=== PATIENT | female | born 1960 | race Caucasian/White ===

== ENCOUNTER 2022-04-17 20:50 | Emergency (ER) | payer MEDICARE ==
[2022-04-17 21:35] LABS: HCT 42.8 % (34.0-46.0); HGB 15.2 gm/dL (11.4-16.0); MCH 34.1 pg (25.0-35.0); MCHC 35.5 g/dL (31.0-37.0); MCV 95.9 fL (80.0-100.0); Mean Platelet Volume 7.3; Platelet Count 398 k/uL (150-450); RBC 4.47 m/uL (3.80-5.40); RDW 12.1 % (11.5-15.5); WBC 12.1 k/uL (3.8-10.6)
[2022-04-17 21:45] LABS: Albumin 5.3 g/dL (3.5-5.0); Calcium 10.2 mg/dL (8.4-10.2); Potassium 4.6 mmol/L (3.5-5.1); Total Bilirubin 0.5 mg/dL (0.2-1.3); Total Protein 8.6 g/dL (6.3-8.2)
[2022-04-17 23:18] LABS: Basophils # (M) 0.12 k/uL (0-0.2); Eosinophils # (M) 0.36 k/uL (0-0.7); Lymphocytes # (M) 2.78 k/uL (1.0-4.8); Monocytes # (M) 1.09 k/uL (0-1.0); Neutrophils # (M) 7.74 k/uL (1.3-7.7); Neutrophils % (M) 64 %; Nucleated Red Blood Cells 0 /100 WBC (0-0); Total Cells Counted 100
[2022-04-17] MEDS ORDERED: MORPHINE SULFATE 4 MG/ML SYRINGE IV STA (23:55)
[2022-04-17] MEDS ORDERED: SODIUM CHLORIDE 0.9% 500 ML 500 ML IV STA (23:55)
[2022-04-18] MEDS ORDERED: HYDROmorphone 0.5 MG/0.5 ML SYRINGE IVP STA ×2 (00:11→01:14)
[2022-04-18] MEDS ORDERED: ONDANSETRON 4 MG/2 ML VIAL IVP STA (00:27)
--- NOTE | 2022-04-18 00:27 | CT ---
EXAMINATION TYPE: CT abdomen pelvis wo con DATE OF EXAM: 04/18/2022 COMPARISON: None HISTORY: LLQ pain, h/o diverticulitis, CT DLP: 598.3 mGycm Automated exposure control for dose reduction was used. Images obtained from the diaphragm to the floor the pelvis with no contrast. Lung bases show mild interstitial infiltrate or atelectasis. No pleural effusion. Heart size is jalyn l. No pericardial effusion. Liver spleen and stomach pancreas appear intact. There are clips from cholecystectomy. The bile ducts are nondilated. Stomach has normal size and contour. There is no adrenal mass. Kidneys of normal size and contour. No hydronephrosis. Ureters are not dila lili. Bladder distends smoothly. No inguinal hernia. No free fluid in the pelvis. No pelvic mass. Ther e are numerous sigmoid diverticula. There is some mild fat stranding posterior to the mid sigmoid col on. Appendix not seen. There is no mesenteric lymphadenopathy. No ascites or free air. No sign of a bowel obstruction. The lumbar vertebrae are normal alignment. No compression fracture. Disc spaces are fairly normal. [place] pelvis is intact. The hip joints are intact. There is mild L3-4 lateral recess stenosis due to fac et arthropathy. IMPRESSION: There is moderate sigmoid diverticulosis. There is evidence of mild diverticulitis of the mid posteri or sigmoid colon. No drainable fluid collection.
--- NOTE | 2022-04-18 00:39 | ED ---
Abdominal Pain HPI - General Chief Complaint: Abdominal Pain Stated Complaint: Diverticulosis Time Seen by Provider: 04/17/22 21:04 Source: patient Mode of arrival: ambulatory Limitations: no limitations - History of Present Illness Initial Comments: This patient is a 61-year-old woman who presents with left lower quadrant abdominal pain that is been going on for couple of days. The patient had recently finished course of antibiotics for diverticulitis, which she had similar symptoms 4. Patient has also noticed a little bit of blood with her last bowel movement. She has had nausea but no vomiting. She has not noted fever or chills. MD Complaint: abdominal pain Onset/Timin -: days(s) Location: LLQ Radiation: none Severity: severe Quality: aching Consistency: constant Improves With: nothing Worsens With: nothing Associated Symptoms: nausea, hematochezia - Related Data Previous Rx's Medication Instructions Recorded Ciprofloxacin HCl [Cipro] 500 mg PO Q12HR #14 tablet 04/18/22 Ciprofloxacin HCl [Cipro] 500 mg PO Q8H #21 tablet 04/18/22 metroNIDAZOLE [Flagyl] 500 mg PO TID #21 tab 04/18/22 Allergies Allergy/AdvReac Type Severity Reaction Status Date / Time iodine Allergy Unknown Verified 04/17/22 20:57 Penicillins Allergy Unknown Verified 04/17/22 20:57 Sulfa (Sulfonamide Allergy Unknown Verified 04/17/22 20:57 Antibiotics) Review of Systems ROS Statement: Those systems with pertinent positive or pertinent negative responses have been documented in the HPI. ROS Other: All systems not noted in ROS Statement are negative. Constitutional: Denies: fever, chills, weakness Respiratory: Denies: cough, dyspnea Cardiovascular: Denies: chest pain, palpitations, edema Gastrointestinal: Reports: abdominal pain, nausea, hematochezia. Denies: vomiting, diarrhea, constipation, hematemesis, melena Genitourinary: Denies: dysuria, hematuria Musculoskeletal: Denies: back pain Skin: Denies: rash Neurological: Denies: headache, weakness, numbness Past Medical History Past Medical History: Hypertension Additional Past Medical History / Comment(s): diverticulitis History of Any Multi-Drug Resistant Organisms: None Reported Past Surgical History: Appendectomy, Bladder Surgery, Section, Cholecystectomy, Hysterectomy Past Psychological History: No Psychological Hx Reported Smoking Status: Current every day smoker Past Alcohol Use History: Abuse Past Drug Use History: Marijuana, Methamphetamine General Exam Limitations: no limitations General appearance: alert, in no apparent distress Head exam: Present: atraumatic, normocephalic Eye exam: Present: normal appearance Neck exam: Present: normal inspection Respiratory exam: Present: normal lung sounds bilaterally. Absent: respiratory distress, wheezes, rales, rhonchi, stridor Cardiovascular Exam: Present: regular rate, normal rhythm, normal heart sounds. Absent: systolic murmur, diastolic murmur, rubs, gallop GI/Abdominal exam: Present: soft, tenderness, normal bowel sounds. Absent: distended, guarding, rebound, rigid, mass, pulsatile mass, hernia Extremities exam: Present: normal inspection, normal capillary refill. Absent: pedal edema, calf tenderness Back exam: Present: normal inspection. Absent: CVA tenderness (R), CVA tenderness (L) Neurological exam: Present: alert Skin exam: Present: warm, dry, intact, normal color. Absent: rash Course Vital Signs 04/17/22 20:57 Temperature 98.1 F Pulse Rate 15 L Respiratory 16 Rate Blood Pressure 161/99 O2 Sat by Pulse 97 Oximetry Medical Decision Making - Lab Data Result diagrams: 04/17/22 21:19 04/17/22 21:19 Lab Results 04/17/22 04/17/22 Range/Units 21:19 21:19 WBC 12.1 H (3.8-10.6) k/uL RBC 4.47 (3.80-5.40) m/uL Hgb 15.2 (11.4-16.0) gm/dL Hct 42.8 (34.0-46.0) % MCV 95.9 (80.0-100.0) fL MCH 34.1 (25.0-35.0) pg MCHC 35.5 (31.0-37.0) g/dL RDW 12.1 (11.5-15.5) % Plt Count 398 (150-450) k/uL MPV 7.3 Neutrophils % (Manual) 64 % Lymphocytes % (Manual) 23 % Monocytes % (Manual) 9 % Eosinophils % (Manual) 3 % Basophils % (Manual) 1 % Neutrophils # (Manual) 7.74 H (1.3-7.7) k/uL Lymphocytes # (Manual) 2.78 (1.0-4.8) k/uL Monocytes # (Manual) 1.09 H (0-1.0) k/uL Eosinophils # (Manual) 0.36 (0-0.7) k/uL Basophils # (Manual) 0.12 (0-0.2) k/uL Nucleated RBCs 0 (0-0) /100 WBC Manual Slide Review Performed Sodium 138 (137-145) mmol/L Potassium 4.6 (3.5-5.1) mmol/L Chloride 100 (98-107) mmol/L Carbon Dioxide 28 (22-30) mmol/L Anion Gap 10 mmol/L BUN 27 H (7-17) mg/dL Creatinine 0.96 (0.52-1.04) mg/dL Est GFR (CKD-EPI)AfAm 74 (>60 ml/min/1.73 sqM) Est GFR (CKD-EPI)NonAf 64 (>60 ml/min/1.73 sqM) Glucose 112 H (74-99) mg/dL Calcium 10.2 (8.4-10.2) mg/dL Total Bilirubin 0.5 (0.2-1.3) mg/dL AST 26 (14-36) U/L ALT 25 (4-34) U/L Alkaline Phosphatase 93 (38-126) U/L Total Protein 8.6 H (6.3-8.2) g/dL Albumin 5.3 H (3.5-5.0) g/dL Amylase 86 (30-110) U/L Lipase 95 (23-300) U/L Disposition Clinical Impression: Diverticulitis Disposition: HOME SELF-CARE Condition: Fair Instructions (If sedation given, give patient instructions): Diverticulitis (ED) Prescriptions: Ciprofloxacin HCl [Cipro] 500 mg PO Q12HR #14 tablet Ciprofloxacin HCl [Cipro] 500 mg PO Q8H #21 tablet metroNIDAZOLE [Flagyl] 500 mg PO TID #21 tab Is patient prescribed a controlled substance at d/c from ED?: No Referrals: None,Stated [Primary Care Provider] - 1-2 days
[2022-04-18] MEDS ORDERED: LEVOFLOXACIN 750MG-D5W PMX 750 MG in DEXTROSE/WATER 1 150ML.BAG IVPB STA (01:00)
[2022-04-18] MEDS ORDERED: metroNIDAZOLE-NS PMX 500 MG in SALINE 1 100ML.BAG IVPB STA (01:00)
[2022-04-18] MEDS ORDERED: diphenhydrAMINE 50 MG/ML 1 ML VIAL IVP STA ×2 (02:37→03:02)
[2022-04-18] MEDS ORDERED: FAMOTIDINE 20 MG/2 ML VIAL IV STA (03:02)
[2022-04-18 04:49] VITALS: PULSE 91; RESP 18
[2022-04-18 04:51] VITALS: BP 112/74; TEMP 97.9
== END 2022-04-18 04:50 | disposition home or self-care (01) ==
LOC: EC 20:50
DX: K57.92 Diverticulitis of intestine, part unspecified, without perforation or abscess without bleeding (principal); I10 Essential (primary) hypertension; F17.200 Nicotine dependence, unspecified, uncomplicated; F12.90 Cannabis use, unspecified, uncomplicated; Z88.0 Allergy status to penicillin; Z88.2 Allergy status to sulfonamides; Z91.041 Radiographic dye allergy status; Z79.899 Other long term (current) drug therapy
CPT/HCPCS: 36415; 80053; 82150; 83690; 85025; 74176; 99284; 96365; 96366; 96367; 96375 ×4; 96376; J1200; J2405; J1956; J1170

== ENCOUNTER 2022-04-18 20:11 | Observation (INO) | payer MEDICARE ==
[2022-04-18] MEDS ORDERED: ONDANSETRON 4 MG/2 ML VIAL IVP STA (20:35)
[2022-04-18] MEDS ORDERED: HYDROmorphone 0.5 MG/0.5 ML SYRINGE IVP STA ×2 (20:35→22:40)
[2022-04-18] MEDS ORDERED: SODIUM CHLORIDE 0.9% 1,000 ML IV STA (20:35)
--- NOTE | 2022-04-18 20:39 | ED ---
General Adult HPI - General Chief complaint: Abdominal Pain Stated complaint: Diverticulosis Time Seen by Provider: 04/18/22 20:23 Source: patient, RN notes reviewed Mode of arrival: ambulatory Limitations: no limitations - History of Present Illness Initial comments: 61-year-old female with a past medical history of diverticulitis presents to the emergency Department with complaints of left lower quadrant abdominal pain that radiates to the back. Patient states she was diagnosed with diverticulitis early this morning while present in this emergency Department. States she was given fluids and pain medicine with some improvement. States she was discharged home with a prescription for oral antibiotics, but is feeling worse this evening. States pain is out of control. Complains of vomiting and dry heaving. States she has had several episodes of diarrhea today. Denies fever, chills, headache, dizziness, chest pain, shortness of breath, hematochezia, dysuria, or hematuria. - Related Data Previous Rx's Medication Instructions Recorded Ciprofloxacin HCl [Cipro] 500 mg PO Q12HR #14 tablet 04/18/22 Ciprofloxacin HCl [Cipro] 500 mg PO Q8H #21 tablet 04/18/22 metroNIDAZOLE [Flagyl] 500 mg PO TID #21 tab 04/18/22 Allergies Allergy/AdvReac Type Severity Reaction Status Date / Time iodine Allergy Unknown Verified 04/18/22 20:15 Penicillins Allergy Unknown Verified 04/18/22 20:15 Sulfa (Sulfonamide Allergy Unknown Verified 04/18/22 20:15 Antibiotics) Review of Systems ROS Statement: Those systems with pertinent positive or pertinent negative responses have been documented in the HPI. ROS Other: All systems not noted in ROS Statement are negative. Past Medical History Past Medical History: Hypertension Additional Past Medical History / Comment(s): diverticulitis History of Any Multi-Drug Resistant Organisms: None Reported Past Surgical History: Appendectomy, Bladder Surgery, Section, Cholecystectomy, Hysterectomy Past Psychological History: No Psychological Hx Reported Smoking Status: Current every day smoker Past Alcohol Use History: Abuse Past Drug Use History: Marijuana, Methamphetamine - Past Family History Mother Family Medical History: Hypertension General Exam Limitations: no limitations (Well-developed, well-nourished female in no acute distress.) General appearance: alert, in no apparent distress Eye exam: Present: normal appearance. Absent: scleral icterus, conjunctival i njection ENT exam: Present: mucous membranes moist Respiratory exam: Present: normal lung sounds bilaterally. Absent: respiratory distress, wheezes, rales, rhonchi, stridor Cardiovascular Exam: Present: normal rhythm, tachycardia, normal heart sounds GI/Abdominal exam: Present: soft, tenderness (Left lower quadrant), guarding (Left lower quadrant), normal bowel sounds. Absent: distended, rebound, rigid Back exam: Absent: CVA tenderness (R), CVA tenderness (L) Neurological exam: Present: alert, oriented X3, CN II-XII intact, normal gait Psychiatric exam: Present: normal affect, normal mood Skin exam: Present: warm, dry, intact, normal color. Absent: rash Course Vital Signs 04/18/22 04/18/22 04/18/22 20:13 21:30 23:58 Temperature 97.9 F Pulse Rate 105 H 79 Pulse Rate [ Left] Respiratory 20 Rate Blood Pressure 149/90 157/78 Blood Pressure [Left Arm] O2 Sat by Pulse 99 Oximetry 04/19/22 02:31 Temperature 98.1 F Pulse Rate Pulse Rate [ 82 Left] Respiratory 16 Rate Blood Pressure Blood Pressure 133/80 [Left Arm] O2 Sat by Pulse 97 Oximetry - Reevaluation(s) Reevaluation #1: 04/18/22 20:30 Medical record reviewed at length including CT from earlier today. 04/18/22 22:30 Upon reassessment, patient reports pain is ongoing. Discussed hospital admission for failed outpatient treatment and patient is agreeable with this plan of care. I spoke with Dr. Zayas who agrees to accept this admission. Medical Decision Making - Medical Decision Making 61-year-old female with a past medical history of diverticulitis presents to the emergency Department with complaints of ongoing persistent left lower quadrant abdominal pain despite recent treatment for diverticulitis. She is currently a patient at [facility] and recently relocated here from [place]. Upon exam, patient appears moderately uncomfortable but in no acute distress. Left lower quadrant is tender upon palpation. She is given IV fluids, Dilaudid and Zofran with improvement. Vital signs stable. Laboratory studies were obtained showing mild SHERI. Given that this patient has been treated with oral antibiotic and continues to have pain, she will be admitted to the hospital for failed outpat ient treatment. I spoke with Dr. Zayas who agrees to accept this admission. Attending: Julia. - Lab Data Result diagrams: 04/18/22 21:29 04/18/22 21:29 Lab Results 04/18/22 04/18/22 04/18/22 Range/Units 21:29 21:29 21:29 WBC 8.7 (3.8-10.6) k/uL RBC 4.42 (3.80-5.40) m/uL Hgb 14.6 (11.4-16.0) gm/dL Hct 42.5 (34.0-46.0) % MCV 96.3 (80.0-100.0) fL MCH 33.1 (25.0-35.0) pg MCHC 34.3 (31.0-37.0) g/dL RDW 12.5 (11.5-15.5) % Plt Count 351 (150-450) k/uL MPV 8.2 Neutrophils % (Manual) 58 % Lymphocytes % (Manual) 33 % Monocytes % (Manual) 2 % Eosinophils % (Manual) 7 % Neutrophils # (Manual) 5.05 (1.3-7.7) k/uL Lymphocytes # (Manual) 2.87 (1.0-4.8) k/uL Monocytes # (Manual) 0.17 (0-1.0) k/uL Eosinophils # (Manual) 0.61 (0-0.7) k/uL Nucleated RBCs 0 (0-0) /100 WBC Manual Slide Review Performed PT 9.8 (9.0-12.0) sec INR 0.9 (<1.2) APTT 25.9 (22.0-30.0) sec Sodium 138 (137-145) mmol/L Potassium 5.2 H (3.5-5.1) mmol/L Chloride 102 (98-107) mmol/L Carbon Dioxide 29 (22-30) mmol/L Anion Gap 7 mmol/L BUN 27 H (7-17) mg/dL Creatinine 1.09 H (0.52-1.04) mg/dL Est GFR (CKD-EPI)AfAm 64 (>60 ml/min/1.73 sqM) Est GFR (CKD-EPI)NonAf 55 (>60 ml/min/1.73 sqM) Glucose 109 H (74-99) mg/dL Plasma Lactic Acid Keith (0.7-2.0) mmol/L Calcium 9.9 (8.4-10.2) mg/dL Total Bilirubin 0.8 (0.2-1.3) mg/dL AST 31 (14-36) U/L ALT 22 (4-34) U/L Alkaline Phosphatase 75 (38-126) U/L Total Protein 7.5 (6.3-8.2) g/dL Albumin 4.5 (3.5-5.0) g/dL 04/18/ Range/Units 21:29 WBC (3.8-10.6) k/uL RBC (3.80-5.40) m/uL Hgb (11.4-16.0) gm/dL Hct (34.0-46.0) % MCV (80.0-100.0) fL MCH (25.0-35.0) pg MCHC (31.0-37.0) g/dL RDW (11.5-15.5) % Plt Count (150-450) k/uL MPV Neutrophils % (Manual) % Lymphocytes % (Manual) % Monocytes % (Manual) % Eosinophils % (Manual) % Neutrophils # (Manual) (1.3-7.7) k/uL Lymphocytes # (Manual) (1.0-4.8) k/uL Monocytes # (Manual) (0-1.0) k/uL Eosinophils # (Manual) (0-0.7) k/uL Nucleated RBCs (0-0) /100 WBC Manual Slide Review PT (9.0-12.0) sec INR (<1.2) APTT (22.0-30.0) sec Sodium (137-145) mmol/L Potassium (3.5-5.1) mmol/L Chloride (98-107) mmol/L Carbon Dioxide (22-30) mmol/L Anion Gap mmol/L BUN (7-17) mg/dL Creatinine (0.52-1.04) mg/dL Est GFR (CKD-EPI)AfAm (>60 ml/min/1.73 sqM) Est GFR (CKD-EPI)NonAf (>60 ml/min/1.73 sqM) Glucose (74-99) mg/dL Plasma Lactic Acid Keith 0.9 (0.7-2.0) mmol/L Calcium (8.4-10.2) mg/dL Total Bilirubin (0.2-1.3) mg/dL AST (14-36) U/L ALT (4-34) U/L Alkaline Phosphatase (38-126) U/L Total Protein (6.3-8.2) g/dL Albumin (3.5-5.0) g/dL Disposition Clinical Impression: Diverticulitis, Failure of outpatient treatment, Acute kidney injury [facility] Condition: Serious Decision Date: 04/18/22 Decision Time: 22:56
[2022-04-18 21:52] LABS: Albumin 4.5 g/dL (3.5-5.0); Calcium 9.9 mg/dL (8.4-10.2); Total Bilirubin 0.8 mg/dL (0.2-1.3); Total Protein 7.5 g/dL (6.3-8.2)
[2022-04-18 21:59] LABS: Potassium 5.2 mmol/L (3.5-5.1)
[2022-04-18 22:03] LABS: INR 0.9 (<1.2); Partial Thromboplastin Time 25.9 sec (22.0-30.0); Prothrombin Time 9.8 sec (9.0-12.0)
[2022-04-18 22:04] LABS: HCT 42.5 % (34.0-46.0); HGB 14.6 gm/dL (11.4-16.0); MCH 33.1 pg (25.0-35.0); MCHC 34.3 g/dL (31.0-37.0); MCV 96.3 fL (80.0-100.0); Mean Platelet Volume 8.2; Platelet Count 351 k/uL (150-450); RBC 4.42 m/uL (3.80-5.40); RDW 12.5 % (11.5-15.5); WBC 8.7 k/uL (3.8-10.6)
[2022-04-18 22:33] LABS: Eosinophils # (M) 0.61 k/uL (0-0.7); Lymphocytes # (M) 2.87 k/uL (1.0-4.8); Monocytes # (M) 0.17 k/uL (0-1.0); Neutrophils # (M) 5.05 k/uL (1.3-7.7); Neutrophils % (M) 58 %; Nucleated Red Blood Cells 0 /100 WBC (0-0); Total Cells Counted 100
[2022-04-18 22:53] LABS: Amorphous Sediment,Urine Rare /hpf; Appearance,Urine Clear (Clear); Bacteria,Urine Rare /hpf; Bilirubin,Urine Negative (Negative); Blood,Urine Trace (Negative); Color,Urine Yellow; Glucose,Urine (UA) Negative (Negative); Ketones,Urine Negative (Negative); Leukocyte Esterase,Urine Trace (Negative); Mucus,Urine Rare /hpf; Nitrite,Urine Negative (Negative); PH, Urine 6.5 (5.0-8.0); Protein,Urine Negative (Negative); RBC,Urine 7 /hpf (0-5); Specific Gravity,Urine 1.021 (1.001-1.035); Squamous Epithelial Cell,Urine <1 /hpf (0-4); Urobilinogen,Urine <2.0 mg/dL (<2.0); WBC,Urine 1 /hpf (0-5)
[2022-04-18] MEDS ORDERED: NALOXONE 0.4 MG/ML 1 ML VIAL IV PRN (22:54)
[2022-04-18] MEDS: SODIUM CHLORIDE 0.9% 1,000 ML IV SCH (23:22)
[2022-04-18] MEDS ORDERED: diphenhydrAMINE 50 MG/ML 1 ML VIAL IVP STA (23:46)
--- NOTE | 2022-04-19 00:33 | P.HPIM ---
History of Present Illness H&P Date: 04/18/22 The patient is a 61-year-old female with a PMH of polysubstance abuse and alcohol abuse, currently staying at [facility] who presented to the emergency room with complaints of abdominal pain. The patient reports that she recently moved from [place] earlier this month, and had been admitted to the hospital multiple times in February for episodes of diverticulitis. She states that sh ortly after arrival at [facility] 3-4 days ago, that she developed left lower quadrant abdominal discomfort, 7 out of 10 on maximal intensity, constant, worsened with food, with no alleviating features. The patient was seen in the emergency room on 04/[address] abdomen and pelvis had revealed mild diverticulitis for which the patient was given a prescription of oral antibiotics and was discharged. The patient states however that despite using her antibiotics, though she continues to have left lower quadrant pain. Laboratory evaluation was remarkable for BUN 27 and creatinine 1.09. Of note, the patient states that she has been sober from alcohol and any illicit substances for over 30 days now. Review of systems: Pertinent positives and negatives as discussed in HPI, a complete review of systems was performed and all other systems are negative. Physical examination: General: non toxic, no distress, appears older than stated age, normal weight Derm: no unusual rashes/lesions, warm Head: atraumatic, normocephalic, symmetric Eyes: EOMI, no lid lag, anicteric sclera, pupils equal round reactive to light ENT: Nose and ears atraumatic Neck: No cervical lymphadenopathy, trachea midline, supple Mouth: no lip lesion, mucus membranes moist Cardiovascular: S1S2 reg, no murmur, positive dorsalis pedis pulse bilateral, no edema Lungs: CTA bilateral, no rhonchi, no rales, no accessory muscle use Abdominal: soft, diffuse mild tenderness most renounced of the left lower q uadrant, minimal guarding Ext: muscle strength 5 out of 5 in all 4 extremities grossly, no gross muscle atrophy, no contractures, Neuro: CN II-XI grossly intact, no gross focal neuro deficits Psych: Alert, oriented, appropriate affect Assessment/plan Uncomplicated diverticulitis -IV Levaquin and Flagyl -IV fluids -Clear liquid diet -Pain control -Antiemetics DVT prophylaxis -Heparin subcu The patient is admitted with an anticipated less than 2 midnight stay for evaluation of diverticulitis CODE STATUS: Full Code Discussed with: Patient Anticipated discharge date: in am Anticipated discharge place: Home Past Medical History Past Medical History: Hypertension Additional Past Medical History / Comment(s): diverticulitis History of Any Multi-Drug Resistant Organisms: None Reported Past Surgical History: Appendectomy, Bladder Surgery, Section, Cholecystectomy, Hysterectomy Past Psychological History: No Psychological Hx Reported Smoking Status: Current every day smoker Past Alcohol Use History: Abuse Past Drug Use History: Marijuana, Methamphetamine - Past Family History Mother Family Medical History: Hypertension Medications and Allergies Home Medications Medication Instructions Recorded Confirmed Type Ciprofloxacin HCl [Cipro] 500 mg PO Q12HR #14 tablet 04/18/22 Rx Ciprofloxacin HCl [Cipro] 500 mg PO Q8H #21 tablet 04/18/22 Rx metroNIDAZOLE [Flagyl] 500 mg PO TID #21 tab 04/18/22 Rx Allergies Allergy/AdvReac Type Severity Reaction Status Date / Time iodine Allergy Unknown Verified 04/18/22 20:15 Penicillins Allergy Unknown Verified 04/18/22 20:15 Sulfa (Sulfonamide Allergy Unknown Verified 04/18/22 20:15 Antibiotics) Physical Exam Vitals: Vital Signs Temp Pulse Resp BP Pulse Ox 04/18/22 21:30 157/78 04/18/22 20:13 97.9 F 105 H 20 149/90 99 Intake and Output 04/18/22 04/18/22 04/19/22 14:59 22:59 06:59 Other: Weight 72.575 kg Results CBC & Chem 7: 04/18/22 21:29 04/18/22 21:29 Labs: Abnormal Lab Results - Last 24 Hours (Table) 04/18/22 04/18/22 Range/Units 21:29 22:34 Potassium 5.2 H (3.5-5.1) mmol/L BUN 27 H (7-17) mg/dL Creatinine 1.09 H (0.52-1.04) mg/dL Glucose 109 H (74-99) mg/dL Urine Blood Trace H (Negative) Ur Leukocyte Esterase Trace H (Negative) Urine RBC 7 H (0-5) /hpf Amorphous Sediment Rare H (None) /hpf Urine Bacteria Rare H (None) /hpf Urine Mucus Rare H (None) /hpf
[2022-04-19] MEDS: LEVOFLOXACIN 750MG-D5W PMX 750 MG in DEXTROSE/WATER 1 150ML.BAG IVPB SCH (00:54)
[2022-04-19] MEDS: ONDANSETRON 4 MG/2 ML VIAL IVP PRN ×3 (02:48→20:29)
[2022-04-19] MEDS: HYDROmorphone 0.5 MG/0.5 ML SYRINGE IVP PRN ×3 (02:49→17:30)
[2022-04-19] MEDS ORDERED: diphenhydrAMINE 25 MG CAP PO STA (03:27)
[2022-04-19] MEDS ORDERED: QUEtiapine 100 MG TAB PO ONE (03:45)
[2022-04-19] MEDS: SODIUM CHLORIDE 0.9% 1,000 ML IV SCH ×2 (04:59→17:03)
[2022-04-19] MEDS: metroNIDAZOLE-NS PMX 500 MG in SALINE 1 100ML.BAG IVPB SCH ×3 (05:15→17:36)
[2022-04-19 07:20] LABS: HCT 41.1 % (34.0-46.0); MCHC 34.1 g/dL (31.0-37.0); MCV 96.9 fL (80.0-100.0); Mean Platelet Volume 7.3; Platelet Count 341 k/uL (150-450); RBC 4.24 m/uL (3.80-5.40); RDW 12.1 % (11.5-15.5); WBC 6.5 k/uL (3.8-10.6)
[2022-04-19 08:06] LABS: Albumin 4.3 g/dL (3.5-5.0); Calcium 9.5 mg/dL (8.4-10.2); Potassium 4.4 mmol/L (3.5-5.1)
[2022-04-19] MEDS: PANTOPRAZOLE 40 MG/10 ML VIAL IV SCH (09:02)
[2022-04-19] MEDS: HEPARIN SODIUM,PORCINE/PF 5,000 UNIT/0.5 ML SYRINGE SQ SCH ×2 (09:02→17:36)
[2022-04-19 10:52] LABS: Eosinophils # (M) 0.91 k/uL (0-0.7); Lymphocytes # (M) 2.21 k/uL (1.0-4.8); Monocytes # (M) 0.52 k/uL (0-1.0); Neutrophils # (M) 2.86 k/uL (1.3-7.7); Neutrophils % (M) 44 %; Nucleated Red Blood Cells 0 /100 WBC (0-0); Total Cells Counted 100
[2022-04-19 10:53] LABS: RBC Morphology Normal
--- NOTE | 2022-04-19 12:57 | P.PN ---
Subjective Progress Note Date: 04/19/22 Principal diagnosis: abdominal pain Hospital Course: 61-year-old female with a PMH of polysubstance abuse and alcohol abuse, currently staying at [facility] who presented to the emergency room with complaints of abdominal pain. She has failed outpatient therapy for diverticulitis. Currently complaining of worsening abdominal pain. Patient admitted for acute uncomplicated diverticulitis, started on IV antibiotics. Patient claims that she has been sober from alcohol or any illicit substances for the last [address] done on 04/17 showed mild diverticulitis. Subjective: Patient seen and examined at bedside. No acute events overnight. She denies any chest pain, shortness of breath, nausea, vomiting, diarrhea, constipation. She still has abdominal tenderness mostly in the left lower quadrant. Pertinent positives and negatives as discussed above, a complete review of systems was performed and all other systems are negative. Vitals Signs Reviewed. General: nontoxic, no distress, appears at stated age Derm: warm, dry Head: atraumatic, normocephalic, symmetric Eyes: EOMI, no lid lag, anicteric sclera Mouth: no lip lesion, mucus membranes moist Cardiovascular: S1S2 reg, no murmur Lungs: CTA bilateral, no rhonchi, no rales , no accessory muscle use Abdominal: soft, left lower quadrant abdominal tenderness, no guarding, no kang reciable organomegaly Ext: no gross muscle atrophy, no edema, no contractures Neuro: CN II-XI grossly intact, no focal neuro deficits Psych: Alert, oriented, appropriate affect Assessment and Plan: Uncomplicated diverticulitis - IV fluids and IV antibiotics -Clear liquids, advance as tolerated -Pain control, antiemetics History of polysubstance and alcohol use -Claims to be sober for the last 30 days -Thiamine and multivitamin Psychiatric history -Unsure if patient is taking her medications DVT ppx: Subcu heparin Code status: Full code Anticipated discharge place: [facility] Anticipated discharge time: 1 to 2 days Objective - Vital Signs Vital signs: Vital Signs Temp 98.0 F 04/19/22 07:00 Pulse 87 04/19/22 07:00 Resp 16 04/19/22 07:00 BP 132/81 04/19/22 07:00 Pulse Ox 96 04/19/22 07:00 FiO2 Intake & Output 04/18/22 04/19/22 04/19/22 18:59 06:59 18:59 Weight 72.575 kg Other: # Voids 2 - Labs CBC & Chem 7: 04/19/22 07:02 04/19/22 06:51 Labs: Abnormal Lab Results - Last 24 Hours (Table) 04/18/22 04/18/22 04/19/22 Range/Units 21:29 22:34 06:51 Eosinophils # (Manual) (0-0.7) k/uL Potassium 5.2 H (3.5-5.1) mmol/L BUN 27 H 19 H (7-17) mg/dL Creatinine 1.09 H (0.52-1.04) mg/dL Glucose 109 H 101 H (74-99) mg/dL Urine Blood Trace H (Negative) Ur Leukocyte Esterase Trace H (Negative) Urine RBC 7 H (0-5) /hpf Amorphous Sediment Rare H (None) /hpf Urine Bacteria Rare H (None) /hpf Urine Mucus Rare H (None) /hpf 04/19/22 Range/Units 07:02 Eosinophils # (Manual) 0.91 H (0-0.7) k/uL Potassium (3.5-5.1) mmol/L BUN (7-17) mg/dL Creatinine (0.52-1.04) mg/dL Glucose (74-99) mg/dL Urine Blood (Negative) Ur Leukocyte Esterase (Negative) Urine RBC (0-5) /hpf Amorphous Sediment (None) /hpf Urine Bacteria (None) /hpf Urine Mucus (None) /hpf
[2022-04-19] MEDS ORDERED: METOCLOPRAMIDE 5 MG/ML 2 ML VIAL IVP PRN (17:23)
[2022-04-19] MEDS ORDERED: SIMETHICONE 80 MG CHEWABLE PO PRN (17:23)
[2022-04-19] MEDS: NICOTINE 14MG/24HR PATCH TRANSDERM SCH (17:59)
[2022-04-19] MEDS ORDERED: QUEtiapine 100 MG TAB PO STA (20:01)
[2022-04-19] MEDS ORDERED: traZODone HCL 50 MG TAB PO SCH (21:00)
[2022-04-20] MEDS: LEVOFLOXACIN 750MG-D5W PMX 750 MG in DEXTROSE/WATER 1 150ML.BAG IVPB SCH (00:21)
[2022-04-20] MEDS: HEPARIN SODIUM,PORCINE/PF 5,000 UNIT/0.5 ML SYRINGE SQ SCH ×2 (00:21→09:11)
[2022-04-20] MEDS: SODIUM CHLORIDE 0.9% 1,000 ML IV SCH ×2 (00:21→06:07)
[2022-04-20] MEDS: metroNIDAZOLE-NS PMX 500 MG in SALINE 1 100ML.BAG IVPB SCH ×2 (02:20→09:11)
[2022-04-20] MEDS: HYDROmorphone 0.5 MG/0.5 ML SYRINGE IVP PRN ×2 (02:29→09:22)
[2022-04-20] MEDS: ONDANSETRON 4 MG/2 ML VIAL IVP PRN (04:55)
[2022-04-20 07:35] VITALS: BP 122/76; PULSE 90; RESP 18; TEMP 97.6
[2022-04-20] MEDS ORDERED: QUEtiapine 50 MG TAB PO SCH (09:00)
[2022-04-20] MEDS ORDERED: THIAMINE 100 MG TAB PO SCH (09:00)
[2022-04-20] MEDS ORDERED: MULTIVITAMINS, THERA 1 EACH TAB PO SCH (09:00)
[2022-04-20] MEDS: NICOTINE 14MG/24HR PATCH TRANSDERM SCH (09:11)
[2022-04-20] MEDS: PANTOPRAZOLE 40 MG/10 ML VIAL IV SCH (09:11)
--- NOTE | 2022-04-20 12:06 | P.DS ---
Providers Date of admission: 04/18/22 21:39 Expected date of discharge: 04/20/22 Attending physician: Dorothy Zayas MD Primary care physician: Stated None Hospital Course: Discharge Diagnosis: Uncomplicated diverticulitis, failed outpatient therapy Nausea, vomiting History of polysubstance abuse and alcohol use PTSD and insomnia Hospital Course: 61-year-old female with a PMH of polysubstance abuse and alcohol abuse presented to the emergency room with complaints of abdominal pain. She has failed outpatient therapy for diverticulitis which has been going on for almost 1 month, complaining of worsening abdominal pain. Patient admitted for acute uncomplicated diverticulitis, started on IV antibiotics. Patient claims that she has been sober from alcohol or any illicit substances for the last [address] done on 04/17 showed mild sigmoid diverticulitis. Patient unable to tolerate oral intake at discharge. Claims that her abdominal pain is getting better. Patient to be discharged on oral antibiotics for 10 days. However, she needs a follow-up with surgery for further workup. She claims that she had a colonoscopy 2 years ago, was noted to have some polyps. She may need a repeat colonoscopy to determine the cause of recurrent diverticulitis. Patient seen and examined at bedside. Vital signs reviewed and stable. General: nontoxic, no distress, appears at stated age Derm: warm, dry Head: atraumatic, normocephalic, symmetric Eyes: EOMI, no lid lag, anicteric sclera Mouth: no lip lesion, mucus membranes moist Cardiovascular: S1S2 reg, no murmur Lungs: CTA bilateral, no rhonchi, no rales , no accessory muscle use Abdominal: soft, nontender to palpation, no guarding, no appreciable organomegaly Ext: no gross muscle atrophy, no edema, no contractures Neuro: CN II-XI grossly intact, no focal neuro deficits Psych: Alert, oriented, appropriate affect A total of 38 minutes of time were spent preparing this complex discharge summary. Patient was discharged on 04/20/22 at 10:23. Patient Condition at Discharge: Stable Plan - Discharge Summary New Discharge Prescriptions: New levoFLOXacin 500 mg PO DAILY #10 tab Ondansetron [Zofran] 4 mg PO Q8HR PRN #7 tab PRN Reason: Nausea And Vomiting Continue traZODone HCL 150 mg PO HS Calcium/Magnesium/Zinc/Yoanna D 1 tab PO TID PRN PRN Reason: SUPPLEMENT metroNIDAZOLE [Flagyl] 500 mg PO TID #30 tab Thiamine [Vitamin B-1] 100 mg PO DAILY QUEtiapine [SEROquel] 50 mg PO DAILY Mag Hydrox/Aluminum Hyd/Simeth [Mylanta Maximum Strength Liq] 30 ml PO Q4H PRN PRN Reason: Gi Upset Acetaminophen [Tylenol 8 Hour] 650 mg PO Q4H PRN PRN Reason: Fever And/ Or Pain Multivitamins, Thera [Multivitamin (formulary)] 1 tab PO DAILY busPIRone HCl [Buspar] 10 mg PO TID amLODIPine [Norvasc] 5 mg PO DAILY Discontinued Ciprofloxacin HCl [Cipro] 500 mg PO Q8H #21 tablet Loperamide HCl [Imodium A-D] 4 mg PO QID PRN PRN Reason: Loose Stool Ibuprofen [Motrin Ib] 600 mg PO Q6H PRN PRN Reason: Fever And/ Or Pain guaiFENesin [guaiFENesin Oral Solution] 200 mg PO Q4H PRN PRN Reason: Cough Discharge Medication List Acetaminophen [Tylenol 8 Hour] 650 mg PO Q4H PRN 04/19/22 [History] Calcium/Magnesium/Zinc/Yoanna D 1 tab PO TID PRN 04/19/22 [History] Mag Hydrox/Aluminum Hyd/Simeth [Mylanta Maximum Strength Liq] 30 ml PO Q4H PRN 04/19/22 [History] Multivitamins, Thera [Multivitamin (formulary)] 1 tab PO DAILY 04/19/22 [History] QUEtiapine [SEROquel] 50 mg PO DAILY 04/19/22 [History] Thiamine [Vitamin B-1] 100 mg PO DAILY 04/19/22 [History] amLODIPine [Norvasc] 5 mg PO DAILY 04/19/22 [History] busPIRone HCl [Buspar] 10 mg PO TID 04/19/22 [History] traZODone HCL 150 mg PO HS 04/19/22 [History] Ondansetron [Zofran] 4 mg PO Q8HR PRN #7 tab 04/20/22 [Rx] levoFLOXacin 500 mg PO DAILY #10 tab 04/20/22 [Rx] metroNIDAZOLE [Flagyl] 500 mg PO TID #30 tab 04/20/22 [Rx] Follow up Appointment(s)/Referral(s): Prince Mott MD [Medical Doctor] - 1 Week None,Stated [Primary Care Provider] - 1-2 days Patient Instructions/Handouts: Diverticulitis (DC) Activity/Diet/Wound Care/Special Instructions: Please see a PCP within the next week. See Gen. surgery for further management of diverticulitis. You may need a repeat colonoscopy in the future. Discharge Disposition: HOME SELF-CARE
== END 2022-04-20 12:55 | disposition home or self-care (01) ==
LOC: EC 20:11 → 6NMEDSUR 21:39
PROVIDERS: ADMIT Internal Medicine; ATTEND Internal Medicine
DX: K57.32 Diverticulitis of large intestine without perforation or abscess without bleeding (principal); N17.9 Acute kidney failure, unspecified; F19.10 Other psychoactive substance abuse, uncomplicated; F10.10 Alcohol abuse, uncomplicated; F43.10 Post-traumatic stress disorder, unspecified; G47.00 Insomnia, unspecified; I10 Essential (primary) hypertension; Z90.49 Acquired absence of other specified parts of digestive tract; Z98.891 History of uterine scar from previous surgery; Z98.890 Other specified postprocedural states; Z90.711 Acquired absence of uterus with remaining cervical stump; F17.200 Nicotine dependence, unspecified, uncomplicated; Z82.49 Family history of ischemic heart disease and other diseases of the circulatory system; Z88.0 Allergy status to penicillin; Z88.2 Allergy status to sulfonamides; Z91.048 Other nonmedicinal substance allergy status; Z79.899 Other long term (current) drug therapy
CPT/HCPCS: 96376 ×2; 96361 ×2; 96366 ×3; 96367; 96372 ×2; 96375 ×3; 96365; 99284; 36415; 80053 ×2; 83605; 85025 ×2; 85610; 85730; 81001; G0378 ×3; S4990 ×2; J1200; J2765; J2405 ×3; J1956 ×2; C9113 ×2; J1170 ×3; J1644 ×2

== ENCOUNTER 2022-04-28 19:46 | Emergency (ER) | payer MEDICARE ==
[2022-04-28] MEDS ORDERED: ONDANSETRON 4 MG/2 ML VIAL IVP STA (20:44)
[2022-04-28] MEDS ORDERED: SODIUM CHLORIDE 0.9% 1,000 ML IV STA (20:44)
[2022-04-28] MEDS ORDERED: HYDROmorphone 0.5 MG/0.5 ML SYRINGE IVP STA ×2 (20:44→23:03)
[2022-04-28] MEDS ORDERED: methylPREDNISolone SOD SUCCI 125 MG/2 ML VIAL IV STA (20:49)
[2022-04-28] MEDS ORDERED: diphenhydrAMINE 50 MG/ML 1 ML VIAL IVP STA ×2 (20:49→23:03)
[2022-04-28] MEDS ORDERED: FAMOTIDINE 20 MG/2 ML VIAL IV STA (20:49)
[2022-04-28 21:26] LABS: HCT 39.6 % (34.0-46.0); MCH 34.3 pg (25.0-35.0); MCHC 35.4 g/dL (31.0-37.0); MCV 96.8 fL (80.0-100.0); Mean Platelet Volume 7.6; Platelet Count 351 k/uL (150-450); RBC 4.09 m/uL (3.80-5.40); RDW 12.4 % (11.5-15.5); WBC 10.7 k/uL (3.8-10.6)
[2022-04-28 21:42] LABS: Appearance,Urine Cloudy (Clear); Bacteria,Urine Rare /hpf; Bilirubin,Urine Negative (Negative); Blood,Urine Small (Negative); Color,Urine Yellow; Glucose,Urine (UA) Negative (Negative); Ketones,Urine Negative (Negative); Leukocyte Esterase,Urine Large (Negative); Mucus,Urine Rare /hpf; Nitrite,Urine Negative (Negative); Protein,Urine Negative (Negative); RBC,Urine 15 /hpf (0-5); Specific Gravity,Urine 1.021 (1.001-1.035); Squamous Epithelial Cell,Urine 11 /hpf (0-4); Urobilinogen,Urine <2.0 mg/dL (<2.0); WBC,Urine 37 /hpf (0-5)
[2022-04-28 21:44] LABS: Albumin 4.1 g/dL (3.5-5.0); Calcium 9.7 mg/dL (8.4-10.2); Potassium 3.9 mmol/L (3.5-5.1); Total Bilirubin 0.4 mg/dL (0.2-1.3)
[2022-04-28 21:56] VITALS: TEMP 97.2
[2022-04-28 21:57] LABS: Eosinophils # (M) 0.64 k/uL (0-0.7); Lymphocytes # (M) 2.89 k/uL (1.0-4.8); Monocytes # (M) 0.43 k/uL (0-1.0); Neutrophils # (M) 6.74 k/uL (1.3-7.7); Neutrophils % (M) 63 %; Nucleated Red Blood Cells 0 /100 WBC (0-0); Total Cells Counted 100
--- NOTE | 2022-04-28 22:48 | CT ---
EXAMINATION TYPE: CT abdomen pelvis w con DATE OF EXAM: 04/28/2022 COMPARISON: 04/17/2022 HISTORY: LLQ abodminal pain. CT DLP: 956.1 mGycm Automated exposure control for dose reduction was used. CONTRAST: Performed with IV Contrast, patient injected with 100ml mL of Isovue 370. The lung bases are clear consolidation. No pleural effusion. Heart size is normal. No pericardial eff usion. Liver spleen and stomach pancreas appear intact. There are clips from cholecystectomy. The ligia e ducts are not dilated. There is no adrenal mass. Kidneys show satisfactory contrast opacification. No hydronephrosis. Delaye d images show normal renal excretion. There is no retroperitoneal adenopathy. The ureters are not dil ated. The bladder distends smoothly. No inguinal hernia. There is fat stranding and fluid involving the mid sigmoid colon. There are multiple sigmoid divertic jeannine. There is small amount of fluid in the left paracolic gutter in the pelvis. No ascites or free air. No sign of a bowel obstruction. The lumbar spine is intact. No compression fr acture. Bony pelvis is intact. IMPRESSION: There is sigmoid diverticulitis with fluid and fat stranding which overall appears not significantly different than last exam. No bowel obstruction. No drainable fluid collection.
[2022-04-28] MEDS ORDERED: LEVOFLOXACIN 750 MG TAB PO STA (22:54)
--- NOTE | 2022-04-28 23:04 | ED ---
Abdominal Pain HPI - General Chief Complaint: Abdominal Pain Stated Complaint: diverticulitis Time Seen by Provider: 04/28/22 20:36 Source: patient Mode of arrival: ambulatory Limitations: no limitations - History of Present Illness Initial Comments: Patient is 61-year-old female who presents to the emergency department with a chief complaint of abdominal pain. Patient feels that she is having a diverticulitis flareup. Patient was hospitalized on 04/20 for diverticulitis. Patient states since discharge she has not had resolution of her symptoms. She reports worsening of left lower abdominal pain over the past week. Reports nausea, vomiting, and diarrhea. Denies blood in stool. Denies fever and chills. Patient states she has surgery for partial colon removal on 05/10/[address] oMtt. Patient currently on Levaquin and Flagyl daily which she states she has been taking for several months. - Related Data Home Medications Medication Instructions Recorded Confirmed Acetaminophen [Tylenol 8 Hour] 650 mg PO Q4H PRN 04/19/22 04/19/22 Calcium/Magnesium/Zinc/Yoanna D 1 tab PO TID PRN 04/19/22 04/19/22 Mag Hydrox/Aluminum Hyd/Simeth 30 ml PO Q4H PRN 04/19/22 04/19/22 [Mylanta Maximum Strength Liq] Multivitamins, Thera [Multivitamin 1 tab PO DAILY 04/19/22 04/19/22 (formulary)] QUEtiapine [SEROquel] 50 mg PO DAILY 04/19/22 04/19/22 Thiamine [Vitamin B-1] 100 mg PO DAILY 04/19/22 04/19/22 amLODIPine [Norvasc] 5 mg PO DAILY 04/19/22 04/19/22 busPIRone HCl [Buspar] 10 mg PO TID 04/19/22 04/19/22 traZODone HCL 150 mg PO HS 04/19/22 04/19/22 Previous Rx's Medication Instructions Recorded Levofloxacin [Levaquin] 750 mg PO DAILY 1 Days #10 tab 04/20/22 Ondansetron [Zofran] 4 mg PO Q8HR PRN #7 tab 04/20/22 metroNIDAZOLE [Flagyl] 500 mg PO TID #30 tab 04/20/22 HYDROcodone/APAP 7.5-325MG [Julian 1 tab PO Q4HR PRN 3 Days #18 tab 04/28/22 7.5-325] Ibuprofen [Motrin] 600 mg PO Q6HR PRN #20 tab 04/28/22 Ondansetron Odt [Zofran Odt] 4 mg PO Q8HR PRN #12 tab 04/28/22 Allergies Allergy/AdvReac Type Severity Reaction Status Date / Time iodine Allergy Unknown Verified 04/28/22 20:26 Penicillins Allergy Unknown Verified 04/28/22 20:26 Sulfa (Sulfonamide Allergy Unknown Verified 04/28/22 20:26 Antibiotics) Review of Systems ROS Statement: Those systems with pertinent positive or pertinent negative responses have been documented in the HPI. ROS Other: All systems not noted in ROS Statement are negative. Past Medical History Past Medical History: Hypertension Additional Past Medical History / Comment(s): diverticulitis History of Any Multi-Drug Resistant Organisms: None Reported Past Surgical History: Appendectomy, Bladder Surgery, Section, Cholecystectomy, Hysterectomy Past Anesthesia/Blood Transfusion Reactions: No Reported Reaction Past Psychological History: No Psychological Hx Reported Smoking Status: Current every day smoker Past Alcohol Use History: Abuse Past Drug Use History: Marijuana, Methamphetamine - Past Family History Mother Family Medical History: Hypertension General Exam Limitations: no limitations General appearance: alert, in no apparent distress Head exam: Present: atraumatic, normocephalic, normal inspection Eye exam: Present: normal appearance, PERRL, EOMI. Absent: scleral icterus, conjunctival injection, periorbital swelling Respiratory exam: Present: normal lung sounds bilaterally. Absent: respiratory distress, wheezes, rales, rhonchi, stridor Cardiovascular Exam: Present: regular rate, normal rhythm, normal heart sounds. Absent: systolic murmur, diastolic murmur, rubs, gallop, clicks GI/Abdominal exam: Present: soft, tenderness (LLQ), normal bowel sounds. Absent: distended, guarding, rebound, rigid Neurological exam: Present: alert, oriented X3, CN II-XII intact Psychiatric exam: Present: normal affect, normal mood Skin exam: Present: warm, dry, intact, normal color. Absent: rash Course Vital Signs 04/28/22 04/28/22 04/28/22 20:24 21:55 23:14 Temperature 98.6 F 97.2 F L Pulse Rate 79 76 70 Respiratory 18 16 15 Rate Blood Pressure 152/91 156/97 148/72 O2 Sat by Pulse 98 97 98 Oximetry Medical Decision Making - Medical Decision Making This is a 61-year-old female presenting for evaluation of diverticulitis flareup. Patient well-appearing and in no apparent distress. Afebrile. Laboratory studies obtained. There is very minimal leukocytosis at 10.7. Other laboratory studies were relatively unremarkable. CT of the abdomen and pelvis with contrast was obtained and interpreted by me and shows sigmoid diverticulitis with fluid and fat stranding which overall appears not significantly different than last exam. There is no bowel shots and or drainable fluid collection. Pain and nausea control. Results discussed with patient. I did offer patient admission for pain control however she recommended symptoms at home. This is reasonable as patient looks well, no fever, no leukocytosis, no abscess. She will follow-up with Dr. Mott as planned and continue her home antibiotics. Dr. Navarrete is my attending. - Lab Data Result diagrams: 04/28/22 21:15 04/28/22 21:15 Lab Results 04/28/22 04/28/22 04/28/22 Range/Units 21:15 21:15 21:15 WBC 10.7 H (3.8-10.6) k/uL RBC 4.09 (3.80-5.40) m/uL Hgb 14.0 (11.4-16.0) gm/dL Hct 39.6 (34.0-46.0) % MCV 96.8 (80.0-100.0) fL MCH 34.3 (25.0-35.0) pg MCHC 35.4 (31.0-37.0) g/dL RDW 12.4 (11.5-15.5) % Plt Count 351 (150-450) k/uL MPV 7.6 Neutrophils % (Manual) 63 % Lymphocytes % (Manual) 27 % Monocytes % (Manual) 4 % Eosinophils % (Manual) 6 % Neutrophils # (Manual) 6.74 (1.3-7.7) k/uL Lymphocytes # (Manual) 2.89 (1.0-4.8) k/uL Monocytes # (Manual) 0.43 (0-1.0) k/uL Eosinophils # (Manual) 0.64 (0-0.7) k/uL Nucleated RBCs 0 (0-0) /100 WBC Manual Slide Review Performed Sodium 141 (137-145) mmol/L Potassium 3.9 (3.5-5.1) mmol/L Chloride 107 (98-107) mmol/L Carbon Dioxide 26 (22-30) mmol/L Anion Gap 8 mmol/L BUN 19 H (7-17) mg/dL Creatinine 0.99 (0.52-1.04) mg/dL Est GFR (CKD-EPI)AfAm 71 (>60 ml/min/1.73 sqM) Est GFR (CKD-EPI)NonAf 62 (>60 ml/min/1.73 sqM) Glucose 106 H (74-99) mg/dL Plasma Lactic Acid Keith (0.7-2.0) mmol/L Calcium 9.7 (8.4-10.2) mg/dL Total Bilirubin 0.4 (0.2-1.3) mg/dL AST 25 (14-36) U/L ALT 20 (4-34) U/L Alkaline Phosphatase 70 (38-126) U/L Total Protein 7.0 (6.3-8.2) g/dL Albumin 4.1 (3.5-5.0) g/dL Lipase 279 (23-300) U/L Urine Color Yellow Urine Appearance Cloudy H (Clear) Urine pH 6.0 (5.0-8.0) Ur Specific [place] 1.021 (1.001-1.035) Urine Protein Negative (Negative) Urine Glucose (UA) Negative (Negative) Urine Ketones Negative (Negative) Urine Blood Small H (Negative) Urine Nitrite Negative (Negative) Urine Bilirubin Negative (Negative) Urine Urobilinogen <2.0 (<2.0) mg/dL Ur Leukocyte Esterase Large H (Negative) Urine RBC 15 H (0-5) /hpf Urine WBC 37 H (0-5) /hpf Ur Squamous Epith Cells 11 H (0-4) /hpf Urine Bacteria Rare H (None) /hpf Urine Mucus Rare H (None) /hpf 04/28/22 Range/Units 21:15 WBC (3.8-10.6) k/uL RBC (3.80-5.40) m/uL Hgb (11.4-16.0) gm/dL Hct (34.0-46.0) % MCV (80.0-100.0) fL MCH (25.0-35.0) pg MCHC (31.0-37.0) g/dL RDW (11.5-15.5) % Plt Count (150-450) k/uL MPV Neutrophils % (Manual) % Lymphocytes % (Manual) % Monocytes % (Manual) % Eosinophils % (Manual) % Neutrophils # (Manual) (1.3-7.7) k/uL Lymphocytes # (Manual) (1.0-4.8) k/uL Monocytes # (Manual) (0-1.0) k/uL Eosinophils # (Manual) (0-0.7) k/uL Nucleated RBCs (0-0) /100 WBC Manual Slide Review Sodium (137-145) mmol/L Potassium (3.5-5.1) mmol/L Chloride (98-107) mmol/L Carbon Dioxide (22-30) mmol/L Anion Gap mmol/L BUN (7-17) mg/dL Creatinine (0.52-1.04) mg/dL Est GFR (CKD-EPI)AfAm (>60 ml/min/1.73 sqM) Est GFR (CKD-EPI)NonAf (>60 ml/min/1.73 sqM) Glucose (74-99) mg/dL Plasma Lactic Acid Keith 0.9 (0.7-2.0) mmol/L Calcium (8.4-10.2) mg/dL Total Bilirubin (0.2-1.3) mg/dL AST (14-36) U/L ALT (4-34) U/L Alkaline Phosphatase (38-126) U/L Total Protein (6.3-8.2) g/dL Albumin (3.5-5.0) g/dL Lipase (23-300) U/L Urine Color Urine Appearance (Clear) Urine pH (5.0-8.0) Ur Specific [place] (1.001-1.035) Urine Protein (Negative) Urine Glucose (UA) (Negative) Urine Ketones (Negative) Urine Blood (Negative) Urine Nitrite (Negative) Urine Bilirubin (Negative) Urine Urobilinogen (<2.0) mg/dL Ur Leukocyte Esterase (Negative) Urine RBC (0-5) /hpf Urine WBC (0-5) /hpf Ur Squamous Epith Cells (0-4) /hpf Urine Bacteria (None) /hpf Urine Mucus (None) /hpf Disposition Clinical Impression: Abdominal pain, Nausea and vomiting, Diverticulitis Disposition: HOME SELF-CARE Condition: Good Instructions (If sedation given, give patient instructions): Diverticulitis (DC) Additional Instructions: Continue home prescription of Levaquin and Flagyl. Take medication as directed. Do not take Tylenol while taking Julian. Follow-up with Dr. Arguelles on the for surgery as planned. Return to the emergency department experience new, concerning, or worsening symptoms. Prescriptions: Ibuprofen [Motrin] 600 mg PO Q6HR PRN #20 tab PRN Reason: Pain HYDROcodone/APAP 7.5-325MG [Julian 7.5-325] 1 tab PO Q4HR PRN 3 Days #18 tab PRN Reason: Pain Ondansetron Odt [Zofran Odt] 4 mg PO Q8HR PRN #12 tab PRN Reason: Nausea Is patient prescribed a controlled substance at d/c from ED?: No Referrals: Elina Garcia MD [Primary Care Provider] - 1-2 days Time of Disposition: 23:04
[2022-04-28 23:15] VITALS: BP 148/72; PULSE 70; RESP 15
== END 2022-04-28 23:37 | disposition home or self-care (01) ==
LOC: EC 19:46
DX: K57.32 Diverticulitis of large intestine without perforation or abscess without bleeding (principal); I10 Essential (primary) hypertension; F17.200 Nicotine dependence, unspecified, uncomplicated; F12.90 Cannabis use, unspecified, uncomplicated; F15.10 Other stimulant abuse, uncomplicated; Z79.899 Other long term (current) drug therapy; Z88.0 Allergy status to penicillin; Z88.2 Allergy status to sulfonamides; Z91.041 Radiographic dye allergy status
CPT/HCPCS: 99284; 96374; 96375 ×4; 96376 ×2; 96361 ×2; 36415; 80053; 83605; 83690; 85025; 81001; 87086; 74177; J1200; J2930; J2405; J1170; Q9967

== ENCOUNTER → 2022-04-30 | Outpatient (CLI) | payer MEDICARE ==
[2022-04-30 23:32] LABS: Anion Gap 11.9 mmol/L (10.00-18.00); Carbon Dioxide 26.6 mmol/L (20.0-27.5); Potassium 3.9 mmol/L (3.5-5.5)
== END | disposition home or self-care (01) ==
LOC: LABPAT 13:57
PROVIDERS: ATTEND Surgery
DX: Z01.812 Encounter for preprocedural laboratory examination (principal); K57.32 Diverticulitis of large intestine without perforation or abscess without bleeding
CPT/HCPCS: 80051; 93005

== ENCOUNTER 2022-05-03 11:26 | Inpatient (IN) | payer MEDICARE ==
[~2022-05-03 11:26] MED LIST: ACETAMINOPHEN TAB 500 MG TAB PO PRN; HEPARIN SODIUM,PORCINE/PF 5,000 UNIT/0.5 ML SYRINGE SQ PRN; metroNIDAZOLE-NS PMX 500 MG in SALINE 1 100ML.BAG IVPB PRN
[2022-05-03] MEDS ORDERED: LACTATED RINGERS 1,000 ML IV ONE ×4 (12:47→17:33)
[2022-05-03] MEDS ORDERED: ALVIMOPAN 12 MG CAPSULE PO ONE (13:11)
[2022-05-03] MEDS ORDERED: DEXAMETHASONE SOD PHOSPHATE 4 MG/ML 1 ML VIAL IVP ONE (13:18)
[2022-05-03] MEDS ORDERED: ONDANSETRON 4 MG/2 ML VIAL IVP ONE (13:18)
[2022-05-03 13:26] LABS: INR 0.9 (<1.2); Prothrombin Time 9.8 sec (9.0-12.0)
[2022-05-03] MEDS ORDERED: MIDAZOLAM 2 MG/2 ML VIAL IVP ONE (13:28)
--- NOTE | 2022-05-03 14:23 | P.ANPRN ---
Procedure Note - Anesthesia - Nerve Block Performed Bilateral Erector Spinae Single Time Out Performed: Yes (1316) Date of Procedure: 05/03/22 Procedure Start Time: : Procedure Stop Time: Location of Patient: PreOp Indication: Acute Post-Operative Pain, Requested by Surgeon Specifically requested for management of pain by : Camille Villanueva Sedation Type: Sedate with meaningful contact maintained Preparation: Sterile Prep Position: Prone Catheter: None Needle Types: Pajunk Needle Gauge: 21 Ultrasound used to visualize needle placement: Yes Ultrasound used to observe medication spread: Yes Injectate: 0.5% Ropivacaine (see comment for volume) (15cc + 10cc nacl pf each side) Blood Aspirated: No Pain Paresthesia on Injection Noted: No Resistance on Injection: Normal Image Stored and Saved: Yes Events: Uneventful and Well Tolerated
--- NOTE | 2022-05-03 14:28 | P.ANPRN ---
Procedure Note - Anesthesia - Epidural/Spinal Epidural Continuous Time Out Performed: Yes Date of Procedure: 05/03/22 Procedure Start Time: 13:27 Procedure Stop Time: 13:40 Location of Patient: PreOp Indication: Acute Post-Operative Pain, Requested by Surgeon (torey) Sedation Type: Sedate with meaningful contact maintained Preparation: Sterile Dressing Position: Sitting Catheter Depth at Skin (cm): 12 Catheter: Indwelling Needle Guage: 18 Injectate: test dose negative Narrative: placed in one attempt T10-11. Neg aspiration. Catheter insertion uneventful. dressed in sterile fashion. Blood Aspirated: No Pain Paresthesia on Injection Noted: No Events: Uneventful and Well Tolerated
[2022-05-03] MEDS ORDERED: NALOXONE 0.4 MG/ML 1 ML VIAL IV PRN (14:49)
[2022-05-03] MEDS ORDERED: ONDANSETRON 4 MG/2 ML VIAL IVP PRN (14:49)
--- NOTE | 2022-05-03 14:53 | P.PN ---
Progress Note - Text Progress Note Date: 05/03/22 Anesthesia Patient states hydromorphone allergy is not true allergy, the med causes pruritis. Patient was okay with it being prescribed.
[2022-05-03] MEDS ORDERED: MIDAZOLAM 2 MG/2 ML VIAL ONE (14:57)
[2022-05-03] MEDS ORDERED: ROCURONIUM 10 MG/ML (5 ML VIAL) IV ONE (14:57)
[2022-05-03] MEDS ORDERED: fentaNYL (PF) 50 MCG/ML 2 ML AMP ONE (14:57)
[2022-05-03] MEDS ORDERED: GLUCAGON 1 MG/ML VIAL ONE (14:57)
[2022-05-03] MEDS ORDERED: NEOSTIGMINE 1 MG/ML 10 ML VIAL ONE (14:57)
[2022-05-03] MEDS ORDERED: PROPOFOL 10 MG/ML 20 ML VIAL IV ONE (14:57)
[2022-05-03] MEDS ORDERED: SUCCINYLCHOLINE CHLORIDE 200 MG/10 ML VIAL IV ONE (14:57)
[2022-05-03] MEDS ORDERED: GLYCOPYRROLATE 0.2 MG/ML 2 ML VIAL ONE (14:57)
[2022-05-03] MEDS ORDERED: LIDOCAINE 1% (10MG/ML) FOR IV START ONE (14:57)
--- NOTE | 2022-05-03 17:53 | P.OP ---
Date of Procedure: 05/03/22 Procedure(s) Performed: PREOPERATIVE DIAGNOSIS: Diverticulitis POSTOPERATIVE DIAGNOSIS: Diverticulitis with pericolonic abscess, abdominal adhesions PROCEDURE: Sigmoid colectomy, lysis of adhesions, mobilization splenic flexure SURGEON: Tiera EBL: 50 mL ANESTHESIA: General COMPLICATIONS: None OPERATIVE PROCEDURE: Patient place in the operative table in the supine position. The patient was placed under general anesthesia. The patient was then placed in lithotomy. The abdomen was prepped and draped in usual sterile fashion. A vertical incision was made extending from the infraumbilical location to the suprapubic location. The fascia was divided as well. The Bookwalter retractor was utilized. The incision was then later lengthened superiorly. The sigmoid colon was inflamed with an adjacent pericolonic abscess present. The sigmoid colon was fully mobilized by incising the white line of Toldt. The area of inflammatory change was present in the proximal sigmoid colon near the junction with the descending colon. Because of that mobilization was required of the splenic flexure. The left upper quadrant had significant adhesions between the omentum and the abdominal wall and between the omentum and the small bowel and colon that area. The etiology for this was unclear. With careful dissection we're able to finally mobilize the splenic flexure. No bleeding was seen. We had nice length of colon at that point. The patient's rectum extended fairly proximal to the peritoneal reflection. There was no diverticulosis visualized in the distal sigmoid or rectum. A longitudinal colotomy was made and the sizers were utilized. The 25 EEA stapler was chosen. The 25 EEA was chosen given the relative narrowing of the entire length of the descending colon. The anvil was placed distally. The bowel was then divided using a linear 75 stapler. The anvil was then brought out adjacent to the staple line and sutured in place using a 30 pursestring suture. We then chose a section of the descending colon that would reach that area nicely. Again a longitudinal colotomy was made in the 25 stapler was passed into the colotomy proximally until it was angled to the antimesenteric border. The obturator was brought out at that section. The 2 portions of the stapler were connected to one another and subsequently tightened and fired. The bowel was then divided again using a linear 75 stapler just distal to the anastomotic site. We had created a end to side colocolostomy with the end being distal. No bleeding was seen. The mesentery was divided using LigaSure device. No bleeding again was seen. The bowel was clamped proximal to the anastomosis. The rigid sigmoidoscope was utilized to fill the anastomotic site nicely with air. There was saline in the pelvis at this time. No evidence of leak was seen. The abdomen was irrigated with saline. The liver, stomach, visualized colon, and small bowel appeared normal. The midline fascia was then reapproximated using 2 separate double-stranded #1 PDS sutures. The subcutaneous tissues were closed using 3-0 Vicryl sutures. The skin was then closed using basim. Sterile dressings were then applied. DISPOSITION: Stable to recovery room
[2022-05-03] MEDS: ROPIVACAINE 250 MG, fentaNYL (PF) 1,250 MCG in SODIUM CHLORIDE 0.9% 175 ML EPIDURAL PRN (17:55)
[2022-05-03] MEDS: ONDANSETRON 4 MG/2 ML VIAL IVP PRN (18:30)
[2022-05-03] MEDS: D5-0.45% NACL WITH KCL 20MEQ/L 1,000 ML IV SCH (18:58)
[2022-05-03] MEDS: METOCLOPRAMIDE 5 MG/ML 2 ML VIAL IVP PRN (20:32)
[2022-05-03] MEDS: HYDROmorphone 0.5 MG/0.5 ML SYRINGE IVP PRN (21:45)
[2022-05-03] MEDS: FAMOTIDINE 20 MG/2 ML VIAL IV SCH (22:28)
[2022-05-04] MEDS: diphenhydrAMINE 50 MG/ML 1 ML VIAL IVP PRN ×4 (00:10→20:40)
[2022-05-04] MEDS: HEPARIN SODIUM,PORCINE/PF 5,000 UNIT/0.5 ML SYRINGE SQ SCH ×3 (00:14→15:05)
[2022-05-04] MEDS: ONDANSETRON 4 MG/2 ML VIAL IVP PRN ×3 (02:32→17:15)
[2022-05-04] MEDS: HYDROmorphone 0.5 MG/0.5 ML SYRINGE IVP PRN (02:32)
[2022-05-04] MEDS: D5-0.45% NACL WITH KCL 20MEQ/L 1,000 ML IV SCH ×3 (02:53→17:15)
[2022-05-04] MEDS: NALBUPHINE 10 MG/ML (1 ML AMP) IV PRN ×2 (04:48→10:48)
[2022-05-04] MEDS: FAMOTIDINE 20 MG/2 ML VIAL IV SCH ×2 (08:49→18:44)
[2022-05-04] MEDS: ALVIMOPAN 12 MG CAPSULE PO SCH ×2 (08:49→20:40)
[2022-05-04 10:44] LABS: Basophils # (A) 0.06 X 10*3/uL (0.00-0.10); Basophils % (A) 0.3 %; Eosinophils # (A) 0.02 X 10*3/uL (0.04-0.35); Eosinophils % (A) 0.1 %; HCT 36.6 % (37.2-46.3); HGB 11.9 g/dL (12.0-15.0); Immature Grans, Automated 0.3 %; Lymphocytes # (A) 2.49 X 10*3/uL (0.90-5.00); Lymphocytes % (A) 14.3 %; MCH 31.8 pg (27.0-32.0); MCHC 32.5 g/dL (32.0-37.0); MCV 97.9 fL (80.0-97.0); Mean Platelet Volume 9.9 fL (9.5-12.2); Monocytes # (A) 1.02 X 10*3/uL (0.20-1.00); Monocytes % (A) 5.8 %; NRBC Per 100 WBC 0 /100 WBCS (0.0-0.0); Neutrophils # (A) 13.81 X 10*3/uL (1.80-7.70); Neutrophils % (A) 79.2 %; Platelet Count 337 X 10*3/uL (140-440); RBC 3.74 X 10*6/uL (4.10-5.20); RDW 12.1 % (11.5-14.5); WBC 17.45 X 10*3/uL (4.50-10.00)
[2022-05-04 10:49] LABS: Anion Gap 9.4 mmol/L (10.00-18.00); BUN/Creat Ratio 11.22 Ratio (12.00-20.00); Blood Urea Nitrogen 10.1 mg/dL (9.0-27.0); Carbon Dioxide 23.6 mmol/L (20.0-27.5); Potassium 4.7 mmol/L (3.5-5.5)
--- NOTE | 2022-05-04 12:16 | P.PN ---
Progress Note - Text Progress Note Date: 05/04/22 Patient was seen and evaluated at bedside. Postop day # 1 status post Sigmoid colectomy, lysis of adhesions, mobilization splenic flexure. Patient is comfortably lying on the bed. Rated pain levels are 3-4 out of 10 in severity. Moving extremities well without any difficulty. He denied any red flag symptoms, pain over the catheter site. Physical exam: Vital signs: stable, afebrile Catheter site: Clean, and intact Dressing. no tenderness over the catheter area. Moving lower extremities without difficulty. Platelet count 337 on 05/04/2022 She is on heparin 5000 units subcutaneous for DVT prophylaxis every 8 hours. Assessment: Acute postoperative pain secondary to Sigmoid colectomy, lysis of adhesions, mobilization splenic flexure Plan: Continue epidural infusion solution at the rate of 9 mL per hour. We will continue epidural catheter 2 more day unless primary team planned to send the patient home then we will discontinue. Call anesthesia as needed
[2022-05-04] MEDS: METOCLOPRAMIDE 5 MG/ML 2 ML VIAL IVP PRN ×2 (13:51→20:41)
--- NOTE | 2022-05-04 15:59 | P.PN ---
Subjective Progress Note Date: 05/04/22 CHIEF COMPLAINT: Diverticulitis HISTORY OF PRESENT ILLNESS: Patient is postop day #1 status post Sigmoid colectomy, lysis of adhesions, mobilization splenic flexure. Patient does report abdominal pain. She has an epidural in place. She is complaining of itching from the epidural. Medication is being given. She admits to having nausea. Afebrile. WBC17 Hgb 11.9 platelets 337 na 138 k 4.7 cr 0.9 Patient seen and examined with Dr. jasmine PHYSICAL EXAM: VITAL SIGNS: Reviewed. GENERAL: Well-developed in no acute distress. HEENT: No sclera icterus. Extraocular movements grossly intact. Moist buccal mucosa. Head is atraumatic, normocephalic. ABDOMEN: Soft. Nondistended. incisional dressing with a few small areas of blood. Patient has tenderness with palpation at the incision site. NEUROLOGIC: Alert and oriented. Cranial nerves II through XII grossly intact. ASSESSMENT: 1. Diverticulitis with pericolonic abscess, abdominal adhesions status post Sigmoid colectomy, lysis of adhesions, mobilization splenic flexure 2. Leukocytosis PLAN: -continue epidural for pain control -Advance diet to sips of clears -Encouraged patient ambulate -incentive spirometer ordered -Repeat labs in a.m. -GI prophylaxis Pepcid and DVT prophylaxis subcu heparin Physician Transmission Mechanic note has been reviewed by physician. Signing provider agrees with the documented findings, assessment, and plan of care. Objective - Vital Signs Vital signs: Vital Signs Temp 98.8 F 05/04/22 08:00 Pulse 71 05/04/22 08:00 Resp 17 05/04/22 08:00 BP 129/77 05/04/22 08:00 Pulse Ox 93 L 05/04/22 08:00 FiO2 Intake & Output 05/03/22 05/04/22 05/04/22 18:59 06:59 18:59 Intake Total 2150 Output Total 450 1050 2000 Balance 1700 -1050 -2000 Weight 73.2 kg 73.2 kg Intake: IV 2150 Output: Urine 400 1050 2000 Estimated Blood Loss 50 Other: Voiding Method Indwelling Catheter Indwelling Catheter - Labs CBC & Chem 7: 05/04/22 06:34 05/04/22 06:34 Labs: Abnormal Lab Results - Last 24 Hours (Table) 05/04/22 05/04/22 Range/Units 06:34 06:34 WBC 17.45 H (4.50-10.00) X 10*3/uL RBC 3.74 L (4.10-5.20) X 10*6/uL Hgb 11.9 L (12.0-15.0) g/dL Hct 36.6 L (37.2-46.3) % MCV 97.9 H (80.0-97.0) fL Immature Gran # 0.05 H (0.00-0.04) X 10*3/uL Neutrophils # 13.81 H (1.80-7.70) X 10*3/uL Monocytes # 1.02 H (0.20-1.00) X 10*3/uL Eosinophils # 0.02 L (0.04-0.35) X 10*3/uL Anion Gap 9.40 L (10.00-18.00) mmol/L BUN/Creatinine Ratio 11.22 L (12.00-20.00) Ratio
[2022-05-04] MEDS: ROPIVACAINE 250 MG, fentaNYL (PF) 1,250 MCG in SODIUM CHLORIDE 0.9% 175 ML EPIDURAL PRN (16:52)
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
[2022-05-04] MEDS: QUEtiapine 100 MG TAB PO SCH (22:32)
[2022-05-05] MEDS: HEPARIN SODIUM,PORCINE/PF 5,000 UNIT/0.5 ML SYRINGE SQ SCH ×4 (00:30→23:58)
[2022-05-05] MEDS: ONDANSETRON 4 MG/2 ML VIAL IVP PRN ×3 (05:21→15:54)
[2022-05-05] MEDS: D5-0.45% NACL WITH KCL 20MEQ/L 1,000 ML IV SCH ×3 (05:25→15:39)
[2022-05-05] MEDS: METOCLOPRAMIDE 5 MG/ML 2 ML VIAL IVP PRN ×3 (06:17→17:42)
[2022-05-05] MEDS: diphenhydrAMINE 50 MG/ML 1 ML VIAL IVP PRN ×2 (08:31→17:42)
[2022-05-05] MEDS: METOPROLOL SUCCINATE (ER) 100 MG TAB.ER.24H PO SCH (08:32)
[2022-05-05] MEDS: amLODIPine 5 MG TAB PO SCH (08:32)
[2022-05-05] MEDS: ALVIMOPAN 12 MG CAPSULE PO SCH ×2 (08:32→20:24)
[2022-05-05] MEDS: FAMOTIDINE 20 MG/2 ML VIAL IV SCH ×2 (08:33→20:24)
--- NOTE | 2022-05-05 11:04 | P.PN ---
Progress Note - Text Progress Note Date: 05/05/22 Patient points of nausea and vomiting. She states her incisional pain is okay. On exam vital signs are stable. Abdomen soft. Incisions clean dry tach. Postoperative ileus. Patient will become nothing by mouth today. We will resume diet once her bowel function returns.
[2022-05-05 11:39] LABS: Basophils # (A) 0.02 X 10*3/uL (0.00-0.10); Basophils % (A) 0.1 %; Eosinophils # (A) 0.46 X 10*3/uL (0.04-0.35); Eosinophils % (A) 3.1 %; HCT 38.5 % (37.2-46.3); HGB 12.8 g/dL (12.0-15.0); Immature Grans, Automated 0.4 %; Lymphocytes % (A) 8.7 %; MCH 32.7 pg (27.0-32.0); MCHC 33.2 g/dL (32.0-37.0); MCV 98.5 fL (80.0-97.0); Mean Platelet Volume 9.5 fL (9.5-12.2); Monocytes # (A) 0.99 X 10*3/uL (0.20-1.00); Monocytes % (A) 6.6 %; NRBC Per 100 WBC 0 /100 WBCS (0.0-0.0); Neutrophils # (A) 12.19 X 10*3/uL (1.80-7.70); Neutrophils % (A) 81.1 %; Platelet Count 364 X 10*3/uL (140-440); RBC 3.91 X 10*6/uL (4.10-5.20); RDW 12.3 % (11.5-14.5); WBC 15.02 X 10*3/uL (4.50-10.00)
--- NOTE | 2022-05-05 12:07 | P.PN ---
Progress Note - Text 05/05/22 1158am 61-year-old female status post sigmoid colectomy. Patient has an epidural catheter for postop pain control with the solution running at 8 mL an hour with a VAS of 3. No motor or sensory deficit noted. Plan to continue epidural infusion
[2022-05-05 12:29] LABS: Anion Gap 11.9 mmol/L (10.00-18.00); BUN/Creat Ratio 9.44 Ratio (12.00-20.00); Blood Urea Nitrogen 8.5 mg/dL (9.0-27.0); Calcium 9.2 mg/dL (8.7-10.3); Carbon Dioxide 25.1 mmol/L (20.0-27.5); Potassium 4.3 mmol/L (3.5-5.5)
[2022-05-05] MEDS: PANTOPRAZOLE 40 MG/10 ML VIAL IVP SCH (15:50)
--- NOTE | 2022-05-05 18:28 | P.PN ---
Subjective Progress Note Date: 05/05/22 61-year-old female patient who was recently admitted, pulse 06/15/2021 with left lower quadrant pain and diagnosed with acute diverticulitis; CAT scan of the abdomen revealed mid sigmoid colon inflammatory changes; patient was treated with IV Levaquin and Flagyl and was discharged with outpatient follow-up with surgery; patient was reevaluated by surgery as outpatient and was admitted for sigmoid colectomy, lysis of adhesions Patient is POD #1 Objective - Vital Signs Vital signs: Vital Signs Temp 98.5 F 05/05/22 08:20 Pulse 100 05/05/22 08:20 Resp 18 05/05/22 08:20 BP 136/81 05/05/22 08:20 Pulse Ox 90 L 05/05/22 08:35 FiO2 Intake & Output 05/04/22 05/05/22 05/05/22 18:59 06:59 18:59 Intake Total 178.05 Output Total 2000 900 Balance -2000 -900 178.05 Intake: Intake, IV Titration 178.05 Amount Ropivacaine 250 mg 178.05 fentaNYL (PF) 1,250 mcg In Sodium Chloride 0.9% 175 ml @ Per Protocol EPIDURAL .Q0M PRN Rx#: [id number] Output: Urine 1999 900 Other: Voiding Method Indwelling Catheter Indwelling Catheter Indwelling Catheter - Exam General appearance: Present: average body habitus, cooperative, no acute distress EENT: anicteric sclerae, EOMI, PERRLA, normal appearance Neck: Present: normal ROM. Absent: lymphadenopathy, rigidity, thyromegaly Carotids: negative: bruit present Thyroid: bilateral: normal size, negative: enlarged, nodule Respiratory: bilateral: CTA, negative: rales, rhonchi, wheezing Cardiovascular: regular: S1, S2 Abnormal Heart Sounds: Absent: systolic murmur, diastolic murmur Gastrointestinal: normal bowel sounds, soft. Absent: distended, organomegaly, tenderness Integumentary: Present: normal turgor. Absent: jaundiced, rash, ulcer Neurologic: Present: CNII-XII intact. Absent: focal deficits Musculoskeletal: Present: gait normal, strength equal bilaterally - Labs CBC & Chem 7: 05/05/22 06:46 05/05/22 06:46 Labs: Abnormal Lab Results - Last 24 Hours (Table) 05/05/22 05/05/22 Range/Units 06:46 06:46 WBC 15.02 H (4.50-10.00) X 10*3/uL RBC 3.91 L (4.10-5.20) X 10*6/uL MCV 98.5 H (80.0-97.0) fL MCH 32.7 H (27.0-32.0) pg Immature Gran # 0.06 H (0.00-0.04) X 10*3/uL Neutrophils # 12.19 H (1.80-7.70) X 10*3/uL Eosinophils # 0.46 H (0.04-0.35) X 10*3/uL BUN 8.5 L (9.0-27.0) mg/dL BUN/Creatinine Ratio 9.44 L (12.00-20.00) Ratio Glucose 148 H (70-110) mg/dL Assessment and Plan Assessment: 1. Diverticulitis with pericolonic abscess - Patient is status post sigmoid colectomy with lysis of adhesions and mobilization of splenic flexure - Your management 2. Hypertension; we will continue with oral hypertensive therapy with Norvasc and Toprol-XL 3. Osteoarthritis; patient takes Motrin at home which was placed on hold 4. History of GI bleed; PPI DVT prophylaxis; SCDs
[2022-05-05] MEDS: ROPIVACAINE 250 MG, fentaNYL (PF) 1,250 MCG in SODIUM CHLORIDE 0.9% 175 ML EPIDURAL PRN (19:47)
[2022-05-05] MEDS: QUEtiapine 100 MG TAB PO SCH (20:54)
--- NOTE | 2022-05-05 20:59 | XR ---
EXAMINATION TYPE: XR chest 1V portable DATE OF EXAM: 05/05/2022 8:54 PM COMPARISON: None TECHNIQUE: XR chest 1V portable . CLINICAL INDICATION:Female, 61 years old with history of NG placement; FINDINGS: Lungs/Pleura: There is no evidence of pleural effusion, focal consolidation, or pneumothorax. Pulmonary vascularity: Unremarkable. Heart/mediastinum: Cardiomediastinal silhouette is unremarkable. Musculoskeletal: No acute osseous pathology. Other findings: Nasogastric tube is subdiaphragmatic with side-port projecting over the stomach. Visu alized portions of the abdomen demonstrate diffuse gaseous distention of upper abdominal bowel loops. Surgical basim project along the midline abdomen with surgical clips in the right upper quadrant. IMPRESSION: Nasogastric tube with distal tip and side-port projecting over the stomach.
[2022-05-06] MEDS: D5-0.45% NACL WITH KCL 20MEQ/L 1,000 ML IV SCH ×3 (02:30→17:22)
[2022-05-06] MEDS: ONDANSETRON 4 MG/2 ML VIAL IVP PRN ×2 (02:30→12:41)
[2022-05-06] MEDS: HEPARIN SODIUM,PORCINE/PF 5,000 UNIT/0.5 ML SYRINGE SQ SCH ×3 (07:58→23:48)
[2022-05-06] MEDS: ALVIMOPAN 12 MG CAPSULE PO SCH ×2 (07:58→20:13)
[2022-05-06] MEDS: FAMOTIDINE 20 MG/2 ML VIAL IV SCH ×2 (07:58→20:13)
[2022-05-06] MEDS: amLODIPine 5 MG TAB PO SCH (07:58)
[2022-05-06] MEDS: diphenhydrAMINE 50 MG/ML 1 ML VIAL IVP PRN ×3 (07:59→20:14)
[2022-05-06] MEDS: PANTOPRAZOLE 40 MG/10 ML VIAL IVP SCH ×2 (07:59→20:13)
[2022-05-06] MEDS: HYDROmorphone 0.5 MG/0.5 ML SYRINGE IVP PRN ×3 (07:59→20:13)
[2022-05-06] MEDS: METOPROLOL SUCCINATE (ER) 100 MG TAB.ER.24H PO SCH (08:02)
--- NOTE | 2022-05-06 10:56 | P.PN ---
Progress Note - Text Progress Note Date: 05/06/22 The patient had complaints of nausea yesterday. She had an emesis. A nasogastric tube was placed. She has drained 700 mL of bilious fluid overnight. Patient states her nausea has resolved. On exam vital signs are stable. Abdomen soft. Incisions clean dry intact. Status post low anterior resection for diverticulitis. Patient is developed postoperative nausea. We will keep the NG tube in place today. We discussed starting clear liquids tomorrow.
[2022-05-06] MEDS: NALBUPHINE 10 MG/ML (1 ML AMP) IV PRN (11:26)
[2022-05-06 12:22] LABS: Glucose,Whole Blood 105 mg/dL (70-110)
[2022-05-06] MEDS: HYDROmorphone 1 MG/ML 1 ML SYRINGE IVP PRN ×2 (12:38→14:41)
[2022-05-06] MEDS: METOCLOPRAMIDE 5 MG/ML 2 ML VIAL IVP PRN ×2 (14:44→23:47)
--- NOTE | 2022-05-06 15:30 | P.PN ---
Progress Note - Text 05/06/22 1512 61-year-old female status post sigmoid colectomy. Patient has an epidural catheter for postop pain control, I received a phone call. In the day and the nurse wanted to know if he could DC the epidural. I had him do a lot infusion while in to see the patient she was having excruciating pain and wanted the epidural restarted. I certainly at 9 mL an hour and we will DC the epidural in a.m.
[2022-05-06 17:30] LABS: African American GFR (CKD) >90 (>60 ml/min/1.73 sqM); Anion Gap 6 mmol/L; Blood Urea Nitrogen 9 mg/dL (7-17); Calcium 8.5 mg/dL (8.4-10.2); Carbon Dioxide 27 mmol/L (22-30); Chloride 103 mmol/L (98-107); Glucose 110 mg/dL (74-99); Non-African American GFR(CKD) >90 (>60 ml/min/1.73 sqM); Potassium 4.1 mmol/L (3.5-5.1); Sodium 136 mmol/L (137-145)
[2022-05-06 18:39] LABS: Basophils % (A) 0 %; Eosinophils # (A) 0.7 k/uL (0-0.7); Eosinophils % (A) 6 %; HCT 33.5 % (34.0-46.0); HGB 11.6 gm/dL (11.4-16.0); Lymphocytes # (A) 1.7 k/uL (1.0-4.8); Lymphocytes % (A) 15 %; MCH 33.4 pg (25.0-35.0); MCHC 34.6 g/dL (31.0-37.0); MCV 96.6 fL (80.0-100.0); Mean Platelet Volume 8.1; Monocytes # (A) 0.7 k/uL (0-1.0); Monocytes % (A) 6 %; Neutrophils % (A) 69 %; Platelet Count 309 k/uL (150-450); RBC 3.46 m/uL (3.80-5.40); RDW 11.8 % (11.5-15.5); WBC 11.6 k/uL (3.8-10.6)
--- NOTE | 2022-05-06 19:11 | P.PN ---
Subjective Progress Note Date: 05/06/22 Principal diagnosis: Diverticulitis with pericolonic abscess 61-year-old female patient who was recently admitted, pulse 06/15/2021 with left lower quadrant pain and diagnosed with acute diverticulitis; CAT scan of the abdomen revealed mid sigmoid colon inflammatory changes; patient was treated with IV Levaquin and Flagyl and was discharged with outpatient follow-up with surgery; patient was reevaluated by surgery as outpatient and was admitted for s igmoid colectomy, lysis of adhesions Patient is POD #1 05/06/2022 Patient is seen and evaluated in room at bedside; patient has epidural catheter. Postop pain control; patient is status post anterior resection for diverticulitis with postoperative ileus Patient has an NG tube to suction; surgery on board and planning to possibly clamp the tube in next 24 hours and start patient on clear liquid diet if remains stable Objective - Vital Signs Vital signs: Vital Signs Temp 97.5 F L 05/06/22 14:00 Pulse 69 05/06/22 14:00 Resp 17 05/06/22 14:00 BP 160/88 05/06/22 14:00 Pulse Ox 98 05/06/22 14:00 FiO2 Intake & Output 05/05/22 05/06/22 05/06/22 18:59 06:59 18:59 Intake Total 178.05 49.933 137.433 Output Total 550 1250 Balance -371.95 -1200.067 137.433 Intake: Intake, IV Titration 178.05 49.933 137.433 Amount Ropivacaine 250 mg 178.05 49.933 137.433 fentaNYL (PF) 1,250 mcg In Sodium Chloride 0.9% 175 ml @ Per Protocol EPIDURAL .Q0M PRN Rx#: [id number] Output: Gastric Drainage 700 Urine 450 550 Emesis 100 Other: Voiding Method Indwelling Catheter Indwelling Catheter - Exam General appearance: Present: average body habitus, cooperative, no acute distress EENT: anicteric sclerae, EOMI, PERRLA, normal appearance Neck: Present: normal ROM. Absent: lymphadenopathy, rigidity, thyromegaly Carotids: negative: bruit present Thyroid: bilateral: normal size, negative: enlarged, nodule Respiratory: bilateral: CTA, negative: rales, rhonchi, wheezing Cardiovascular: regular: S1, S2 Abnormal Heart Sounds: Absent: systolic murmur, diastolic murmur Gastrointestinal: normal bowel sounds, soft. Absent: distended, organomegaly, tenderness Integumentary: Present: normal turgor. Absent: jaundiced, rash, ulcer Neurologic: Present: CNII-XII intact. Absent: focal deficits Musculoskeletal: Present: gait normal, strength equal bilaterally - Labs CBC & Chem 7: 05/06/22 16:43 05/06/22 16:43 Assessment and Plan Assessment: 1. Diverticulitis with pericolonic abscess - Patient is status post sigmoid colectomy with lysis of adhesions and mobilization of splenic flexure - Your management 2. Hypertension; we will continue with oral hypertensive therapy with Norvasc and Toprol-XL 3. Osteoarthritis; patient takes Motrin at home which was placed on hold 4. History of GI bleed; PPI DVT prophylaxis; SCDs
[2022-05-06] MEDS: QUEtiapine 100 MG TAB PO SCH (20:13)
[2022-05-07] MEDS: HYDROmorphone 0.5 MG/0.5 ML SYRINGE IVP PRN (02:47)
[2022-05-07] MEDS: D5-0.45% NACL WITH KCL 20MEQ/L 1,000 ML IV SCH ×2 (02:49→12:02)
[2022-05-07] MEDS: ROPIVACAINE 250 MG, fentaNYL (PF) 1,250 MCG in SODIUM CHLORIDE 0.9% 175 ML EPIDURAL PRN (05:43)
[2022-05-07] MEDS: NALBUPHINE 10 MG/ML (1 ML AMP) IV PRN (06:20)
[2022-05-07] MEDS: HEPARIN SODIUM,PORCINE/PF 5,000 UNIT/0.5 ML SYRINGE SQ SCH ×2 (08:27→19:26)
[2022-05-07] MEDS: FAMOTIDINE 20 MG/2 ML VIAL IV SCH ×2 (08:33→21:58)
[2022-05-07] MEDS: PANTOPRAZOLE 40 MG/10 ML VIAL IVP SCH ×2 (08:33→21:59)
[2022-05-07] MEDS: HYDROmorphone 1 MG/ML 1 ML SYRINGE IVP PRN ×5 (08:33→21:59)
[2022-05-07] MEDS: amLODIPine 5 MG TAB PO SCH (08:34)
[2022-05-07] MEDS: METOPROLOL SUCCINATE (ER) 100 MG TAB.ER.24H PO SCH (08:34)
[2022-05-07] MEDS: ALVIMOPAN 12 MG CAPSULE PO SCH ×2 (08:40→21:58)
[2022-05-07] MEDS: ONDANSETRON 4 MG/2 ML VIAL IVP PRN ×2 (08:40→15:27)
[2022-05-07 08:59] LABS: African American GFR (CKD) 92.2 (60.0-200.0); Anion Gap 9.6 mmol/L (10.00-18.00); BUN/Creat Ratio 7.13 Ratio (12.00-20.00); Blood Urea Nitrogen 5.7 mg/dL (9.0-27.0); Calcium 8.7 mg/dL (8.7-10.3); Carbon Dioxide 24.4 mmol/L (20.0-27.5); Non-African American GFR(CKD) 79.6 (60.0-200.0); Potassium 4.4 mmol/L (3.5-5.5)
[2022-05-07 09:18] LABS: Basophils # (A) 0.03 X 10*3/uL (0.00-0.10); Basophils % (A) 0.2 %; Eosinophils # (A) 0.72 X 10*3/uL (0.04-0.35); Eosinophils % (A) 5.9 %; HCT 31.7 % (37.2-46.3); HGB 10.4 g/dL (12.0-15.0); Immature Grans, Automated 0.4 %; Lymphocytes # (A) 1.91 X 10*3/uL (0.90-5.00); Lymphocytes % (A) 15.6 %; MCH 32.7 pg (27.0-32.0); MCHC 32.8 g/dL (32.0-37.0); MCV 99.7 fL (80.0-97.0); Monocytes # (A) 0.85 X 10*3/uL (0.20-1.00); NRBC Per 100 WBC 0 /100 WBCS (0.0-0.0); Neutrophils # (A) 8.65 X 10*3/uL (1.80-7.70); Neutrophils % (A) 70.9 %; Platelet Count 338 X 10*3/uL (140-440); RBC 3.18 X 10*6/uL (4.10-5.20); WBC 12.21 X 10*3/uL (4.50-10.00)
[2022-05-07] MEDS: diphenhydrAMINE 50 MG/ML 1 ML VIAL IVP PRN (11:03)
[2022-05-07] MEDS: KETOROLAC 15 MG/ML 1 ML VIAL IVP SCH ×2 (11:03→18:02)
[2022-05-07] MEDS: METOCLOPRAMIDE 5 MG/ML 2 ML VIAL IVP PRN (11:18)
--- NOTE | 2022-05-07 11:18 | P.PN ---
Progress Note - Text 05/07/22 644am 61-year-old female status post sigmoid colectomy by Dr. Mott. Patient has an epidural catheter for postop pain control with the solution running at 9 mL an hour with a VAS of 6 and receiving breakthrough pain medication. Epidural to be DC'd nurse informed
--- NOTE | 2022-05-07 12:35 | P.PN ---
Subjective Progress Note Date: 05/07/22 CHIEF COMPLAINT: Diverticulitis HISTORY OF PRESENT ILLNESS: Patient is postop day #4 status post Sigmoid colectomy, lysis of adhesions, mobilization splenic flexure. Patient does report abdominal pain but pain is improving each day. She is scheduled for the epidural and Wetzel catheter to be discontinued today. She did have postop nausea and vomiting on Saturday and required NG tube to be placed. NG tube had 700 bilious output yesterday and 200 output this morning. She denies any flatus or BM. Low-grade temp 99.8 WBC is 12.21 Hgb 10.4 platelets 338 sodium is 137 potassium 4.4 creatinine 0.8 PHYSICAL EXAM: VITAL SIGNS: Reviewed. GENERAL: Well-developed in no acute distress. HEENT: No sclera icterus. Extraocular movements grossly intact. Moist buccal mucosa. Head is atraumatic, normocephalic. ABDOMEN: Soft. Nondistended. incisional dressing with a few small areas of blood. Patient has tenderness with palpation at the incision site. NEUROLOGIC: Alert and oriented. Cranial nerves II through XII grossly intact. ASSESSMENT: 1. Diverticulitis with pericolonic abscess, abdominal adhesions status post Sigmoid colectomy, lysis of adhesions, mobilization splenic flexure 2. Leukocytosis 3. Postop nausea and vomiting PLAN: -Epidural and Wetzel catheter discontinued today -IV Dilaudid, oral Elizabeth and IV Toradol started for pain control -Continue NG tube for decompression -Patient nothing by mouth -Encouraged patient to use incentive spirometer -Encouraged patient ambulate -Repeat labs in a.m. -GI prophylaxis Pepcid and DVT prophylaxis subcu heparin Physician [employer] Tender note has been reviewed by physician. Signing provider agrees with the documented findings, assessment, and plan of care. I have personally seen and examined the patient, reviewed the BAKER PASTRY /PAs history, exam and MDM and agree with the assessment and plan as written. Based on total visit time, I have performed more than 50% of the visit. As above: Patient seems to be getting gradually better. Pain is improved. No bowel function. Nasogastric tube still had high output. Keep nasogastric tube in place for now. Increase activity after epidural and Wetzel catheter removed. Objective - Vital Signs Vital signs: Vital Signs Temp 99.8 F H 05/07/22 07:23 Pulse 87 05/07/22 07:23 Resp 17 05/07/22 07:23 BP 116/71 05/07/22 07:23 Pulse Ox 95 05/07/22 07:23 FiO2 Intake & Output 05/06/22 05/07/22 05/07/22 18:59 06:59 18:59 Intake Total 137.433 112.567 55.95 Output Total 1400 800 Balance -1262.567 -687.433 55.95 Intake: Intake, IV Titration 137.433 112.567 55.95 Amount Ropivacaine 250 mg 137.433 112.567 55.95 fentaNYL (PF) 1,250 mcg In Sodium Chloride 0.9% 175 ml @ Per Protocol EPIDURAL .Q0M PRN Rx#: [id number] Output: Urine 1400 800 Other: Voiding Method Indwelling Catheter Indwelling Catheter - Labs CBC & Chem 7: 05/07/22 04:49 05/07/22 04:49 Labs: Abnormal Lab Results - Last 24 Hours (Table) 05/06/22 05/06/22 05/07/22 Range/Units 16:43 16:43 04:49 WBC 11.6 H 12.21 H (3.8-10.6) k/uL RBC 3.46 L 3.18 L (3.80-5.40) m/uL Hgb 10.4 L (12.0-15.0) g/dL Hct 33.5 L 31.7 L (34.0-46.0) % MCV 99.7 H (80.0-97.0) fL MCH 32.7 H (27.0-32.0) pg Immature Gran # 0.05 H (0.00-0.04) X 10*3/uL Neutrophils # 8.0 H 8.65 H (1.3-7.7) k/uL Eosinophils # 0.72 H (0.04-0.35) X 10*3/uL Sodium 136 L (137-145) mmol/L Anion Gap (10.00-18.00) mmol/L BUN (9.0-27.0) mg/dL BUN/Creatinine Ratio (12.00-20.00) Ratio Glucose 110 H (74-99) mg/dL 05/07/22 Range/Units 04:49 WBC (3.8-10.6) k/uL RBC (3.80-5.40) m/uL Hgb (12.0-15.0) g/dL Hct (34.0-46.0) % MCV (80.0-97.0) fL MCH (27.0-32.0) pg Immature Gran # (0.00-0.04) X 10*3/uL Neutrophils # (1.3-7.7) k/uL Eosinophils # (0.04-0.35) X 10*3/uL Sodium (137-145) mmol/L Anion Gap 9.60 L (10.00-18.00) mmol/L BUN 5.7 L (9.0-27.0) mg/dL BUN/Creatinine Ratio 7.13 L (12.00-20.00) Ratio Glucose (74-99) mg/dL
[2022-05-07 14:53] VITALS: BMI 29.5
--- NOTE | 2022-05-07 14:53 | P.PN ---
Subjective Progress Note Date: 05/07/22 Diverticulitis with pericolonic abscess 61-year-old female patient who was recently admitted, pulse 06/15/2021 with left lower quadrant pain and diagnosed with acute diverticulitis; CAT scan of the abdomen revealed mid sigmoid colon inflammatory changes; patient was treated wit h IV Levaquin and Flagyl and was discharged with outpatient follow-up with surgery; patient was reevaluated by surgery as outpatient and was admitted for sigmoid colectomy, lysis of adhesions Patient is POD #1 05/06/2022 Patient is seen and evaluated in room at bedside; patient has epidural catheter. Postop pain control; patient is status post anterior resection for dive rticulitis with postoperative ileus Patient has an NG tube to suction; surgery on board and planning to possibly clamp the tube in next 24 hours and start patient on clear liquid diet if remains stable 05/07/2022 Patient is seen and evaluated in follow-up this morning currently sitting up in the chair asking to be put back in the bed although per nursing staff was just placed in the chair 15 minutes prior to this. Patient is having difficulty with ambulation getting up and needs encouragement with increasing activity as tolerated. Patient continues with NG tube and surgery discussing possibly advancing to clear liquids. Patient with abdominal distention and denies passing gas or having bowel movements as of yet. Recommend PT/OT therapy evaluation. A shunt continues with indwelling Wetzel catheter along with epidural pain pump is being discontinued today. WBC is elevated at 12.21 and patient with low-grade temps. Review of systems: Constitutional: No reports of fatigue, fever, or chills Cardiovascular: No reports of chest pain or palpitations Respiratory: No reports of shortness of breath or cough GI: No reports of nausea, vomiting, or diarrhea : No reports of dysuria or retention Neurovascular: No reports of weakness or numbness All medications have been reviewed Physical exam: General appearance: Present: average body habitus, cooperative, no acute distress EENT: anicteric sclerae, EOMI, PERRLA, normal appearance, NG tube noted Neck: Present: normal ROM. Absent: lymphadenopathy, rigidity, thyromegaly Carotids: negative: bruit present Thyroid: bilateral: normal size, negative: enlarged, nodule Respiratory: bilateral: CTA, negative: rales, rhonchi, wheezing Cardiovascular: regular: S1, S2 Abnormal Heart Sounds: Absent: systolic murmur, diastolic murmur Gastrointestinal: normal bowel sounds, soft. Absent: distended, organomegaly, tenderness Integumentary: Present: normal turgor. Absent: jaundiced, rash, ulcer Neurologic: Present: CNII-XII intact. Absent: focal deficits Musculoskeletal: Present: gait normal, strength equal bilaterally Assessment: -Diverticulitis with pericolonic abscess status post sigmoid colectomy with lysis of adhesions and mobilization of splenic flexure -Hypertension; we will continue with oral hypertensive therapy with Norvasc and Toprol-XL -Osteoarthritis; patient takes Motrin at home which was placed on hold -History of GI bleed; PPI -DVT prophylaxis; SCDs -Full code Plan: Patient is status post sigmoid colectomy with lysis of adhesions and mobilization of splenic flexure with general surgery. Patient continues with NG tube although surgery discussing possibly clear liquids although patient continues with abdominal distention and denies passing gas or having any bowel movements as of yet Home medications have been reviewed and resumed Encouraged increase activity as tolerated Encouraged incentive spirometer use at least 10 times every hour while awake Recommend to continue holding NSAIDs Recommend repeat labs in the a.m. We will continue to follow with general surgery during this hospitalization. Thank you kindly for this consultation. Due to multiple complex medical issues, prognosis is guarded The impression and plan of care has been dictated by Yolanda Smart, Nurse Practitioner as directed. Dr. Мария MD I have performed a history and examination and MDM of this patient, discussed the same with the dictator, and agree with the dictator's assessment and plan as written ,documented as a scribe. Based on total visit time, I have performed more than 50% of the visit. Objective - Vital Signs Vital signs: Vital Signs Temp 99.8 F H 05/07/22 07:23 Pulse 87 05/07/22 07:23 Resp 17 05/07/22 07:23 BP 116/71 05/07/22 07:23 Pulse Ox 95 05/07/22 07:23 FiO2 Intake & Output 05/06/22 05/07/22 05/07/22 18:59 06:59 18:59 Intake Total 137.433 112.567 Output Total 1400 800 Balance -1262.567 -687.433 Intake: Intake, IV Titration 137.433 112.567 Amount Ropivacaine 250 mg 137.433 112.567 fentaNYL (PF) 1,250 mcg In Sodium Chloride 0.9% 175 ml @ Per Protocol EPIDURAL .Q0M PRN Rx#: [id number] Output: Urine 1400 800 Other: Voiding Method Indwelling Catheter - Labs CBC & Chem 7: 05/07/22 04:49 05/07/22 04:49 Labs: Abnormal Lab Results - Last 24 Hours (Table) 05/06/22 05/06/22 05/07/22 Range/Units 16:43 16:43 04:49 WBC 11.6 H 12.21 H (3.8-10.6) k/uL RBC 3.46 L 3.18 L (3.80-5.40) m/uL Hgb 10.4 L (12.0-15.0) g/dL Hct 33.5 L 31.7 L (34.0-46.0) % MCV 99.7 H (80.0-97.0) fL MCH 32.7 H (27.0-32.0) pg Immature Gran # 0.05 H (0.00-0.04) X 10*3/uL Neutrophils # 8.0 H 8.65 H (1.3-7.7) k/uL Eosinophils # 0.72 H (0.04-0.35) X 10*3/uL Sodium 136 L (137-145) mmol/L Anion Gap (10.00-18.00) mmol/L BUN (9.0-27.0) mg/dL BUN/Creatinine Ratio (12.00-20.00) Ratio Glucose 110 H (74-99) mg/dL 05/07/22 Range/Units 04:49 WBC (3.8-10.6) k/uL RBC (3.80-5.40) m/uL Hgb (12.0-15.0) g/dL Hct (34.0-46.0) % MCV (80.0-97.0) fL MCH (27.0-32.0) pg Immature Gran # (0.00-0.04) X 10*3/uL Neutrophils # (1.3-7.7) k/uL Eosinophils # (0.04-0.35) X 10*3/uL Sodium (137-145) mmol/L Anion Gap 9.60 L (10.00-18.00) mmol/L BUN 5.7 L (9.0-27.0) mg/dL BUN/Creatinine Ratio 7.13 L (12.00-20.00) Ratio Glucose (74-99) mg/dL
[2022-05-07] MEDS: HYDROcodone/APAP 7.5-325MG 1 EACH TAB PO PRN (16:49)
[2022-05-07] MEDS ORDERED: LORazepam 2 MG/ML INJ IV ONE (18:31)
[2022-05-07] MEDS: QUEtiapine 100 MG TAB PO SCH (21:58)
[2022-05-08] MEDS: HEPARIN SODIUM,PORCINE/PF 5,000 UNIT/0.5 ML SYRINGE SQ SCH ×3 (00:15→16:02)
[2022-05-08] MEDS: ONDANSETRON 4 MG/2 ML VIAL IVP PRN ×3 (01:36→18:14)
[2022-05-08] MEDS: HYDROmorphone 0.5 MG/0.5 ML SYRINGE IVP PRN ×5 (01:37→20:56)
[2022-05-08] MEDS: KETOROLAC 15 MG/ML 1 ML VIAL IVP SCH ×4 (04:58→16:02)
[2022-05-08] MEDS: D5-0.45% NACL WITH KCL 20MEQ/L 1,000 ML IV SCH ×2 (05:04→10:06)
[2022-05-08] MEDS: amLODIPine 5 MG TAB PO SCH (08:18)
[2022-05-08] MEDS: ALVIMOPAN 12 MG CAPSULE PO SCH ×2 (08:18→20:56)
[2022-05-08] MEDS: PANTOPRAZOLE 40 MG/10 ML VIAL IVP SCH ×2 (08:18→20:56)
[2022-05-08] MEDS: FAMOTIDINE 20 MG/2 ML VIAL IV SCH ×2 (08:18→20:56)
[2022-05-08] MEDS: METOPROLOL SUCCINATE (ER) 100 MG TAB.ER.24H PO SCH (08:18)
[2022-05-08 09:00] LABS: Basophils # (A) 0.02 X 10*3/uL (0.00-0.10); Basophils % (A) 0.3 %; Eosinophils # (A) 0.54 X 10*3/uL (0.04-0.35); HCT 28.9 % (37.2-46.3); HGB 9.5 g/dL (12.0-15.0); Immature Grans, Automated 0.3 %; Lymphocytes # (A) 1.17 X 10*3/uL (0.90-5.00); Lymphocytes % (A) 15.1 %; MCH 31.8 pg (27.0-32.0); MCHC 32.9 g/dL (32.0-37.0); MCV 96.7 fL (80.0-97.0); Mean Platelet Volume 9.8 fL (9.5-12.2); Monocytes # (A) 0.56 X 10*3/uL (0.20-1.00); Monocytes % (A) 7.2 %; NRBC Per 100 WBC 0 /100 WBCS (0.0-0.0); Neutrophils # (A) 5.42 X 10*3/uL (1.80-7.70); Neutrophils % (A) 70.1 %; Platelet Count 304 X 10*3/uL (140-440); RBC 2.99 X 10*6/uL (4.10-5.20); WBC 7.73 X 10*3/uL (4.50-10.00)
[2022-05-08] MEDS: HYDROcodone/APAP 7.5-325MG 1 EACH TAB PO PRN ×2 (10:06→15:33)
[2022-05-08] MEDS: METOCLOPRAMIDE 5 MG/ML 2 ML VIAL IVP PRN (11:51)
--- NOTE | 2022-05-08 13:05 | P.PN ---
Subjective Progress Note Date: 05/08/22 CHIEF COMPLAINT: Diverticulitis HISTORY OF PRESENT ILLNESS: Patient is postop day #5 status post Sigmoid colectomy, lysis of adhesions, mobilization splenic flexure. Patient does report abdominal pain but pain is improving each day. NG tube was pulled out last night. Patient is now having flatus. She denies any nausea or vomiting. Denies any bowel movement. Epidural and Wetzel catheter discontinued yesterday. Afebrile. WBC has normalized from 12-7.73 hemoglobin 9.5 platelets 304 PHYSICAL EXAM: VITAL SIGNS: Reviewed. GENERAL: Well-developed in no acute distress. HEENT: No sclera icterus. Extraocular movements grossly intact. Moist buccal mucosa. Head is atraumatic, normocephalic. ABDOMEN: Soft. Mildly distended. incisional dressing with a few small areas of blood. Patient has tenderness with palpation at the incision site. NEUROLOGIC: Alert and oriented. Cranial nerves II through XII grossly intact. ASSESSMENT: 1. Diverticulitis with pericolonic abscess, abdominal adhesions status post Sigmoid colectomy, lysis of adhesions, mobilization splenic flexure 2. Leukocytosis likely reactive. Improved 3. Postop nausea and vomiting PLAN: -Advance diet to clear liquids -Continue pain management -Encouraged patient to use incentive spirometer -Encouraged patient ambulate -GI prophylaxis Pepcid and DVT prophylaxis subcu heparin Physician Tube Closing Machine Operator note has been reviewed by physician. Signing provider agrees with the documented findings, assessment, and plan of care. I have personally seen and examined the patient, reviewed the BACK GRAY CLOTH WASHER /PAs history, exam and MDM and agree with the assessment and plan as written. Based on total visit time, I have performed more than 50% of the visit. As above: Patient doing better. Labs improved. She is having flatus. He says her pain is better controlled. Gradually advance diet as tolerated. Anticipate probable transfer on . Objective - Vital Signs Vital signs: Vital Signs Temp 98.2 F 05/08/22 02:00 Pulse 84 05/08/22 02:00 Resp 17 05/08/22 02:00 BP 115/64 05/08/22 02:00 Pulse Ox 94 L 05/08/22 02:00 FiO2 Intake & Output 05/07/22 05/08/22 05/08/22 18:59 06:59 18:59 Intake Total 55.95 Output Total 575 Balance 55.95 -575 Weight 73.2 kg Intake: Intake, IV Titration 55.95 Amount Ropivacaine 250 mg 55.95 fentaNYL (PF) 1,250 mcg In Sodium Chloride 0.9% 175 ml @ Per Protocol EPIDURAL .Q0M PRN Rx#: [id number] Output: Gastric Drainage 575 Other: Voiding Method Indwelling Catheter Toilet Toilet Bedside Commode Bedside Commode Bedpan Bedpan # Voids 1 5 - Labs CBC & Chem 7: 05/08/22 06:03 05/07/22 04:49 Labs: Abnormal Lab Results - Last 24 Hours (Table) 05/08/22 Range/Units 06:03 RBC 2.99 L (4.10-5.20) X 10*6/uL Hgb 9.5 L (12.0-15.0) g/dL Hct 28.9 L (37.2-46.3) % Eosinophils # 0.54 H (0.04-0.35) X 10*3/uL
--- NOTE | 2022-05-08 16:19 | P.PN ---
Subjective Progress Note Date: 05/08/22 Diverticulitis with pericolonic abscess 61-year-old female patient who was recently admitted, pulse 06/15/2021 with left lower quadrant pain and diagnosed with acute diverticulitis; CAT scan of the abdomen revealed mid sigmoid colon inflammatory changes; patient was treated wit h IV Levaquin and Flagyl and was discharged with outpatient follow-up with surgery; patient was reevaluated by surgery as outpatient and was admitted for sigmoid colectomy, lysis of adhesions Patient is POD #1 05/06/2022 Patient is seen and evaluated in room at bedside; patient has epidural catheter. Postop pain control; patient is status post anterior resection for dive rticulitis with postoperative ileus Patient has an NG tube to suction; surgery on board and planning to possibly clamp the tube in next 24 hours and start patient on clear liquid diet if remains stable 05/07/2022 Patient is seen and evaluated in follow-up this morning currently sitting up in the chair asking to be put back in the bed although per nursing staff was just placed in the chair 15 minutes prior to this. Patient is having difficulty with ambulation getting up and needs encouragement with increasing activity as tolerated. Patient continues with NG tube and surgery discussing possibly advancing to clear liquids. Patient with abdominal distention and denies passing gas or having bowel movements as of yet. Recommend PT/OT therapy evaluation. A shunt continues with indwelling Wetzel catheter along with epidural pain pump is being discontinued today. WBC is elevated at 12.21 and patient with low-grade temps. 05/08/2022 Patient is seen and evaluated in follow-up and is post sigmoid colectomy with lysis of adhesions and being monitored closely with general surgery is indic ated. Patient continues to have some abdominal discomfort although feels improved an NG tube has been removed patient started on clear liquids. Patient reports passing gas with no bowel movements as of yet. Patient is voiding and had epidural pain pump along with Wetzel catheter discontinued yesterday. Encouraged incentive spirometer and patient has at the bedside to continue using at least 10 times every hour while awake. Recommend PT/OT evaluation and encouraged increase activity as tolerated. Social work is following and working on ECF at possible [facility] for continued PT/OT therapy. Patient has been afebrile now and denies any chest pain or shortness of breath. Follow-up labs this morning display a normalized WBC of 7.73 and hemoglobin is stable at 9.5. Encourage small frequent meals with clears and anti-emetics as needed. Review of systems: Constitutional: No reports of fatigue, fever, or chills Cardiovascular: No reports of chest pain or palpitations Respiratory: No reports of shortness of breath or cough GI: No reports of nausea, vomiting, or diarrhea, reports passing gas with no bowel movement as of yet : No reports of dysuria or retention, voiding post Wetzel catheter discontinued Neurovascular: reports of generalized weakness All medications have been reviewed Physical exam: General appearance: Present: average body habitus, cooperative, no acute distr ess EENT: anicteric sclerae, EOMI, PERRLA, normal appearance, NG tube noted Neck: Present: normal ROM. Absent: lymphadenopathy, rigidity, thyromegaly Carotids: negative: bruit present Thyroid: bilateral: normal size, negative: enlarged, nodule Respiratory: bilateral: CTA, negative: rales, rhonchi, wheezing Cardiovascular: regular: S1, S2 Abnormal Heart Sounds: Absent: systolic murmur, diastolic murmur Gastrointestinal: normal bowel sounds, soft. Mildly tender on palpation , non- distended Integumentary: Present: normal turgor. Absent: jaundiced, rash, ulcer Neurologic: Present: CNII-XII intact. Absent: focal deficits Musculoskeletal: Present: gait normal, strength equal bilaterally Assessment: -Diverticulitis with pericolonic abscess status post sigmoid colectomy with lysis of adhesions and mobilization of splenic flexure -Hypertension; we will continue with oral hypertensive therapy with Norvasc and Toprol-XL -Osteoarthritis; patient takes Motrin at home which was placed on hold -History of GI bleed; PPI -DVT prophylaxis; SCDs -Full code Plan: Patient is status post sigmoid colectomy with lysis of adhesions and mobilization of splenic flexure with general surgery. Patient had NG tube removed and tolerating clear liquids and patient reports to passing gas with no bowel movement as of yet Home medications have been reviewed and resumed Encouraged increase activity as tolerated, and patient continues with weakness. PT/OT to evaluate and social work is following and patient agreeable to rehab Encouraged incentive spirometer use at least 10 times every hour while awake Recommend to continue holding NSAIDs Recommend repeat labs in the a.m. We will continue to follow with general surgery during this hospitalization. Thank you kindly for this consultation. Due to multiple complex medical issues, prognosis is guarded The impression and plan of care has been dictated by Yolanda Smart, Nurse Practitioner as directed. Dr. Мария MD I have performed a history and examination and MDM of this patient, discussed the same with the dictator, and agree with the dictator's assessment and plan as written ,documented as a scribe. Based on total visit time, I have performed more than 50% of the visit. Objective - Vital Signs Vital signs: Vital Signs Temp 98.6 F 05/08/22 08:00 Pulse 77 05/08/22 08:00 Resp 16 05/08/22 08:00 BP 127/71 05/08/22 08:00 Pulse Ox 96 05/08/22 08:00 FiO2 Intake & Output 05/07/22 05/08/22 05/08/22 18:59 06:59 18:59 Intake Total 55.95 Output Total 575 Balance 55.95 -575 Weight 73.2 kg 73.2 kg Intake: Intake, IV Titration 55.95 Amount Ropivacaine 250 mg 55.95 fentaNYL (PF) 1,250 mcg In Sodium Chloride 0.9% 175 ml @ Per Protocol EPIDURAL .Q0M PRN Rx#: [id number] Output: Gastric Drainage 575 Other: Voiding Method Indwelling Catheter Toilet Toilet Bedside Commode Bedside Commode Bedpan Bedpan # Voids 1 5 - Labs CBC & Chem 7: 05/08/22 06:03 05/07/22 04:49 Labs: Abnormal Lab Results - Last 24 Hours (Table) 05/08/22 Range/Units 06:03 RBC 2.99 L (4.10-5.20) X 10*6/uL Hgb 9.5 L (12.0-15.0) g/dL Hct 28.9 L (37.2-46.3) % Eosinophils # 0.54 H (0.04-0.35) X 10*3/uL
[2022-05-08] MEDS: QUEtiapine 100 MG TAB PO SCH (20:56)
[2022-05-09] MEDS: KETOROLAC 15 MG/ML 1 ML VIAL IVP SCH ×5 (00:07→22:33)
[2022-05-09] MEDS: D5-0.45% NACL WITH KCL 20MEQ/L 1,000 ML IV SCH ×2 (00:09→16:40)
[2022-05-09] MEDS: HEPARIN SODIUM,PORCINE/PF 5,000 UNIT/0.5 ML SYRINGE SQ SCH ×3 (00:09→15:33)
[2022-05-09] MEDS: HYDROmorphone 0.5 MG/0.5 ML SYRINGE IVP PRN ×3 (02:02→17:24)
[2022-05-09] MEDS: ALVIMOPAN 12 MG CAPSULE PO SCH (08:13)
[2022-05-09] MEDS: FAMOTIDINE 20 MG/2 ML VIAL IV SCH ×2 (08:13→21:41)
[2022-05-09] MEDS: amLODIPine 5 MG TAB PO SCH (08:13)
[2022-05-09] MEDS: PANTOPRAZOLE 40 MG/10 ML VIAL IVP SCH ×2 (08:14→21:41)
[2022-05-09] MEDS: METOPROLOL SUCCINATE (ER) 100 MG TAB.ER.24H PO SCH (08:14)
[2022-05-09] MEDS: HYDROcodone/APAP 7.5-325MG 1 EACH TAB PO PRN ×3 (10:11→20:01)
--- NOTE | 2022-05-09 15:15 | P.PN ---
Subjective Progress Note Date: 05/09/22 CHIEF COMPLAINT: Diverticulitis HISTORY OF PRESENT ILLNESS: Patient is postop day #6 status post Sigmoid colectomy, lysis of adhesions, mobilization splenic flexure. Patient is having flatus and bowel movements. Denies any nausea or vomiting. Reports her pain is controlled. Afebrile. WBC 7.73 PHYSICAL EXAM: VITAL SIGNS: Reviewed. GENERAL: Well-developed in no acute distress. HEENT: No sclera icterus. Extraocular movements grossly intact. Moist buccal mucosa. Head is atraumatic, normocephalic. ABDOMEN: Soft. Mildly distended. incisional dressing with a few small areas of blood. Patient has tenderness with palpation at the incision site. NEUROLOGIC: Alert and oriented. Cranial nerves II through XII grossly intact. ASSESSMENT: 1. Diverticulitis with pericolonic abscess, abdominal adhesions status post Sigmoid colectomy, lysis of adhesions, mobilization splenic flexure 2. Leukocytosis likely reactive. Improved 3. Postop nausea and vomiting PLAN: -Advance diet to full liquids -Continue pain management -Encouraged patient to use incentive spirometer -Encouraged patient ambulate -Plan for discharge to [facility] tomorrow -GI prophylaxis Pepcid and DVT prophylaxis subcu heparin Physician Front Clerk note has been reviewed by physician. Signing provider agrees with the documented findings, assessment, and plan of care. Patient doing well today. Tolerating her diet. Having loose stools. Pain is improved. She would [facility] be [facility] to [facility]. Possible transfer today. Objective - Vital Signs Vital signs: Vital Signs Temp 98.4 F 05/09/22 14:10 Pulse 70 05/09/22 14:10 Resp 17 05/09/22 14:10 BP 124/72 05/09/22 14:10 Pulse Ox 97 05/09/22 14:10 FiO2 Intake & Output 05/08/22 05/09/22 05/09/22 18:59 06:59 18:59 Intake Total 500 Output Total 6 Balance 494 Weight 73.2 kg 73.2 kg Intake: Oral 500 Output: Urine 6 Other: Voiding Method Toilet Toilet Toilet Bedside Commode Bedpan # Bowel Movements 1 6 - Labs CBC & Chem 7: 05/08/22 06:03 05/07/22 04:49
[2022-05-09] MEDS ORDERED: LOPERAMIDE 2 MG CAP PO PRN (19:51)
[2022-05-09] MEDS: METOCLOPRAMIDE 5 MG/ML 2 ML VIAL IVP PRN (20:01)
[2022-05-09] MEDS ORDERED: BACLOFEN 10 MG TAB PO ONE (21:30)
[2022-05-09] MEDS: QUEtiapine 100 MG TAB PO SCH (21:41)
--- NOTE | 2022-05-10 00:30 | P.PN ---
Subjective Progress Note Date: 05/10/22 Diverticulitis with pericolonic abscess 61-year-old female patient who was recently admitted, pulse 06/15/2021 with left lower quadrant pain and diagnosed with acute diverticulitis; CAT scan of the abdomen revealed mid sigmoid colon inflammatory changes; patient was treated wit h IV Levaquin and Flagyl and was discharged with outpatient follow-up with surgery; patient was reevaluated by surgery as outpatient and was admitted for sigmoid colectomy, lysis of adhesions Patient is POD #1 05/06/2022 Patient is seen and evaluated in room at bedside; patient has epidural catheter. Postop pain control; patient is status post anterior resection for dive rticulitis with postoperative ileus Patient has an NG tube to suction; surgery on board and planning to possibly clamp the tube in next 24 hours and start patient on clear liquid diet if remains stable 05/07/2022 Patient is seen and evaluated in follow-up this morning currently sitting up in the chair asking to be put back in the bed although per nursing staff was just placed in the chair 15 minutes prior to this. Patient is having difficulty with ambulation getting up and needs encouragement with increasing activity as tolerated. Patient continues with NG tube and surgery discussing possibly advancing to clear liquids. Patient with abdominal distention and denies passing gas or having bowel movements as of yet. Recommend PT/OT therapy evaluation. A shunt continues with indwelling Wetzel catheter along with epidural pain pump is being discontinued today. WBC is elevated at 12.21 and patient with low-grade temps. 05/08/2022 Patient is seen and evaluated in follow-up and is post sigmoid colectomy with lysis of adhesions and being monitored closely with general surgery is indic ated. Patient continues to have some abdominal discomfort although feels improved an NG tube has been removed patient started on clear liquids. Patient reports passing gas with no bowel movements as of yet. Patient is voiding and had epidural pain pump along with Wetzel catheter discontinued yesterday. Encouraged incentive spirometer and patient has at the bedside to continue using at least 10 times every hour while awake. Recommend PT/OT evaluation and encouraged increase activity as tolerated. Social work is following and working on ECF at possible [facility] for continued PT/OT therapy. Patient has been afebrile now and denies any chest pain or shortness of breath. Follow-up labs this morning display a normalized WBC of 7.73 and hemoglobin is stable at 9.5. Encourage small frequent meals with clears and anti-emetics as needed. 05/09/2022 Patient is seen in follow-up currently working with physical therapy and walking with continued weakness. Patient is post sigmoid colectomy with general surgery following. Patient is tolerating diet and passing gas along with having bowel movements. Diet is being advanced per surgery. Plan is for possible [facility] in the next 24-48 hours. Encouraged increased activity as tolerated and continued incentive spirometer use at least 10 times every hour while awake. She is afebrile denies chest pain or shortness of breath. Recommend limiting IV narcotic use and continue with oral pain medications. Review of systems: Constitutional: No reports of fatigue, fever, or chills Cardiovascular: No reports of chest pain or palpitations Respiratory: No reports of shortness of breath or cough GI: No reports of nausea, vomiting, or diarrhea, reports passing gas with bowel movements : No reports of dysuria or retention, voiding post Wetzel catheter discontinued Neurovascular: reports of generalized weakness All medications have been reviewed Physical exam: Gen: This is a 61-year-old female awake, alert and oriented 3, well-developed, well-nourished HEENT: Head is atraumatic, normocephalic. Pupils equal, round. Sclerae is anicteric. NECK: Supple. No JVD. No lymphadenopathy. No thyromegaly. LUNGS: Clear to auscultation. No wheezes or rhonchi. No intercostal retractions. HEART: Regular rate and rhythm. No murmur. ABDOMEN: Soft. Mildly tender on palpation. Bowel sounds are present. No masses. EXTREMITIES: No pedal edema. No calf tenderness. NEUROLOGICAL: Patient is awake, alert and oriented x3. Cranial nerves 2 through 12 are grossly intact. Diffusely weak Assessment: -Diverticulitis with pericolonic abscess status post sigmoid colectomy with lysis of adhesions and mobilization of splenic flexure -Hypertension history -Osteoarthritis -History of GI bleed -DVT prophylaxis; SCDs -Full code Plan: Patient is status post sigmoid colectomy with lysis of adhesions and mo bilization of splenic flexure with general surgery. Patient is maintained on liquid diet being advanced as patient is tolerating and now having bowel movements. Patient continues to report some abdominal tenderness and per nursing staff requesting IV pain medications. Recommend limiting and continue with oral medications for pain control. Home medications have been reviewed and resumed Encouraged increase activity as tolerated, and patient continues with weakness. PT/OT following recommending rehab and patient agreeable with plans for possible [facility] in 24 hours Encouraged incentive spirometer use at least 10 times every hour while awake Recommend to continue holding NSAIDs We will continue to follow with general surgery during this hospitalization. Thank you kindly for this consultation. Due to multiple complex medical issues, prognosis is guarded Possible discharge in 24 hours per surgery is admitting services. Patient is medically stable for discharge to [facility]. The impression and plan of care has been dictated by Yolanda Smart, Nurse Practitioner as directed. Dr. Мария MD I have performed a history and examination and MDM of this patient, discussed the same with the dictator, and agree with the dictator's assessment and plan as written ,documented as a scribe. Based on total visit time, I have performed more than 50% of the visit. Objective - Vital Signs Vital signs: Vital Signs Temp 98.4 F 05/09/22 19:31 Pulse 68 05/09/22 19:31 Resp 16 05/09/22 19:31 BP 130/76 05/09/22 19:31 Pulse Ox 96 05/09/22 19:31 FiO2 Intake & Output 05/09/22 05/09/22 05/10/22 06:59 18:59 06:59 Intake Total 500 Output Total 6 Balance 494 Weight 73.2 kg Intake: Oral 500 Output: Urine 6 Other: Voiding Method Toilet Toilet Toilet # Voids 3 # Bowel Movements 6 - Labs CBC & Chem 7: 05/08/22 06:03 05/07/22 04:49
[2022-05-10] MEDS: HEPARIN SODIUM,PORCINE/PF 5,000 UNIT/0.5 ML SYRINGE SQ SCH ×2 (03:08→08:00)
[2022-05-10] MEDS: HYDROcodone/APAP 7.5-325MG 1 EACH TAB PO PRN (03:21)
[2022-05-10] MEDS: METOCLOPRAMIDE 5 MG/ML 2 ML VIAL IVP PRN (03:32)
[2022-05-10] MEDS: D5-0.45% NACL WITH KCL 20MEQ/L 1,000 ML IV SCH ×2 (05:12→07:57)
[2022-05-10] MEDS: KETOROLAC 15 MG/ML 1 ML VIAL IVP SCH (05:58)
[2022-05-10] MEDS: PANTOPRAZOLE 40 MG/10 ML VIAL IVP SCH (08:00)
[2022-05-10] MEDS: FAMOTIDINE 20 MG/2 ML VIAL IV SCH (08:00)
[2022-05-10] MEDS: METOPROLOL SUCCINATE (ER) 100 MG TAB.ER.24H PO SCH (08:01)
[2022-05-10] MEDS: amLODIPine 5 MG TAB PO SCH (08:01)
[2022-05-10 08:04] VITALS: BP 112/65; PULSE 69; RESP 17; TEMP 98.3
[2022-05-10] MEDS: HYDROmorphone 1 MG/ML 1 ML SYRINGE IVP PRN (08:04)
--- NOTE | 2022-05-10 13:09 | P.DS ---
Providers Date of admission: 05/03/22 11:26 Expected date of discharge: 05/10/22 Attending physician: Prince Mott Consults: 05/03/22 17:48 Consult Physician Routine Consulting Provider: Nagi Fierro Consult Reason/Comments: Medical management Do you want consulting provider notified?: Yes [facility] Course: Discharge diagnosis 1. Diverticulitis with pericolonic abscess, abdominal adhesions status post sigmoid colectomy, lysis of adhesions and mobilization of splenic flexure Hospital course This is a 61-year-old female with diverticulitis with paracolonic abscess and abdominal adhesions. She is status post sigmoid colectomy, lysis of adhesions and mobilization of splenic flexure. Patient reports her pain is controlled. She is tolerating diet. She is having bowel movements and flatus. She denies any difficulty urinating. She is afebrile. Her incision sites clean dry and intact. She has been up and ambulating. She is stable for discharge. Please refer to chart for any further details. Physician Video Coordinator note has been reviewed by physician. Signing provider agrees with the documented findings, assessment, and plan of care. Patient Condition at Discharge: Stable Plan - Discharge Summary Discharge Rx Participant: Yes New Discharge Prescriptions: New HYDROcodone/APAP 7.5-325MG [[place] 7.5-325] 1 tab PO Q6HR PRN 2 Days #8 tab PRN Reason: Pain Continue traZODone HCL 150 mg PO HS QUEtiapine FUMARATE [SEROquel] 300 mg PO HS Ondansetron [Zofran] 4 mg PO Q8H PRN PRN Reason: Nausea And Vomiting Multivitamins, Thera [Multivitamin (formulary)] 1 tab PO DAILY amLODIPine [Norvasc] 5 mg PO DAILY Ibuprofen [Motrin] 600 mg PO Q6HR PRN #20 tab PRN Reason: Pain HYDROcodone/APAP 7.5-325MG [[place] 7.5-325] 1 tab PO Q4HR PRN 3 Days #18 tab PRN Reason: Pain Metoprolol Succinate [Toprol XL] 100 mg PO DAILY Discharge Medication List Multivitamins, Thera [Multivitamin (formulary)] 1 tab PO DAILY 04/19/22 [History] amLODIPine [Norvasc] 5 mg PO DAILY 04/19/22 [History] traZODone HCL 150 mg PO HS 11/24/22 [History] HYDROcodone/APAP 7.5-325MG [[place] 7.5-325] 1 tab PO Q4HR PRN 3 Days #18 tab 04/28/22 [Rx] Ibuprofen [Motrin] 600 mg PO Q6HR PRN #20 tab 04/28/22 [Rx] Metoprolol Succinate [Toprol XL] 100 mg PO DAILY 05/02/22 [History] Ondansetron [Zofran] 4 mg PO Q8H PRN 05/02/22 [History] QUEtiapine FUMARATE [SEROquel] 300 mg PO HS 05/02/22 [History] HYDROcodone/APAP 7.5-325MG [[place] 7.5-325] 1 tab PO Q6HR PRN 2 Days #8 tab 05/10/22 [Rx] Follow up Appointment(s)/Referral(s): Prince Mott MD [Medical Doctor] - 05/23/22 1:00 pm Patient Instructions/Handouts: Colectomy (DC) Activity/Diet/Wound Care/Special Instructions: No driving while taking [place] No lifting over 10 pounds You may shower. No soaking or tub baths for 2 weeks Very light activity until you are reevaluated at your follow up appointment with your surgeon Discharge Disposition: HOME SELF-CARE
--- NOTE | 2022-05-10 15:03 | P.PN ---
Subjective Progress Note Date: 05/10/22 Diverticulitis with pericolonic abscess 61-year-old female patient who was recently admitted, pulse 06/15/2021 with left lower quadrant pain and diagnosed with acute diverticulitis; CAT scan of the abdomen revealed mid sigmoid colon inflammatory changes; patient was treated wit h IV Levaquin and Flagyl and was discharged with outpatient follow-up with surgery; patient was reevaluated by surgery as outpatient and was admitted for sigmoid colectomy, lysis of adhesions Patient is POD #1 05/06/2022 Patient is seen and evaluated in room at bedside; patient has epidural catheter. Postop pain control; patient is status post anterior resection for dive rticulitis with postoperative ileus Patient has an NG tube to suction; surgery on board and planning to possibly clamp the tube in next 24 hours and start patient on clear liquid diet if remains stable 05/07/2022 Patient is seen and evaluated in follow-up this morning currently sitting up in the chair asking to be put back in the bed although per nursing staff was just placed in the chair 15 minutes prior to this. Patient is having difficulty with ambulation getting up and needs encouragement with increasing activity as tolerated. Patient continues with NG tube and surgery discussing possibly advancing to clear liquids. Patient with abdominal distention and denies passing gas or having bowel movements as of yet. Recommend PT/OT therapy evaluation. A shunt continues with indwelling Wetzel catheter along with epidural pain pump is being discontinued today. WBC is elevated at 12.21 and patient with low-grade temps. 05/08/2022 Patient is seen and evaluated in follow-up and is post sigmoid colectomy with lysis of adhesions and being monitored closely with general surgery is indic ated. Patient continues to have some abdominal discomfort although feels improved an NG tube has been removed patient started on clear liquids. Patient reports passing gas with no bowel movements as of yet. Patient is voiding and had epidural pain pump along with Wetzel catheter discontinued yesterday. Encouraged incentive spirometer and patient has at the bedside to continue using at least 10 times every hour while awake. Recommend PT/OT evaluation and encouraged increase activity as tolerated. Social work is following and working on ECF at possible [facility] for continued PT/OT therapy. Patient has been afebrile now and denies any chest pain or shortness of breath. Follow-up labs this morning display a normalized WBC of 7.73 and hemoglobin is stable at 9.5. Encourage small frequent meals with clears and anti-emetics as needed. 05/09/2022 Patient is seen in follow-up currently working with physical therapy and walking with continued weakness. Patient is post sigmoid colectomy with general surgery following. Patient is tolerating diet and passing gas along with having bowel movements. Diet is being advanced per surgery. Plan is for possible [place] in the next 24-48 hours. Encouraged increased activity as tolerated and continued incentive spirometer use at least 10 times every hour while awake. She is afebrile denies chest pain or shortness of breath. Recommend limiting IV narcotic use and continue with oral pain medications. 05/10/2022 Patient seen and evaluated in follow-up currently walking the halls and per nursing staff and case management will not qualify for rehab. General surgery made aware as they are attending physicians. Patient also would like to go home today with daughter and requesting an early discharge as patient's daughter has to get to work by 1 PM. Patient is currently afebrile denying chest pain or shortness of breath. Patient reports the passing gas and having bowel movements and urinating with no difficulties. Encourage the patient to continue using incentive spirometer and bring it home and continue these at least 10 times per hour while awake. Encourage the patient to follow-up with primary care provider as well. Review of systems: Constitutional: No reports of fatigue, fever, or chills Cardiovascular: No reports of chest pain or palpitations Respiratory: No reports of shortness of breath or cough GI: No reports of nausea, vomiting, or diarrhea, reports passing gas with bowel movements : No reports of dysuria or retention, voiding with no difficulty Neurovascular: reports of generalized weakness All medications have been reviewed Physical exam: Gen: This is a 61-year-old female awake, alert and oriented 3, well-developed, well-nourished HEENT: Head is atraumatic, normocephalic. Pupils equal, round. Sclerae is anicteric. NECK: Supple. No JVD. No lymphadenopathy. No thyromegaly. LUNGS: Clear to auscultation. No wheezes or rhonchi. No intercostal retract ions. HEART: Regular rate and rhythm. No murmur. ABDOMEN: Soft. Mildly tender on palpation. Bowel sounds are present. No masses. EXTREMITIES: No pedal edema. No calf tenderness. NEUROLOGICAL: Patient is awake, alert and oriented x3. Cranial nerves 2 through 12 are grossly intact. Diffusely weak Assessment: -Diverticulitis with pericolonic abscess status post sigmoid colectomy with lysis of adhesions and mobilization of splenic flexure -Hypertension history -Osteoarthritis -History of GI bleed -DVT prophylaxis; SCDs -Full code Plan: Patient is status post sigmoid colectomy with lysis of adhesions and mobilization of splenic flexure with general surgery. Patient is maintained on regular diet and is tolerating and now having bowel movements. Patient continues to report some abdominal tenderness although reports improvement from yesterday. Recommend limiting and continue with oral medications for pain control. Home medications have been reviewed and resumed Encouraged increase activity as tolerated, and patient continues with weakness. PT/OT following and patient is doing well and will not qualify for rehab and patient would like to go home. Homecare being arranged by case management Encouraged incentive spirometer use at least 10 times every hour while awake Recommend to continue holding NSAIDs We will continue to follow with general surgery during this hospitalization. Thank you kindly for this consultation. Due to multiple complex medical issues, prognosis is guarded Patient is being discharged today. The impression and plan of care has been dictated by Yolanda Smart, Nurse Practitioner as directed. Dr. Мария MD I have performed a history and examination and MDM of this patient, discussed the same with the dictator, and agree with the dictator's assessment and plan as written ,documented as a scribe. Based on total visit time, I have performed more than 50% of the visit. Objective - Vital Signs Vital signs: Vital Signs Temp 98.3 F 05/10/22 08:00 Pulse 69 05/10/22 08:00 Resp 17 05/10/22 08:00 BP 112/65 05/10/22 08:00 Pulse Ox 96 05/10/22 09:21 FiO2 Intake & Output 05/09/22 05/10/22 05/10/22 18:59 06:59 18:59 Weight 73.2 kg Other: Voiding Method Toilet Toilet # Voids 3 5 - Labs CBC & Chem 7: 05/08/22 06:03 05/07/22 04:49
== END 2022-05-10 11:45 | disposition home or self-care (01) | DRG 329 ==
LOC: 2ORMAIN 11:26 → 4SSUR 17:59
PROVIDERS: ADMIT Surgery; ATTEND Surgery
PROC: 0D9670Z Drainage of Stomach with Drainage Device, Via Natural or Artificial Opening (ICD-10-PCS; 2022-05-03)
PROC: 0DTN0ZZ Resection of Sigmoid Colon, Open Approach (ICD-10-PCS; principal; 2022-05-03 14:00)
DX: K57.20 Diverticulitis of large intestine with perforation and abscess without bleeding (principal); K65.1 Peritoneal abscess; K65.8 Other peritonitis; K56.7 Ileus, unspecified; F10.11 Alcohol abuse, in remission; F12.11 Cannabis abuse, in remission; I10 Essential (primary) hypertension; F17.210 Nicotine dependence, cigarettes, uncomplicated; Z79.899 Other long term (current) drug therapy; M19.90 Unspecified osteoarthritis, unspecified site; K66.0 Peritoneal adhesions (postprocedural) (postinfection); Z88.5 Allergy status to narcotic agent; Z91.041 Radiographic dye allergy status; Z88.0 Allergy status to penicillin; Z88.2 Allergy status to sulfonamides; Z87.19 Personal history of other diseases of the digestive system; Z28.310 Unvaccinated for COVID-19
CPT/HCPCS: 71045; 80048; 80051; 85025; 85610; 86850; 86900; 86901; 88307; 93005; 94760

== ENCOUNTER 2022-05-16 18:58 | Emergency (ER) | payer MEDICARE ==
[2022-05-16] MEDS ORDERED: SODIUM CHLORIDE 0.9% 1,000 ML IV STA (21:06)
[2022-05-16] MEDS ORDERED: ONDANSETRON 4 MG/2 ML VIAL IVP STA (21:06)
[2022-05-16] MEDS ORDERED: diphenhydrAMINE 50 MG/ML 1 ML VIAL IVP STA (21:06)
[2022-05-16] MEDS ORDERED: HYDROmorphone 0.5 MG/0.5 ML SYRINGE IVP STA (21:06)
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
[2022-05-16 22:36] LABS: Basophils # (A) 0.1 k/uL (0-0.2); Basophils % (A) 1 %; Eosinophils # (A) 0.7 k/uL (0-0.7); Eosinophils % (A) 5 %; HCT 36.1 % (34.0-46.0); HGB 12.2 gm/dL (11.4-16.0); Lymphocytes # (A) 2.7 k/uL (1.0-4.8); Lymphocytes % (A) 22 %; MCH 32.2 pg (25.0-35.0); MCHC 33.7 g/dL (31.0-37.0); MCV 95.5 fL (80.0-100.0); Mean Platelet Volume 7.6; Monocytes # (A) 0.5 k/uL (0-1.0); Monocytes % (A) 4 %; Neutrophils # (A) 8.1 k/uL (1.3-7.7); Neutrophils % (A) 65 %; RBC 3.78 m/uL (3.80-5.40); RDW 12.1 % (11.5-15.5); WBC 12.5 k/uL (3.8-10.6)
[2022-05-16 22:50] LABS: Albumin 4.3 g/dL (3.5-5.0); Potassium 4.3 mmol/L (3.5-5.1); Total Bilirubin 0.3 mg/dL (0.2-1.3); Total Protein 7.5 g/dL (6.3-8.2)
[2022-05-16 22:52] LABS: Platelet Count 659 k/uL (150-450)
[2022-05-16 23:21] VITALS: TEMP 98.6
[2022-05-17] MEDS ORDERED: methylPREDNISolone SOD SUCCI 125 MG/2 ML VIAL IV STA (00:37)
[2022-05-17] MEDS ORDERED: FAMOTIDINE 20 MG/2 ML VIAL IV STA (00:37)
[2022-05-17] MEDS ORDERED: HYDROmorphone 0.5 MG/0.5 ML SYRINGE IVP STA (00:37)
--- NOTE | 2022-05-17 01:39 | CT ---
EXAMINATION TYPE: CT abdomen pelvis w con CT DLP: 964.2 mGycm, Automated exposure control for dose reduction was used. DATE OF EXAM: 05/17/2022 1:09 AM COMPARISON: CT abdomen pelvis most recent from 04/28/2022 CLINICAL INDICATION:Female, 61 years old with history of post-op incision redness and abdominal pain; Post-op incision redness and abdominal pain TECHNIQUE: Axial CT of the abdomen and pelvis. Sagittal and coronal reformats were created on a [employer] workstation. Contrast used:100ml mL of Isovue 300 with IV Contrast, Oral contrast used: without Oral Contrast FINDINGS: LOWER CHEST: The heart is mildly enlarged for size. Atherosclerosis of the coronary arteries. ABDOMEN LIVER: Unremarkable GALLBLADDER AND BILE DUCTS: The gallbladder surgically absent. PANCREAS: Unremarkable. SPLEEN: Unremarkable. ADRENAL GLANDS: Unremarkable. KIDNEYS AND URETERS: No evidence of hydronephrosis or renal calculus. Left renal cyst. PELVIS BLADDER: Unremarkable REPRODUCTIVE: Unremarkable. ABDOMEN & PELVIS STOMACH AND BOWEL: No evidence of bowel obstruction. Postsurgical changes to the sigmoid colon in the area of prior colonic diverticulitis. Mild inflammation likely representing postsurgical inflammatio n in the abdomen mesentery. No organizing fluid collections. PERITONEUM: No evidence of pneumoperitoneum or free fluid. VASCULATURE: No evidence of aortic aneurysm. MUSCULOSKELETAL: No acute osseous abnormalities LYMPH NODES: No gross evidence for lymphadenopathy. SOFT TISSUE/ABDOMINAL WALL: Anterior abdominal wall suture without evidence of subcutaneous organizin g fluid collection. IMPRESSION: 1. Postsurgical changes to the colon with suspected postop inflammation in the surgical bed. No intr a-abdominal organizing fluid collection. 2. Anterior abdominal wall post surgical changes without evidence of subcutaneous organizing fluid c ollection. Inflammation changes could represent postop healing versus cellulitis, correlate clinicall y.
[2022-05-17] MEDS ORDERED: CLINDAMYCIN 150 MG CAP PO STA (02:20)
[2022-05-17] MEDS ORDERED: ACET/COD 300 MG/30 MG STARTER PACK 6 TAB BTL PO STA (02:21)
[2022-05-17 02:27] VITALS: BP 156/99; PULSE 108; RESP 18
== END 2022-05-17 02:32 | disposition home or self-care (01) ==
LOC: EC 18:58
DX: L03.311 Cellulitis of abdominal wall (principal); I10 Essential (primary) hypertension; M19.90 Unspecified osteoarthritis, unspecified site; F41.9 Anxiety disorder, unspecified; F17.200 Nicotine dependence, unspecified, uncomplicated; Z88.0 Allergy status to penicillin; Z88.2 Allergy status to sulfonamides; Z91.041 Radiographic dye allergy status; Z88.6 Allergy status to analgesic agent
CPT/HCPCS: 36415; 80053; 83605; 85025; 87040; 74177; 99284; 96374; 96375 ×4; 96361 ×2; 96376; J1200; J2930; J2405; J1170 ×2; Q9967

== ENCOUNTER 2022-05-21 11:33 | Emergency (ER) | payer MEDICARE ==
[2022-05-21 12:34] VITALS: RESP 18; TEMP 97.5
--- NOTE | 2022-05-21 14:28 | ED ---
General Adult HPI - General Chief complaint: Recheck/Abnormal Lab/Rx Stated complaint: Post op problem Time Seen by Provider: 05/21/22 14:19 Source: patient, RN notes reviewed Mode of arrival: ambulatory Limitations: no limitations - History of Present Illness Initial comments: 61 year old female with medical history significant for diverticulitis and s igmoid colon and exploratory laparotomy resents to the emergency department complaining of a postop problem. She believes her basim have popped open, and are significantly painful. She denies heavy lifting or movements. She has not tried anything for the pain. She denies fever, chills, chest pain, palpitations, shortness of breath, chest pain. While obtaining the history, patient repeatedly asking for Dilaudid. Procedure was performed by Dr. Arguelles. - Related Data Home Medications Medication Instructions Recorded Confirmed amLODIPine [Norvasc] 5 mg PO DAILY 04/19/22 05/21/22 Metoprolol Succinate [Toprol XL] 100 mg PO DAILY 05/02/22 05/21/22 QUEtiapine FUMARATE [SEROquel] 300 mg PO HS 05/02/22 05/21/22 Previous Rx's Medication Instructions Recorded Clindamycin [Cleocin] 450 mg PO TID 5 Days #45 capsule 05/17/22 Allergies Allergy/AdvReac Type Severity Reaction Status Date / Time hydromorphone [From Dilaudid] Allergy Itching Verified 05/21/22 15:40 iodine Allergy RAPID Verified 05/21/22 15:40 HEART BEAT morphine Allergy Vomiting Verified 05/21/22 15:40 Penicillins Allergy SWELLING Verified 05/21/22 15:40 OF LEGS Sulfa (Sulfonamide Allergy Rash/Hives Verified 05/21/22 15:40 Antibiotics) Review of Systems ROS Statement: Those systems with pertinent positive or pertinent negative responses have been documented in the HPI. ROS Other: All systems not noted in ROS Statement are negative. Past Medical History Past Medical History: GI Bleed, Hypertension, Osteoarthritis (OA) Additional Past Medical History / Comment(s): diverticulitis, PSUEDO SIEZURES - LAST AUGUST 2021, RECENT TREATMENT FOR ALCOHOL AND MARIJUANA ABUSE AT [facility]. History of Any Multi-Drug Resistant Organisms: None Reported Past Surgical History: Appendectomy, Bladder Surgery, Section, Cholecystectomy, Hysterectomy Additional Past Surgical History / Comment(s): BILATERAL CATARACT SURGERY WITH IMPLANTS , open sigmoid colectomy . Past Anesthesia/Blood Transfusion Reactions: No Reported Reaction, Motion Sic kness Past Psychological History: Anxiety, PTSD Smoking Status: Current every day smoker Past Alcohol Use History: None Reported Past Drug Use History: Marijuana - Past Family History Mother Family Medical History: Hypertension General Exam Limitations: no limitations General appearance: alert, in no apparent distress Head exam: Present: atraumatic, normocephalic, normal inspection Eye exam: Present: normal appearance, PERRL, EOMI. Absent: scleral icterus, conjunctival injection, periorbital swelling ENT exam: Present: normal exam, mucous membranes moist Neck exam: Present: normal inspection. Absent: tenderness, meningismus, lymphadenopathy Respiratory exam: Present: normal lung sounds bilaterally. Absent: respiratory distress, wheezes, rales, rhonchi, stridor Cardiovascular Exam: Present: regular rate, normal rhythm, normal heart sounds. Absent: systolic murmur, diastolic murmur, rubs, gallop, clicks GI/Abdominal exam: Present: soft, tenderness (Abdomen with 30 basim, that appear well healed no active bleeding or drainage.), normal bowel sounds. Absent: distended, guarding, rebound, rigid Extremities exam: Present: normal inspection, full ROM, normal capillary refill. Absent: tenderness, pedal edema, joint swelling, calf tenderness Back exam: Present: normal inspection Neurological exam: Present: alert, oriented X3, CN II-XII intact Psychiatric exam: Present: normal affect, normal mood Skin exam: Present: warm, dry, intact, normal color. Absent: rash Course Vital Signs 05/21/22 05/21/22 12:31 13:34 Temperature 97.5 F L Pulse Rate 102 H 97 Respiratory 18 18 Rate Blood Pressure 156/100 154/98 O2 Sat by Pulse 99 98 Oximetry - Reevaluation(s) Reevaluation #1: 16:30. Pt re-evaluated Pt requesting something for pain. 05/21/22 Medical Decision Making - Medical Decision Making This is 61 year old female presenting to the emergency department for post-operative pain. Patient was seen and evaluated physical exam reveals a well healed exploratory lapartomy scare. Lab Work and imaging ordered and performed during the course in the ED. Lab work essentially unremarkable, WBC 10.1. I discussed the results in detail with the patient and return precautions were discussed. Pt was given Toradol with mild symptomatic relief. Patient verbalized understanding and is agreeable with plan for discharge with follow up with primary care physician in 1-2 days. I discussed the case with Dr. Sony REEDER who agrees with plan for discharge. - Lab Data Result diagrams: 05/21/22 16:00 05/21/22 16:00 Lab Results 05/21/22 05/21/22 Range/Units 16:00 16:00 WBC 10.1 (3.8-10.6) k/uL RBC 3.78 L (3.80-5.40) m/uL Hgb 12.3 (11.4-16.0) gm/dL Hct 35.2 (34.0-46.0) % MCV 93.2 (80.0-100.0) fL MCH 32.7 (25.0-35.0) pg MCHC 35.0 (31.0-37.0) g/dL RDW 12.2 (11.5-15.5) % Plt Count 564 H (150-450) k/uL MPV 7.2 Neutrophils % 57 % Lymphocytes % 29 % Monocytes % 4 % Eosinophils % 6 % Basophils % 1 % Neutrophils # 5.8 (1.3-7.7) k/uL Lymphocytes # 2.9 (1.0-4.8) k/uL Monocytes # 0.4 (0-1.0) k/uL Eosinophils # 0.6 (0-0.7) k/uL Basophils # 0.1 (0-0.2) k/uL Sodium 139 (137-145) mmol/L Potassium 4.1 (3.5-5.1) mmol/L Chloride 107 (98-107) mmol/L Carbon Dioxide 25 (22-30) mmol/L Anion Gap 7 mmol/L BUN 15 (7-17) mg/dL Creatinine 0.68 (0.52-1.04) mg/dL Est GFR (CKD-EPI)AfAm >90 (>60 ml/min/1.73 sqM) Est GFR (CKD-EPI)NonAf >90 (>60 ml/min/1.73 sqM) Glucose 92 (74-99) mg/dL Calcium 9.8 (8.4-10.2) mg/dL Total Bilirubin 0.7 (0.2-1.3) mg/dL AST 22 (14-36) U/L ALT 18 (4-34) U/L Alkaline Phosphatase 84 (38-126) U/L Total Protein 7.2 (6.3-8.2) g/dL Albumin 4.1 (3.5-5.0) g/dL Disposition Clinical Impression: Encounter for wound re-check Disposition: HOME SELF-CARE Condition: Stable Instructions (If sedation given, give patient instructions): Surgical Site Infections (ED) Additional Instructions: Please return to the emergency department if symptoms worsen or persist. Is patient prescribed a controlled substance at d/c from ED?: No Referrals: Elina Garcia MD [Primary Care Provider] - 1-2 days Time of Disposition: 17:26
[2022-05-21] MEDS ORDERED: SODIUM CHLORIDE 0.9% 500 ML 500 ML IV ONE (14:32)
[2022-05-21 16:28] LABS: ALT 18 U/L (4-34); AST 22 U/L (14-36); African American GFR (CKD) >90 (>60 ml/min/1.73 sqM); Albumin 4.1 g/dL (3.5-5.0); Alkaline Phosphatase 84 U/L (38-126); Anion Gap 7 mmol/L; Blood Urea Nitrogen 15 mg/dL (7-17); Calcium 9.8 mg/dL (8.4-10.2); Carbon Dioxide 25 mmol/L (22-30); Chloride 107 mmol/L (98-107); Glucose 92 mg/dL (74-99); Non-African American GFR(CKD) >90 (>60 ml/min/1.73 sqM); Potassium 4.1 mmol/L (3.5-5.1); Sodium 139 mmol/L (137-145); Total Bilirubin 0.7 mg/dL (0.2-1.3); Total Protein 7.2 g/dL (6.3-8.2)
[2022-05-21 16:34] LABS: Basophils # (A) 0.1 k/uL (0-0.2); Basophils % (A) 1 %; Eosinophils # (A) 0.6 k/uL (0-0.7); Eosinophils % (A) 6 %; HCT 35.2 % (34.0-46.0); HGB 12.3 gm/dL (11.4-16.0); Lymphocytes # (A) 2.9 k/uL (1.0-4.8); Lymphocytes % (A) 29 %; MCH 32.7 pg (25.0-35.0); MCV 93.2 fL (80.0-100.0); Mean Platelet Volume 7.2; Monocytes # (A) 0.4 k/uL (0-1.0); Monocytes % (A) 4 %; Neutrophils # (A) 5.8 k/uL (1.3-7.7); Neutrophils % (A) 57 %; Platelet Count 564 k/uL (150-450); RBC 3.78 m/uL (3.80-5.40); RDW 12.2 % (11.5-15.5); WBC 10.1 k/uL (3.8-10.6)
[2022-05-21] MEDS ORDERED: KETOROLAC 15 MG/ML 1 ML VIAL IM STA (16:56)
[2022-05-21] MEDS ORDERED: ACET/COD 300 MG/30 MG STARTER PACK 6 TAB BTL PO STA (17:23)
[2022-05-21 17:46] VITALS: BP 154/98; PULSE 97
== END 2022-05-21 17:48 | disposition home or self-care (01) ==
LOC: EC 11:33
DX: Z48.01 Encounter for change or removal of surgical wound dressing (principal); I10 Essential (primary) hypertension; M19.90 Unspecified osteoarthritis, unspecified site; F41.9 Anxiety disorder, unspecified; F17.200 Nicotine dependence, unspecified, uncomplicated; F12.90 Cannabis use, unspecified, uncomplicated; Z88.5 Allergy status to narcotic agent; Z91.041 Radiographic dye allergy status; Z88.0 Allergy status to penicillin; Z88.2 Allergy status to sulfonamides; Z88.6 Allergy status to analgesic agent
CPT/HCPCS: 36415; 80053; 85025; 99283; 96372; J1885

== ENCOUNTER 2022-06-24 02:28 | Observation (INO) | payer MEDICARE, OTHER ==
--- NOTE | 2022-06-24 02:34 | ED ---
Abdominal Pain HPI - General Stated Complaint: Abd Pain Time Seen by Provider: 06/24/22 02:29 Source: RN notes reviewed, old records reviewed Limitations: no limitations - History of Present Illness Initial Comments: This is a 61-year-old female to the emergency department for evaluation patient resents for abdominal pain prior diagnosis of pancreatitis. Patient be admitted for nothing by mouth status pain control as accepted as a transfer from outside facility MD Complaint: abdominal pain -: days(s) Location: diffuse, periumbilical, epigastric Radiation: epigastric Migration to: epigastric Severity: moderate Severity scale (1-10): 4 Consistency: constant Improves With: nothing Worsens With: nothing Associated Symptoms: nausea Treatments Prior to Arrival: other (0) - Related Data Home Medications Medication Instructions Recorded Confirmed amLODIPine [Norvasc] 5 mg PO DAILY 04/19/22 05/21/22 Metoprolol Succinate [Toprol XL] 100 mg PO DAILY 05/02/22 05/21/22 QUEtiapine FUMARATE [SEROquel] 300 mg PO HS 05/02/22 05/21/22 Previous Rx's Medication Instructions Recorded Clindamycin [Cleocin] 450 mg PO TID 5 Days #45 capsule 05/17/22 Allergies Allergy/AdvReac Type Severity Reaction Status Date / Time hydromorphone [From Dilaudid] Allergy Itching Verified 05/21/22 15:40 iodine Allergy RAPID Verified 05/21/22 15:40 HEART BEAT morphine Allergy Vomiting Verified 05/21/22 15:40 Penicillins Allergy SWELLING Verified 05/21/22 15:40 OF LEGS Sulfa (Sulfonamide Allergy Rash/Hives Verified 05/21/22 15:40 Antibiotics) Review of Systems ROS Statement: Those systems with pertinent positive or pertinent negative responses have been documented in the HPI. ROS Other: All systems not noted in ROS Statement are negative. Past Medical History Past Medical History: GI Bleed, Hypertension, Osteoarthritis (OA) Additional Past Medical History / Comment(s): diverticulitis, PSUEDO SIEZURES - LAST AUGUST 2021, RECENT TREATMENT FOR ALCOHOL AND MARIJUANA ABUSE AT [facility]. History of Any Multi-Drug Resistant Organisms: None Reported Past Surgical History: Appendectomy, Bladder Surgery, Section, Cholecystectomy, Hysterectomy Additional Past Surgical History / Comment(s): BILATERAL CATARACT SURGERY WITH IMPLANTS , open sigmoid colectomy . Past Anesthesia/Blood Transfusion Reactions: No Reported Reaction, Motion Sickness Past Psychological History: Anxiety, PTSD Smoking Status: Current every day smoker Past Alcohol Use History: None Reported Past Drug Use History: Marijuana - Past Family History Mother Family Medical History: Hypertension General Exam General appearance: alert, in no apparent distress Head exam: Present: atraumatic, normocephalic, normal inspection Eye exam: Present: normal appearance, PERRL, EOMI. Absent: scleral icterus, co njunctival injection, periorbital swelling ENT exam: Present: normal exam, mucous membranes moist Neck exam: Present: normal inspection. Absent: tenderness, meningismus, lymphadenopathy Respiratory exam: Present: normal lung sounds bilaterally. Absent: respiratory distress, wheezes, rales, rhonchi, stridor Cardiovascular Exam: Present: regular rate, normal rhythm, normal heart sounds. Absent: systolic murmur, diastolic murmur, rubs, gallop, clicks GI/Abdominal exam: Present: soft, tenderness, normal bowel sounds. Absent: distended, guarding, rebound, rigid Extremities exam: Present: normal inspection, full ROM, normal capillary refill. Absent: tenderness, pedal edema, joint swelling, calf tenderness Back exam: Present: normal inspection Neurological exam: Present: alert, oriented X3, CN II-XII intact Psychiatric exam: Present: normal affect, normal mood Skin exam: Present: warm, dry, intact, normal color. Absent: rash Course Vital Signs 06/24/22 06/24/22 03:07 05:32 Temperature 97.5 F L Pulse Rate 68 79 Respiratory 18 18 Rate Blood Pressure 126/84 120/79 O2 Sat by Pulse 94 L 95 Oximetry - Reevaluation(s) Reevaluation #1: 06/24/22 07:52 Medical records Transfer paperwork is reviewed Reevaluation #2: 06/24/22 07:52 Patient's pain is well-controlled Reevaluation #3: 06/24/22 07:52 Patient informed results and questions are answered Reevaluation #4: 06/24/22 07:52 Was pt. sent in by a medical professional or institution? @ -no Did you speak to anyone other than the patient for history? @ -no Did you review nursing and triage notes? @ -agree Were old charts reviewed? @ -no prior Differential Diagnosis? @ -no prior EKG interpreted by me (3pts min.)? @ -[none] X-rays interpreted by me (1pt min.)? @ -[none] CT interpreted by me (1pt min.)? @ -[none] U/S interpreted by me (1pt. min.)? @ -[none] What testing was considered but not performed? (CT, X-rays, U/S, labs)? Why? @ no What meds were considered but not given? Why? @ -[none] Did you discuss the management of the patient with other professionals? @ -no Did you reconcile home meds? @ -[none] Was smoking cessation discussed for >3mins.? @ -[none] Was critical care preformed (if so, how long)? @ -[none] Were there social determinants of health that impacted care today? How? (Homelessness, low income, unemployed, alcoholism, drug addiction, transport ation, low edu. Level, literacy, decrease access to med. care, snf, rehab)? @ -no Was there de-escalation of care discussed even if they declined? (Discuss DNR or withdrawal of care, Hospice)? @ -no What co-morbidities impacted this encounter? (DM, HTN, Smoking, COPD, CAD, Cancer, CVA, Hep., AIDS, mental health diagnosis, sleep apnea, morbid obesity)? @ -no Was patient admitted / discharged? @ -dc ] Undiagnosed new problem with uncertain prognosis? @ -[none] Drug Therapy requiring intensive monitoring for toxicity (Heparin, Nitro, Insulin, Cardizem)? @ -[none] Were any procedures done? @ -[none] Diagnosis/symptom? @ -[default] Acute, or Chronic, or Acute on Chronic? @ -[default] Uncomplicated (without systemic symptoms) or Complicated (systemic symptoms)? @ -[default] Side effects of treatment? @ -[none] Exacerbation, Progression, or Severe Exacerbation] @ -[no] Poses a threat to life or bodily function? @ -[no] - Consultations Consultation #1: (Vitamin physicians regarding findings, they are agreeable for admission Medical Decision Making - Medical Decision Making 61 female accepted in transfer for pancreatitis, will be admitted for pain control and by mouth - Lab Data Result diagrams: 06/24/22 02:41 06/24/22 02:41 Lab Results 06/24/22 06/24/22 06/24/22 Range/Units 02:41 02:41 03:14 WBC 10.1 (3.8-10.6) k/uL RBC 4.05 (3.80-5.40) m/uL Hgb 12.7 (11.4-16.0) gm/dL Hct 37.5 (34.0-46.0) % MCV 92.6 (80.0-100.0) fL MCH 31.4 (25.0-35.0) pg MCHC 33.9 (31.0-37.0) g/dL RDW 12.2 (11.5-15.5) % Plt Count 354 (150-450) k/uL MPV 6.9 Neutrophils % 47 % Lymphocytes % 39 % Monocytes % 5 % Eosinophils % 4 % Basophils % 1 % Neutrophils # 4.7 (1.3-7.7) k/uL Lymphocytes # 4.0 (1.0-4.8) k/uL Monocytes # 0.5 (0-1.0) k/uL Eosinophils # 0.4 (0-0.7) k/uL Basophils # 0.1 (0-0.2) k/uL Sodium 138 (137-145) mmol/L Potassium 4.4 (3.5-5.1) mmol/L Chloride 110 H (98-107) mmol/L Carbon Dioxide 24 (22-30) mmol/L Anion Gap 4 mmol/L BUN 21 H (7-17) mg/dL Creatinine 0.89 (0.52-1.04) mg/dL Est GFR (CKD-EPI)AfAm 81 (>60 ml/min/1.73 sqM) Est GFR (CKD-EPI)NonAf 70 (>60 ml/min/1.73 sqM) Glucose 94 (74-99) mg/dL Calcium 8.7 (8.4-10.2) mg/dL Total Bilirubin 0.7 (0.2-1.3) mg/dL AST 19 (14-36) U/L ALT 19 (4-34) U/L Alkaline Phosphatase 62 (38-126) U/L Total Protein 6.2 L (6.3-8.2) g/dL Albumin 3.6 (3.5-5.0) g/dL Amylase 73 (30-110) U/L Lipase 130 (23-300) U/L Urine Color Light Yellow Urine Appearance Clear (Clear) Urine pH 5.0 (5.0-8.0) Ur Specific [place] >1.050 H (1.001-1.035) Urine Protein Negative (Negative) Urine Glucose (UA) Negative (Negative) Urine Ketones Negative (Negative) Urine Blood Negative (Negative) Urine Nitrite Negative (Negative) Urine Bilirubin Negative (Negative) Urine Urobilinogen <2.0 (<2.0) mg/dL Ur Leukocyte Esterase Negative (Negative) Disposition Clinical Impression: Abdominal pain, Pancreatitis Disposition: ADMITTED IP TO THIS HOSP Condition: Fair Is patient prescribed a controlled substance at d/c from ED?: No Time of Disposition: 05:30
[2022-06-24 02:48] LABS: Basophils # (A) 0.1 k/uL (0-0.2); Basophils % (A) 1 %; Eosinophils # (A) 0.4 k/uL (0-0.7); Eosinophils % (A) 4 %; HCT 37.5 % (34.0-46.0); HGB 12.7 gm/dL (11.4-16.0); Lymphocytes % (A) 39 %; MCH 31.4 pg (25.0-35.0); MCHC 33.9 g/dL (31.0-37.0); MCV 92.6 fL (80.0-100.0); Mean Platelet Volume 6.9; Monocytes # (A) 0.5 k/uL (0-1.0); Monocytes % (A) 5 %; Neutrophils # (A) 4.7 k/uL (1.3-7.7); Neutrophils % (A) 47 %; Platelet Count 354 k/uL (150-450); RBC 4.05 m/uL (3.80-5.40); RDW 12.2 % (11.5-15.5); WBC 10.1 k/uL (3.8-10.6)
[2022-06-24 02:59] LABS: Albumin 3.6 g/dL (3.5-5.0); Calcium 8.7 mg/dL (8.4-10.2); Potassium 4.4 mmol/L (3.5-5.1); Total Bilirubin 0.7 mg/dL (0.2-1.3); Total Protein 6.2 g/dL (6.3-8.2)
[2022-06-24 03:44] LABS: Appearance,Urine Clear (Clear); Bilirubin,Urine Negative (Negative); Blood,Urine Negative (Negative); Color,Urine Light Yellow; Glucose,Urine (UA) Negative (Negative); Ketones,Urine Negative (Negative); Leukocyte Esterase,Urine Negative (Negative); Nitrite,Urine Negative (Negative); Protein,Urine Negative (Negative); Urobilinogen,Urine <2.0 mg/dL (<2.0)
[2022-06-24 03:59] LABS: Specific Gravity,Urine >1.050 (1.001-1.035)
[2022-06-24] MEDS ORDERED: NALOXONE 0.4 MG/ML 1 ML VIAL IV PRN (05:25)
[2022-06-24] MEDS ORDERED: ONDANSETRON 4 MG/2 ML VIAL IVP PRN (05:25)
[2022-06-24] MEDS ORDERED: HYDROmorphone 1 MG/ML 1 ML SYRINGE IVP STA (05:26)
[2022-06-24] MEDS: HYDROmorphone 1 MG/ML 1 ML SYRINGE IVP PRN ×2 (05:33→09:06)
[2022-06-24] MEDS: SODIUM CHLORIDE 0.9% 1,000 ML IV SCH ×2 (08:51→14:04)
--- NOTE | 2022-06-24 11:56 | P.GSCN ---
History of Present Illness Consult date: 06/24/22 Reason for Consult: Abdominal pain History of present illness: Patient was apparently taken to the hospital at an outside institution for abdom inal pain. The patient says it was in the middle of her abdomen. Was going on for a few days. She was seen in the ER and a CAT scan was performed. CAT scan shows some haziness of the mesentery. Lipase slightly elevated at 422. Patient with history of pancreatitis apparently in the past from alcohol use. She is alcohol free for the last 3 months. Underwent sigmoid colectomy for diverticulitis last month. Feeling better today. She was taking a shower when I was taking my history from her. Review of Systems The patient denies any acute changes in vision or hearing, no dysphagia or odynophagia, no chest pain or shortness of breath, no dysuria or hematuria, no headache, no runny nose, no rectal bleeding or melena, no unexplained weight loss Past Medical History Past Medical History: GI Bleed, Hypertension, Osteoarthritis (OA) Additional Past Medical History / Comment(s): diverticulitis, PSUEDO SIEZURES - LAST AUGUST 2021, RECENT TREATMENT FOR ALCOHOL AND MARIJUANA ABUSE AT [facility]. History of Any Multi-Drug Resistant Organisms: None Reported Past Surgical History: Appendectomy, Bladder Surgery, Section, Cholecys tectomy, Hysterectomy Additional Past Surgical History / Comment(s): BILATERAL CATARACT SURGERY WITH IMPLANTS , open sigmoid colectomy . Past Anesthesia/Blood Transfusion Reactions: No Reported Reaction, Motion Sickness Past Psychological History: Anxiety, PTSD Smoking Status: Current every day smoker Past Alcohol Use History: None Reported Past Drug Use History: Marijuana - Past Family History Mother Family Medical History: Hypertension Medications and Allergies Home Medications Medication Instructions Recorded Confirmed Type amLODIPine [Norvasc] 5 mg PO DAILY 04/19/22 06/24/22 History Metoprolol Succinate [Toprol XL] 100 mg PO DAILY 05/02/22 06/24/22 History QUEtiapine FUMARATE [SEROquel] 300 mg PO HS 05/02/22 06/24/22 History Clindamycin [Cleocin] 450 mg PO TID 5 Days #45 capsule 05/17/22 06/24/22 Rx Allergies Allergy/AdvReac Type Severity Reaction Status Date / Time hydromorphone [From Dilaudid] Allergy Itching Verified 06/24/22 10:32 iodine Allergy RAPID Verified 06/24/22 10:32 HEART BEAT morphine Allergy Vomiting Verified 06/24/22 10:32 Penicillins Allergy SWELLING Verified 06/24/22 10:32 OF LEGS Sulfa (Sulfonamide Allergy Rash/Hives Verified 06/24/22 10:32 Antibiotics) Surgical - Exam Vital Signs Temp Pulse Resp BP Pulse Ox 97.5 F L 68 18 126/84 94 L 06/24/22 03:07 06/24/22 03:07 06/24/22 03:07 06/24/22 03:07 06/24/22 03:07 Physical exam: Deferred Results - Labs 06/24/22 02:41 06/24/22 02:41 Abnormal Lab Results - Last 24 Hours (Table) 06/24/22 06/24/22 Range/Units 02:41 03:14 Chloride 110 H (98-107) mmol/L BUN 21 H (7-17) mg/dL Total Protein 6.2 L (6.3-8.2) g/dL Ur Specific [place] >1.050 H (1.001-1.035) Diabetes panel 06/24/22 Range/Units 02:41 Sodium 138 (137-145) mmol/L Potassium 4.4 (3.5-5.1) mmol/L Chloride 110 H (98-107) mmol/L Carbon Dioxide 24 (22-30) mmol/L BUN 21 H (7-17) mg/dL Creatinine 0.89 (0.52-1.04) mg/dL Glucose 94 (74-99) mg/dL Calcium 8.7 (8.4-10.2) mg/dL AST 19 (14-36) U/L ALT 19 (4-34) U/L Alkaline Phosphatase 62 (38-126) U/L Total Protein 6.2 L (6.3-8.2) g/dL Albumin 3.6 (3.5-5.0) g/dL Calcium panel 06/24/22 Range/Units 02:41 Calcium 8.7 (8.4-10.2) mg/dL Albumin 3.6 (3.5-5.0) g/dL Pituitary panel 06/24/22 Range/Units 02:41 Sodium 138 (137-145) mmol/L Potassium 4.4 (3.5-5.1) mmol/L Chloride 110 H (98-107) mmol/L Carbon Dioxide 24 (22-30) mmol/L BUN 21 H (7-17) mg/dL Creatinine 0.89 (0.52-1.04) mg/dL Glucose 94 (74-99) mg/dL Calcium 8.7 (8.4-10.2) mg/dL Adrenal panel 06/24/22 Range/Units 02:41 Sodium 138 (137-145) mmol/L Potassium 4.4 (3.5-5.1) mmol/L Chloride 110 H (98-107) mmol/L Carbon Dioxide 24 (22-30) mmol/L BUN 21 H (7-17) mg/dL Creatinine 0.89 (0.52-1.04) mg/dL Glucose 94 (74-99) mg/dL Calcium 8.7 (8.4-10.2) mg/dL Total Bilirubin 0.7 (0.2-1.3) mg/dL AST 19 (14-36) U/L ALT 19 (4-34) U/L Alkaline Phosphatase 62 (38-126) U/L Total Protein 6.2 L (6.3-8.2) g/dL Albumin 3.6 (3.5-5.0) g/dL Assessment and Plan (1) Abdominal pain Narrative/Plan: 61-year-old female with history of alcohol use in the past. Mild elevation of lipase and CAT scan showing haziness of the mesentery. Certainly pancreatitis is a reasonable explanation for her symptoms currently. Since her pain is improved may gradually advance diet. Repeat labs tomorrow. We'll try to have the CAT scan films from the outside hospital loaded onto our system for our review. Current Visit: Yes Status: Acute Code(s): R10.9 - UNSPECIFIED ABDOMINAL PAIN SNOMED Code(s): 84809178
[2022-06-24] MEDS: HYDROmorphone 0.5 MG/0.5 ML SYRINGE IVP PRN ×3 (12:28→18:23)
[2022-06-24] MEDS: amLODIPine 5 MG TAB PO SCH (12:29)
[2022-06-24] MEDS: ONDANSETRON 4 MG/2 ML VIAL IVP PRN ×2 (12:40→18:22)
[2022-06-24] MEDS ORDERED: diphenhydrAMINE 25 MG CAP PO PRN (12:41)
[2022-06-24] MEDS ORDERED: LORazepam 1 MG TAB PO PRN (12:43)
[2022-06-24] MEDS ORDERED: diphenhydrAMINE 50 MG CAP PO PRN (12:59)
[2022-06-24] MEDS: METOPROLOL SUCCINATE (ER) 100 MG TAB.ER.24H PO SCH (14:02)
[2022-06-24] MEDS: PANTOPRAZOLE 40 MG/10 ML VIAL IVP SCH (20:29)
[2022-06-24] MEDS: HEPARIN SODIUM,PORCINE/PF 5,000 UNIT/0.5 ML SYRINGE SQ SCH (20:29)
[2022-06-24] MEDS: diphenhydrAMINE 50 MG/ML 1 ML VIAL IVP PRN (20:29)
[2022-06-24] MEDS ORDERED: QUEtiapine 100 MG TAB PO SCH (21:00)
--- NOTE | 2022-06-24 23:09 | HP ---
HISTORY AND PHYSICAL CHIEF COMPLAINT: Abdominal pain. HISTORY OF PRESENT ILLNESS: This 61-year-old woman with a past medical history of multiple medical issues including acute pancreatitis admitted with abdominal pain which was felt in the anterior part of the abdomen. The patient is unable to keep anything down. There is no history of any fever, rigors, chills. Amylase and lipase within normal limits. Surgical evaluation in progress. The patient is currently n.p.o. PAST MEDICAL HISTORY: Reviewed, include GI bleed, hypertension. The rest of the history and rest of the chart is also reviewed. HOME MEDICATIONS: Reviewed include Norvasc. Doses and rest of medication noted. ALLERGIES: Reviewed include iodine. Rest of the allergies noted. FAMILY HISTORY: Hypertension. SOCIAL HISTORY: History of smoking. No history of alcohol intake. REVIEW OF SYSTEMS: A 14-point review of systems is negative as mentioned earlier. PHYSICAL EXAMINATION: VITAL SIGNS: Pulse is 67, blood pressure 119/70, respirations 16. HEENT: Conjunctivae normal. Oral mucosa moist. CARDIOVASCULAR: S1, S2. RESPIRATIONS: Breath sounds diminished at the bases. ABDOMEN: Soft. Mild diffuse tenderness in the upper abdomen. No guarding. No rigidity. LEGS: No edema. NERVOUS SYSTEM: No focal deficits. SKIN: No ulcers or rashes. JOINT: No active deforming arthropathy. LABORATORY DATA: Reviewed. ASSESSMENT AND PLAN: 1. Abdominal pain, possible acute pancreatitis. 2. History of previous pancreatitis. 3. History of gastrointestinal bleed. 4. Hypertension. 5. History of degenerative joint disease. 6. History of pseudoseizures. 7. Multiple medical issues. RECOMMENDATIONS: The patient is a 61-year-old woman who presented with multiple complex medical issues, we will monitor the patient closely. Continue the current medications and symptomatic treatment. Otherwise at this time, I would recommend resume the home medications and repeat labs. Guarded prognosis because of multiple complex medical issues. Further recommendations to follow. MMODL / IJN: [id number] /
[2022-06-25 02:39] VITALS: PULSE 62
[2022-06-25] MEDS: ONDANSETRON 4 MG/2 ML VIAL IVP PRN ×2 (03:32→08:58)
[2022-06-25] MEDS: HYDROmorphone 0.5 MG/0.5 ML SYRINGE IVP PRN ×3 (03:32→12:57)
[2022-06-25] MEDS: SODIUM CHLORIDE 0.9% 1,000 ML IV SCH (06:24)
[2022-06-25] MEDS: METOPROLOL SUCCINATE (ER) 100 MG TAB.ER.24H PO SCH (08:30)
[2022-06-25] MEDS: amLODIPine 5 MG TAB PO SCH (08:30)
[2022-06-25] MEDS: PANTOPRAZOLE 40 MG/10 ML VIAL IVP SCH (08:30)
[2022-06-25] MEDS: HEPARIN SODIUM,PORCINE/PF 5,000 UNIT/0.5 ML SYRINGE SQ SCH (08:31)
[2022-06-25 08:43] VITALS: BP 147/86; RESP 19; TEMP 97.8
[2022-06-25] MEDS ORDERED: ACETAMINOPHEN TAB 325 MG TAB PO PRN (08:45)
[2022-06-25] MEDS: diphenhydrAMINE 50 MG/ML 1 ML VIAL IVP PRN (10:29)
[2022-06-25 10:34] LABS: Basophils # (A) 0.04 X 10*3/uL (0.00-0.10); Basophils % (A) 0.6 %; Eosinophils # (A) 0.28 X 10*3/uL (0.04-0.35); Eosinophils % (A) 4.4 %; HGB 11.8 g/dL (12.0-15.0); Immature Grans, Automated 0.2 %; Lymphocytes % (A) 41.1 %; MCH 31.4 pg (27.0-32.0); MCHC 32.8 g/dL (32.0-37.0); MCV 95.7 fL (80.0-97.0); Mean Platelet Volume 9.3 fL (9.5-12.2); Monocytes # (A) 0.33 X 10*3/uL (0.20-1.00); Monocytes % (A) 5.2 %; NRBC Per 100 WBC 0 /100 WBCS (0.0-0.0); Neutrophils # (A) 3.06 X 10*3/uL (1.80-7.70); Neutrophils % (A) 48.5 %; Platelet Count 332 X 10*3/uL (140-440); RBC 3.76 X 10*6/uL (4.10-5.20); RDW 12.1 % (11.5-14.5); WBC 6.32 X 10*3/uL (4.50-10.00)
--- NOTE | 2022-06-25 11:04 | P.PN ---
Subjective Progress Note Date: 06/25/22 CHIEF COMPLAINT: Abdominal pain HISTORY OF PRESENT ILLNESS: Patient reports that her pain has improved. She is asking for increase in diet. She's asking about discharge home. She denies any nausea or vomiting she does have a history of a cholecystectomy. Lipase on admission was 130. Does have a past history of alcohol use and alcohol induced pancreatitis. Afebrile. WBC 6.3 hgb 11.8 platelets 332 lipase pending PHYSICAL EXAM: VITAL SIGNS: Reviewed. GENERAL: Well-developed in no acute distress. HEENT: No sclera icterus. Extraocular movements grossly intact. Moist buccal mucosa. Head is atraumatic, normocephalic. ABDOMEN: Soft. Nondistended. Nontender. NEUROLOGIC: Alert and oriented. Cranial nerves II through XII grossly intact. ASSESSMENT: 1. 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 Signing provider agrees with the documented findings, assessment, and plan of care. Objective - Vital Signs Vital signs: Vital Signs Temp 97.8 F 06/25/22 08:00 Pulse 62 06/25/22 08:00 Resp 19 06/25/22 08:00 BP 147/86 06/25/22 08:00 Pulse Ox 97 06/25/22 08:00 FiO2 Intake & Output 06/24/22 06/25/22 06/25/22 18:59 06:59 18:59 Intake Total 700 Balance 700 Weight 68.946 kg Intake: IV 700 Sodium Chloride 0.9% 1, 700 000 ml @ 70 mls/hr IV . [id number] [facility] Rx#:[id number] Other: Voiding Method Toilet # Voids 6 1 - Labs CBC & Chem 7: 06/25/22 06:18 06/24/22 02:41 Labs: Abnormal Lab Results - Last 24 Hours (Table) 06/25/22 Range/Units 06:18 RBC 3.76 L (4.10-5.20) X 10*6/uL Hgb 11.8 L (12.0-15.0) g/dL Hct 36.0 L (37.2-46.3) % MPV 9.3 L (9.5-12.2) fL
[2022-06-25 11:09] LABS: ALT 14 U/L (8-44); AST 14 U/L (13-35); African American GFR (CKD) 70.4 (60.0-200.0); Albumin 3.9 g/dL (3.8-4.9); Albumin/Globulin Ratio 1.95 (1.60-3.17); Alkaline Phosphatase 67 U/L (41-126); Amylase 51 U/L (23-121); Blood Urea Nitrogen 14.2 mg/dL (9.0-27.0); Calcium 9.2 mg/dL (8.7-10.3); Carbon Dioxide 24.2 mmol/L (20.0-27.5); Chloride 109 mmol/L (96-109); Chol/HDL Ratio 5.32 Ratio; Glucose 92 mg/dL (70-110); LDL Cholesterol,Calculated 104.8 mg/dL (0.0-131.0); Lipase 34 U/L (14-63); Non-African American GFR(CKD) 60.8 (60.0-200.0); Potassium 4.3 mmol/L (3.5-5.5); Sodium 141 mmol/L (135-145); Total Protein 5.9 g/dL (6.2-8.2)
[2022-06-25 13:38] VITALS: BMI 27.8
[2022-06-25] MEDS ORDERED: PANTOPRAZOLE 40 MG TABLET PO SCH (21:00)
--- NOTE | 2022-06-28 06:44 | P.DS ---
Providers Date of admission: 06/24/22 05:27 Expected date of discharge: 06/25/22 Attending physician: Nagi Fierro Primary care physician: Elina Garcia Hospital Course: Final diagnosis Abdominal pain, possible acute pancreatitis History of previous pancreatitis History of gastrointestinal bleed Hypertension History of degenerative joint disease History of pseudoseizures History of chronic alcohol abuse History of THC use History of diverticulitis status post colectomy Discharge disposition Patient is being discharged in a stable condition with guarded prognosis to home. Patient will follow-up with Dr. Garcia in the outpatient setting upon discharge. Total time taken is greater than 35 minutes. Hospital course This is a 61-year-old female who was recently admitted with abdominal pain and unable to tolerate diet and admitted for acute pancreatitis. Patient was seen and evaluated by general surgery with no plans for surgical intervention. Patient was continued on clear liquid and IV hydration and symptoms improved patient requesting increase in diet and tolerating will be discharged. Patient anxious about going home and requesting to be discharged. Currently no reports of chest pain, shortness of breath, or palpitations. Patient is afebrile. No reports of nausea or vomiting and patient is tolerating diet. Patient will be discharged home today. Guarded prognosis Physical exam: Gen: This is a 61-year-old female who is awake, alert and oriented 3, well- developed, well-nourished HEENT: Head is atraumatic, normocephalic. Pupils equal, round. Sclerae is anicteric. NECK: Supple. No JVD. No lymphadenopathy. No thyromegaly. LUNGS: Clear to auscultation. No wheezes or rhonchi. No intercostal retractions. HEART: Regular rate and rhythm. No murmur. ABDOMEN: Soft. Bowel sounds are present. No masses. No tenderness. EXTREMITIES: No pedal edema. No calf tenderness. NEUROLOGICAL: Patient is awake, alert and oriented x3. Cranial nerves 2 through 12 are grossly intact. Please refer to medication reconciliation sheet for a list of medications. The impression and plan of care has been dictated by Yolanda Smart, Nurse Practitioner as directed. Dr. Мария MD I have performed a history and examination and MDM of this patient, discussed the same with the dictator, and agree with the dictator's assessment and plan as written ,documented as a scribe. Based on total visit time, I have performed more than 50% of the visit. Patient Condition at Discharge: Fair Plan - Discharge Summary Discharge Rx Participant: Yes New Discharge Prescriptions: New Acetaminophen Tab [Tylenol] 325 mg PO Q6HR PRN tab PRN Reason: Fever and/ or Mild Pain Ondansetron Odt [Zofran Odt] 4 mg PO Q8HR PRN #20 tab PRN Reason: Nausea HYDROcodone/APAP 5-325MG [[place] 5-325] 1 tab PO Q6HR PRN 3 Days #12 tab PRN Reason: Pain Omeprazole 20 mg PO BID 30 Days #60 tab Continue QUEtiapine FUMARATE [SEROquel] 300 mg PO HS amLODIPine [Norvasc] 5 mg PO DAILY Metoprolol Succinate [Toprol XL] 100 mg PO DAILY Clindamycin [Cleocin] 450 mg PO TID 5 Days #45 capsule Discharge Medication List amLODIPine [Norvasc] 5 mg PO DAILY 04/19/22 [History] Metoprolol Succinate [Toprol XL] 100 mg PO DAILY 05/02/22 [History] QUEtiapine FUMARATE [SEROquel] 300 mg PO HS 05/02/22 [History] Clindamycin [Cleocin] 450 mg PO TID 5 Days #45 capsule 05/17/22 [Rx] Acetaminophen Tab [Tylenol] 325 mg PO Q6HR PRN tab 06/25/22 [Rx] HYDROcodone/APAP 5-325MG [[place] 5-325] 1 tab PO Q6HR PRN 3 Days #12 tab 06/25/22 [Rx] Omeprazole 20 mg PO BID 30 Days #60 tab 06/25/22 [Rx] Ondansetron Odt [Zofran Odt] 4 mg PO Q8HR PRN #20 tab 06/25/22 [Rx] Follow up Appointment(s)/Referral(s): Elina Garcia MD [Primary Care Provider] - 07/05/22 11:00 am Activity/Diet/Wound Care/Special Instructions: Activity Limited until follow-up Follow-up with primary care provider on discharge Continue current diet and slowly advance as tolerated Discharge Disposition: HOME SELF-CARE
== END 2022-06-25 14:25 | disposition home or self-care (01) ==
LOC: EC 02:28 → 4SSUR 05:27
PROVIDERS: ADMIT Hospitalist; ATTEND Hospitalist
DX: R10.9 Unspecified abdominal pain (principal); Z87.19 Personal history of other diseases of the digestive system; I10 Essential (primary) hypertension; M19.90 Unspecified osteoarthritis, unspecified site; F10.10 Alcohol abuse, uncomplicated; Z90.49 Acquired absence of other specified parts of digestive tract; Z79.899 Other long term (current) drug therapy; Z82.49 Family history of ischemic heart disease and other diseases of the circulatory system; Z87.728 Personal history of other specified (corrected) congenital malformations of nervous system and sense organs; Z90.710 Acquired absence of both cervix and uterus; Z98.891 History of uterine scar from previous surgery; Z98.42 Cataract extraction status, left eye; Z98.41 Cataract extraction status, right eye; Z96.1 Presence of intraocular lens; F41.9 Anxiety disorder, unspecified; F43.10 Post-traumatic stress disorder, unspecified; F17.200 Nicotine dependence, unspecified, uncomplicated; Z88.5 Allergy status to narcotic agent; Z88.0 Allergy status to penicillin; Z88.2 Allergy status to sulfonamides; Z91.048 Other nonmedicinal substance allergy status
CPT/HCPCS: 96376 ×2; 96361; 96372 ×2; 96375; 96374; 99284; 36415; 80061; 80053 ×2; 82150 ×2; 83690 ×2; 85025 ×2; 81003; G0378 ×2; J1200 ×2; J2405 ×2; J1170 ×3; C9113 ×2; J1644 ×2

== ENCOUNTER 2022-09-05 13:15 | Emergency (ER) | payer MEDICARE, OTHER ==
--- NOTE | 2022-09-05 14:18 | ED ---
Abdominal Pain HPI - General Source: patient, RN notes reviewed Mode of arrival: ambulatory Limitations: no limitations <Tasha Irizarry - Last Filed: 09/05/22 14:16> - History of Present Illness MD Complaint: abdominal pain -: hour(s) Location: diffuse, periumbilical Radiation: none Migration to: no migration Quality: cramping, aching Consistency: intermittent Worsens With: nothing Associated Symptoms: denies other symptoms Treatments Prior to Arrival: other (0) <Celestine Dumont - Last Filed: 09/05/22 17:48> - General Chief Complaint: Abdominal Pain Stated Complaint: abd pain Time Seen by Provider: 09/05/22 14:16 - History of Present Illness Initial Comments: Patient is 62-year-old female who presents to the emergency department for abdominal pain. It started 2 days ago in the upper middle abdomen. Patient has history of pancreatitis and states this feels similar. She also has vomiting and diarrhea. She denies fever, chills, bloody stool, burning with urination, blood in the urine. Denies chest pain and shortness breath. Denies alcohol use. (Tasha Irizarry) - Related Data Home Medications Medication Instructions Recorded Confirmed amLODIPine [Norvasc] 5 mg PO DAILY 04/19/22 09/05/22 Metoprolol Succinate [Toprol XL] 100 mg PO DAILY 05/02/22 09/05/22 QUEtiapine FUMARATE [SEROquel] 300 mg PO HS 05/02/22 09/05/22 Previous Rx's Medication Instructions Recorded Omeprazole 20 mg PO BID 30 Days #60 tab 06/25/22 Allergies Allergy/AdvReac Type Severity Reaction Status Date / Time iodine Allergy RAPID Verified 09/05/22 16:05 HEART BEAT morphine Allergy Vomiting Verified 09/05/22 16:05 Penicillins Allergy SWELLING Verified 09/05/22 16:05 OF LEGS Sulfa (Sulfonamide Allergy Rash/Hives Verified 09/05/22 16:05 Antibiotics) Review of Systems ROS Other: All systems not noted in ROS Statement are negative. <Tasha Irizarry - Last Filed: 09/05/22 14:16> ROS Other: All systems not noted in ROS Statement are negative. <Celestine Dumont - Last Filed: 09/05/22 17:48> ROS Statement: Those systems with pertinent positive or pertinent negative responses have been documented in the HPI. Past Medical History Past Medical History: GI Bleed, Hypertension, Osteoarthritis (OA) Additional Past Medical History / Comment(s): diverticulitis, PSUEDO SIEZURES - LAST AUGUST 2021, RECENT TREATMENT FOR ALCOHOL AND MARIJUANA ABUSE AT [facility]. pancreatitis History of Any Multi-Drug Resistant Organisms: None Reported Past Surgical History: Appendectomy, Bladder Surgery, Bowel Resection, Section, Cholecystectomy, Hysterectomy Additional Past Surgical History / Comment(s): BILATERAL CATARACT SURGERY WITH IMPLANTS , open sigmoid colectomy . Past Anesthesia/Blood Transfusion Reactions: No Reported Reaction, Motion Sickness Past Psychological History: Anxiety, PTSD Smoking Status: Current every day smoker Past Alcohol Use History: None Reported Past Drug Use History: Marijuana - Past Family History Mother Family Medical History: Hypertension <Tasha Irizarry - Last Filed: 09/05/22 14:16> General Exam Limitations: no limitations <Tasha Irizarry - Last Filed: 09/05/22 14:16> General appearance: alert, in no apparent distress Head exam: Present: atraumatic, normocephalic, normal inspection Eye exam: Present: normal appearance, PERRL, EOMI. Absent: scleral icterus, conjunctival injection, periorbital swelling ENT exam: Present: normal exam, mucous membranes moist Neck exam: Present: normal inspection. Absent: tenderness, meningismus, lymphadenopathy Respiratory exam: Present: normal lung sounds bilaterally. Absent: respiratory distress, wheezes, rales, rhonchi, stridor Cardiovascular Exam: Present: regular rate, normal rhythm, normal heart sounds. Absent: systolic murmur, diastolic murmur, rubs, gallop, clicks GI/Abdominal exam: Present: soft, normal bowel sounds. Absent: distended, tenderness, guarding, rebound, rigid Extremities exam: Present: normal inspection, full ROM, normal capillary refill. Absent: tenderness, pedal edema, joint swelling, calf tenderness Back exam: Present: normal inspection Neurological exam: Present: alert, oriented X3, CN II-XII intact Psychiatric exam: Present: normal affect, normal mood Skin exam: Present: warm, dry, intact, normal color. Absent: rash <Celestine Dumont - Last Filed: 09/05/22 17:48> - General Exam Comments Initial Comments: Visual Physical Exam Vital signs reviewed General: Well-appearing, nontoxic, no acute distress. Head: Normocephalic, atraumatic Eyes: PERRLA, EOMI ENT: Airway patent Chest: Nonlabored breathing Skin: No visual rash, normal skin tone Neuro: Alert and oriented 3 Musculoskeletal: No gross abnormalities (Tasha Irizarry) Course <Celestine Dumont - Last Filed: 09/05/22 17:48> Vital Signs 09/05/22 14:01 Temperature 98.4 F Pulse Rate 106 H Respiratory 20 Rate Blood Pressure 155/102 O2 Sat by Pulse 97 Oximetry - Reevaluation(s) Reevaluation #1: 09/05/22 17:45 Medical record is reviewed (Celestine Dumont) Reevaluation #2: 09/05/22 17:45 Patient currently feeling better symptoms are improved (Celestine Dumont) Reevaluation #3: 09/05/22 17:45 Patient informed results and questions answered (Celestine Dumont) Reevaluation #4: 09/05/22 17:45 Was pt. sent in by a medical professional or institution? @ -no Did you speak to anyone other than the patient for history? @ -no Did you review nursing and triage notes? @ -agree Were old charts reviewed? @ -prior sirgical records Differential Diagnosis? @ -abdominal pain women EKG interpreted by me (3pts min.)? @ -no X-rays interpreted by me (1pt min.)? @ -no CT interpreted by me (1pt min.)? @ -no U/S interpreted by me (1pt. min.)? @ -no What testing was considered but not performed? (CT, X-rays, U/S, labs)? Why? @ -no What meds were considered but not given? Why? @ -no Did you discuss the management of the patient with other professionals? @ -no Did you reconcile home meds? @ -no Was smoking cessation discussed for >3mins.? @ -no Was critical care preformed (if so, how long)? @ -no Were there social determinants of health that impacted care today? How? (Homelessness, low income, unemployed, alcoholism, drug addiction, transportation, low edu. Level, literacy, decrease access to med. care, [place] [facility], rehab)? @ -no Was there de-escalation of care discussed even if they declined? (Discuss DNR or withdrawal of care, Hospice)? @ -non What co-morbidities impacted this encounter? (DM, HTN, Smoking, COPD, CAD, Cancer, CVA, Hep., AIDS, mental health diagnosis, sleep apnea, morbid obesity)? @ o] Was patient admitted / discharged? @ -dc Undiagnosed new problem with uncertain prognosis? @ -no Drug Therapy requiring intensive monitoring for toxicity (Heparin, Nitro, Insulin, Cardizem)? @ -no Were any procedures done? @ -no Diagnosis/symptom? @ -abdominal pain Acute, or Chronic, or Acute on Chronic? @ -no Uncomplicated (without systemic symptoms) or Complicated (systemic symptoms)? @ -uncomplicated Side effects of treatment? @ -no Exacerbation, Progression, or Severe Exacerbation] @ -no Poses a threat to life or bodily function? @ -no (Celestine Dumont) Reevaluation #5: 09/05/22 17:45 Differential Abdominal Pain Women: Appendicitis, Cholecystitis, diverticulosis, ischemic bowel, pancreatitis, hepatitis, UTI, gastroenteritis, AAA, incarcerated hernia, bowel obstruction, constipation, inflammatory bowel, hepatitis, peptic ulcer disease, splenic infarction, perforated viscus, vulvitis, ovarian torsion, PID, kidney stone, placenta abruption, this is not meant to be an all-inclusive list (Celestine Turk) Medical Decision Making - Lab Data Result diagrams: 09/05/22 15:10 09/05/22 15:10 - Radiology Data Radiology results: report reviewed (CT of the abdomen and pelvis negative), image reviewed <Celestine Dumont - Last Filed: 09/05/22 17:48> - Medical Decision Making 62 female with abdominal pain and distention likely related to postoperative pain. Patient is no acute cause of pain here in the ER pain here is controlled patient can be discharged home (Celestine Dumont) - Lab Data Lab Results 09/05/22 09/05/22 09/05/22 Range/Units 14:05 15:10 15:10 WBC 10.2 (3.8-10.6) k/uL RBC 4.85 (3.80-5.40) m/uL Hgb 15.2 (11.4-16.0) gm/dL Hct 44.3 (34.0-46.0) % MCV 91.4 (80.0-100.0) fL MCH 31.4 (25.0-35.0) pg MCHC 34.4 (31.0-37.0) g/dL RDW 13.2 (11.5-15.5) % Plt Count 427 (150-450) k/uL MPV 7.1 Neutrophils % 57 % Lymphocytes % 30 % Monocytes % 6 % Eosinophils % 2 % Basophils % 1 % Neutrophils # 5.8 (1.3-7.7) k/uL Lymphocytes # 3.1 (1.0-4.8) k/uL Monocytes # 0.6 (0-1.0) k/uL Eosinophils # 0.2 (0-0.7) k/uL Basophils # 0.1 (0-0.2) k/uL Sodium 139 (137-145) mmol/L Potassium 4.9 (3.5-5.1) mmol/L Chloride 103 (98-107) mmol/L Carbon Dioxide 26 (22-30) mmol/L Anion Gap 10 mmol/L BUN 23 H (7-17) mg/dL Creatinine 0.98 (0.52-1.04) mg/dL Est GFR (CKD-EPI)AfAm 71 (>60 ml/min/1.73 sqM) Est GFR (CKD-EPI)NonAf 62 (>60 ml/min/1.73 sqM) Glucose 98 (74-99) mg/dL Plasma Lactic Acid Keith (0.7-2.0) mmol/L Calcium 10.5 H (8.4-10.2) mg/dL Total Bilirubin 0.5 (0.2-1.3) mg/dL AST 22 (14-36) U/L ALT 22 (4-34) U/L Alkaline Phosphatase 98 (38-126) U/L Total Protein 8.3 H (6.3-8.2) g/dL Albumin 4.9 (3.5-5.0) g/dL Lipase 143 (23-300) U/L Urine Color Yellow Urine Appearance Clear (Clear) Urine pH 5.5 (5.0-8.0) Ur Specific [place] 1.024 (1.001-1.035) Urine Protein Negative (Negative) Urine Glucose (UA) Negative (Negative) Urine Ketones Negative (Negative) Urine Blood Negative (Negative) Urine Nitrite Negative (Negative) Urine Bilirubin Negative (Negative) Urine Urobilinogen <2.0 (<2.0) mg/dL Ur Leukocyte Esterase Trace H (Negative) Urine RBC 6 H (0-5) /hpf Urine WBC 2 (0-5) /hpf Ur Squamous Epith Cells 7 H (0-4) /hpf Hyaline Casts 1 (0-2) /lpf Urine Mucus Rare H (None) /hpf 09/05/22 Range/Units 15:10 WBC (3.8-10.6) k/uL RBC (3.80-5.40) m/uL Hgb (11.4-16.0) gm/dL Hct (34.0-46.0) % MCV (80.0-100.0) fL MCH (25.0-35.0) pg MCHC (31.0-37.0) g/dL RDW (11.5-15.5) % Plt Count (150-450) k/uL MPV Neutrophils % % Lymphocytes % % Monocytes % % Eosinophils % % Basophils % % Neutrophils # (1.3-7.7) k/uL Lymphocytes # (1.0-4.8) k/uL Monocytes # (0-1.0) k/uL Eosinophils # (0-0.7) k/uL Basophils # (0-0.2) k/uL Sodium (137-145) mmol/L Potassium (3.5-5.1) mmol/L Chloride (98-107) mmol/L Carbon Dioxide (22-30) mmol/L Anion Gap mmol/L BUN (7-17) mg/dL Creatinine (0.52-1.04) mg/dL Est GFR (CKD-EPI)AfAm (>60 ml/min/1.73 sqM) Est GFR (CKD-EPI)NonAf (>60 ml/min/1.73 sqM) Glucose (74-99) mg/dL Plasma Lactic Acid Keith 0.9 (0.7-2.0) mmol/L Calcium (8.4-10.2) mg/dL Total Bilirubin (0.2-1.3) mg/dL AST (14-36) U/L ALT (4-34) U/L Alkaline Phosphatase (38-126) U/L Total Protein (6.3-8.2) g/dL Albumin (3.5-5.0) g/dL Lipase (23-300) U/L Urine Color Urine Appearance (Clear) Urine pH (5.0-8.0) Ur Specific [place] (1.001-1.035) Urine Protein (Negative) Urine Glucose (UA) (Negative) Urine Ketones (Negative) Urine Blood (Negative) Urine Nitrite (Negative) Urine Bilirubin (Negative) Urine Urobilinogen (<2.0) mg/dL Ur Leukocyte Esterase (Negative) Urine RBC (0-5) /hpf Urine WBC (0-5) /hpf Ur Squamous Epith Cells (0-4) /hpf Hyaline Casts (0-2) /lpf Urine Mucus (None) /hpf Disposition <Tasha Irizarry - Last Filed: 09/05/22 14:16> Is patient prescribed a controlled substance at d/c from ED?: No Time of Disposition: 17:45 <Celestine Dumont - Last Filed: 09/05/22 17:48> Clinical Impression: Abdominal pain, Abdominal colic Disposition: HOME SELF-CARE Instructions (If sedation given, give patient instructions): Abdominal Pain (ED) Referrals: Elina Garcia MD [Primary Care Provider] - 1-2 days
[2022-09-05 15:01] LABS: Appearance,Urine Clear (Clear); Bilirubin,Urine Negative (Negative); Blood,Urine Negative (Negative); Color,Urine Yellow; Glucose,Urine (UA) Negative (Negative); Hyaline Casts,Urine 1 /lpf (0-2); Ketones,Urine Negative (Negative); Leukocyte Esterase,Urine Trace (Negative); Mucus,Urine Rare /hpf; Nitrite,Urine Negative (Negative); PH, Urine 5.5 (5.0-8.0); Protein,Urine Negative (Negative); RBC,Urine 6 /hpf (0-5); Specific Gravity,Urine 1.024 (1.001-1.035); Squamous Epithelial Cell,Urine 7 /hpf (0-4); Urobilinogen,Urine <2.0 mg/dL (<2.0); WBC,Urine 2 /hpf (0-5)
[2022-09-05 15:28] LABS: Basophils # (A) 0.1 k/uL (0-0.2); Basophils % (A) 1 %; Eosinophils # (A) 0.2 k/uL (0-0.7); Eosinophils % (A) 2 %; HCT 44.3 % (34.0-46.0); HGB 15.2 gm/dL (11.4-16.0); Lymphocytes # (A) 3.1 k/uL (1.0-4.8); Lymphocytes % (A) 30 %; MCH 31.4 pg (25.0-35.0); MCHC 34.4 g/dL (31.0-37.0); MCV 91.4 fL (80.0-100.0); Mean Platelet Volume 7.1; Monocytes # (A) 0.6 k/uL (0-1.0); Monocytes % (A) 6 %; Neutrophils # (A) 5.8 k/uL (1.3-7.7); Neutrophils % (A) 57 %; Platelet Count 427 k/uL (150-450); RBC 4.85 m/uL (3.80-5.40); RDW 13.2 % (11.5-15.5); WBC 10.2 k/uL (3.8-10.6)
[2022-09-05 15:40] LABS: Albumin 4.9 g/dL (3.5-5.0); Calcium 10.5 mg/dL (8.4-10.2); Potassium 4.9 mmol/L (3.5-5.1); Total Bilirubin 0.5 mg/dL (0.2-1.3); Total Protein 8.3 g/dL (6.3-8.2)
[2022-09-05] MEDS ORDERED: SODIUM CHLORIDE 0.9% 1,000 ML IV STA (15:57)
[2022-09-05] MEDS ORDERED: ONDANSETRON 4 MG/2 ML VIAL IVP STA (15:57)
[2022-09-05] MEDS ORDERED: PANTOPRAZOLE 40 MG/10 ML VIAL IVP STA (15:57)
[2022-09-05] MEDS ORDERED: HYDROmorphone 1 MG/ML 1 ML SYRINGE IVP STA (15:57)
[2022-09-05] MEDS ORDERED: HYDROcodone/APAP 5-325MG 1 EACH TAB PO STA (16:26)
[2022-09-05] MEDS ORDERED: ONDANSETRON ODT 4 MG TAB PO STA (16:26)
[2022-09-05] MEDS ORDERED: METOCLOPRAMIDE 10 MG TAB PO STA (16:26)
[2022-09-05] MEDS ORDERED: diphenhydrAMINE 50 MG CAP PO STA (16:46)
--- NOTE | 2022-09-05 17:31 | CT ---
EXAMINATION TYPE: CT abdomen pelvis wo con DATE OF EXAM: 09/05/2022 COMPARISON: 05/17/2022 HISTORY: 692.1 CT DLP: ABD. PAIN HX OF COLON SX AND DIVERTICULITIS IN APRIL mGycm Examination of the solid and hollow viscera is limited given the lack of contrast. FINDINGS: LUNG BASES: No evidence for nodule. No evidence for infiltrate. LIVER/GB: Cholecystectomy clips in place. No space-occupying hepatic lesion. PANCREAS: No pancreatic mass identified. No inflammatory process seen. SPLEEN: No evidence for splenomegaly. No intrasplenic lesions seen. ADRENALS: No adrenal nodules identified. No evidence for thickening. KIDNEYS: No evidence for renal mass. No nephrolithiasis. No hydronephrosis. BOWEL: Appendix has a normal appearance. No evidence of bowel obstruction. No inflammatory process. S urgical resection with anastomosis sigmoid colon. No evidence for acute diverticulitis. Lymph nodes: No evidence for adenopathy greater than 1 cm. Abdominal aorta: Atheromatous changes seen. No evidence for aneurysm. Genital organs: No significant abnormality. Other: No significant abnormality. IMPRESSION: NO ACUTE INTRA-ABDOMINAL PROCESS.
[2022-09-05 18:22] VITALS: BP 154/110; PULSE 82; RESP 17; TEMP 98
[2022-09-05] MEDS ORDERED: traMADol 50 MG STARTER PACK 3 TAB BTL PO STA (18:45)
[2022-09-05] MEDS ORDERED: ONDANSETRON 4 MG ODT STARTER PACK 2 TAB BTL PO STA (18:45)
[2022-09-05] MEDS ORDERED: HYDROmorphone 1 MG/ML 1 ML SYRINGE IM STA (18:45)
== END 2022-09-05 18:55 | disposition home or self-care (01) ==
LOC: EC 13:15
DX: R10.84 Generalized abdominal pain (principal); I10 Essential (primary) hypertension; F41.9 Anxiety disorder, unspecified; F17.200 Nicotine dependence, unspecified, uncomplicated; F12.90 Cannabis use, unspecified, uncomplicated; Z79.899 Other long term (current) drug therapy; Z88.0 Allergy status to penicillin; Z88.2 Allergy status to sulfonamides; Z88.5 Allergy status to narcotic agent; Z88.8 Allergy status to other drugs, medicaments and biological substances; Z90.49 Acquired absence of other specified parts of digestive tract
CPT/HCPCS: 36415; 93005; 80053; 83605; 83690; 85025; 81001; 74176; 99285; 96372; J1170; S0119

== ENCOUNTER → 2022-09-21 | Outpatient (CLI) | payer MEDICARE, OTHER ==
--- NOTE | 2022-09-23 11:19 | CTL ---
EXAMINATION TYPE: CT Low Dose Lung DATE OF EXAM ORDERED: 09/21/2022 HISTORY:. Lung cancer screening CT DLP: 100.[address] CTDI: 3.5 mGy Automated exposure control for dose reduction was used. SCREENING VISIT: First COMPARISON: None TECHNIQUE: Low dose computed tomography scan was performed through the chest at 1 mm thick sections a nd reconstructed images in multiple planes at 1 mm and [address] DIAGNOSTIC QUALITY: Satisfactory FINDINGS: LUNG NODULES: None. There are no suspicious lung masses or nodules. There is no airspace consolidation/density or abnormal interstitial density. The great vessels chest are normal. There is no mediastinal, hilar or axillary adenopathy. Limited scanning the upper abdomen reveals no adenopathy. The osseous structures are intact. IMPRESSION: 1. No acute cardiopulmonary disease. 2. Lung RADS category 1 negative. Continue routine screening yearly.
== END | disposition home or self-care (01) ==
LOC: RADCTMAIN 16:32
PROVIDERS: ATTEND Family Medicine
DX: Z12.2 Encounter for screening for malignant neoplasm of respiratory organs (principal); F17.210 Nicotine dependence, cigarettes, uncomplicated
CPT/HCPCS: 71271

== ENCOUNTER → 2022-09-21 | Outpatient (CLI) | payer MEDICARE, OTHER ==
--- NOTE | 2022-09-24 09:24 | MM ---
Reason for Exam: Screening (asymptomatic). Patient History: Menarche at age 14. First Full-Term at age 17. Hysterectomy at age 37. Paternal aunt had breast cancer. Risk Values: Karma 5 year model risk: 1.0%. NCI Lifetime model risk: 4.6%. Tissue Density: There are scattered fibroglandular densities. Findings: Analyzed By CAD. There is no suspicious group of microcalcifications within either breast. Benign-appearing round calcifications within both breasts. No suspicious mass within the left breast. There are 2 adjacent round masses within the upper outer right breast at middle to posterior depth with largest measuring up to 5 mm. Overall Assessment: Incomplete: need additional imaging evaluation, BI-RAD 0 Management: Diagnostic Breast Ultrasound of the right breast. A clinical breast exam by your physician is recommended on an annual basis and results should be correlated with mammographic findings. [facility] will attempt to contact patient to return for supplemental views and ultrasound if indicated. Electronically signed and approved by: Darci White D.O.
== END | disposition home or self-care (01) ==
LOC: RADMAMWWP 16:09
PROVIDERS: ATTEND Family Medicine
DX: Z12.31 Encounter for screening mammogram for malignant neoplasm of breast (principal); Z80.3 Family history of malignant neoplasm of breast
CPT/HCPCS: 77063; 77067

== ENCOUNTER 2022-10-13 17:45 | Observation (INO) | payer MEDICARE, OTHER ==
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
[2022-10-13] MEDS ORDERED: SODIUM CHLORIDE 0.9% 1,000 ML IV STA (18:08)
[2022-10-13] MEDS ORDERED: HYDROmorphone 0.5 MG/0.5 ML SYRINGE IVP STA ×2 (18:09→20:02)
[2022-10-13] MEDS ORDERED: LORazepam 2 MG/ML INJ IV STA ×2 (18:09→18:58)
[2022-10-13 18:42] LABS: ALT 26 U/L (4-34); AST 37 U/L (14-36); African American GFR (CKD) 85 (>60 ml/min/1.73 sqM); Albumin 4.6 g/dL (3.5-5.0); Alcohol <10 mg/dL; Alkaline Phosphatase 69 U/L (38-126); Anion Gap 11 mmol/L; Blood Urea Nitrogen 21 mg/dL (7-17); Calcium 9.9 mg/dL (8.4-10.2); Carbon Dioxide 24 mmol/L (22-30); Chloride 105 mmol/L (98-107); Glucose 96 mg/dL (74-99); Non-African American GFR(CKD) 74 (>60 ml/min/1.73 sqM); Sodium 140 mmol/L (137-145); Total Bilirubin 0.8 mg/dL (0.2-1.3)
[2022-10-13] MEDS ORDERED: ONDANSETRON 4 MG/2 ML VIAL IVP STA (18:45)
[2022-10-13 19:16] LABS: Potassium 4.9 mmol/L (3.5-5.1)
--- NOTE | 2022-10-13 19:19 | CT ---
EXAMINATION TYPE: CT brain cspine wo con CT DLP: 1423 mGycm, Automated exposure control for dose reduction was used. DATE OF EXAM: 10/13/2022 7:04 PM COMPARISON: None.. CLINICAL INDICATION:Female, 62 years old with history of syncope; fall, seizure TECHNIQUE: Brain: Multiple axial CT images of the brain were obtained without IV contrast. Cspine: Axial CT images from the skull base to the inferior aspect of T2 we obtained without intraven ous contrast. Coronal and sagittal reformatted images were also reviewed. FINDINGS: Brain: Extra-axial spaces: No abnormal extra-axial fluid collections. Ventricular system: Within normal limits Cerebral parenchyma: Cerebral atrophy. No acute intraparenchymal hemorrhage or mass effect. The tidwell -white junction is well differentiated. Cerebellum: Unremarkable. Mass effect: No evidence of midline shift. Intracranial vasculature: Atherosclerotic calcifications of the intracranial vessels. Soft tissues: Normal. Calvarium/osseous structures: No depressed skull fracture. Paranasal sinuses and mastoid air cells: Clear.Mastoid air cells are Clear Visualized orbits: The lenses are surgically removed from the globes. Cervical spine: Fracture: None. 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 Osseous structures: Unremarkable Vertebral alignment: Mild straightening noted which is likely positional. Alignment is otherwise norm al in appearance. Spinal canal/Neural Foramina: Disc osteophyte complexes at C4-C5 and C5-C6 with minimal spinal canal stenosis. No evidence for significant neural foraminal stenosis. Neck soft tissues: Prevertebral soft tissues are within normal limits. Other: The airway is patent. No pneumothorax. Cystic lucencies of the lung apices with paraseptal emp hysematous changes. IMPRESSION: 1. No acute intracranial process. 2. No evidence of cervical spine fracture. 3. Mild multilevel degenerative disc disease.
[2022-10-13 19:50] LABS: INR 0.9 (<1.2); Partial Thromboplastin Time 25.9 sec (22.0-30.0); Prothrombin Time 9.6 sec (9.0-12.0)
[2022-10-13 19:52] LABS: Amphetamine Screen,Urine Not Detected (NotDetected); Barbiturate Screen,Urine Not Detected (NotDetected); Benzodiazepines Screen,Urine Not Detected (NotDetected); Cocaine Screen,Urine Not Detected (NotDetected); Methadone Screen, Urine Not Detected (NotDetected); Opiate Screen,Urine Not Detected (NotDetected); Oxycodone Screen, Urine Not Detected (NotDetected); Phencyclidine Screen,Urine Not Detected (NotDetected); Tricyclic Antidepressant,Urine Detected (NotDetected); Urn Cannabinoid Scrn Detected (NotDetected)
[2022-10-13 20:11] LABS: HCT 37.8 % (34.0-46.0); HGB 12.9 gm/dL (11.4-16.0); MCHC 34.2 g/dL (31.0-37.0); MCV 90.6 fL (80.0-100.0); Mean Platelet Volume 8.1; Platelet Count 309 k/uL (150-450); RBC 4.17 m/uL (3.80-5.40); RDW 13.7 % (11.5-15.5); WBC 8.9 k/uL (3.8-10.6)
[2022-10-13] MEDS ORDERED: NALOXONE 0.4 MG/ML 1 ML VIAL IV PRN (20:31)
[2022-10-13 20:39] LABS: Eosinophils # (M) 0.45 k/uL (0-0.7); Lymphocytes # (M) 2.94 k/uL (1.0-4.8); Monocytes # (M) 0.09 k/uL (0-1.0); Neutrophils # (M) 5.43 k/uL (1.3-7.7); Neutrophils % (M) 61 %; Nucleated Red Blood Cells 0 /100 WBC (0-0); Total Cells Counted 100
[2022-10-13 20:40] LABS: Tear Drop Cells Present
--- NOTE | 2022-10-13 20:48 | XR ---
EXAMINATION TYPE: XR chest 1V portable DATE OF EXAM: 10/13/2022 8:32 PM COMPARISON: Chest x-ray 05/05/2022 TECHNIQUE: XR chest 1V portable . CLINICAL INDICATION:Female, 62 years old with history of syncope; FINDINGS: Lungs/Pleura: There is no evidence of pleural effusion, focal consolidation, or pneumothorax. Pulmonary vascularity: Unremarkable. Heart/mediastinum: Cardiomediastinal silhouette is unremarkable. Musculoskeletal: No acute osseous pathology. IMPRESSION: No acute cardiopulmonary disease/process.
--- NOTE | 2022-10-13 21:56 | XR ---
EXAMINATION TYPE: XR shoulder complete LT DATE OF EXAM: 10/13/2022 9:14 PM INDICATION: Patient age:Female; 62 years old; Reason for study: shoulder injury; COMPARISON: Chest x-ray 10/13/2022 TECHNIQUE: The left shoulder was examined in AP, internally rotated and scapular Y projections. . FINDINGS: No evidence of acute osseous pathology, joint dislocation, or soft tissue swelling. The remaining por tions of the visualized chest are unremarkable. IMPRESSION: No acute osseous pathology.
[2022-10-14] MEDS ORDERED: KETOROLAC 15 MG/ML 1 ML VIAL IVP STA (06:18)
[2022-10-14] MEDS: ONDANSETRON 4 MG/2 ML VIAL IVP PRN (06:48)
[2022-10-14 09:53] LABS: Basophils # (A) 0.04 X 10*3/uL (0.00-0.10); Basophils % (A) 0.5 %; Eosinophils % (A) 2.3 %; HCT 37.2 % (37.2-46.3); HGB 12.2 g/dL (12.0-15.0); Immature Grans, Automated 0.2 %; Lymphocytes % (A) 31.5 %; MCH 31.2 pg (27.0-32.0); MCHC 32.8 g/dL (32.0-37.0); MCV 95.1 fL (80.0-97.0); Monocytes # (A) 0.53 X 10*3/uL (0.20-1.00); Monocytes % (A) 6.2 %; NRBC Per 100 WBC 0 /100 WBCS (0.0-0.0); Neutrophils # (A) 5.08 X 10*3/uL (1.80-7.70); Neutrophils % (A) 59.3 %; Platelet Count 313 X 10*3/uL (140-440); RBC 3.91 X 10*6/uL (4.10-5.20); RDW 13.7 % (11.5-14.5); WBC 8.57 X 10*3/uL (4.50-10.00)
[2022-10-14] MEDS: amLODIPine 5 MG TAB PO SCH (10:16)
[2022-10-14] MEDS: ACETAMINOPHEN TAB 325 MG TAB PO PRN (10:16)
[2022-10-14] MEDS: METOPROLOL SUCCINATE (ER) 100 MG TAB.ER.24H PO SCH (10:17)
[2022-10-14 10:39] LABS: African American GFR (CKD) 82.3 (60.0-200.0); Albumin 3.9 g/dL (3.8-4.9); Albumin/Globulin Ratio 1.76 (1.60-3.17); Anion Gap 8.4 mmol/L (10.00-18.00); BUN/Creat Ratio 23.23 Ratio (12.00-20.00); Blood Urea Nitrogen 20.3 mg/dL (9.0-27.0); Calcium 9.3 mg/dL (8.7-10.3); Carbon Dioxide 25.8 mmol/L (20.0-27.5); Globulin 2.2 g/dL (1.6-3.3); Potassium 4.3 mmol/L (3.5-5.5); Total Bilirubin 0.2 mg/dL (0.30-1.20); Total Protein 6.1 g/dL (6.2-8.2)
[2022-10-14] MEDS: HYDROmorphone 0.5 MG/0.5 ML SYRINGE IVP PRN ×3 (11:06→23:12)
--- NOTE | 2022-10-14 15:49 | HP ---
HISTORY AND PHYSICAL CHIEF COMPLAINT: Syncope versus seizure. HISTORY OF PRESENT ILLNESS: This is a 62-year-old woman with a past medical history of multiple medical problems including hypertension, DJD, history of seizure disorder, and pseudoseizures, who was living in [place]. The patient has come to [place] currently. The patient has at least three episodes of syncope, which was thought to be seizures or pseudoseizures. The patient was admitted for further evaluation and treatment. Initial CAT scan has been negative. Neurology consultation is underway. PAST MEDICAL HISTORY: Reviewed and includes hypertension, DJD, and seizure. Rest of the history and rest of the chart are also reviewed. HOME MEDICATIONS: Norvasc. The rest of the medications and chart are also reviewed. ALLERGIES: Reviewed, iodine. FAMILY HISTORY: History of hypertension. SOCIAL HISTORY: Smoking. REVIEW OF SYSTEMS: 14-point review is negative except as mentioned earlier. PHYSICAL EXAMINATION: VITAL SIGNS: Pulse 75, blood pressure 142/81, respirations 16. HEENT: Conjunctivae jalyn. NECK: No jugular venous distention. CARDIOVASCULAR: S1 and S2. RESPIRATIONS: Diminished at the bases. No rhonchi. No crackles. ABDOMEN: Soft, nontender. LEGS: No edema. NERVOUS SYSTEM: No focal deficits. LABORATORY DATA: Reviewed. ASSESSMENT: 1. Syncope versus seizures and pseudoseizures. 2. Hypertension history. 3. Degenerative joint disease. 4. Multiple medical issues. RECOMMENDATIONS AND DISCUSSION: This is a 62-year-old woman, who presented with multiple complex medical issues. At this time, I recommended to continue with current management. Resume the home medications once they are confirmed. Otherwise, I would recommend Neurology consultation and neuro checks. Seizure precautions. Prognosis is guarded. Further recommendations to follow. MMODL / IJN: [id number] /
[2022-10-14] MEDS ORDERED: diphenhydrAMINE 25 MG CAP PO STA (18:32)
[2022-10-14] MEDS: NICOTINE 14MG/24HR PATCH TRANSDERM SCH (18:47)
[2022-10-14] MEDS: QUEtiapine 100 MG TAB PO SCH (22:00)
[2022-10-14] MEDS: traZODone HCL 50 MG TAB PO SCH (22:00)
--- NOTE | 2022-10-15 01:38 | P.CNNES ---
History of Present Illness Consult date: 10/14/22 Requesting physician: Cirilo Pryor Reason for Consult: Possible seizure versus pseudoseizure History of Present Illness: Patient is a 62-year-old right-handed female, who states of history of pseudoseizures since 2005, came to the hospital yesterday at 5:45 PM for possible seizure. Patient used to live in [place], just moved to [place] in February 2022. She has not established with a neurologist. Patient states that she came to the hospital because she woke up on the floor, and suspects she had a seizure. She hit her head from the fall. She was having pounding headaches therefore she came to the hospital. She has history of seizure disorder since 2005. She was told after workup in [place] where she was living that she was having pseudoseizures. Patient states that in 2008 she had PTSD from her passing away in sleep in their bed from [facility]. Patient states that whenever she gets upset, scared or worried, she gets a seizure. Also when she thinks about her PTSD event (about her 's ), can also lead to a seizure. Patient confirms that her seizures/pseudoseizures started before her PTSD incident related to her 's . Patient also mentions that her son lives in [place], and she worries about him a lot. When she worries about him, also can lead to a seizure. Patient could not describe the clinical description of her seizure. Patient states that she becomes foggy, and then she "don't remember nothing after". Patient states that her tells her when she wakes up. Patient states that she does not want even to know about seizures, as "it hurts after seizure, and she can't explain". Patient became emotional therefore I did not further interrogate about seizure. She did inform me that she does lose control of urine with her seizure, but does not bite her tongue. Patient states that she does get seizures, but "not very often". She is getting seizures "a lot lately because she worries about her son". Vital signs on arrival blood pressure 168/105, pulse rate 95, temperature 98.0. Blood test shows normal CBC, PT/PTT, normal CMP with AST borderline 37. Troponin negative. Urine drug screen positive for tricyclic and marijuana. Blood alcohol level < 10. CT head revealed no acute intracranial process. I personally reviewed CT head, agree with the findings. CT of the cervical spine showed no evidence of fracture, mild multilevel degenerative disc disease. Chest x-ray showed no acute cardiopulmonary disease EKG shows sinus rhythm. Shoulder x-ray showed no acute osseous pathology. Patient has history of very light smoking of about 3 cigarettes a week since age 16. She was never a heavy smoker. She was a light drinker, quit on 03/20/2022. She has hypertension but denies diabetes. Patient states that she has to take Seroquel 300 mg at bedtime and trazodone 50 mg at bedtime to prevent nightmares related to her PTSD. Review of Systems All systems: negative Constitutional: Denies chills, Denies fever Eyes: denies blurred vision, denies diplopia, denies pain Ears: deny: ear discharge, earache Ears, nose, mouth and throat: Reports headache, Denies sore throat Cardiovascular: Denies chest pain, Denies shortness of breath Respiratory: Denies cough, Denies excessive sputum Gastrointestinal: Denies abdominal pain, Denies BRBPR, Denies diarrhea, Denies vomiting Integumentary: Denies pruritus, Denies rash Neurological: Denies numbness, Denies weakness Psychiatric: Reports anxiety, Reports depression, Reports insomnia Past Medical History Past Medical History: GI Bleed, Hypertension, Osteoarthritis (OA), Seizure Disorder Additional Past Medical History / Comment(s): diverticulitis, PSUEDO SIEZURES - LAST AUGUST 2021, RECENT TREATMENT FOR ALCOHOL AND MARIJUANA ABUSE AT [facility]. pancreatitis History of Any Multi-Drug Resistant Organisms: None Reported Past Surgical History: Appendectomy, Bladder Surgery, Bowel Resection, Section, Cholecystectomy, Hysterectomy Additional Past Surgical History / Comment(s): BILATERAL CATARACT SURGERY WITH IMPLANTS , open sigmoid colectomy . Past Anesthesia/Blood Transfusion Reactions: No Reported Reaction, Motion Sickness Past Psychological History: Anxiety, PTSD Smoking Status: Current every day smoker Past Alcohol Use History: None Reported Additional Past Alcohol Use History / Comment(s): STARTED SMOKING AT AGE 17 SMOKES 4 CIG A DAY. HISTORY OF ALCOHOL ABUSE WAS RECENTLY TREATED AT [facility]- LAST DRINK MAR 19 2022 Past Drug Use History: Marijuana Additional Drug Use History / Comment(s): LAST USED 03/19/22 - Past Family History Mother Family Medical History: Hypertension Medications and Allergies Home Medications Medication Instructions Recorded Confirmed Type amLODIPine [Norvasc] 5 mg PO DAILY 04/19/22 10/13/22 History Metoprolol Succinate [Toprol XL] 100 mg PO DAILY 05/02/22 10/13/22 History QUEtiapine FUMARATE [SEROquel] 300 mg PO HS 05/02/22 10/13/22 History Allergies Allergy/AdvReac Type Severity Reaction Status Date / Time iodine Allergy RAPID Verified 10/13/22 19:04 HEART BEAT morphine Allergy Vomiting Verified 10/13/22 19:04 Penicillins Allergy SWELLING Verified 10/13/22 19:04 OF LEGS Sulfa (Sulfonamide Allergy Rash/Hives Verified 10/13/22 19:04 Antibiotics) Physical Examination - Vital Signs Vital Signs: Vital Signs Temp Pulse Resp BP Pulse Ox 10/14/22 22:00 78 18 10/14/22 19:19 97.9 F 78 18 118/73 100 10/14/22 15:00 98.1 F 86 16 120/66 93 L 10/14/22 14:00 86 10/14/22 10:18 77 18 10/14/22 08:00 98.7 F 75 16 142/81 95 Intake and Output 10/14/22 10/14/22 10/15/22 14:59 22:59 06:59 Intake Total 236 480 Balance 236 480 Intake: Oral 236 480 Other: Voiding Method Toilet Toilet # Voids 3 1 Patient is a late middle aged female, who appears somewhat anxious, gets emotional at times. Patient is alert awake oriented to time place and person. Patient knows it is September 2022 and that she is in [facility]. Speech is slightly hoarse and language functions are normal. Patient can name and repeat very well. No aphasia or dysarthria. Attention, concentration and fund of knowledge is adequate. On cranial nerve examination, pupils are equal, round and reacting to light, visual cota are full on confrontation, with no neglect on double simultaneous stimulation. Extraocular muscles are intact with no nystagmus. Face is symmetric, tongue protrudes to the midline. Palatal elevation and sensation n ormal, hearing and shoulder shrug normal, facial sensation normal. On muscle strength testing, there is no pronator drift and the strength is normal in arms and legs distally and proximally. Deep tendon reflexes are symmetric to all over and plantars downgoing bilaterally Sensory to touch is equal with no neglect on double simultaneous stimulation. Cerebellar function showed no ataxia for [id number] testing. No dysdiadochokinesia. No ataxia for [id number] testing on either side. Tone and bulk of muscles normal. Gait deferred.. On general examination, there is no carotid bruit or murmur, S1-S2 audible. Chest is clear on consultation. Abdomen is soft nontender. No organomegaly, bowel sounds present. Peripheral pulses are present. No edema. Results - Laboratory Findings CBC and BMP: 10/14/22 06:02 10/14/22 06:02 Abnormal Lab Findings: Abnormal Labs 10/13/22 10/13/22 10/14/22 17:00 18:42 06:02 RBC 3.91 L Anion Gap BUN 21 H BUN/Creatinine Ratio Glucose Total Bilirubin AST 37 H Total Protein U Tricyclic Antidepress Detected H U Marijuana (THC) Screen Detected H 10/14/22 06:02 RBC Anion Gap 8.40 L BUN BUN/Creatinine Ratio 23.23 H Glucose 119 H Total Bilirubin 0.20 L AST Total Protein 6.1 L U Tricyclic Antidepress U Marijuana (THC) Screen Assessment and Plan Assessment: * Breakthrough seizure * Reported history of pseudoseizures/ * Anxiety/depression * PTSD * Light smoker * Hypertension Plan: * Patient has been diagnosed with pseudoseizures. She has multiple triggers for seizures, which are all psychological related, therefore does appear pseudoseizures. Patient claims that she does lose control of urine with a seizure, which is not typical with pseudoseizures. * Check EEG to rule out epileptiform activity. * Consider psychiatry consultation. * Patient request resuming trazodone 150 mg to be taken along with Seroquel 300 mg to prevent nightmares related to her PTSD. Patient states that her primary physician Dr. Antoine at [facility] stopped her trazodone. I will resume trazodone for now. * Patient needs to establish a neurologist locally to manage ?seizure disorder. * Further management based upon EEG results. Dr. Tao Wilson will resume neurology service in the morning. Thank you for the consult. Time with Patient: Greater than 30
[2022-10-15] MEDS: NICOTINE 14MG/24HR PATCH TRANSDERM SCH (07:48)
[2022-10-15] MEDS: amLODIPine 5 MG TAB PO SCH (07:48)
[2022-10-15] MEDS: HYDROmorphone 0.5 MG/0.5 ML SYRINGE IVP PRN ×3 (07:48→18:58)
[2022-10-15] MEDS: METOPROLOL SUCCINATE (ER) 100 MG TAB.ER.24H PO SCH (07:48)
[2022-10-15] MEDS ORDERED: PANTOPRAZOLE 40 MG/10 ML VIAL IVP SCH (10:30)
[2022-10-15] MEDS: diphenhydrAMINE 50 MG/ML 1 ML VIAL IVP PRN ×2 (10:34→18:13)
[2022-10-15] MEDS: ONDANSETRON 4 MG/2 ML VIAL IVP PRN (13:53)
[2022-10-15] MEDS: ACETAMINOPHEN TAB 325 MG TAB PO PRN (15:52)
--- NOTE | 2022-10-15 16:01 | P.CN ---
Psychiatric Consult - . Consult date: 10/15/22 Consult:: IDENTIFYING DATA AND REASON FOR CONSULT: Mrs. Simpson is a 62-year-old [place] female admitted to medicine service for evaluation of a seizure disorder. The neurologist submitted a psychiatry consult for possible pseudoseizures and multiple triggers for seizures. PERTINENT PSYCHIATRIC HISTORY: I reviewed the medical record and interviewed the patient. She was just completing her EEG. She stated that she came to the hospital after suffering a seizure this morning. She is aware that she was diagnosed as a pseudoseizure but does not believe the diagnosis. She alleges that her daughter observed her having tonic-clonic behavior during which she was unresponsive. There allegedly have been seizure episodes where she lost control of her bowel and bladder. As noted that the neurologist she moved to [place] from [place] in February 2022 to be closer to her daughter. She grew up in [place] where she lives with her son. Her primary complaint was that she misses her son. She described loneliness. She lives alone in a studio apartment and only has to support of her daughter and 1 friend. She feels alone most of the time. She described feeling depressed but denied thoughts of or suicide. She boasted that even with her depression she has been able to be sober and abstinent from methamphetamine. She admitted to several of the symptoms of a depressive disorder including fatigue, poor appetite, restless sleep and difficulty concentrating. She denied weight loss or persistent feelings of guilt. There are no psychotic symptoms. She denied a history of elevated mood or sustained irritability suggestive of marlena or hypomania. She denied persistent uncontrolled anxiety, panic attacks, obsessions or compulsions. PAST PSYCHIATRIC AND/OR SUBSTANCE USE HISTORY: She met with a psychiatrist after the of her in 2005. She denied past psychiatric hospitalizations. She has used alcohol and methamphetamine since late adolescence. She was admitted to one substance abuse treatment program in [place] and to [facility] and she moved to [place]. She was vague about her pattern of use of methamphetamine and alcohol although recently abstinent. [facility] and individual therapy. SOCIAL HISTORY: She was born and raised in [place]. As noted above her in 2005. She has 2 children; a daughter who lives in [place] and a son who lives in [place]. 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 She currently receives disability for her seizure disorder. MENTAL STATUS EXAM: She presented as a somewhat disheveled appearing elderly [place] female stated age. She kept her eyes close during interview. She showed no abnormality of psychomotor activity. Her speech was spontaneous with normal rate, and volume but decreased rhythm. Her affect was depressed and not reactive. She denied thoughts of or suicide. She expresses feelings of hopelessness, helplessness, worthlessness. There are no psychotic symptoms. Her thinking was concrete but organized and goal directed. DIAGNOSIS: major depressive disorder moderate to severe, amphetamine use disorder unspecified, alcohol use disorder unspecified, lack of psychosocial supports RECOMMENDATION: Continue with current psychotropic medications-Seroquel 3 mg at bedtime and trazodone 50 mg at bedtime, and follow-up with [facility], psychiatry will follow she is in the hospital, but his consult. 10/15/22 15:45
--- NOTE | 2022-10-15 17:12 | P.PN ---
Subjective Progress Note Date: 10/15/22 Seeing the patient for the first time during this admission. Patient states that the she has history of diagnosis of pseudoseizures that was diagnosed in [place] and she said she had EEGs in but that was in the 2005 no further workup after that. She stated that recently she had a breakthrough seizure and she had urinary incontinence. He denies of any focal weakness, numbness, any visual disturbance. She denies of any further seizure-like activity Please refer to Dr. Schwartz's note for further details. Objective - Vital Signs Vital signs: Vital Signs Temp 98 F 10/15/22 15:00 Pulse 75 10/15/22 15:00 Resp 16 10/15/22 15:00 BP 110/70 10/15/22 15:00 Pulse Ox 94 L 10/15/22 15:00 FiO2 21 10/15/22 08:32 Intake & Output 10/14/22 10/15/22 10/15/22 18:59 06:59 18:59 Intake Total 716 Balance 716 Intake: Oral 716 Other: Voiding Method Toilet Toilet # Voids 2 2 1 - Exam GENERAL: The patient is lying in bed and is not in acute distress. NEUROLOGICAL: Higher mental function: The patient is awake, alert, oriented to self, place and time. Patient is following commands. No aphasia and no neglect. Cranial nerves: The pupils are round, equal and reactive to light and accommodation. Visual cota are full to confrontation throughout. Extraocular movement is intact no nystagmus is noted. Facial sensation is normal to touch throughout. The facial strength is normal throughout. Tongue is midline and moved [id number] without any difficulty. No dysarthria is noted. Shoulder shrug is normal bilaterally. Motor: The strength is 5 over 5 throughout. Normal tone and bulk. Cerebellum: Normal finger to nose bilaterally. Sensation: Sensation is normal to touch throughout. - Labs CBC & Chem 7: 10/14/22 06:02 10/14/22 06:02 Assessment and Plan Assessment: * Breakthrough seizure * Reported history of remote pseudoseizures (in 2005 in [place]) * Anxiety/depression * PTSD * Light smoker * Hypertension Plan: * Patient has been diagnosed with pseudoseizures. She has multiple triggers for seizures, which are all psychological related.. Patient claims that she does lose control of urine with a seizure, which is not typical with pseudoseizures. * Preliminary EEG: Has questionable rare discharges over the right fronto- temporal region which can increase risk of seizure. No seizure noted. Back ground is normal. Therefore, I started the patient on Lamictal 25mg bid and to go up 25mg every one week until 100mg bid. She was notified of risk of rash. * Recommend prolonged EEG or epilepsy monitoring unit as outpatient for further monitoring. * Psychiatry consulted. * On trazodone 150 mg to be taken along with Seroquel 300 mg to prevent nightmares related to her PTSD. Will defer modification of psychiatric medication to psych team. * Patient needs to establish a neurologist locally to manage seizure/pseudoseizure. * Per [place] DMV because of seizure, patient to avoid driving for 6 months until seizure free, avoid heights, swim unassisted or use heavy machinery. The plan is discussed with patient. Time with Patient: Less than 30
[2022-10-15] MEDS ORDERED: NAPROXEN 250 MG TAB PO STA (17:27)
[2022-10-15] MEDS: PANTOPRAZOLE 40 MG TABLET PO SCH (18:08)
[2022-10-15] MEDS: lamoTRIgine 25 MG TAB PO SCH (20:12)
[2022-10-15] MEDS: traZODone HCL 50 MG TAB PO SCH (20:12)
[2022-10-15] MEDS: QUEtiapine 100 MG TAB PO SCH (20:12)
[2022-10-15] MEDS ORDERED: LORazepam 0.5 MG TAB PO PRN (20:54)
--- NOTE | 2022-10-15 22:08 | EEG ---
ELECTROENCEPHALOGRAM REPORT RELEVANT MEDICATIONS: 1. Seroquel. 2. Trazodone. 3. Benadryl. EEG TYPE: A routine 21-channel EEG is performed with video using the 10/20 electrode placement system. DESCRIPTION: Wakefulness is only obtained. During awake state, the background consists of low-to- moderate voltage of 9 hertz activity that is well modulated and well sustained. There is no physiological stage 2 sleep architecture. There is no focal slowing. Interictal and ictal: There are questionable rare sharp and slow waves over the right frontal temporal region with slow waves. There is concerning for epileptiform activity. Otherwise, there is no seizure noted during the study. ACTIVATION PROCEDURE: Photic stimulation did not evoke a photic drive. There is no abnormality during the photic stimulation. Hyperventilation is not performed. CLINICAL INTERPRETATION: This is an abnormal routine EEG. Background is normal. There is questionable rare epileptiform discharges over the right/frontal temporal region, which increases risk for seizure. Otherwise, there is no focal slowing, or seizure noted during the study. Recommend prolonged ambulatory EEG or epilepsy monitoring unit as an outpatient for further monitoring. Clinical correlation is recommended. MMODL / IJN: [id number] / SELVIN
[2022-10-16] MEDS: HYDROmorphone 0.5 MG/0.5 ML SYRINGE IVP PRN ×2 (01:42→08:05)
[2022-10-16] MEDS: diphenhydrAMINE 50 MG/ML 1 ML VIAL IVP PRN ×2 (01:50→09:03)
[2022-10-16] MEDS: ONDANSETRON 4 MG/2 ML VIAL IVP PRN ×2 (01:50→08:04)
--- NOTE | 2022-10-16 03:44 | DS ---
DISCHARGE SUMMARY FINAL DIAGNOSES: 1. Possible seizures versus pseudoseizures. 2. Hypertension history. 3. Degenerative joint disease. 4. Multiple medical issues. DISCHARGE DISPOSITION: The patient will be discharged in stable condition and guarded prognosis after Neurology clearance. HISTORY OF PRESENT ILLNESS: This is a 62-year-old woman with a past medical history of multiple medical problems, admitted with seizure status/pseudoseizures. The patient had EEG and the patient will be discharged home after clearance from Neurology. DISCHARGE ADVICE AND MEDICATIONS: Continue home medications trazodone 150 mg at bedtime and follow up with Neurology was advised and rest of the recommendations per Neurology. MMODL / IJN: [id number] / SELVIN
[2022-10-16] MEDS: PANTOPRAZOLE 40 MG TABLET PO SCH (06:04)
[2022-10-16] MEDS: lamoTRIgine 25 MG TAB PO SCH (08:04)
[2022-10-16] MEDS: NICOTINE 14MG/24HR PATCH TRANSDERM SCH (08:04)
[2022-10-16] MEDS: METOPROLOL SUCCINATE (ER) 100 MG TAB.ER.24H PO SCH (08:04)
[2022-10-16] MEDS: amLODIPine 5 MG TAB PO SCH (08:04)
[2022-10-16 08:34] VITALS: BP 137/79; PULSE 71; RESP 16; TEMP 97.7
[2022-10-16] MEDS ORDERED: methocarbamoL 500 MG TAB PO PRN (10:27)
--- NOTE | 2022-10-16 18:26 | PN ---
PROGRESS NOTE DATE OF SERVICE: 10/15/2022 SUBJECTIVE: This is a 62-year-old woman with a past medical history of pseudoseizures diagnosed in [place], who was admitted with possible seizures. EEG showed suspicious right frontal abnormalities. OBJECTIVE: VITAL SIGNS: Stable. CARDIOVASCULAR: S1 and S2. ABDOMEN: Soft. NERVOUS SYSTEM: Nonfocal. LABORATORY DATA: Reviewed. ASSESSMENT: 1. Possible seizure disorder. 2. History of pseudoseizures diagnosed in [place] in 2005. 3. Hypertension. 4. Degenerative joint disease. 5. Multiple medical issues. RECOMMENDATIONS: Recommend to continue current medications. Continue symptomatic treatment. Neurology has recommended Lamictal. Increase ambulation. Further recommendations to follow. The patient will need full admit to complete the evaluation and treatment of the above- mentioned investigations including EEG and other measures and Neurology consultation and evaluation. The patient will need more than 2 nights stay in the hospital. Please change it to inpatient admission. MMODL / IJN: [id number] /
--- NOTE | 2022-10-16 18:41 | DS ---
DISCHARGE SUMMARY ADDENDUM: FINAL DIAGNOSIS: Possible seizures. Please refer to the previous diagnoses for the rest of the diagnoses. DISCHARGE DISPOSITION: The patient will be discharged in a stable condition with guarded prognosis. Add Lamictal per Neurology. MMODL / IJN: [id number] /
--- NOTE | 2022-10-16 18:50 | P.PN ---
Subjective Progress Note Date: 10/16/22 Vision seen at bedside and she feels about the same. Denies of any further seizure-like episodes. She denies of any further urinary or bowel incontinence. Denies of any new neurological deficits. Objective - Vital Signs Vital signs: Vital Signs Temp 97.7 F 10/16/22 07:15 Pulse 71 10/16/22 07:15 Resp 16 10/16/22 07:15 BP 137/79 10/16/22 07:15 Pulse Ox 98 10/16/22 09:36 FiO2 21 10/16/22 09:36 Intake & Output 10/15/22 10/16/22 10/16/22 18:59 06:59 18:59 Other: Voiding Method Toilet # Voids 1 1 1 - Exam GENERAL: The patient is lying in bed and is not in acute distress. NEUROLOGICAL: Higher mental function: The patient is awake, alert, oriented to self, place and time. Patient is following commands. No aphasia and no neglect. Cranial nerves: The pupils are round, equal and reactive to light and accommodation. Visual cota are full to confrontation throughout. Extraocular movement is intact no nystagmus is noted. Facial sensation is normal to touch throughout. The facial strength is normal throughout. Tongue is midline and moved [id number] without any difficulty. No dysarthria is noted. Shoulder shrug is normal bilaterally. Motor: The strength is 5 over 5 throughout. Normal tone and bulk. Cerebellum: Normal finger to nose bilaterally. Sensation: Sensation is normal to touch throughout. - Labs CBC & Chem 7: 10/14/22 06:02 10/14/22 06:02 Assessment and Plan Assessment: * Breakthrough seizure. There is questionable rare discharges over the right fronto-temporal region on discharges, otherwise no seizure during the routine EEG study. * Reported history of remote pseudoseizures (in 2005 in [place]) * Anxiety/depression * PTSD * Light smoker * Hypertension Plan: * Patient has been diagnosed with pseudoseizures. She has multiple triggers for seizures, which are all psychological related.. Patient claims that she does lose control of urine with a seizure, which is not typical with pse udoseizures. * EEG: Has questionable rare discharges over the right fronto-temporal region which can increase risk of seizure. No seizure noted. Background is normal. Therefore, I started the patient on Lamictal 25mg bid and to go up 25mg every one week until 100mg bid. She was notified of risk of rash. * Recommend prolonged EEG or epilepsy monitoring unit as outpatient for further monitoring. * Psychiatry consulted. * On trazodone 150 mg to be taken along with Seroquel 300 mg to prevent night mcgrath related to her PTSD. Will defer modification of psychiatric medication to psych team. * Patient needs to establish a neurologist locally to manage seizure/pseudoseizure. * Per [place] DMV because of seizure, patient to avoid driving for 6 months until seizure free, avoid heights, swim unassisted or use heavy machinery. The plan is discussed with patient and her nurse. Time with Patient: Less than 30
== END 2022-10-16 14:10 | disposition home or self-care (01) ==
LOC: EC 17:45 → 6NMEDSUR 20:31
PROVIDERS: ADMIT Internal Medicine; ATTEND Internal Medicine
DX: R55 Syncope and collapse (principal); R51.9 Headache, unspecified; M54.2 Cervicalgia; M25.512 Pain in left shoulder; W19.XXXA Unspecified fall, initial encounter; R56.9 Unspecified convulsions; I10 Essential (primary) hypertension; M19.90 Unspecified osteoarthritis, unspecified site; F41.9 Anxiety disorder, unspecified; F17.210 Nicotine dependence, cigarettes, uncomplicated; F43.10 Post-traumatic stress disorder, unspecified; Z87.19 Personal history of other diseases of the digestive system; F10.11 Alcohol abuse, in remission; F12.10 Cannabis abuse, uncomplicated; Z90.49 Acquired absence of other specified parts of digestive tract; Z98.890 Other specified postprocedural states; Z98.891 History of uterine scar from previous surgery; Z90.710 Acquired absence of both cervix and uterus; Z98.42 Cataract extraction status, left eye; Z98.41 Cataract extraction status, right eye; Z96.1 Presence of intraocular lens; Z82.49 Family history of ischemic heart disease and other diseases of the circulatory system; Z79.899 Other long term (current) drug therapy; Z88.5 Allergy status to narcotic agent; Z88.0 Allergy status to penicillin; Z88.2 Allergy status to sulfonamides; Z91.048 Other nonmedicinal substance allergy status
CPT/HCPCS: 96376 ×4; 96375 ×3; 96374; 99285; 36415; 94760 ×2; 95816; 93005; 80053 ×2; 84484; 85025 ×2; 85610; 85730; 80306; 73030; 71045; 72125; 70450; G0378 ×4; G0480; S4990 ×3; J2060; J1200 ×2; J2405 ×4; J1885; C9113; J1170 ×4; 80320

== ENCOUNTER → 2022-10-30 | Outpatient (CLI) | payer MEDICARE, OTHER | LOC: NEUROMAIN 08:52 | PROVIDERS: ATTEND Student in an Organized Health Care Education/Training Program | DX: G40.89 Other seizures (principal); Z91.02 Food additives allergy status; Z88.5 Allergy status to narcotic agent; Z88.0 Allergy status to penicillin; Z88.2 Allergy status to sulfonamides | CPT/HCPCS: 95700; 95713 ==

== ENCOUNTER 2022-11-27 17:02 | Emergency (ER) | payer MEDICARE, OTHER ==
[2022-11-27 17:11] VITALS: TEMP 98.5
[2022-11-27 18:13] LABS: Basophils # (A) 0.1 k/uL (0-0.2); Basophils % (A) 0 %; Eosinophils # (A) 0.2 k/uL (0-0.7); Eosinophils % (A) 2 %; HCT 40.5 % (34.0-46.0); HGB 13.4 gm/dL (11.4-16.0); Lymphocytes # (A) 3.5 k/uL (1.0-4.8); Lymphocytes % (A) 28 %; MCH 31.1 pg (25.0-35.0); MCHC 33.1 g/dL (31.0-37.0); Mean Platelet Volume 7.3; Monocytes # (A) 0.8 k/uL (0-1.0); Monocytes % (A) 6 %; Neutrophils # (A) 7.6 k/uL (1.3-7.7); Neutrophils % (A) 60 %; Platelet Count 401 k/uL (150-450); RBC 4.31 m/uL (3.80-5.40); RDW 13.4 % (11.5-15.5); WBC 12.5 k/uL (3.8-10.6)
[2022-11-27 18:30] LABS: ALT 22 U/L (4-34); African American GFR (CKD) 78 (>60 ml/min/1.73 sqM); Albumin 4.3 g/dL (3.5-5.0); Anion Gap 8 mmol/L; Blood Urea Nitrogen 18 mg/dL (7-17); Calcium 9.5 mg/dL (8.4-10.2); Carbon Dioxide 27 mmol/L (22-30); Chloride 104 mmol/L (98-107); Glucose 86 mg/dL (74-99); Magnesium 2.1 mg/dL (1.6-2.3); Non-African American GFR(CKD) 68 (>60 ml/min/1.73 sqM); Sodium 139 mmol/L (137-145); Total Bilirubin 0.7 mg/dL (0.2-1.3); Total Protein 7.4 g/dL (6.3-8.2)
[2022-11-27 18:37] LABS: AST 33 U/L (14-36); Alkaline Phosphatase 81 U/L (38-126); Potassium 4.6 mmol/L (3.5-5.1)
[2022-11-27] MEDS ORDERED: KETOROLAC 15 MG/ML 1 ML VIAL IVP STA (19:28)
[2022-11-27] MEDS ORDERED: SODIUM CHLORIDE 0.9% 1,000 ML IV ONE (19:28)
[2022-11-27] MEDS ORDERED: ONDANSETRON 4 MG/2 ML VIAL IVP STA (19:28)
[2022-11-27] MEDS ORDERED: diphenhydrAMINE 50 MG/ML 1 ML VIAL IVP STA (19:53)
[2022-11-27 20:03] VITALS: RESP 18
[2022-11-27] MEDS ORDERED: lamoTRIgine 25 MG TAB PO ONE (20:52)
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
[2022-11-27 21:45] VITALS: BP 160/87; PULSE 79
== END 2022-11-27 21:45 | disposition home or self-care (01) ==
LOC: EC 17:02
DX: R56.9 Unspecified convulsions (principal); I10 Essential (primary) hypertension; M19.90 Unspecified osteoarthritis, unspecified site; F41.9 Anxiety disorder, unspecified; F17.200 Nicotine dependence, unspecified, uncomplicated; F12.90 Cannabis use, unspecified, uncomplicated; Z88.2 Allergy status to sulfonamides; Z88.0 Allergy status to penicillin; Z88.1 Allergy status to other antibiotic agents; Z79.899 Other long term (current) drug therapy
CPT/HCPCS: 36415; 80053; 83605; 83735; 85025; 99284; 96374; 96375 ×2; 96361; J1200; J2405; J1885

== ENCOUNTER 2023-01-26 18:25 | Emergency (ER) | payer MEDICARE, OTHER ==
[2023-01-26] MEDS ORDERED: SODIUM CHLORIDE 0.9% 1,000 ML IV ONE (18:30)
[2023-01-26] MEDS ORDERED: PROCHLORPERAZINE INJ 10 MG/2 ML VIAL IVP STA (18:30)
[2023-01-26] MEDS ORDERED: diphenhydrAMINE 50 MG/ML 1 ML VIAL IVP STA (18:30)
[2023-01-26 18:31] VITALS: RESP 18
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
[2023-01-26 19:17] LABS: ALT 21 U/L (4-34); AST 28 U/L (14-36); African American GFR (CKD) 86 (>60 ml/min/1.73 sqM); Albumin 3.8 g/dL (3.5-5.0); Alkaline Phosphatase 89 U/L (38-126); Anion Gap 9 mmol/L; Blood Urea Nitrogen 12 mg/dL (7-17); Calcium 8.7 mg/dL (8.4-10.2); Carbon Dioxide 20 mmol/L (22-30); Chloride 109 mmol/L (98-107); Glucose 104 mg/dL (74-99); Lipase 44 U/L (23-300); Magnesium 1.9 mg/dL (1.6-2.3); Non-African American GFR(CKD) 75 (>60 ml/min/1.73 sqM); Sodium 138 mmol/L (137-145); Total Bilirubin 0.7 mg/dL (0.2-1.3); Total Protein 6.8 g/dL (6.3-8.2)
[2023-01-26 19:22] LABS: INR 0.9 (<1.2); Partial Thromboplastin Time 25.7 sec (22.0-30.0)
[2023-01-26 19:23] LABS: HCT 37.6 % (34.0-46.0); HGB 13.1 gm/dL (11.4-16.0); MCH 31.8 pg (25.0-35.0); MCHC 34.8 g/dL (31.0-37.0); MCV 91.6 fL (80.0-100.0); Mean Platelet Volume 7.7; Platelet Count 349 k/uL (150-450); RDW 12.7 % (11.5-15.5); WBC 12.9 k/uL (3.8-10.6)
[2023-01-26 19:37] LABS: Potassium 3.6 mmol/L (3.5-5.1)
[2023-01-26 20:35] LABS: Band Neutrophils % 1 %; Lymphocytes # (M) 1.42 k/uL (1.0-4.8); Monocytes # (M) 0.39 k/uL (0-1.0); Neutrophils % (M) 85 %; Nucleated Red Blood Cells 0 /100 WBC (0-0); Total Cells Counted 100
[2023-01-26 21:00] VITALS: BP 116/70; PULSE 59; TEMP 98.8
== END 2023-01-26 20:58 | disposition home or self-care (01) ==
LOC: EC 18:25
DX: K52.9 Noninfective gastroenteritis and colitis, unspecified (principal); E86.0 Dehydration; I10 Essential (primary) hypertension; M19.90 Unspecified osteoarthritis, unspecified site; F41.9 Anxiety disorder, unspecified; F17.200 Nicotine dependence, unspecified, uncomplicated; F12.90 Cannabis use, unspecified, uncomplicated; Z88.2 Allergy status to sulfonamides; Z88.0 Allergy status to penicillin; Z88.8 Allergy status to other drugs, medicaments and biological substances; Z90.49 Acquired absence of other specified parts of digestive tract; Z79.899 Other long term (current) drug therapy
CPT/HCPCS: 36415; 93005; 80053; 83605; 83690; 83735; 84484; 85025; 85610; 85730; 99285; 96374; 96375; 96361 ×2; J1200; J0780

== ENCOUNTER 2023-04-08 11:40 | Emergency (ER) | payer MEDICARE, OTHER ==
[2023-04-08] MEDS ORDERED: SODIUM CHLORIDE 0.9% 1,000 ML IV STA (12:23)
[2023-04-08] MEDS ORDERED: HYDROmorphone 1 MG/ML 1 ML SYRINGE IVP STA (12:24)
[2023-04-08] MEDS ORDERED: AZITHROMYCIN 500 MG in SODIUM CHLORIDE 0.9% 250 ML IVPB STA (12:25)
--- NOTE | 2023-04-08 13:01 | XR ---
EXAMINATION TYPE: XR chest 2V DATE OF EXAM: 04/08/2023 COMPARISON: 10/13/2022 TECHNIQUE: PA and lateral views submitted. HISTORY: Cough FINDINGS: Patchy right middle lobe infiltrate suspicious for pneumonia. Hypertrophic and degenerative changes s pine. Underlying emphysema suspected. Heart size normal. Biapical pleural thickening. Arthropathy of the shoulders. IMPRESSION: 1. Correlate for right middle lobe pneumonia.
[2023-04-08] MEDS ORDERED: IPRATROPIUM-ALBUTEROL 3 ML NEB INHALATION STA (13:16)
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
[2023-04-08] MEDS: cefTRIAXone IN SWFI 1,000 MG/10 ML SYRINGE IVP SCH ×2 (13:31→13:41)
[2023-04-08 13:37] LABS: ALT 20 U/L (4-34); AST 22 U/L (14-36); African American GFR (CKD) 69 (>60 ml/min/1.73 sqM); Alkaline Phosphatase 102 U/L (38-126); Anion Gap 14 mmol/L; Blood Urea Nitrogen 15 mg/dL (7-17); Calcium 9.3 mg/dL (8.4-10.2); Carbon Dioxide 19 mmol/L (22-30); Chloride 107 mmol/L (98-107); Glucose 116 mg/dL (74-99); Non-African American GFR(CKD) 60 (>60 ml/min/1.73 sqM); Potassium 4.2 mmol/L (3.5-5.1); Sodium 140 mmol/L (137-145); Total Bilirubin 0.7 mg/dL (0.2-1.3); Total Protein 6.9 g/dL (6.3-8.2)
[2023-04-08 13:38] LABS: HCT 35.9 % (34.0-46.0); HGB 12.5 gm/dL (11.4-16.0); MCHC 34.7 g/dL (31.0-37.0); MCV 92.3 fL (80.0-100.0); Mean Platelet Volume 7.3; Platelet Count 392 k/uL (150-450); RBC 3.89 m/uL (3.80-5.40); RDW 13.1 % (11.5-15.5); WBC 11.8 k/uL (3.8-10.6)
[2023-04-08 14:49] VITALS: BP 98/53; PULSE 92; RESP 20; TEMP 98.7
[2023-04-08 15:09] LABS: Lymphocytes # (M) 1.77 k/uL (1.0-4.8); Monocytes # (M) 0.47 k/uL (0-1.0); Neutrophils # (M) 9.56 k/uL (1.3-7.7); Neutrophils % (M) 81 %; Nucleated Red Blood Cells 0 /100 WBC (0-0); Total Cells Counted 100
[2023-04-08 15:10] LABS: RBC Morphology Normal
== END 2023-04-08 14:45 | disposition home or self-care (01) ==
LOC: EC 11:40
DX: J18.9 Pneumonia, unspecified organism (principal); I10 Essential (primary) hypertension; M19.90 Unspecified osteoarthritis, unspecified site; F41.9 Anxiety disorder, unspecified; F17.200 Nicotine dependence, unspecified, uncomplicated; F12.90 Cannabis use, unspecified, uncomplicated; Z88.0 Allergy status to penicillin; Z88.2 Allergy status to sulfonamides; Z88.5 Allergy status to narcotic agent; Z88.8 Allergy status to other drugs, medicaments and biological substances; Z79.899 Other long term (current) drug therapy
CPT/HCPCS: 36415; 80053; 83605; 85025; 87040; 71046; 99284; 96365; 96375 ×2; J0456; J0696; J1170

== ENCOUNTER 2023-04-10 16:27 | Inpatient (IN) | payer MEDICARE, OTHER ==
[2023-04-10] MEDS ORDERED: methylPREDNISolone SOD SUCCI 125 MG/2 ML VIAL IM ONE (16:55)
[2023-04-10] MEDS ORDERED: HYDROcodone/APAP 7.5-325MG 1 EACH TAB PO ONE (16:55)
[2023-04-10] MEDS ORDERED: IPRATROPIUM-ALBUTEROL 3 ML NEB INHALATION STA (16:55)
--- NOTE | 2023-04-10 17:48 | XR ---
EXAMINATION TYPE: XR chest 2V DATE OF EXAM: 04/10/2023 5:35 PM CLINICAL INDICATION:Female, 62 years old with history of pneumonia; COMPARISON: Chest radiographs from 04/08/2023. TECHNIQUE: XR chest 2V Frontal and lateral views of the chest. FINDINGS: Lungs/Pleura: Increasing density of the right basilar airspace opacities. There is no evidence of ple ural effusion, focal consolidation, or pneumothorax. Pulmonary vascularity: Unremarkable. Heart/mediastinum: Cardiomediastinal silhouette is unremarkable. Musculoskeletal: No acute osseous pathology. IMPRESSION: Basilar airspace opacities correlate for pneumonia. These are worsened from 04/08/2023.
--- NOTE | 2023-04-10 18:04 | ED ---
URI HPI - General Chief Complaint: Upper Respiratory Infection Stated Complaint: chest congestion Time Seen by Provider: 04/10/23 16:39 Source: patient Mode of arrival: ambulatory Limitations: no limitations - History of Present Illness Initial Comments: 62-year-old female who was recently seen in our facility and diagnosed with pneumonia presenting with chief complaint of "I just don't feel any better". Patient was seen in our facility on 04/08, she was given ceftriaxone and azithromycin, she was sent home on doxycycline. Patient has taken 3 doses of her at-home medication. She was also sent home with cough medicine. Patient states that she is having soreness from coughing. She also states that she is having a persistent cough despite using her inhaler. She is a smoker. No lower extremity swelling. No palpitations. No nausea, vomiting, abdominal pain. - Related Data Home Medications Medication Instructions Recorded Confirmed Metoprolol Succinate [Toprol XL] 100 mg PO DAILY 05/02/22 04/10/23 Omeprazole 20 mg PO BID 11/27/22 04/10/23 QUEtiapine [SEROquel] 400 mg PO HS 11/27/22 04/10/23 Acetaminophen-Codeine 300-30mg 1 tab PO TID PRN 04/10/23 04/10/23 [Tylenol w/codeine #3] Albuterol Inhaler [Ventolin Hfa 1 - 2 puff INHALATION RT-Q6H PRN 04/10/23 04/10/23 Inhaler] Atorvastatin [Lipitor] 20 mg PO HS 04/10/23 04/10/23 Codeine Phosphate/Guaifenesin 5 ml PO Q6H PRN 04/10/23 04/10/23 [Codeine Phosphate/Guaifenesin 10-100 mg/5 ml] Cyclobenzaprine [Flexeril] 10 mg PO TID PRN 04/10/23 04/10/23 Losartan [Cozaar] 25 mg PO DAILY 04/10/23 04/10/23 Prazosin HCl 2 mg PO HS 04/10/23 04/10/23 amLODIPine [Norvasc] 10 mg PO DAILY 04/10/23 04/10/23 buPROPion HCL [buPROPion HCL SR] 150 mg PO DAILY 04/10/23 04/10/23 lamoTRIgine [LaMICtal] 100 mg PO BID 04/10/23 04/10/23 traZODone HCL [Desyrel] 50 mg PO HS PRN 04/10/23 04/10/23 Previous Rx's Medication Instructions Recorded Ondansetron Odt [Zofran Odt] 4 mg PO Q8HR PRN #20 tab 01/26/23 Doxycycline Hyclate 100 mg PO BID #14 capsule 04/08/23 Allergies Allergy/AdvReac Type Severity Reaction Status Date / Time Penicillins Allergy SWELLING Verified 04/10/23 21:11 OF LEGS Sulfa (Sulfonamide Allergy Rash/Hives Verified 04/10/23 21:11 Antibiotics) iodine AdvReac RAPID Verified 04/10/23 21:11 HEART BEAT morphine AdvReac Vomiting Verified 04/10/23 21:11 Review of Systems ROS Statement: Those systems with pertinent positive or pertinent negative responses have been documented in the HPI. ROS Other: All systems not noted in ROS Statement are negative. Past Medical History Past Medical History: GI Bleed, Hypertension, Osteoarthritis (OA), Seizure Disorder Additional Past Medical History / Comment(s): diverticulitis, PSUEDO SIEZURES - LAST AUGUST 2021, RECENT TREATMENT FOR ALCOHOL AND MARIJUANA [facility]BUSE [facility]. pancreatitis History of Any Multi-Drug Resistant Organisms: None Reported Past Surgical History: Appendectomy, Bladder Surgery, Bowel Resection, Section, Cholecystectomy, Hysterectomy Additional Past Surgical History / Comment(s): BILATERAL CATARACT SURGERY WITH IMPLANTS , open sigmoid colectomy . Past Anesthesia/Blood Transfusion Reactions: No Reported Reaction, Motion Sickness Past Psychological History: Anxiety, PTSD Smoking Status: Current every day smoker Past Alcohol Use History: None Reported Past Drug Use History: Marijuana - Past Family History Mother Family Medical History: Hypertension General Exam Limitations: no limitations General appearance: alert, in no apparent distress Head exam: Present: atraumatic, normocephalic, normal inspection Eye exam: Present: normal appearance, EOMI Neck exam: Present: normal inspection, full ROM Respiratory exam: Present: wheezes. Absent: respiratory distress, rales, rhonchi, stridor Cardiovascular Exam: Present: regular rate, normal rhythm, normal heart sounds. Absent: systolic murmur, diastolic murmur, rubs, gallop, clicks Neurological exam: Present: alert, oriented X3 Psychiatric exam: Present: normal affect, normal mood Skin exam: Present: warm, dry, intact, normal color. Absent: rash Course Vital Signs 04/10/23 04/10/23 04/10/23 16:28 17:54 18:03 Temperature 98.1 F Pulse Rate 78 77 77 Respiratory 18 16 18 Rate Blood Pressure 164/95 O2 Sat by Pulse 96 Oximetry 04/10/23 21:46 Temperature Pulse Rate 91 Respiratory 18 Rate Blood Pressure 116/65 O2 Sat by Pulse 92 L Oximetry Medical Decision Making - Medical Decision Making Was pt. sent in by a medical professional or institution (, PA, VENEER GLUE SPREADER, urgent care, hospital, or skilled nursing...) When possible be specific @ -No Did you speak to anyone other than the patient for history (EMS, parent, family, police, friend...)? What history was obtained from this source @ -No Did you review nursing and triage notes (agree or disagree)? Why? @ -I reviewed and agree with nursing and triage notes Were old charts reviewed (outside hosp., previous admission, EMS record, old EKG, old radiological studies, urgent care reports/EKG's, skilled nursing records)? Report findings @ -Patient's previous visit and chest x-ray are reviewed Differential Diagnosis (chest pain, altered mental status, abdominal pain women, abdominal pain men, vaginal bleeding, weakness, fever, dyspnea, syncope, headache, dizziness, GI bleed, back pain, seizure, CVA, palpatations, mental health, musculoskeletal)? @ -MDM Differential Dyspnea: Coronary syndrome, arrhythmia, tamponade, asthma, COPD, pulmonary embolism, pneumonia, pneumothorax, pulmonary effusion, anaphylaxis, diabetic ketoacidosis, flailed chest, pulmonary contusion, diaphragmatic rupture, anemia, neuromuscular this is not meant to be an all-inclusive list. EKG interpreted by me (3pts min.). @ -As above X-rays interpreted by me (1pt min.). @ -Basilar airspace opacities correlate for pneumonia. These are worsened from 04/08 CT interpreted by me (1pt min.). @ -None done U/S interpreted by me (1pt. min.). @ -None done What testing was considered but not performed or refused? (CT, X-rays, U/S, labs)? Why? @ -None What meds were considered but not given or refused? Why? @ -None Did you discuss the management of the patient with other professionals (consuelo mcclendon i.e. , PA, VENEER GLUE SPREADER, lab, RT, psych nurse, social media strategist, escrow secretary, teacher, enforcement safety officer, immigration case worker)? Give summary @ -I spoke with Bebo from [facility] group accepted admission Was smoking cessation discussed for >3mins.? @ -No Was critical care preformed (if so, how long)? @ -No Were there social determinants of health that impacted care today? How? (Homelessness, low income, unemployed, alcoholism, drug addiction, transportation, low edu. Level, literacy, decrease access to med. care, custodial, rehab)? @ -No Was there de-escalation of care discussed even if they declined (Discuss DNR or withdrawal of care, Hospice)? DNR status @ -No What co-morbidities impacted this encounter? (DM, HTN, Smoking, COPD, CAD, Cancer, CVA, ARF, Chemo, Hep., AIDS, mental health diagnosis, sleep apnea, morbid obesity)? @ -Smoking Was patient admitted / discharged? Hospital course, mention meds given and route, prescriptions, significant lab abnormalities, going to OR and other pertinent info. @ -62-year-old female presenting with chief complaint of cough and shortness of breath. She was seen here on 04/08 and diagnosed with pneumonia, sent home on doxycycline. Patient states that she doesn't feel any better. History and physical exam were conducted. Patient was given Solu-Medrol and DuoNeb as well as pain medication. No leukocytosis or anemia. Chest x-ray appears worse than image taken on 04/08. Given the patient's symptoms and imaging it appears that she is failing outpatient therapy. She will be admitted for IV antibiotics, steroids, and breathing treatments. She is agreeable with this plan. I discussed this case with my attending Dr. Chavez Undiagnosed new problem with uncertain prognosis? @ -No Drug Therapy requiring intensive monitoring for toxicity (Heparin, Nitro, Insulin, Cardizem)? @ -No Were any procedures done? @ -No Diagnosis/symptom? @ -Pneumonia Acute, or Chronic, or Acute on Chronic? @ -Acute Uncomplicated (without systemic symptoms) or Complicated (systemic symptoms)? @ -Complicated Side effects of treatment? @ -No Exacerbation, Progression, or Severe Exacerbation? @ -No Poses a threat to life or bodily function? How? (Chest pain, [place], [place], pneumonia, PE, COPD, DKA, ARF, appy, cholecystitis, CVA, Diverticulitis, Homicidal, Suicidal, threat to staff... and all critical care pts) @ -Yes - Lab Data Result diagrams: 04/10/23 18:13 04/10/23 18:13 Lab Results 04/10/23 04/10/23 Range/Units 18:13 18:13 WBC 8.7 (3.8-10.6) k/uL RBC 3.66 L (3.80-5.40) m/uL Hgb 11.8 (11.4-16.0) gm/dL Hct 33.7 L (34.0-46.0) % MCV 92.1 (80.0-100.0) fL MCH 32.4 (25.0-35.0) pg MCHC 35.2 (31.0-37.0) g/dL RDW 12.8 (11.5-15.5) % Plt Count 393 (150-450) k/uL MPV 7.3 Neutrophils % 68 % Lymphocytes % 24 % Monocytes % 4 % Eosinophils % 0 % Basophils % 0 % Neutrophils # 5.9 (1.3-7.7) k/uL Lymphocytes # 2.1 (1.0-4.8) k/uL Monocytes # 0.3 (0-1.0) k/uL Eosinophils # 0.0 (0-0.7) k/uL Basophils # 0.0 (0-0.2) k/uL Sodium 142 (137-145) mmol/L Potassium 4.1 (3.5-5.1) mmol/L Chloride 107 (98-107) mmol/L Carbon Dioxide 24 (22-30) mmol/L Anion Gap 11 mmol/L BUN 11 (7-17) mg/dL Creatinine 0.77 (0.52-1.04) mg/dL Est GFR (CKD-EPI)AfAm >90 (>60 ml/min/1.73 sqM) Est GFR (CKD-EPI)NonAf 83 (>60 ml/min/1.73 sqM) Glucose 118 H (74-99) mg/dL Calcium 9.1 (8.4-10.2) mg/dL Total Bilirubin 0.7 (0.2-1.3) mg/dL AST 23 (14-36) U/L ALT 20 (4-34) U/L Alkaline Phosphatase 97 (38-126) U/L Total Protein 6.5 (6.3-8.2) g/dL Albumin 3.8 (3.5-5.0) g/dL Disposition Clinical Impression: Pneumonia Disposition: ADMITTED IP TO THIS HOSP Condition: Fair Time of Disposition: 21:36
[2023-04-10 18:58] LABS: Basophils % (A) 0 %; Eosinophils % (A) 0 %; HCT 33.7 % (34.0-46.0); HGB 11.8 gm/dL (11.4-16.0); Lymphocytes # (A) 2.1 k/uL (1.0-4.8); Lymphocytes % (A) 24 %; MCH 32.4 pg (25.0-35.0); MCHC 35.2 g/dL (31.0-37.0); MCV 92.1 fL (80.0-100.0); Mean Platelet Volume 7.3; Monocytes # (A) 0.3 k/uL (0-1.0); Monocytes % (A) 4 %; Neutrophils # (A) 5.9 k/uL (1.3-7.7); Neutrophils % (A) 68 %; Platelet Count 393 k/uL (150-450); RBC 3.66 m/uL (3.80-5.40); RDW 12.8 % (11.5-15.5); WBC 8.7 k/uL (3.8-10.6)
[2023-04-10 19:07] LABS: ALT 20 U/L (4-34); AST 23 U/L (14-36); African American GFR (CKD) >90 (>60 ml/min/1.73 sqM); Albumin 3.8 g/dL (3.5-5.0); Alkaline Phosphatase 97 U/L (38-126); Anion Gap 11 mmol/L; Blood Urea Nitrogen 11 mg/dL (7-17); Calcium 9.1 mg/dL (8.4-10.2); Carbon Dioxide 24 mmol/L (22-30); Chloride 107 mmol/L (98-107); Glucose 118 mg/dL (74-99); Non-African American GFR(CKD) 83 (>60 ml/min/1.73 sqM); Potassium 4.1 mmol/L (3.5-5.1); Sodium 142 mmol/L (137-145); Total Bilirubin 0.7 mg/dL (0.2-1.3); Total Protein 6.5 g/dL (6.3-8.2)
[2023-04-10] MEDS ORDERED: NALOXONE 0.4 MG/ML 1 ML VIAL IV PRN (19:39)
[2023-04-10] MEDS ORDERED: ACETAMINOPHEN TAB 325 MG TAB PO PRN (19:39)
[2023-04-10] MEDS ORDERED: IPRATROPIUM-ALBUTEROL 3 ML NEB INHALATION PRN (19:56)
[2023-04-10] MEDS ORDERED: diphenhydrAMINE 25 MG CAP PO STA (19:56)
[2023-04-10] MEDS ORDERED: AZITHROMYCIN 500 MG in SODIUM CHLORIDE 0.9% 250 ML IVPB STA (19:56)
[2023-04-10] MEDS: SODIUM CHLORIDE 0.9% 1,000 ML IV SCH (20:22)
[2023-04-10] MEDS: HYDROmorphone 1 MG/ML 1 ML SYRINGE IVP PRN (20:22)
[2023-04-10] MEDS: ONDANSETRON 4 MG/2 ML VIAL IVP PRN (21:17)
[2023-04-10] MEDS ORDERED: traZODone HCL 50 MG TAB PO PRN (22:55)
[2023-04-10] MEDS ORDERED: NON FORMULARY DRUG (Albuterol Inhaler 90 MCG Puff) INHALATION PRN (22:55)
[2023-04-10] MEDS: QUEtiapine 400 MG TAB PO SCH (23:42)
[2023-04-11] MEDS: HYDROmorphone 1 MG/ML 1 ML SYRINGE IVP PRN ×6 (00:57→21:16)
[2023-04-11] MEDS: HYDROcodone/APAP 5-325MG 1 EACH TAB PO PRN (06:30)
[2023-04-11] MEDS: PANTOPRAZOLE 40 MG TABLET PO SCH (06:30)
[2023-04-11] MEDS: IPRATROPIUM-ALBUTEROL 3 ML NEB INHALATION PRN (08:16)
[2023-04-11] MEDS ORDERED: PNEUMONIA PROTOCOL UTILIZED 1 EACH MISC PO PRN (09:13)
--- NOTE | 2023-04-11 10:02 | XR ---
EXAMINATION TYPE: XR chest 2V DATE OF EXAM: 04/11/2023 COMPARISON: 04/10/2023 INDICATION: Pneumonia, short of breath TECHNIQUE: Frontal and lateral views of the chest are obtained. FINDINGS: The heart size is normal. The pulmonary vasculature is normal. Right lower lobe consolidation is present. This is improving.. IMPRESSION: 1. Improving right lower lobe pneumonia. Continued follow-up is recommended.
[2023-04-11] MEDS: lamoTRIgine 100 MG TAB PO SCH ×2 (10:07→20:17)
[2023-04-11] MEDS: METOPROLOL SUCCINATE (ER) 100 MG TAB.ER.24H PO SCH (10:07)
[2023-04-11] MEDS: buPROPion SR 150 MG TABLET.ER PO SCH (10:07)
[2023-04-11] MEDS: methylPREDNISolone SOD SUCCI 125 MG/2 ML VIAL IV SCH (10:08)
[2023-04-11] MEDS: ONDANSETRON 4 MG/2 ML VIAL IVP PRN ×2 (10:19→18:06)
[2023-04-11] MEDS: SODIUM CHLORIDE 0.9% 1,000 ML IV SCH ×2 (10:41→22:30)
[2023-04-11] MEDS: guaiFENesin 600 MG TABLET.ER PO SCH ×2 (10:49→20:17)
[2023-04-11] MEDS: CEFEPIME 2 GM in SODIUM CHLORIDE 0.9% 100 ML IVPB SCH ×2 (10:50→15:45)
[2023-04-11] MEDS: ALBUTEROL NEBULIZED 2.5 MG/3 ML INHALATION PRN ×2 (11:48→17:12)
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
[2023-04-11] MEDS: QUEtiapine 400 MG TAB PO SCH (20:17)
[2023-04-11] MEDS: ATORVASTATIN 20 MG TAB PO SCH (20:17)
[2023-04-12] MEDS: CEFEPIME 2 GM in SODIUM CHLORIDE 0.9% 100 ML IVPB SCH ×3 (00:34→22:14)
[2023-04-12] MEDS: ONDANSETRON 4 MG/2 ML VIAL IVP PRN ×2 (01:30→17:50)
[2023-04-12] MEDS: HYDROmorphone 1 MG/ML 1 ML SYRINGE IVP PRN ×5 (01:37→20:46)
[2023-04-12] MEDS: PANTOPRAZOLE 40 MG TABLET PO SCH (05:08)
--- NOTE | 2023-04-12 07:35 | XR ---
EXAMINATION TYPE: XR chest 1V DATE OF EXAM: 04/12/2023 6:36 AM CLINICAL INDICATION:Female, 62 years old with history of Pneumonia; COMPARISON: Chest radiographs from 04/11/2023. TECHNIQUE: XR chest 1V Frontal view of the chest. FINDINGS: Lungs/Pleura: Increased consolidation changes in the right lung base. There is no evidence of pleural effusion, or pneumothorax. Pulmonary vascularity: Unremarkable. Heart/mediastinum: Cardiomediastinal silhouette is unremarkable. Musculoskeletal: No acute osseous pathology. Other findings: None IMPRESSION: Right lung base airspace opacities which has slightly increased in density.
[2023-04-12] MEDS: methylPREDNISolone SOD SUCCI 125 MG/2 ML VIAL IV SCH (08:25)
[2023-04-12] MEDS: buPROPion SR 150 MG TABLET.ER PO SCH (08:27)
[2023-04-12] MEDS: guaiFENesin 600 MG TABLET.ER PO SCH ×2 (08:27→22:13)
[2023-04-12] MEDS: lamoTRIgine 100 MG TAB PO SCH ×2 (08:27→22:12)
[2023-04-12] MEDS: METOPROLOL SUCCINATE (ER) 100 MG TAB.ER.24H PO SCH (08:27)
[2023-04-12] MEDS: CYCLOBENZAPRINE 5 MG TAB PO PRN ×2 (08:28→20:45)
[2023-04-12] MEDS: IPRATROPIUM-ALBUTEROL 3 ML NEB INHALATION PRN ×3 (09:32→21:09)
[2023-04-12] MEDS: HYDROcodone/APAP 5-325MG 1 EACH TAB PO PRN (10:24)
--- NOTE | 2023-04-12 11:08 | P.PN ---
Subjective Progress Note Date: 04/12/23 * 62-year-old patient with past medical history significant for seizure disorder, history of anxiety, depression, hypertension who was recently hospitalized for community-acquired pneumonia. Patient was discharged with outpatient antibiotic with prescription for doxycycline. Patient presents back to the emergency department with complains of fatigue, malaise persistent cough and sore throat. * Workup initiated in ER included a chest x-ray which showed bilateral airspace opacity * CBC obtained in ER showed WBC 8.7 hemoglobin 11.8 dated count of 393 * Serum sodium 142 potassium 4.1 be on 11 creatinine 0.77 glucose 118 * Patient was given a dose of Rocephin, azithromycin, breathing treatments and IV Solu-Medrol and admitted to medical floor for further management * 04/12/23: Patient seen and evaluated bedside, patient continues to complain of cough, she complains of pleuritic chest pain, tested negative for influenza/RSV/Covid group A strep negative. Appreciate input from pulmonary medicine Objective - Vital Signs Vital signs: Vital Signs Temp 97.8 F 04/12/23 07:17 Pulse 73 04/12/23 10:43 Resp 18 04/12/23 10:43 BP 148/77 04/12/23 07:17 Pulse Ox 94 L 04/12/23 09:32 FiO2 Intake & Output 04/11/23 04/12/23 04/12/23 18:59 06:59 18:59 Other: # Voids 2 0 - Exam PHYSICAL EXAMINATION: GENERAL: The patient is alert and oriented x3, not in any acute distress. Well developed, well nourished. Nasal cannula in place HEENT: Pupils are round and equally reacting to light. EOMI. CARDIOVASCULAR: S1 and S2 present. No murmurs, rubs, or gallops. PULMONARY: Decreased breath sounds bilaterally ABDOMEN: Soft, nontender, nondistended, normoactive bowel sounds. Hernia noted MUSCULOSKELETAL: No joint swelling or deformity. EXTREMITIES: No cyanosis, clubbing, or pedal edema. NEUROLOGICAL: Gross neurological examination did not reveal any focal deficits. SKIN: No rashes. - Labs CBC & Chem 7: 04/10/23 18:13 04/10/23 18:13 Assessment and Plan Assessment: Assessment and plan * Multifocal pneumonia * Acute hypoxic respiratory failure * History of seizure disorder * Hypertension * History of anxiety and depression * In regards to pneumonia, continue cefepime day 2, influenza, RSV, Covid and strep group A PCR negative. Pro-calcitonin minimally elevated. Continue Mucinex, when necessary [place] and I'll ordered for pleuritic chest pain * In regards to acute hypoxic history failure continue breathing treatments IV Solu-Medrol day 2 pulmonary medicine consulted * In regards to history of seizure disorder home medications reviewed and reconciled continue patient on Lamictal maintain seizure precautions * In regards to history of depression continue Wellbutrin * CODE STATUS is full code
[2023-04-12 11:09] LABS: Blood Urea Nitrogen 21.1 mg/dL (9.0-27.0); Calcium 9.8 mg/dL (8.7-10.3); Carbon Dioxide 24.5 mmol/L (21.6-31.8); Chloride 105 mmol/L (96-109); Glucose 100 mg/dL (70-110); Potassium 4.5 mmol/L (3.5-5.5); Sodium 140 mmol/L (135-145)
[2023-04-12 12:10] LABS: HCT 32.8 % (37.2-46.3); MCH 31.3 pg (27.0-32.0); MCHC 33.5 g/dL (32.0-37.0); MCV 93.2 FL (80.0-97.0); Mean Platelet Volume 9.5 FL (9.5-12.2); NRBC Per 100 WBC 0 X 10*3/uL (0.00-0.01); Platelet Count 458 X 10*3/uL (140-440); RBC 3.52 X 10*6/uL (4.10-5.20); RDW 13.2 % (11.5-14.5)
[2023-04-12] MEDS: guaiFENesin-Coden 100-10MG/5ML 10 ML CUP PO PRN ×2 (13:01→20:45)
--- NOTE | 2023-04-12 13:01 | P.PN ---
Subjective Progress Note Date: 04/12/23 60-year-old female patient hospitalized for worsening shortness of breath. The patient came into the hospital because of acute dyspnea cough chest congestion chest tightness and wheezing. She was not emergency department she days back and she was given antibiotics in the emergency department. She was given IV Rocephin and she was discharged on a course of doxycycline. The patient stated that her condition was not improving and the patient was having ongoing symptoms. For that reason, the patient presented herself to the emergency department again and she was has less for COPD exacerbation and right lower lobe pneumonia. I reviewed the chest x-ray and the patient is a right lower lobe pulmonary infiltrate which is slightly improved compared to the chest x-ray that was done on 04/10/2023. The patient had a low-dose CAT scan of the chest that was done on 09/23/2022 and it showed no evidence of a lung mass or mediastinal lymphadenopathy. She is a chronic smoker and she is trying to cut down her smoking. She is currently down to 4 cigarettes a day. Her blood work shows a bili is elevated 0.7, hemoglobin was at 11.8, BUN is 11 with a creatinine of 0.7 and a sodium level is at 142. The viral screen was negative including influenza, RSV and Covid 19. The patient is currently on bronchodilators. The patient is currently on IV Solu-Medrol. The patient is also on IV cefepime 2 g every 12 hours. She is known to have COPD. She is not utilizing any maintenance respiratory medication. She has an albuterol rescue inhaler that she uses on an as-needed basis. She has history of chronic anxiety depression and PTSD and her PTSD is originating from her seeing her of a heart attack while she was sleeping . She used to live in [facility], and currently she is low to [place]. On today's evaluation of 04/12/2023, the patient continues to have cough and congestion and right-sided chest discomfort. The patient remains on IV cefepime as a broad-spectrum antibiotic coverage. Bacterial pneumonia was suspected. Nevertheless, the pro calcitonin level has been quite low. The patient is receiving Dilaudid for pain control. A repeat chest x-ray was done today and it showed right basilar airspace opacity which has actually increased in size. On today's blood work, the patient's WBC is 16.4, hemoglobin 11 and a platelet count is at 498. BUN is at 21 with a creatinine of 1 and sodium levels of 140. Legionella urine antigen is still pending for now. The patient remains on bronchodilators. She is on Ventolin and ipratropium the blood treatments 4 times a day. She is on IV Rocephin. She is also on Solu-Medrol 60 mg 6 hours. The preliminary blood cultures are still negative. Objective - Vital Signs Vital signs: Vital Signs Temp 97.8 F 04/12/23 07:17 Pulse 73 04/12/23 10:43 Resp 18 04/12/23 10:43 BP 148/77 04/12/23 07:17 Pulse Ox 94 L 04/12/23 09:32 FiO2 Intake & Output 04/11/23 04/12/23 04/12/23 18:59 06:59 18:59 Other: # Voids 2 0 - Exam General appearance: alert, in no apparent distress, currently on 2 L of oxygen by nasal cannula Head exam: Present: atraumatic, normocephalic, normal inspection Eye exam: Present: normal appearance, PERRL, EOMI. Absent: scleral icterus, conjunctival injection, periorbital swelling ENT exam: Present: normal exam, mucous membranes moist Neck exam: Present: normal inspection. Absent: tenderness, meningismus, lymphadenopathy Respiratory exam: Scattered Wheezes throughout the lung cota bilaterally. Breath sounds are quite diminished Cardiovascular Exam: Present: regular rate, normal rhythm, normal heart sounds. Absent: systolic murmur, diastolic murmur, rubs, gallop, clicks GI/Abdominal exam: Present: soft, normal bowel sounds. Absent: distended, tenderness, guarding, rebound, rigid Extremities exam: Present: normal inspection, full ROM, normal capillary refill. Absent: tenderness, pedal edema, joint swelling, calf tenderness Back exam: Present: normal inspection Neurological exam: Present: alert, oriented X3, CN II-XII intact Psychiatric exam: Present: normal affect, normal mood Skin exam: Present: warm, dry, intact, normal color. Absent: rash - Labs CBC & Chem 7: 04/12/23 07:18 04/12/23 07:18 Assessment and Plan Plan: Acute right lower lobe pneumonia, symptomatic. The patient was diagnosed on during an emergency department visit and the patient is coming in to the hospital because of failure of outpatient treatment. The patient has a low pro-calcitonin level. The patient is currently on IV cefepime. The patient has dense consolidation of the right lower lobe which is slightly improved compared to yesterday. Acute hypoxic respiratory failure currently on 2 L of O2 nasal cannula Acute COPD exacerbation secondary to above Shortness of breath secondary to above Leukocytosis secondary to above, white blood count remains elevated. History of smoking Hypertension Previous history of alcohol abuse History of diverticulosis/diverticulitis with previous colectomy History of PTSD History of pseudoseizures Degenerative arthritis Previous history of pancreatitis Plan Check pro calcitonin level was low Continue IV cefepime Continue bronchodilators and steroids and the patient is currently on IV Solu- Medrol 60 mg every 6 hours Check Legionella urine antigen Repeat another chest x-ray tomorrow Titrate oxygen flow to maintain a saturation above 90% We'll continue to follow.
[2023-04-12] MEDS: SODIUM CHLORIDE 0.9% 1,000 ML IV SCH (13:02)
[2023-04-12] MEDS: oxyCODONE-APAP 5-325MG 1 EACH TAB PO PRN ×3 (13:51→22:52)
[2023-04-12] MEDS: ALBUTEROL NEBULIZED 2.5 MG/3 ML INHALATION PRN (16:25)
[2023-04-12] MEDS: ATORVASTATIN 20 MG TAB PO SCH (22:12)
[2023-04-12] MEDS: QUEtiapine 400 MG TAB PO SCH (22:13)
[2023-04-13] MEDS: SODIUM CHLORIDE 0.9% 1,000 ML IV SCH ×2 (00:09→18:21)
[2023-04-13] MEDS: HYDROmorphone 1 MG/ML 1 ML SYRINGE IVP PRN ×6 (01:21→21:26)
[2023-04-13] MEDS: methylPREDNISolone SOD SUCCI 125 MG/2 ML VIAL IV SCH (08:30)
[2023-04-13] MEDS: CEFEPIME 2 GM in SODIUM CHLORIDE 0.9% 100 ML IVPB SCH ×2 (08:31→20:10)
[2023-04-13] MEDS: buPROPion SR 150 MG TABLET.ER PO SCH (08:31)
[2023-04-13] MEDS: lamoTRIgine 100 MG TAB PO SCH ×2 (08:31→20:10)
[2023-04-13] MEDS: PANTOPRAZOLE 40 MG TABLET PO SCH (08:31)
[2023-04-13] MEDS: METOPROLOL SUCCINATE (ER) 100 MG TAB.ER.24H PO SCH (08:31)
[2023-04-13] MEDS: guaiFENesin 600 MG TABLET.ER PO SCH ×2 (08:31→20:10)
--- NOTE | 2023-04-13 08:55 | XR ---
EXAMINATION TYPE: XR chest 1V DATE OF EXAM: 04/13/2023 COMPARISON: 04/12/2023 HISTORY: 62 year-old female follow-up pneumonia TECHNIQUE: Single frontal view of the chest is obtained. FINDINGS: Moderate cardiomegaly. Focal right lower lung opacity persists. Hyperinflation. IMPRESSION: Redemonstrate cardiomegaly and COPD with extensive right basilar airspace disease.
[2023-04-13] MEDS: IPRATROPIUM-ALBUTEROL 3 ML NEB INHALATION PRN ×2 (09:10→15:32)
[2023-04-13 09:33] LABS: BUN/Creat Ratio 25.89 Ratio (12.00-20.00); Blood Urea Nitrogen 23.3 mg/dL (9.0-27.0); Glucose 138 mg/dL (70-110)
[2023-04-13 09:34] LABS: Carbon Dioxide 23.4 mmol/L (21.6-31.8); Chloride 105 mmol/L (96-109); Potassium 3.8 mmol/L (3.5-5.5); Sodium 141 mmol/L (135-145)
[2023-04-13 10:10] LABS: HCT 30.8 % (37.2-46.3); HGB 10.3 g/dL (12.0-15.0); MCH 31.6 pg (27.0-32.0); MCHC 33.4 g/dL (32.0-37.0); MCV 94.5 FL (80.0-97.0); Mean Platelet Volume 9.4 FL (9.5-12.2); NRBC Per 100 WBC 0 X 10*3/uL (0.00-0.01); Platelet Count 382 X 10*3/uL (140-440); RBC 3.26 X 10*6/uL (4.10-5.20); RDW 13.3 % (11.5-14.5); WBC 12.59 X 10*3/uL (4.50-10.00)
[2023-04-13] MEDS: oxyCODONE-APAP 5-325MG 1 EACH TAB PO PRN ×3 (10:51→21:14)
--- NOTE | 2023-04-13 13:08 | P.PN ---
Subjective Progress Note Date: 04/13/23 * 62-year-old patient with past medical history significant for seizure disorder, history of anxiety, depression, hypertension who was recently hospitalized for community-acquired pneumonia. Patient was discharged with outpatient antibiotic with prescription for doxycycline. Patient presents back to the emergency department with complains of fatigue, malaise persistent cough and sore throat. * Workup initiated in ER included a chest x-ray which showed bilateral airspace opacity * CBC obtained in ER showed WBC 8.7 hemoglobin 11.8 dated count of 393 * Serum sodium 142 potassium 4.1 be on 11 creatinine 0.77 glucose 118 * Patient was given a dose of Rocephin, azithromycin, breathing treatments and IV Solu-Medrol and admitted to medical floor for further management * 04/12/23: Patient seen and evaluated bedside, patient continues to complain of cough, she complains of pleuritic chest pain, tested negative for influenza/RSV/Covid group A strep negative. Appreciate input from pulmonary medicine * 04/13/23: Patient seen and evaluated bedside, patient alert and oriented 4 patient does complain of cough, shortness of breath with exertion. WBC count trending down. CRP remains stable Objective - Vital Signs Vital signs: Vital Signs Temp 97.9 F 04/13/23 07:55 Pulse 72 04/13/23 09:23 Resp 20 04/13/23 07:55 BP 128/78 04/13/23 07:55 Pulse Ox 97 04/13/23 07:55 FiO2 Intake & Output 04/12/23 04/13/23 04/13/23 18:59 06:59 18:59 Intake Total 200 Balance 200 Intake: Oral 200 Other: Voiding Method Toilet Toilet # Voids 2 2 - Exam PHYSICAL EXAMINATION: GENERAL: The patient is alert and oriented x3, not in any acute distress. Well developed, well nourished. Nasal cannula in place HEENT: Pupils are round and equally reacting to light. EOMI. CARDIOVASCULAR: S1 and S2 present. No murmurs, rubs, or gallops. PULMONARY: Decreased breath sounds bilaterally ABDOMEN: Soft, nontender, nondistended, normoactive bowel sounds. Hernia noted MUSCULOSKELETAL: No joint swelling or deformity. EXTREMITIES: No cyanosis, clubbing, or pedal edema. NEUROLOGICAL: Gross neurological examination did not reveal any focal deficits. SKIN: No rashes. - Labs CBC & Chem 7: 04/13/23 03:40 04/13/23 03:40 Labs: Abnormal Lab Results - Last 24 Hours (Table) 04/13/23 04/13/23 Range/Units 03:40 03:40 WBC 12.59 H (4.50-10.00) X 10*3/uL RBC 3.26 L (4.10-5.20) X 10*6/uL Hgb 10.3 L (12.0-15.0) g/dL Hct 30.8 L (37.2-46.3) % MPV 9.4 L (9.5-12.2) FL Anion Gap 12.60 H (4.00-12.00) mmol/L BUN/Creatinine Ratio 25.89 H (12.00-20.00) Ratio Glucose 138 H (70-110) mg/dL C-Reactive Protein 2.40 H (0.00-0.80) mg/dL Assessment and Plan Assessment: Assessment and plan * Multifocal pneumonia * Acute hypoxic respiratory failure * History of seizure disorder * Hypertension * History of anxiety and depression * In regards to pneumonia, continue cefepime day 3/5 , influenza, RSV, Covid and strep group A PCR negative. Pro-calcitonin minimally elevated. Continue Mucinex, when necessary [place] for pleuritic chest pain * In regards to acute hypoxic history failure continue breathing treatments IV Solu-Medrol day 3 pulmonary medicine consulted * In regards to history of seizure disorder home medications reviewed and reconciled continue patient on Lamictal maintain seizure precautions * In regards to history of depression continue Wellbutrin * CODE STATUS is full code
--- NOTE | 2023-04-13 13:56 | P.PN ---
Subjective Progress Note Date: 04/13/23 60-year-old female patient hospitalized for worsening shortness of breath. The patient came into the hospital because of acute dyspnea cough chest congestion chest tightness and wheezing. She was not emergency department she days back and she was given antibiotics in the emergency department. She was given IV Rocephin and she was discharged on a course of doxycycline. The patient stated that her condition was not improving and the patient was having ongoing symptoms. For that reason, the patient presented herself to the emergency department again and she was has less for COPD exacerbation and right lower lobe pneumonia. I reviewed the chest x-ray and the patient is a right lower lobe pulmonary infiltrate which is slightly improved compared to the chest x-ray that was done on 04/10/2023. The patient had a low-dose CAT scan of the chest that was done on 09/23/2022 and it showed no evidence of a lung mass or mediastinal lymphadenopathy. She is a chronic smoker and she is trying to cut down her smoking. She is currently down to 4 cigarettes a day. Her blood work shows a bili is elevated 0.7, hemoglobin was at 11.8, BUN is 11 with a creatinine of 0.7 and a sodium level is at 142. The viral screen was negative including influenza, RSV and Covid 19. The patient is currently on bronchodilators. The patient is currently on IV Solu-Medrol. The patient is also on IV cefepime 2 g every 12 hours. She is known to have COPD. She is not utilizing any maintenance respiratory medication. She has an albuterol rescue inhaler that she uses on an as-needed basis. She has history of chronic anxiety depression and PTSD and her PTSD is originating from her seeing her of a heart attack while she was sleeping . She used to live in [facility], and currently she is low to [place]. On today's evaluation of 04/12/2023, the patient continues to have cough and congestion and right-sided chest discomfort. The patient remains on IV cefepime as a broad-spectrum antibiotic coverage. Bacterial pneumonia was suspected. Nevertheless, the pro calcitonin level has been quite low. The patient is receiving Dilaudid for pain control. A repeat chest x-ray was done today and it showed right basilar airspace opacity which has actually increased in size. On today's blood work, the patient's WBC is 16.4, hemoglobin 11 and a platelet count is at 498. BUN is at 21 with a creatinine of 1 and sodium levels of 140. Legionella urine antigen is still pending for now. The patient remains on bronchodilators. She is on Ventolin and ipratropium the blood treatments 4 times a day. She is on IV Rocephin. She is also on Solu-Medrol 60 mg 6 hours. The preliminary blood cultures are still negative. On today's evaluation of 04/13/2023, patient is being seen for a follow-up. Patient continues to have some pain across the right lateral chest area related to her recent pneumonia. A repeat chest x-ray was done and the patient continues to have a dense consolidation of the right lung. The patient remains on IV cefepime. Pro-calcitonin level has been low. The patient remains on IV cefepime. The patient continues to have issues with COPD exacerbation. The patient is on accommodation IV Solu-Medrol and DuoNeb updrafts. There is at 12.5 with a hemoglobin of 10.3. Electrolytes are normal. No function is normal. She is currently on 3 L of oxygen by nasal cannula. The echoes at 12.5 with a hemoglobin of 10.3. BUN is at 23 with a creatinine of 0.9. Chest x-ray from today was noted and the repeat chest x-ray was done tomorrow. She is still requiring Percocet for pain control. Objective - Vital Signs Vital signs: Vital Signs Temp 97.9 F 04/13/23 07:55 Pulse 72 04/13/23 09:23 Resp 20 04/13/23 07:55 BP 128/78 04/13/23 07:55 Pulse Ox 97 04/13/23 07:55 FiO2 Intake & Output 04/12/23 04/13/23 04/13/23 18:59 06:59 18:59 Intake Total 200 Balance 200 Intake: Oral 200 Other: Voiding Method Toilet Toilet # Voids 2 2 - Exam General appearance: alert, in no apparent distress, currently on 2 L of oxygen by nasal cannula Head exam: Present: atraumatic, normocephalic, normal inspection Eye exam: Present: normal appearance, PERRL, EOMI. Absent: scleral icterus, conjunctival injection, periorbital swelling ENT exam: Present: normal exam, mucous membranes moist Neck exam: Present: normal inspection. Absent: tenderness, meningismus, lymphadenopathy Respiratory exam: Scattered Wheezes throughout the lung cota bilaterally. Breath sounds are quite diminished Cardiovascular Exam: Present: regular rate, normal rhythm, normal heart sounds. Absent: systolic murmur, diastolic murmur, rubs, gallop, clicks GI/Abdominal exam: Present: soft, normal bowel sounds. Absent: distended, tenderness, guarding, rebound, rigid Extremities exam: Present: normal inspection, full ROM, normal capillary refill. Absent: tenderness, pedal edema, joint swelling, calf tenderness Back exam: Present: normal inspection Neurological exam: Present: alert, oriented X3, CN II-XII intact Psychiatric exam: Present: normal affect, normal mood Skin exam: Present: warm, dry, intact, normal color. Absent: rash - Labs CBC & Chem 7: 04/13/23 03:40 04/13/23 03:40 Labs: Abnormal Lab Results - Last 24 Hours (Table) 04/12/23 04/12/23 04/13/23 Range/Units 07:18 07:18 03:40 WBC 15.40 H 12.59 H (4.50-10.00) X 10*3/uL RBC 3.52 L 3.26 L (4.10-5.20) X 10*6/uL Hgb 11.0 L 10.3 L (12.0-15.0) g/dL Hct 32.8 L 30.8 L (37.2-46.3) % Plt Count 458 H (140-440) X 10*3/uL MPV 9.4 L (9.5-12.2) FL Anion Gap (4.00-12.00) mmol/L BUN/Creatinine Ratio 21.10 H (12.00-20.00) Ratio Glucose (70-110) mg/dL C-Reactive Protein 2.30 H (0.00-0.80) mg/dL 04/13/23 Range/Units 03:40 WBC (4.50-10.00) X 10*3/uL RBC (4.10-5.20) X 10*6/uL Hgb (12.0-15.0) g/dL Hct (37.2-46.3) % Plt Count (140-440) X 10*3/uL MPV (9.5-12.2) FL Anion Gap 12.60 H (4.00-12.00) mmol/L BUN/Creatinine Ratio 25.89 H (12.00-20.00) Ratio Glucose 138 H (70-110) mg/dL C-Reactive Protein 2.40 H (0.00-0.80) mg/dL Assessment and Plan Plan: Acute right lower lobe pneumonia, symptomatic. The patient was diagnosed on 04/08/2023 during an emergency department visit and the patient is coming in to the hospital because of failure of outpatient treatment. The patient has a low pro-calcitonin level. The patient is currently on IV cefepime. The patient has dense consolidation of the right lower lobe and is being monitored. Acute hypoxic respiratory failure currently on 2 L of O2 nasal cannula Acute COPD exacerbation secondary to above Shortness of breath secondary to above Leukocytosis secondary to above, white blood count remains elevated. History of smoking Hypertension Previous history of alcohol abuse History of diverticulosis/diverticulitis with previous colectomy History of PTSD History of pseudoseizures Degenerative arthritis Previous history of pancreatitis Plan Still having pain across the right lateral chest area and the patient continues to have issues related to COPD exacerbation. We'll continue bronchodilators and steroids for now Check pro calcitonin level was low Continue IV cefepime Continue bronchodilators and steroids and the patient is currently on IV Solu- Medrol 60 mg every 6 hours Check Legionella urine antigen will be reordered and the results are still pending. Stable right lower lobe consolidation and will repeat chest x-ray in the morning Titrate oxygen flow to maintain a saturation above 90% We'll continue to follow. Incentive spirometer Pain control with Percocet We'll follow, will need a CAT scan of the chest if no improvement in the right lower lobe consolidation.
[2023-04-13] MEDS: CYCLOBENZAPRINE 5 MG TAB PO PRN (19:28)
[2023-04-13] MEDS: ATORVASTATIN 20 MG TAB PO SCH (20:10)
[2023-04-13] MEDS: QUEtiapine 400 MG TAB PO SCH (21:15)
[2023-04-14] MEDS: HYDROmorphone 1 MG/ML 1 ML SYRINGE IVP PRN ×6 (01:09→19:24)
[2023-04-14] MEDS: SODIUM CHLORIDE 0.9% 1,000 ML IV SCH ×2 (03:44→17:00)
[2023-04-14] MEDS: oxyCODONE-APAP 5-325MG 1 EACH TAB PO PRN ×4 (06:10→20:20)
[2023-04-14] MEDS: CYCLOBENZAPRINE 5 MG TAB PO PRN (06:10)
--- NOTE | 2023-04-14 08:00 | XR ---
EXAMINATION TYPE: XR chest 1V DATE OF EXAM: 04/14/2023 6:17 AM CLINICAL INDICATION:Female, 62 years old with history of pneunmonia FU; [facility] COMPARISON: Chest radiograph 04/13/2023. TECHNIQUE: XR chest 1V Frontal view of the chest. FINDINGS: There is redemonstration of mild cardiomegaly with right-sided multifocal lung opacities, most pronou nced in the right lung base. No evidence of pneumothorax. The osseous structures are intact. IMPRESSION: Stable exam demonstrating right basilar airspace disease and cardiomegaly.
[2023-04-14] MEDS: CEFEPIME 2 GM in SODIUM CHLORIDE 0.9% 100 ML IVPB SCH ×2 (08:14→20:20)
[2023-04-14] MEDS: methylPREDNISolone SOD SUCCI 125 MG/2 ML VIAL IV SCH (08:15)
[2023-04-14] MEDS: METOPROLOL SUCCINATE (ER) 100 MG TAB.ER.24H PO SCH (08:16)
[2023-04-14] MEDS: PANTOPRAZOLE 40 MG TABLET PO SCH (08:16)
[2023-04-14] MEDS: guaiFENesin 600 MG TABLET.ER PO SCH ×2 (08:16→20:20)
[2023-04-14] MEDS: buPROPion SR 150 MG TABLET.ER PO SCH (08:16)
[2023-04-14] MEDS: lamoTRIgine 100 MG TAB PO SCH ×2 (08:16→20:20)
[2023-04-14 08:50] LABS: BUN/Creat Ratio 30.25 Ratio (12.00-20.00); Blood Urea Nitrogen 24.2 mg/dL (9.0-27.0); Calcium 9.2 mg/dL (8.7-10.3); Carbon Dioxide 26.1 mmol/L (21.6-31.8); Chloride 106 mmol/L (96-109); Glucose 91 mg/dL (70-110); Potassium 4.5 mmol/L (3.5-5.5); Sodium 140 mmol/L (135-145)
[2023-04-14] MEDS: IPRATROPIUM-ALBUTEROL 3 ML NEB INHALATION PRN ×4 (09:13→21:28)
[2023-04-14 09:20] LABS: HCT 31.7 % (37.2-46.3); HGB 10.7 g/dL (12.0-15.0); MCH 31.5 pg (27.0-32.0); MCHC 33.8 g/dL (32.0-37.0); MCV 93.2 FL (80.0-97.0); Mean Platelet Volume 9.5 FL (9.5-12.2); NRBC Per 100 WBC 0.02 X 10*3/uL (0.00-0.01); Platelet Count 375 X 10*3/uL (140-440); RDW 13.2 % (11.5-14.5); WBC 12.29 X 10*3/uL (4.50-10.00)
--- NOTE | 2023-04-14 12:29 | P.PN ---
Subjective Progress Note Date: 04/14/23 * 62-year-old patient with past medical history significant for seizure disorder, history of anxiety, depression, hypertension who was recently hospitalized for community-acquired pneumonia. Patient was discharged with outpatient antibiotic with prescription for doxycycline. Patient presents back to the emergency department with complains of fatigue, malaise persistent cough and sore throat. * Workup initiated in ER included a chest x-ray which showed bilateral airspace opacity * CBC obtained in ER showed WBC 8.7 hemoglobin 11.8 dated count of 393 * Serum sodium 142 potassium 4.1 be on 11 creatinine 0.77 glucose 118 * Patient was given a dose of Rocephin, azithromycin, breathing treatments and IV Solu-Medrol and admitted to medical floor for further management * 04/12/23: Patient seen and evaluated bedside, patient continues to complain of cough, she complains of pleuritic chest pain, tested negative for influenza/RSV/Covid group A strep negative. Appreciate input from pulmonary medicine * 04/13/23: Patient seen and evaluated bedside, patient alert and oriented 4 patient does complain of cough, shortness of breath with exertion. WBC count trending down. CRP remains stable * 04/14: Patient seen and evaluated bedside, patient's her breathing has improved, 3 L of oxygen/continue patient on IV cefepime day 3, continue breathing treatments and steroids Objective - Vital Signs Vital signs: Vital Signs Temp 98.1 F 04/14/23 07:48 Pulse 70 04/14/23 12:25 Resp 19 04/14/23 07:48 BP 149/78 04/14/23 07:48 Pulse Ox 94 L 04/14/23 07:48 FiO2 Intake & Output 04/13/23 04/14/23 04/14/23 18:59 06:59 18:59 Other: Voiding Method Toilet Toilet Toilet # Voids 2 2 - Exam PHYSICAL EXAMINATION: GENERAL: The patient is alert and oriented x3, not in any acute distress. Well developed, well nourished. Nasal cannula in place HEENT: Pupils are round and equally reacting to light. EOMI. CARDIOVASCULAR: S1 and S2 present. No murmurs, rubs, or gallops. PULMONARY: Decreased breath sounds bilaterally ABDOMEN: Soft, nontender, nondistended, normoactive bowel sounds. Hernia noted MUSCULOSKELETAL: No joint swelling or deformity. EXTREMITIES: No cyanosis, clubbing, or pedal edema. NEUROLOGICAL: Gross neurological examination did not reveal any focal deficits. SKIN: No rashes. - Labs CBC & Chem 7: 04/14/23 04:53 04/14/23 04:53 Labs: Abnormal Lab Results - Last 24 Hours (Table) 04/14/23 04/14/23 Range/Units 04:53 04:53 WBC 12.29 H (4.50-10.00) X 10*3/uL RBC 3.40 L (4.10-5.20) X 10*6/uL Hgb 10.7 L (12.0-15.0) g/dL Hct 31.7 L (37.2-46.3) % NRBC/100 WBC Diff 0.02 H (0.00-0.01) X 10*3/uL BUN/Creatinine Ratio 30.25 H (12.00-20.00) Ratio Assessment and Plan Assessment: Assessment and plan * Multifocal pneumonia * Acute hypoxic respiratory failure * History of seizure disorder * Hypertension * History of anxiety and depression * In regards to pneumonia, continue cefepime day 4/5 , influenza, RSV, Covid and strep group A PCR negative. Pro-calcitonin minimally elevated. Continue Mucinex, when necessary [place] for pleuritic chest pain * In regards to acute hypoxic history failure continue breathing treatments IV Solu-Medrol day 4 pulmonary medicine consulted * In regards to history of seizure disorder home medications reviewed and reconciled continue patient on Lamictal maintain seizure precautions * In regards to history of depression continue Wellbutrin * CODE STATUS is full code Time with Patient: Greater than 30
--- NOTE | 2023-04-14 13:25 | P.PN ---
Subjective Progress Note Date: 04/14/23 60-year-old female patient hospitalized for worsening shortness of breath. The patient came into the hospital because of acute dyspnea cough chest congestion chest tightness and wheezing. She was not emergency department she days back and she was given antibiotics in the emergency department. She was given IV Rocephin and she was discharged on a course of doxycycline. The patient stated that her condition was not improving and the patient was having ongoing symptoms. For that reason, the patient presented herself to the emergency department again and she was has less for COPD exacerbation and right lower lobe pneumonia. I reviewed the chest x-ray and the patient is a right lower lobe pulmonary infiltrate which is slightly improved compared to the chest x-ray that was done on 04/10/2023. The patient had a low-dose CAT scan of the chest that was done on 09/23/2022 and it showed no evidence of a lung mass or mediastinal lymphadenopathy. She is a chronic smoker and she is trying to cut down her smoking. She is currently down to 4 cigarettes a day. Her blood work shows a bili is elevated 0.7, hemoglobin was at 11.8, BUN is 11 with a creatinine of 0.7 and a sodium level is at 142. The viral screen was negative including influenza, RSV and Covid 19. The patient is currently on bronchodilators. The patient is currently on IV Solu-Medrol. The patient is also on IV cefepime 2 g every 12 hours. She is known to have COPD. She is not utilizing any maintenance respiratory medication. She has an albuterol rescue inhaler that she uses on an as-needed basis. She has history of chronic anxiety depression and PTSD and her PTSD is originating from her seeing her of a heart attack while she was sleeping . She used to live in [facility], and currently she is low to [place]. On today's evaluation of 04/12/2023, the patient continues to have cough and congestion and right-sided chest discomfort. The patient remains on IV cefepime as a broad-spectrum antibiotic coverage. Bacterial pneumonia was suspected. Nevertheless, the pro calcitonin level has been quite low. The patient is receiving Dilaudid for pain control. A repeat chest x-ray was done today and it showed right basilar airspace opacity which has actually increased in size. On today's blood work, the patient's WBC is 16.4, hemoglobin 11 and a platelet count is at 498. BUN is at 21 with a creatinine of 1 and sodium levels of 140. Legionella urine antigen is still pending for now. The patient remains on bronchodilators. She is on Ventolin and ipratropium the blood treatments 4 times a day. She is on IV Rocephin. She is also on Solu-Medrol 60 mg 6 hours. The preliminary blood cultures are still negative. On today's evaluation of 04/13/2023, patient is being seen for a follow-up. Patient continues to have some pain across the right lateral chest area related to her recent pneumonia. A repeat chest x-ray was done and the patient continues to have a dense consolidation of the right lung. The patient remains on IV cefepime. Pro-calcitonin level has been low. The patient remains on IV cefepime. The patient continues to have issues with COPD exacerbation. The patient is on accommodation IV Solu-Medrol and DuoNeb updrafts. There is at 12.5 with a hemoglobin of 10.3. Electrolytes are normal. No function is normal. She is currently on 3 L of oxygen by nasal cannula. The echoes at 12.5 with a hemoglobin of 10.3. BUN is at 23 with a creatinine of 0.9. Chest x-ray from today was noted and the repeat chest x-ray was done tomorrow. She is still requiring Percocet for pain control. On 04/14/2022, seeing the patient for a follow-up. Slightly improved compared to yesterday. Pain is also subsided. Chest x-ray still showing persistent infiltration/consolidation of the right lung base. Less spastic and wheezing compared to yesterday. She is on Percocet for pain control. She remains on bronchodilators. She remains on IV Solu-Medrol and she is also on IV cefepime. The Legionella urine antigen was negative. The lowest thousand 12.2 with a hemoglobin of 10.7 and a platelet count of 375. Sodium levels of 140, potassium levels at 4.5, BUN is at 24 with a creatinine of 0.8. Objective - Vital Signs Vital signs: Vital Signs Temp 98.1 F 04/14/23 07:48 Pulse 70 04/14/23 09:32 Resp 19 04/14/23 07:48 BP 149/78 04/14/23 07:48 Pulse Ox 94 L 04/14/23 07:48 FiO2 Intake & Output 04/13/23 04/14/23 04/14/23 18:59 06:59 18:59 Other: Voiding Method Toilet Toilet Toilet # Voids 2 2 - Exam General appearance: alert, in no apparent distress, currently on 2 L of oxygen by nasal cannula Head exam: Present: atraumatic, normocephalic, normal inspection Eye exam: Present: normal appearance, PERRL, EOMI. Absent: scleral icterus, conjunctival injection, periorbital swelling ENT exam: Present: normal exam, mucous membranes moist Neck exam: Present: normal inspection. Absent: tenderness, meningismus, lymphadenopathy Respiratory exam: Scattered Wheezes throughout the lung cota bilaterally. Breath sounds are quite diminished Cardiovascular Exam: Present: regular rate, normal rhythm, normal heart sounds. Absent: systolic murmur, diastolic murmur, rubs, gallop, clicks GI/Abdominal exam: Present: soft, normal bowel sounds. Absent: distended, tenderness, guarding, rebound, rigid Extremities exam: Present: normal inspection, full ROM, normal capillary refill. Absent: tenderness, pedal edema, joint swelling, calf tenderness Back exam: Present: normal inspection Neurological exam: Present: alert, oriented X3, CN II-XII intact Psychiatric exam: Present: normal affect, normal mood Skin exam: Present: warm, dry, intact, normal color. Absent: rash - Labs CBC & Chem 7: 04/14/23 04:53 04/14/23 04:53 Labs: Abnormal Lab Results - Last 24 Hours (Table) 04/14/23 04/14/23 Range/Units 04:53 04:53 WBC 12.29 H (4.50-10.00) X 10*3/uL RBC 3.40 L (4.10-5.20) X 10*6/uL Hgb 10.7 L (12.0-15.0) g/dL Hct 31.7 L (37.2-46.3) % NRBC/100 WBC Diff 0.02 H (0.00-0.01) X 10*3/uL BUN/Creatinine Ratio 30.25 H (12.00-20.00) Ratio Assessment and Plan Plan: Acute right lower lobe pneumonia, symptomatic. The patient was diagnosed on 04/08/2023 during an emergency department visit and the patient is coming in to the hospital because of failure of outpatient treatment. The patient has a low pro-calcitonin level. The patient is currently on IV cefepime. The patient has dense consolidation of the right lower lobe and is being monitored. Acute hypoxic respiratory failure currently on 2 L of O2 nasal cannula Acute COPD exacerbation secondary to above Shortness of breath secondary to above Leukocytosis secondary to above, white blood count remains elevated. History of smoking Hypertension Previous history of alcohol abuse History of diverticulosis/diverticulitis with previous colectomy History of PTSD History of pseudoseizures Degenerative arthritis Previous history of pancreatitis Plan I reviewed the chest x-ray and there is some improvement in the right lower lobe consolidation Continue same treatment for now Repeat chest x-ray in the morning Check pro calcitonin level was low Continue IV cefepime Continue bronchodilators and steroids and the patient is currently on IV Solu- Medrol 60 mg every 6 hours Check Legionella urine antigen was negative Stable right lower lobe consolidation and will repeat chest x-ray in the morning Titrate oxygen flow to maintain a saturation above 90%, currently on 2 L We'll continue to follow. Incentive spirometer Pain control with Percocet We'll follow, will need a CAT scan of the chest if no improvement in the right lower lobe consolidation.
[2023-04-14] MEDS: ATORVASTATIN 20 MG TAB PO SCH (20:20)
[2023-04-14] MEDS: QUEtiapine 400 MG TAB PO SCH (21:28)
[2023-04-15] MEDS: HYDROmorphone 1 MG/ML 1 ML SYRINGE IVP PRN ×3 (01:29→08:58)
[2023-04-15] MEDS: SODIUM CHLORIDE 0.9% 1,000 ML IV SCH (06:11)
[2023-04-15] MEDS: oxyCODONE-APAP 5-325MG 1 EACH TAB PO PRN ×2 (06:19→11:16)
[2023-04-15 07:53] VITALS: BP 156/78; PULSE 75; RESP 17; TEMP 98.2
[2023-04-15 07:57] LABS: Anisocytosis Slight; HCT 34.5 % (34.0-46.0); HGB 12.2 gm/dL (11.4-16.0); MCH 33.1 pg (25.0-35.0); MCHC 35.4 g/dL (31.0-37.0); MCV 93.5 fL (80.0-100.0); Mean Platelet Volume 8.5; Platelet Count 365 k/uL (150-450); RBC 3.69 m/uL (3.80-5.40); RDW 16.1 % (11.5-15.5); WBC 9.4 k/uL (3.8-10.6)
[2023-04-15] MEDS: CEFEPIME 2 GM in SODIUM CHLORIDE 0.9% 100 ML IVPB SCH (08:01)
[2023-04-15] MEDS: buPROPion SR 150 MG TABLET.ER PO SCH (08:01)
[2023-04-15] MEDS: METOPROLOL SUCCINATE (ER) 100 MG TAB.ER.24H PO SCH (08:01)
[2023-04-15] MEDS: PANTOPRAZOLE 40 MG TABLET PO SCH (08:02)
[2023-04-15] MEDS: guaiFENesin 600 MG TABLET.ER PO SCH (08:02)
[2023-04-15] MEDS: lamoTRIgine 100 MG TAB PO SCH (08:02)
[2023-04-15 09:00] LABS: African American GFR (CKD) 84 (>60 ml/min/1.73 sqM); Anion Gap 12 mmol/L; Blood Urea Nitrogen 30 mg/dL (7-17); C Reactive Protein 3.6 mg/dL (<1.0); Calcium 9.1 mg/dL (8.4-10.2); Carbon Dioxide 21 mmol/L (22-30); Chloride 106 mmol/L (98-107); Glucose 113 mg/dL (74-99); Non-African American GFR(CKD) 73 (>60 ml/min/1.73 sqM); Sodium 139 mmol/L (137-145)
[2023-04-15] MEDS: methylPREDNISolone SOD SUCCI 125 MG/2 ML VIAL IV SCH (09:02)
[2023-04-15 09:21] LABS: Potassium 3.9 mmol/L (3.5-5.1)
--- NOTE | 2023-04-15 12:33 | P.DS ---
Providers Date of admission: 04/10/23 21:03 Expected date of discharge: 04/15/23 Attending physician: Nagi Fierro Consults: 04/11/23 09:15 Consult Physician Routine Consulting Provider: Elham Martin Consult Reason/Comments: Respiratory failure post pneumonia Do you want consulting provider notified?: Yes Primary care physician: Beto Pastrana MD Hospital Course: * 62-year-old patient with past medical history significant for seizure disorder, history of anxiety, depression, hypertension who was recently hospitalized for community-acquired pneumonia. Patient was discharged with outpatient antibiotic with prescription for doxycycline. Patient presents back to the emergency department with complains of fatigue, malaise persistent cough and sore throat. * Workup initiated in ER included a chest x-ray which showed bilateral airspace opacity * CBC obtained in ER showed WBC 8.7 hemoglobin 11.8 dated count of 393 * Serum sodium 142 potassium 4.1 be on 11 creatinine 0.77 glucose 118 * Patient was given a dose of Rocephin, azithromycin, breathing treatments and IV Solu-Medrol and admitted to medical floor for further management * 04/12/23: Patient seen and evaluated bedside, patient continues to complain of cough, she complains of pleuritic chest pain, tested negative for influenza/RSV/Covid group A strep negative. Appreciate input from pulmonary medicine * 04/13/23: Patient seen and evaluated bedside, patient alert and oriented 4 patient does complain of cough, shortness of breath with exertion. WBC count trending down. CRP remains stable * 04/14: Patient seen and evaluated bedside, patient's her breathing has improved, 3 L of oxygen/continue patient on IV cefepime day 3, continue breathing treatments and steroids * 04/15: Patient seen and evaluated bedside, significant improvement in breathing noted, she'll receive IV cefepime while inpatient and transition to oral Levaquin upon discharge to complete total 7 day course of antibiotic has 3 days of Levaquin given WBC within normal limits. Resting walking pulse ox meter to be completed patient on room air at this time. Seen by pulmonary medicine and cleared for discharge patient to be given prescription for prednisone as well PHYSICAL EXAMINATION: GENERAL: The patient is alert and oriented x3, not in any acute distress. Well developed, well nourished. HEENT: Pupils are round and equally reacting to light. EOMI. CARDIOVASCULAR: S1 and S2 present. No murmurs, rubs, or gallops. PULMONARY: Improved air entry bilaterally ABDOMEN: Soft, nontender, nondistended, normoactive bowel sounds. Hernia noted MUSCULOSKELETAL: No joint swelling or deformity. EXTREMITIES: No cyanosis, clubbing, or pedal edema. NEUROLOGICAL: Gross neurological examination did not reveal any focal deficits. SKIN: No rashes. Assessment: Assessment and plan * Multifocal pneumonia * Acute hypoxic respiratory failure * History of seizure disorder * Hypertension * History of anxiety and depression * In regards to pneumonia, received cefepime inpatient, transition to oral Levaquin to complete 3 more days , influenza, RSV, Covid and strep group A PCR negative. Pro-calcitonin minimally elevated. Continue Mucinex, when necessary Presto for pleuritic chest pain * In regards to acute hypoxic history failure continue breathing treatments IV Solu-Medrol day5, transition to oral prednisone prescription provided pulmonary medicine consulted, nebulizer and DuoNeb provided * In regards to history of seizure disorder home medications reviewed and reconciled continue patient on Lamictal maintain seizure precautions * In regards to history of depression continue Wellbutrin * History walking pulse ox meter completed prior to discharge Patient Condition at Discharge: Fair Plan - Discharge Summary Discharge Rx Participant: Yes New Discharge Prescriptions: New Ipratropium-Albuterol Nebulize [Duoneb 0.5 mg-3 mg/3 ml Soln] 3 ml INHALATION RT-QID PRN 30 Days #120 each PRN Reason: Shortness Of Breath Or Wheezing Levofloxacin [Levaquin] 750 mg PO DAILY 3 Days #3 tab oxyCODONE-APAP 5-325MG [Percocet 5-325 mg] 1 each PO Q6HR PRN 2 Days #8 tab PRN Reason: Pain Continue Omeprazole 20 mg PO BID Ondansetron Odt [Zofran ODT] 4 mg PO Q8HR PRN #20 tab PRN Reason: Nausea Atorvastatin [Lipitor] 20 mg PO HS Acetaminophen-Codeine 300-30mg [Tylenol w/codeine #3] 1 tab PO TID PRN PRN Reason: Pain lamoTRIgine [LaMICtal] 100 mg PO BID Prazosin HCl 2 mg PO HS amLODIPine [Norvasc] 10 mg PO DAILY Metoprolol Succinate [Toprol XL] 100 mg PO DAILY QUEtiapine [SEROquel] 400 mg PO HS Losartan [Cozaar] 25 mg PO DAILY Cyclobenzaprine [Flexeril] 10 mg PO TID PRN PRN Reason: Muscle Spasm traZODone HCL [Desyrel] 50 mg PO HS PRN PRN Reason: Insomnia buPROPion HCL [buPROPion HCL SR] 150 mg PO DAILY Albuterol Inhaler [Ventolin Hfa Inhaler] 1 - 2 puff INHALATION RT-Q6H PRN PRN Reason: Shortness Of Breath Codeine Phosphate/Guaifenesin [Codeine Phosphate/Guaifenesin 10-100 mg/5 ml] 5 ml PO Q6H PRN PRN Reason: Cough Discontinued Doxycycline Hyclate 100 mg PO BID #14 capsule Discharge Medication List Metoprolol Succinate [Toprol XL] 100 mg PO DAILY 05/02/22 [History] Omeprazole 20 mg PO BID 11/27/22 [History] QUEtiapine [SEROquel] 400 mg PO HS 11/27/22 [History] Ondansetron Odt [Zofran ODT] 4 mg PO Q8HR PRN #20 tab 01/26/23 [Rx] Acetaminophen-Codeine 300-30mg [Tylenol w/codeine #3] 1 tab PO TID PRN 04/10/23 [History] Albuterol Inhaler [Ventolin Hfa Inhaler] 1 - 2 puff INHALATION RT-Q6H PRN 04/10/23 [History] Atorvastatin [Lipitor] 20 mg PO HS 04/10/23 [History] Codeine Phosphate/Guaifenesin [Codeine Phosphate/Guaifenesin 10-100 mg/5 ml] 5 ml PO Q6H PRN 04/10/23 [History] Cyclobenzaprine [Flexeril] 10 mg PO TID PRN 04/10/23 [History] Losartan [Cozaar] 25 mg PO DAILY 04/10/23 [History] Prazosin HCl 2 mg PO HS 04/10/23 [History] amLODIPine [Norvasc] 10 mg PO DAILY 04/10/23 [History] buPROPion HCL [buPROPion HCL SR] 150 mg PO DAILY 04/10/23 [History] lamoTRIgine [LaMICtal] 100 mg PO BID 04/10/23 [History] traZODone HCL [Desyrel] 50 mg PO HS PRN 04/10/23 [History] Ipratropium-Albuterol Nebulize [Duoneb 0.5 mg-3 mg/3 ml Soln] 3 ml INHALATION RT-QID PRN 30 Days #120 each 04/15/23 [Rx] Levofloxacin [Levaquin] 750 mg PO DAILY 3 Days #3 tab 04/15/23 [Rx] oxyCODONE-APAP 5-325MG [Percocet 5-325 mg] 1 each PO Q6HR PRN 2 Days #8 tab 04/15/23 [Rx] Follow up Appointment(s)/Referral(s): Beto Pastrana MD [Primary Care Provider] - 1-2 days Calvin Moreira [NON-STAFF] - As Needed (Please call [facility] to arrange delivery of the rollator walker if they have not delivered it to the hospital by the time you discharge. ) Elham Martin MD [STAFF PHYSICIAN] - 1 Week Activity/Diet/Wound Care/Special Instructions: asbestos removal supervisor nebulizer at [facility] in [place] by 3pm today. The address is [address] [place] [id number]. Discharge Disposition: HOME SELF-CARE
--- NOTE | 2023-04-15 14:40 | P.PN ---
Subjective Progress Note Date: 04/15/23 60-year-old female patient hospitalized for worsening shortness of breath. The patient came into the hospital because of acute dyspnea cough chest congestion chest tightness and wheezing. She was not emergency department she days back and she was given antibiotics in the emergency department. She was given IV Rocephin and she was discharged on a course of doxycycline. The patient stated that her condition was not improving and the patient was having ongoing symptoms. For that reason, the patient presented herself to the emergency department again and she was has less for COPD exacerbation and right lower lobe pneumonia. I reviewed the chest x-ray and the patient is a right lower lobe pulmonary infiltrate which is slightly improved compared to the chest x-ray that was done on 04/10/2023. The patient had a low-dose CAT scan of the chest that was done on 09/23/2022 and it showed no evidence of a lung mass or mediastinal lymphadenopathy. She is a chronic smoker and she is trying to cut down her smoking. She is currently down to 4 cigarettes a day. Her blood work shows a bili is elevated 0.7, hemoglobin was at 11.8, BUN is 11 with a creatinine of 0.7 and a sodium level is at 142. The viral screen was negative including influenza, RSV and Covid 19. The patient is currently on bronchodilators. The patient is currently on IV Solu-Medrol. The patient is also on IV cefepime 2 g every 12 hours. She is known to have COPD. She is not utilizing any maintenance respiratory medication. She has an albuterol rescue inhaler that she uses on an as-needed basis. She has history of chronic anxiety depression and PTSD and her PTSD is originating from her seeing her of a heart attack while she was sleeping . She used to live in [facility], and currently she is low to [place]. On today's evaluation of 04/12/2023, the patient continues to have cough and congestion and right-sided chest discomfort. The patient remains on IV cefepime as a broad-spectrum antibiotic coverage. Bacterial pneumonia was suspected. Nevertheless, the pro calcitonin level has been quite low. The patient is receiving Dilaudid for pain control. A repeat chest x-ray was done today and it showed right basilar airspace opacity which has actually increased in size. On today's blood work, the patient's WBC is 16.4, hemoglobin 11 and a platelet count is at 498. BUN is at 21 with a creatinine of 1 and sodium levels of 140. Legionella urine antigen is still pending for now. The patient remains on bronchodilators. She is on Ventolin and ipratropium the blood treatments 4 times a day. She is on IV Rocephin. She is also on Solu-Medrol 60 mg 6 hours. The preliminary blood cultures are still negative. On today's evaluation of 04/13/2023, patient is being seen for a follow-up. Patient continues to have some pain across the right lateral chest area related to her recent pneumonia. A repeat chest x-ray was done and the patient continues to have a dense consolidation of the right lung. The patient remains on IV cefepime. Pro-calcitonin level has been low. The patient remains on IV cefepime. The patient continues to have issues with COPD exacerbation. The patient is on accommodation IV Solu-Medrol and DuoNeb updrafts. There is at 12.5 with a hemoglobin of 10.3. Electrolytes are normal. No function is normal. She is currently on 3 L of oxygen by nasal cannula. The echoes at 12.5 with a hemoglobin of 10.3. BUN is at 23 with a creatinine of 0.9. Chest x-ray from today was noted and the repeat chest x-ray was done tomorrow. She is still requiring Percocet for pain control. On 04/14/2022, seeing the patient for a follow-up. Slightly improved compared to yesterday. Pain is also subsided. Chest x-ray still showing persistent infiltration/consolidation of the right lung base. Less spastic and wheezing compared to yesterday. She is on Percocet for pain control. She remains on bronchodilators. She remains on IV Solu-Medrol and she is also on IV cefepime. The Legionella urine antigen was negative. The lowest thousand 12.2 with a hemoglobin of 10.7 and a platelet count of 375. Sodium levels of 140, potassium levels at 4.5, BUN is at 24 with a creatinine of 0.8. The patient is seen today 04/15/2022 in follow-up on the regular medical floor. She is currently sitting up in a chair at the bedside. Awake and alert in no acute distress. She is feeling back to her baseline. No worsening shortness of breath, cough or congestion. She is maintaining O2 saturations in the 90s on room air. She is continued on cefepime and she remains on bronchodilators, steroids. White count 9.4. Hemoglobin 12.2. Sodium 139. Potassium 3.9. Bicarb 21. BUN 30. Creatinine 0.86. Glucose 113. Objective - Vital Signs Vital signs: Vital Signs Temp 98.2 F 04/15/23 07:15 Pulse 75 04/15/23 07:15 Resp 17 04/15/23 07:15 BP 156/78 04/15/23 07:15 Pulse Ox 94 L 04/15/23 09:05 FiO2 Intake & Output 04/14/23 04/15/23 04/15/23 18:59 06:59 18:59 Other: Voiding Method Toilet Toilet # Voids 3 - Exam GENERAL EXAM: Alert, pleasant 62-year-old female, up in a chair, on room air, comfortable in no apparent distress. HEAD: Normocephalic. EYES: Normal reaction of pupils, equal size. NOSE: Clear with pink turbinates. THROAT: No erythema or exudates. NECK: No masses, no JVD. CHEST: No chest wall deformity. LUNGS: Equal air entry with a few end expiratory wheeze, scattered rhonchi. CVS: S1 and S2 normal with no audible murmur, regular rhythm. ABDOMEN: No hepatosplenomegaly, normal bowel sounds, no guarding or rigidity. SPINE: No scoliosis or deformity SKIN: No rashes CENTRAL NERVOUS SYSTEM: No focal deficits, tone is normal in all 4 extremities. EXTREMITIES: There is no peripheral edema. No clubbing, no cyanosis. Peripheral pulses are intact. - Labs CBC & Chem 7: 04/15/23 06:50 04/15/23 06:50 Labs: Abnormal Lab Results - Last 24 Hours (Table) 04/15/23 04/15/23 Range/Units 06:50 06:50 RBC 3.69 L (3.80-5.40) m/uL RDW 16.1 H (11.5-15.5) % Carbon Dioxide 21 L (22-30) mmol/L BUN 30 H (7-17) mg/dL Glucose 113 H (74-99) mg/dL C-Reactive Protein 3.6 H (<1.0) mg/dL Assessment and Plan Assessment: Acute right lower lobe pneumonia, symptomatic. The patient was diagnosed on 04/08/2023 during an emergency department visit and the patient is coming in to the hospital because of failure of outpatient treatment. The patient has a low pro-calcitonin level. The patient is currently on IV cefepime. The patient has dense consolidation of the right lower lobe and is being monitored. Acute hypoxic respiratory failure secondary to above, recovered and on room air Acute COPD exacerbation secondary to above Shortness of breath secondary to above Leukocytosis secondary to above, white blood count remains elevated. History of smoking Hypertension Previous history of alcohol abuse History of diverticulosis/diverticulitis with previous colectomy History of PTSD History of pseudoseizures Degenerative arthritis Previous history of pancreatitis Plan: The patient was seen and evaluated Labs and medications reviewed Stable and on room air Cleared for discharge from pulmonary standpoint Encouraged regarding the importance of complete smoking cessation Continue bronchodilators, prednisone taper Complete course of antibiotics Follow-up in our office in 1 week I have personally seen and examined the patient, performed the documentation and the assessment and plan as written. Number of minutes spent on the visit: 10.
== END 2023-04-15 13:02 | disposition home or self-care (01) | DRG 193 ==
LOC: EC 16:27 → 4SSUR 21:03
PROVIDERS: ADMIT Hospitalist; ATTEND Hospitalist
DX: J15.9 Unspecified bacterial pneumonia (principal); J96.01 Acute respiratory failure with hypoxia; J44.0 Chronic obstructive pulmonary disease with (acute) lower respiratory infection; J44.1 Chronic obstructive pulmonary disease with (acute) exacerbation; F17.210 Nicotine dependence, cigarettes, uncomplicated; F43.10 Post-traumatic stress disorder, unspecified; G40.909 Epilepsy, unspecified, not intractable, without status epilepticus; I10 Essential (primary) hypertension; K57.30 Diverticulosis of large intestine without perforation or abscess without bleeding; E66.9 Obesity, unspecified; M19.90 Unspecified osteoarthritis, unspecified site; Z63.4 Disappearance and death of family member; Z79.899 Other long term (current) drug therapy; Z82.49 Family history of ischemic heart disease and other diseases of the circulatory system; Z87.01 Personal history of pneumonia (recurrent); Z90.49 Acquired absence of other specified parts of digestive tract; Z11.52 Encounter for screening for COVID-19; F10.11 Alcohol abuse, in remission; Z68.35 Body mass index [BMI] 35.0-35.9, adult; F12.11 Cannabis abuse, in remission; Z88.5 Allergy status to narcotic agent; Z88.0 Allergy status to penicillin; Z88.2 Allergy status to sulfonamides; Z88.8 Allergy status to other drugs, medicaments and biological substances
CPT/HCPCS: 36415; 71045; 71046; 80048; 80053; 84145; 85025; 85027; 86140; 87449; 87636; 87651; 94640; 94760; 96365; 96367; 96372; 96375; 99285

== ENCOUNTER 2023-05-27 12:16 | Emergency (ER) | payer MEDICARE ==
[2023-05-27] MEDS ORDERED: KETOROLAC 15 MG/ML 1 ML VIAL IVP STA (12:32)
[2023-05-27] MEDS ORDERED: SODIUM CHLORIDE 0.9% 1,000 ML IV STA (12:32)
--- NOTE | 2023-05-27 12:38 | ED ---
URI HPI - General Chief Complaint: Upper Respiratory Infection Stated Complaint: pneumonia Time Seen by Provider: 05/27/23 12:17 Source: patient Mode of arrival: ambulatory Limitations: no limitations - History of Present Illness Initial Comments: Patient is 62-year-old female presented ER with chief complaint of possible pneumonia. Patient was recently treated for pneumonia with IV antibiotics. Patient states she's been having shortness of breath and right-sided chest pain for about a week. Patient denies fevers but endorses chills. Patient is an every day smoker she states she smokes about 2 cigarettes daily. Patient reports that her shortness of breath is worse with exertion. Patient reports she has been using an inhaler at home which has helped somewhat. She also is experiencing a cough. Patient denies any headache, double or blurry vision, abdominal pain, or peripheral edema. - Related Data Home Medications Medication Instructions Recorded Confirmed Metoprolol Succinate [Toprol XL] 100 mg PO DAILY 05/02/22 04/10/23 Omeprazole 20 mg PO BID 11/27/22 04/10/23 QUEtiapine [SEROquel] 400 mg PO HS 11/27/22 04/10/23 Acetaminophen-Codeine 300-30mg 1 tab PO TID PRN 04/10/23 04/10/23 [Tylenol w/codeine #3] Albuterol Inhaler [Ventolin Hfa 1 - 2 puff INHALATION RT-Q6H PRN 04/10/23 Inhaler] Atorvastatin [Lipitor] 20 mg PO HS 04/10/23 04/10/23 Losartan [Cozaar] 25 mg PO DAILY 04/10/23 04/10/23 Prazosin HCl 2 mg PO HS 04/10/23 04/10/23 amLODIPine [Norvasc] 10 mg PO DAILY 04/10/23 04/10/23 buPROPion HCL [buPROPion HCL SR] 150 mg PO DAILY 04/10/23 04/10/23 lamoTRIgine [LaMICtal] 100 mg PO BID 04/10/23 04/10/23 Ipratropium [place] [Atrovent Hfa] 1 puff INHALATION RT-QID 05/27/23 05/27/23 traZODone HCL [Desyrel] 100 mg PO HS PRN 05/27/23 05/27/23 Previous Rx's Medication Instructions Recorded Ondansetron Odt [Zofran ODT] 4 mg PO Q8HR PRN #20 tab 01/26/23 Ipratropium-Albuterol Nebulize 3 ml INHALATION RT-QID PRN 30 Days 04/15/23 [Duoneb 0.5 mg-3 mg/3 ml Soln] #120 each Allergies Allergy/AdvReac Type Severity Reaction Status Date / Time Penicillins Allergy SWELLING Verified 05/27/23 14:06 OF LEGS Sulfa (Sulfonamide Allergy Rash/Hives Verified 05/27/23 14:06 Antibiotics) iodine AdvReac RAPID Verified 05/27/23 14:06 HEART BEAT morphine AdvReac Vomiting Verified 05/27/23 14:06 Review of Systems ROS Statement: Those systems with pertinent positive or pertinent negative responses have been documented in the HPI. ROS Other: All systems not noted in ROS Statement are negative. Past Medical History Past Medical History: GI Bleed, Hypertension, Osteoarthritis (OA), Seizure Disorder Additional Past Medical History / Comment(s): diverticulitis, PSUEDO SIEZURES - LAST AUGUST 2021, RECENT TREAT[facility]NA [facility]. pancreatitis History of Any Multi-Drug Resistant Organisms: None Reported Past Surgical History: Appendectomy, Bladder Surgery, Bowel Resection, Section, Cholecystectomy, Hysterectomy Additional Past Surgical History / Comment(s): BILATERAL CATARACT SURGERY WITH IMPLANTS , open sigmoid colectomy . Past Anesthesia/Blood Transfusion Reactions: No Reported Reaction, Motion Sickness Past Psychological History: Anxiety, PTSD Smoking Status: Current every day smoker Past Alcohol Use History: None Reported Past Drug Use History: Marijuana - Past Family History Mother Family Medical History: Hypertension General Exam Limitations: no limitations General appearance: alert, in no apparent distress Head exam: Present: atraumatic, normocephalic, normal inspection Eye exam: Present: normal appearance, PERRL, EOMI. Absent: scleral icterus, conjunctival injection, periorbital swelling Pupils: Present: normal accommodation ENT exam: Present: normal exam, normal oropharynx (dark pigmentation on tongue), mucous membranes moist, TM's normal bilaterally Neck exam: Present: normal inspection. Absent: tenderness, meningismus, lymphadenopathy Respiratory exam: Present: rhonchi (Right lung) Cardiovascular Exam: Present: regular rate, normal rhythm, normal heart sounds. Absent: systolic murmur, diastolic murmur, rubs, gallop, clicks GI/Abdominal exam: Present: soft, normal bowel sounds. Absent: distended, tenderness, guarding, rebound, rigid Extremities exam: Present: normal inspection, full ROM, normal capillary refill. Absent: tenderness, pedal edema, joint swelling, calf tenderness Back exam: Present: normal inspection Neurological exam: Present: alert, oriented X3, CN II-XII intact Psychiatric exam: Present: normal affect, normal mood Skin exam: Present: warm, dry, intact, normal color. Absent: rash Course Vital Signs 05/27/23 05/27/23 12:19 14:10 Temperature 97.8 F 98.7 F Pulse Rate 95 89 Respiratory 18 18 Rate Blood Pressure 125/79 122/76 O2 Sat by Pulse 92 L 98 Oximetry Medical Decision Making - Medical Decision Making Was pt. sent in by a medical professional or institution (, PA, MANAGER STRATEGIC DEVELOPMENT, urgent care, hospital, or [facility]...) When possible be specific @ -No Did you speak to anyone other than the patient for history (EMS, parent, family, police, friend...)? What history was obtained from this source @ -No Did you review nursing and triage notes (agree or disagree)? Why? @ -I reviewed and agree with nursing and triage notes Were old charts reviewed (outside hosp., previous admission, EMS record, old EKG, old radiological studies, urgent care reports/EKG's, [facility] records)? Report findings @ -No old charts were reviewed Differential Diagnosis (chest pain, altered mental status, abdominal pain women, abdominal pain men, vaginal bleeding, weakness, fever, dyspnea, syncope, headache, dizziness, GI bleed, back pain, seizure, CVA, palpatations, mental health, musculoskeletal)? @ -Differential Dyspnea: Coronary syndrome, arrhythmia, tamponade, asthma, COPD, pulmonary embolism, pneumonia, pneumothorax, pulmonary effusion, anaphylaxis, diabetic ketoacidosis, flailed chest, pulmonary contusion, diaphragmatic rupture, anemia, neuromuscular, this is not meant to be an all- inclusive list. EKG interpreted by me (3pts min.). @ -As above X-rays interpreted by me (1pt min.). @ -Chest x-ray shows interval infiltrate left posterior phrenic angle correlate with atelectasis. CT interpreted by me (1pt min.). @ -None done U/S interpreted by me (1pt. min.). @ -None done What testing was considered but not performed or refused? (CT, X-rays, U/S, labs)? Why? @ -None What meds were considered but not given or refused? Why? @ -None Did you discuss the management of the patient with other professionals (prof wallace i.e. , PA, MANAGER STRATEGIC DEVELOPMENT, lab, RT, psych nurse, medical social worker, soloist dancer, teacher, aoc plans intelligence officer chief, field nurse case manager)? Give summary @ -No Was smoking cessation discussed for >3mins.? @ -I discussed smoking cessation for greater than 3 minutes. The risk of smoking were discussed with the patient including but not limited to risks of cancer, stroke, coronary artery disease and COPD. Also discussed with patient were multiple methods of quitting smoking. Lastly we discussed the financial cost of smoking. Was critical care preformed (if so, how long)? @ -No Were there social determinants of health that impacted care today? How? (Homelessness, low income, unemployed, alcoholism, drug addiction, transportation, low edu. Level, literacy, decrease access to med. care, [facility], rehab)? @ -No Was there de-escalation of care discussed even if they declined (Discuss DNR or withdrawal of care, Hospice)? DNR status @ -No What co-morbidities impacted this encounter? (DM, HTN, Smoking, COPD, CAD, Cancer, CVA, ARF, Chemo, Hep., AIDS, mental health diagnosis, sleep apnea, morbid obesity)? @ -COPD Was patient admitted / discharged? Hospital course, mention meds given and route, prescriptions, significant lab abnormalities, going to OR and other pertinent info. @ -Discharged Patient is 62-year-old female presented ER with chief complaint of shortness of breath. Upon examination, patient's vital signs are stable. Physical exam was significant for right side rhonchi on inspiration. Patient was actively coughing during exam. Labs obtained in the ER were unremarkable. Ddimer and troponin were negative. Patient tested positive for RSV. Chest x-ray shows interval infiltrate left posterior phrenic angle correlate with atelectasis. EKG showed junctional rhythm with no acute signs of infarct or ischemia. Patient received 1L IV fluids, IV Toradol, IV Dilaudid, IV Reglan. I discussed lab and imaging findings with patient. I advised her to take [id number] Tylenol and Motrin for pain and fever control. I discussed smoking cessation for greater than 3 minutes. The risk of smoking were discussed with the patient including but not limited to risks of cancer, stroke, coronary artery disease and COPD. Also discussed with patient were multiple methods of quitting smoking. Lastly we discussed the financial cost of smoking. Return parameters were discussed. Patient will be discharged in stable condition with follow-up to PCP. Patient expressed understanding and agreement with care plan. Undiagnosed new problem with uncertain prognosis? @ -No Drug Therapy requiring intensive monitoring for toxicity (Heparin, Nitro, Insulin, Cardizem)? @ -No Were any procedures done? @ -No Diagnosis/symptom? @ -RSV Acute, or Chronic, or Acute on Chronic? @ -Acute Uncomplicated (without systemic symptoms) or Complicated (systemic symptoms)? @ -Uncomplicated Side effects of treatment? @ -No Exacerbation, Progression, or Severe Exacerbation? @ -No Poses a threat to life or bodily function? How? (Chest pain, [place], [place], pneumonia, PE, COPD, DKA, ARF, appy, cholecystitis, CVA, Diverticulitis, Homicidal, Suicidal, threat to staff... and all critical care pts) @ -Unlikely. RSV can cause difficulty breathing which can be life threatening. - Lab Data Result diagrams: 05/27/23 12:43 05/27/23 12:43 Lab Results 05/27/23 05/27/23 05/27/23 Range/Units 12:43 12:43 12:43 WBC 11.9 H (3.8-10.6) k/uL RBC 4.37 (3.80-5.40) m/uL Hgb 14.1 (11.4-16.0) gm/dL Hct 40.6 (34.0-46.0) % MCV 92.7 (80.0-100.0) fL MCH 32.2 (25.0-35.0) pg MCHC 34.8 (31.0-37.0) g/dL RDW 13.1 (11.5-15.5) % Plt Count 397 (150-450) k/uL MPV 7.4 D-Dimer (<0.60) mg/L FEU Sodium 141 (137-145) mmol/L Potassium 4.1 (3.5-5.1) mmol/L Chloride 105 (98-107) mmol/L Carbon Dioxide 23 (22-30) mmol/L Anion Gap 13 mmol/L BUN 12 (7-17) mg/dL Creatinine 0.85 (0.52-1.04) mg/dL Est GFR (CKD-EPI)AfAm 85 (>60 ml/min/1.73 sqM) Est GFR (CKD-EPI)NonAf 74 (>60 ml/min/1.73 sqM) Glucose 115 H (74-99) mg/dL Plasma Lactic Acid Keith 1.2 (0.7-2.0) mmol/L Calcium 9.7 (8.4-10.2) mg/dL Total Bilirubin 0.7 (0.2-1.3) mg/dL AST 24 (14-36) U/L ALT 23 (4-34) U/L Alkaline Phosphatase 102 (38-126) U/L Troponin I (0.000-0.034) ng/mL Total Protein 7.0 (6.3-8.2) g/dL Albumin 4.3 (3.5-5.0) g/dL Influenza Type A (PCR) (Not Detectd) Influenza Type B (PCR) (Not Detectd) RSV (PCR) (Not Detectd) SARS-CoV-2 (PCR) (Not Detectd) 05/27/23 05/27/23 05/27/23 Range/Units 12:43 12:46 13:33 WBC (3.8-10.6) k/uL RBC (3.80-5.40) m/uL Hgb (11.4-16.0) gm/dL Hct (34.0-46.0) % MCV (80.0-100.0) fL MCH (25.0-35.0) pg MCHC (31.0-37.0) g/dL RDW (11.5-15.5) % Plt Count (150-450) k/uL MPV D-Dimer 0.41 (<0.60) mg/L FEU Sodium (137-145) mmol/L Potassium (3.5-5.1) mmol/L Chloride (98-107) mmol/L Carbon Dioxide (22-30) mmol/L Anion Gap mmol/L BUN (7-17) mg/dL Creatinine (0.52-1.04) mg/dL Est GFR (CKD-EPI)AfAm (>60 ml/min/1.73 sqM) Est GFR (CKD-EPI)NonAf (>60 ml/min/1.73 sqM) Glucose (74-99) mg/dL Plasma Lactic Acid Keith (0.7-2.0) mmol/L Calcium (8.4-10.2) mg/dL Total Bilirubin (0.2-1.3) mg/dL AST (14-36) U/L ALT (4-34) U/L Alkaline Phosphatase (38-126) U/L Troponin I <0.012 (0.000-0.034) ng/mL Total Protein (6.3-8.2) g/dL Albumin (3.5-5.0) g/dL Influenza Type A (PCR) Not Detected (Not Detectd) Influenza Type B (PCR) Not Detected (Not Detectd) RSV (PCR) Detected A (Not Detectd) SARS-CoV-2 (PCR) Not Detected (Not Detectd) - EKG Data -: EKG Interpreted by Me EKG Comments: EKG taken at 12:32 shows junctional rhythm with no acute ST segment or T-wave abnormalities. Ventricular rate 85, VA interval 125, QRS duration 85, QT/QTC 368/410. - Radiology Data Radiology results: report reviewed, image reviewed Disposition Clinical Impression: RSV (acute bronchiolitis due to respiratory syncytial virus) Disposition: HOME SELF-CARE Condition: Stable Instructions (If sedation given, give patient instructions): Respiratory Syncytial Virus (ED) Additional Instructions: Please take [id number] Tylenol and Motrin for pain and fever control. Please return to emergency department for any new or worsening symptoms. Is patient prescribed a controlled substance at d/c from ED?: No Referrals: Beto Pastrana MD [Primary Care Provider] - 1-2 days Time of Disposition: 13:59
[2023-05-27 13:00] VITALS: RESP 18
[2023-05-27 13:00] LABS: HCT 40.6 % (34.0-46.0); HGB 14.1 gm/dL (11.4-16.0); MCH 32.2 pg (25.0-35.0); MCHC 34.8 g/dL (31.0-37.0); MCV 92.7 fL (80.0-100.0); Mean Platelet Volume 7.4; Platelet Count 397 k/uL (150-450); RBC 4.37 m/uL (3.80-5.40); RDW 13.1 % (11.5-15.5); WBC 11.9 k/uL (3.8-10.6)
--- NOTE | 2023-05-27 13:10 | XR ---
EXAMINATION TYPE: XR chest 2V DATE OF EXAM: 05/27/2023 COMPARISON: 04/14/2023 INDICATION: Cough short of breath TECHNIQUE: Frontal and lateral views of the chest are obtained. FINDINGS: The heart size is normal. The pulmonary vasculature is normal. Some minimal infiltrate may be at the cardiac apex and left costophrenic angle. Correlate for atelect asis.. IMPRESSION: 1. Interval infiltrate left posterior phrenic angle. Correlate for atelectasis. Follow-up can be perf ormed as clinically indicated
[2023-05-27 13:11] LABS: ALT 23 U/L (4-34); AST 24 U/L (14-36); African American GFR (CKD) 85 (>60 ml/min/1.73 sqM); Albumin 4.3 g/dL (3.5-5.0); Alkaline Phosphatase 102 U/L (38-126); Anion Gap 13 mmol/L; Blood Urea Nitrogen 12 mg/dL (7-17); Calcium 9.7 mg/dL (8.4-10.2); Carbon Dioxide 23 mmol/L (22-30); Chloride 105 mmol/L (98-107); Glucose 115 mg/dL (74-99); Non-African American GFR(CKD) 74 (>60 ml/min/1.73 sqM); Potassium 4.1 mmol/L (3.5-5.1); Sodium 141 mmol/L (137-145); Total Bilirubin 0.7 mg/dL (0.2-1.3)
[2023-05-27] MEDS ORDERED: HYDROmorphone 0.5 MG/0.5 ML SYRINGE IVP STA (13:42)
[2023-05-27] MEDS ORDERED: METOCLOPRAMIDE 5 MG/ML 2 ML VIAL IVP STA (13:42)
[2023-05-27 14:13] VITALS: BP 122/76; PULSE 89; TEMP 98.7
== END 2023-05-27 14:11 | disposition home or self-care (01) ==
LOC: EC 12:16
DX: J21.0 Acute bronchiolitis due to respiratory syncytial virus (principal); I10 Essential (primary) hypertension; F41.9 Anxiety disorder, unspecified; F17.200 Nicotine dependence, unspecified, uncomplicated; F12.90 Cannabis use, unspecified, uncomplicated; Z79.899 Other long term (current) drug therapy; Z20.822 Contact with and (suspected) exposure to COVID-19; Z88.0 Allergy status to penicillin; Z88.2 Allergy status to sulfonamides; Z88.5 Allergy status to narcotic agent; Z91.041 Radiographic dye allergy status
CPT/HCPCS: 36415; 93005; 85379; 80053; 83605; 84484; 85027; 87636; 71046; 99285; 96374; 96375 ×2; 96361; 99406; J2765; J1885; J1170

== ENCOUNTER 2023-07-11 12:27 | Emergency (ER) | payer MEDICARE ==
[2023-07-11] MEDS ORDERED: IOPAMIDOL CONTRAST (ORAL USE) VIAL PO PRN (13:28)
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
[2023-07-11 14:19] LABS: Basophils % (A) 0 %; Eosinophils # (A) 0.2 k/uL (0-0.7); Eosinophils % (A) 1 %; HCT 42.8 % (34.0-46.0); HGB 14.5 gm/dL (11.4-16.0); Lymphocytes # (A) 3.2 k/uL (1.0-4.8); Lymphocytes % (A) 26 %; MCH 31.7 pg (25.0-35.0); MCHC 33.8 g/dL (31.0-37.0); Mean Platelet Volume 7.4; Monocytes # (A) 0.8 k/uL (0-1.0); Monocytes % (A) 7 %; Neutrophils # (A) 7.5 k/uL (1.3-7.7); Neutrophils % (A) 61 %; Platelet Count 446 k/uL (150-450); RBC 4.56 m/uL (3.80-5.40); RDW 13.2 % (11.5-15.5); WBC 12.2 k/uL (3.8-10.6)
[2023-07-11] MEDS: SODIUM CHLORIDE 0.9% 1,000 ML IV STA (14:25)
[2023-07-11] MEDS: ONDANSETRON 4 MG/2 ML VIAL IVP STA ×2 (14:26→17:51)
[2023-07-11] MEDS: diphenhydrAMINE 50 MG/ML 1 ML VIAL IVP STA (14:28)
[2023-07-11] MEDS: HYDROmorphone 1 MG/ML 1 ML SYRINGE IVP STA (14:31)
[2023-07-11 14:33] LABS: ALT 37 U/L (4-34); AST 37 U/L (14-36); African American GFR (CKD) 67 (>60 ml/min/1.73 sqM); Albumin 4.4 g/dL (3.5-5.0); Alkaline Phosphatase 106 U/L (38-126); Anion Gap 9 mmol/L; Blood Urea Nitrogen 18 mg/dL (7-17); Calcium 9.9 mg/dL (8.4-10.2); Carbon Dioxide 23 mmol/L (22-30); Chloride 108 mmol/L (98-107); Glucose 103 mg/dL (74-99); Lipase 67 U/L (23-300); Non-African American GFR(CKD) 58 (>60 ml/min/1.73 sqM); Potassium 4.3 mmol/L (3.5-5.1); Sodium 140 mmol/L (137-145); Total Protein 7.2 g/dL (6.3-8.2)
[2023-07-11 14:41] LABS: Appearance,Urine Cloudy (Clear); Bilirubin,Urine Negative (Negative); Blood,Urine Trace (Negative); Color,Urine Yellow; Glucose,Urine (UA) Negative (Negative); Ketones,Urine Negative (Negative); Leukocyte Esterase,Urine Negative (Negative); Mucus,Urine Many /hpf; Nitrite,Urine Negative (Negative); PH, Urine 5.5 (5.0-8.0); Protein,Urine 1+ (Negative); RBC,Urine 3 /hpf (0-5); Specific Gravity,Urine 1.031 (1.001-1.035); Squamous Epithelial Cell,Urine 19 /hpf (0-4); WBC,Urine 3 /hpf (0-5)
[2023-07-11] MEDS: FAMOTIDINE 20 MG/2 ML VIAL IV STA (14:44)
[2023-07-11] MEDS: methylPREDNISolone SOD SUCCI 125 MG/2 ML VIAL IV STA (14:47)
--- NOTE | 2023-07-11 15:55 | CT ---
EXAMINATION: CT ABDOMEN AND PELVIS WITH IV CONTRAST DATE OF EXAMINATION: 07/11/2023. COMPARISON: None available. INDICATION: Loose stools for 4 days. PROCEDURE: Axial CT of the abdomen and pelvis was performed with contrast and sagittal and coronal reformatted images were performed. CT dose lowering techniques were used, to include: automated expos ure control, adjustment for patient size, and/or use of iterative reconstruction. 80 mL of Isovue-300 was given intravenously. FINDINGS: LOWER CHEST : The visualized lung bases are clear. There are no pleural or pericardial effusions. ABDOMEN: Liver and Biliary system: Normal. Adrenal glands: Normal. Kidneys and ureters: Normal. Spleen: Normal. Pancreas: Normal. Gallbladder: Surgically absent. Lymph nodes, Peritoneum and mesentery: There is no mesenteric or retroperitoneal lymphadenopathy. Gastrointestinal tract: There are no dilated loops of bowel or free intraperitoneal air. There is a surgical anastomosis seen within the sigmoid colonic region. Aorta/IVC: There is mild vascular calcification throughout the abdominal aorta without evidence of aneurysmal dilation or dissection. IVC normal. Abdominal wall: Moderate to large supraumbilical ventral hernia containing fat and transverse colon. PELVIS: Fluid: There is no free fluid in the pelvis. Lymph Nodes: There is no pelvic or inguinal lymphadenopathy.. Urinary bladder: Normal. BONES: There are no osseous destructive lesions.. ADDITIONAL SIGNIFICANT FINDINGS: None. IMPRESSION: 1. No acute process seen within the abdomen or pelvis. 2. Ventral hernia as above. 3. Small amount of pelvic ascites of indeterminate etiology based on this examination.
[2023-07-11] MEDS: HYDROmorphone 0.5 MG/0.5 ML SYRINGE IVP STA (17:49)
[2023-07-11 18:53] VITALS: BP 127/72; PULSE 77; RESP 18; TEMP 97.9
== END 2023-07-11 18:53 | disposition home or self-care (01) ==
LOC: EC 12:27
DX: K43.9 Ventral hernia without obstruction or gangrene (principal); K42.9 Umbilical hernia without obstruction or gangrene; I10 Essential (primary) hypertension; M19.90 Unspecified osteoarthritis, unspecified site; F41.9 Anxiety disorder, unspecified; F17.200 Nicotine dependence, unspecified, uncomplicated; F12.90 Cannabis use, unspecified, uncomplicated; Z79.899 Other long term (current) drug therapy; Z88.0 Allergy status to penicillin; Z88.5 Allergy status to narcotic agent; Z88.2 Allergy status to sulfonamides; Z91.041 Radiographic dye allergy status
CPT/HCPCS: 36415; 80053; 83690; 85025; 81001; 74177; 99285; 96374; 96375 ×4; 96376 ×2; 96361; J1200; J2930; J2405; J3490; J1170 ×2; Q9967

== ENCOUNTER 2023-07-12 23:09 | Emergency (ER) | payer MEDICARE ==
[2023-07-12 23:40] VITALS: RESP 18
[2023-07-13] MEDS: diphenhydrAMINE 50 MG/ML 1 ML VIAL IVP STA (00:32)
[2023-07-13] MEDS: methylPREDNISolone SOD SUCCI 125 MG/2 ML VIAL IV STA (00:32)
[2023-07-13] MEDS: FAMOTIDINE 20 MG/2 ML VIAL IV STA (00:33)
[2023-07-13 01:22] LABS: Basophils # (A) 0.1 k/uL (0-0.2); Basophils % (A) 1 %; Eosinophils % (A) 0 %; HCT 38.6 % (34.0-46.0); HGB 12.8 gm/dL (11.4-16.0); Lymphocytes # (A) 3.6 k/uL (1.0-4.8); Lymphocytes % (A) 30 %; MCH 31.2 pg (25.0-35.0); MCHC 33.3 g/dL (31.0-37.0); MCV 93.8 fL (80.0-100.0); Mean Platelet Volume 8.1; Monocytes # (A) 0.7 k/uL (0-1.0); Monocytes % (A) 5 %; Neutrophils # (A) 7.2 k/uL (1.3-7.7); Neutrophils % (A) 60 %; Platelet Count 363 k/uL (150-450); RBC 4.11 m/uL (3.80-5.40); RDW 13.3 % (11.5-15.5)
[2023-07-13 01:24] LABS: ALT 34 U/L (4-34); AST 38 U/L (14-36); African American GFR (CKD) 71 (>60 ml/min/1.73 sqM); Albumin 4.2 g/dL (3.5-5.0); Alkaline Phosphatase 83 U/L (38-126); Amylase 51 U/L (30-110); Anion Gap 6 mmol/L; Blood Urea Nitrogen 19 mg/dL (7-17); Calcium 9.5 mg/dL (8.4-10.2); Carbon Dioxide 27 mmol/L (22-30); Chloride 106 mmol/L (98-107); Glucose 113 mg/dL (74-99); Lipase 82 U/L (23-300); Non-African American GFR(CKD) 62 (>60 ml/min/1.73 sqM); Potassium 3.4 mmol/L (3.5-5.1); Sodium 139 mmol/L (137-145); Total Bilirubin 0.5 mg/dL (0.2-1.3); Total Protein 6.7 g/dL (6.3-8.2)
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
[2023-07-13] MEDS: MORPHINE SULFATE 4 MG/ML SYRINGE IVP STA (02:35)
[2023-07-13] MEDS: ONDANSETRON 4 MG/2 ML VIAL IVP STA (02:35)
[2023-07-13] MEDS: SODIUM CHLORIDE 0.9% 1,000 ML IV STA (02:36)
--- NOTE | 2023-07-13 03:55 | CT ---
EXAM: CT Abdomen and Pelvis With Intravenous Contrast CLINICAL HISTORY: ITS.REASON CT Reason: hx r hernia r.o strangulation TECHNIQUE: Axial computed tomography images of the abdomen and pelvis with intravenous contrast. CTDI is 28.2 mGy and DLP is 1384.5 mGy-cm. This CT exam was performed using one or more of the following dose reduction techniques: automated exposure control, adjustment of the mA and/or kV according to patient size, and/or use of iterative reconstruction technique. Coronal and sagittal reformatted images were created and reviewed. 469 images COMPARISON: 09/05/22 FINDINGS: Lung bases: Bibasilar atelectasis slightly worse on the left. Heart: Mild cardiomegaly. ABDOMEN: Liver: Unremarkable. No mass. Gallbladder and bile ducts: Cholecystectomy clips. No ductal dilation. Pancreas: Unremarkable. No mass. No ductal dilation. Spleen: Unremarkable. No splenomegaly. Adrenals: Unremarkable. No mass. Kidneys and ureters: Small left renal cysts, measuring about 12 mm in maximal diameter. No hydronephrosis. Stomach and bowel: Mild colonic diverticulosis. Small to moderate abdominal ventral hernias are new containing mesenteric fat, vessels, and short segment of transverse colon. Sigmoid colonic anastomosis. No obstruction. No mucosal thickening. PELVIS: Appendix: No findings to suggest acute appendicitis. Bladder: Unremarkable. No mass. Reproductive: Unremarkable as visualized. ABDOMEN and PELVIS: Intraperitoneal space: Unremarkable. No free air. No significant fluid collection. Bones/joints: Osteopenia is suspected. Moderate degenerative changes. Soft tissues: Midline pelvic scar. Vasculature: Small amount of atherosclerotic calcifications. No abdominal aortic aneurysm. Lymph nodes: Unremarkable. No enlarged lymph nodes. IMPRESSION: Small to moderate abdominal ventral hernias are new containing mesenteric fat, vessels, and short segment of transverse colon. No associated strangulation or bowel dilatation.
[2023-07-13] MEDS: MORPHINE SULFATE 2 MG/ML SYRINGE IVP ONE (05:35)
[2023-07-13 05:53] VITALS: BP 116/68; PULSE 72; TEMP 97.8
== END 2023-07-13 05:46 | disposition home or self-care (01) ==
LOC: EC 23:09
DX: K43.9 Ventral hernia without obstruction or gangrene (principal); I10 Essential (primary) hypertension; F41.9 Anxiety disorder, unspecified; F17.200 Nicotine dependence, unspecified, uncomplicated; F12.90 Cannabis use, unspecified, uncomplicated; Z79.899 Other long term (current) drug therapy; Z88.0 Allergy status to penicillin; Z88.2 Allergy status to sulfonamides; Z88.5 Allergy status to narcotic agent; Z91.041 Radiographic dye allergy status
CPT/HCPCS: 36415; 80053; 82150; 83605; 83690; 85025; 74177; 99285; 96374; 96375 ×4; 96376; 96361; J2270 ×2; J1200; J2930; J2405; J3490; Q9967

== ENCOUNTER 2023-07-30 12:11 | Emergency (ER) | payer MEDICARE ==
[2023-07-30 12:43] VITALS: RESP 18
[2023-07-30] MEDS: ONDANSETRON 4 MG/2 ML VIAL IVP STA (12:46)
[2023-07-30] MEDS: HYDROmorphone 0.5 MG/0.5 ML SYRINGE IVP STA ×2 (12:47→14:06)
[2023-07-30] MEDS: SODIUM CHLORIDE 0.9% 1,000 ML IV STA (12:51)
[2023-07-30 12:53] LABS: Basophils % (A) 0 %; Eosinophils % (A) 0 %; HCT 40.6 % (34.0-46.0); HGB 13.8 gm/dL (11.4-16.0); Lymphocytes # (A) 1.7 k/uL (1.0-4.8); Lymphocytes % (A) 15 %; MCH 31.9 pg (25.0-35.0); MCHC 34.1 g/dL (31.0-37.0); MCV 93.5 fL (80.0-100.0); Mean Platelet Volume 7.5; Monocytes # (A) 0.6 k/uL (0-1.0); Monocytes % (A) 5 %; Neutrophils # (A) 8.6 k/uL (1.3-7.7); Neutrophils % (A) 76 %; Platelet Count 443 k/uL (150-450); RBC 4.34 m/uL (3.80-5.40); WBC 11.3 k/uL (3.8-10.6)
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
[2023-07-30 13:25] LABS: INR 0.9 (<1.2); Partial Thromboplastin Time 26.4 sec (22.0-30.0)
--- NOTE | 2023-07-30 13:26 | CT ---
EXAMINATION: CT ABDOMEN AND PELVIS WITHOUT IV CONTRAST DATE OF EXAMINATION: 07/30/2023. COMPARISON: 07/13/2023.. INDICATION: Incisional hernia. PROCEDURE: Axial CT of the abdomen and pelvis was performed with sagittal and coronal reformatted i mages without contrast enhancement. The exam is limited because some types of pathology may not be ad equately demonstrated due to lack of contrast enhancement. CT dose lowering techniques were used, to include: automated exposure control, adjustment for patient size, and/or use of iterative reconstruct ion. FINDINGS: LOWER CHEST : The visualized lung bases are clear. There are no pleural or pericardial effusions. M ild patchy coronary calcifications are partially included on the airway lesion. ABDOMEN: Liver and Biliary system: Normal. Adrenal glands: Normal. Kidneys and ureters: Unchanged hyperdense lesions within the right kidney.. Spleen: Normal. Pancreas: Normal. Gallbladder: Surgically absent. Lymph nodes, Peritoneum and mesentery: There is no mesenteric or retroperitoneal lymphadenopathy. Gastrointestinal tract: There are no dilated loops of bowel or free intraperitoneal air. . There is a sigmoid colonic anastomosis. Aorta/IVC: There is moderate vascular calcification throughout the abdominal aorta without evidence of aneurysmal dilation. IVC normal. Abdominal wall: Large ventral hernia in the upper abdomen containing fat and transverse colon. This extends to the umbilical region. Additional upper abdominal fat containing ventral hernias are also s een which are [id number] in size. PELVIS: Fluid: There is no free fluid in the pelvis. Lymph Nodes: There is no pelvic or inguinal lymphadenopathy.. Urinary bladder: Normal. BONES: There are no osseous destructive lesions.. ADDITIONAL SIGNIFICANT FINDINGS: None. IMPRESSION: 1. Ventral hernias as described above. These are similar to the previous examination. 2. Indeterminate left renal lesions. 3. No acute findings otherwise seen within the abdomen or pelvis.
[2023-07-30 14:07] LABS: ALT 29 U/L (4-34); AST 25 U/L (14-36); African American GFR (CKD) >90 (>60 ml/min/1.73 sqM); Albumin 4.3 g/dL (3.5-5.0); Alkaline Phosphatase 96 U/L (38-126); Anion Gap 8 mmol/L; Blood Urea Nitrogen 16 mg/dL (7-17); Calcium 9.7 mg/dL (8.4-10.2); Carbon Dioxide 24 mmol/L (22-30); Chloride 107 mmol/L (98-107); Glucose 108 mg/dL (74-99); Lipase 69 U/L (23-300); Non-African American GFR(CKD) >90 (>60 ml/min/1.73 sqM); Potassium 4.4 mmol/L (3.5-5.1); Sodium 139 mmol/L (137-145); Total Bilirubin 0.4 mg/dL (0.2-1.3); Total Protein 6.9 g/dL (6.3-8.2)
[2023-07-30 14:24] LABS: Appearance,Urine Clear (Clear); Bilirubin,Urine Negative (Negative); Blood,Urine Trace (Negative); Color,Urine Light Yellow; Glucose,Urine (UA) Negative (Negative); Ketones,Urine Negative (Negative); Leukocyte Esterase,Urine Negative (Negative); Mucus,Urine Rare /hpf; Nitrite,Urine Negative (Negative); Protein,Urine Negative (Negative); RBC,Urine 2 /hpf (0-5); Specific Gravity,Urine 1.021 (1.001-1.035); Squamous Epithelial Cell,Urine 4 /hpf (0-4); Urobilinogen,Urine <2.0 mg/dL (<2.0); WBC,Urine 1 /hpf (0-5)
[2023-07-30 15:00] VITALS: BP 138/76; PULSE 74; TEMP 98.2
== END 2023-07-30 14:36 | disposition home or self-care (01) ==
LOC: EC 12:11
DX: K43.2 Incisional hernia without obstruction or gangrene (principal); I10 Essential (primary) hypertension; M19.90 Unspecified osteoarthritis, unspecified site; F41.9 Anxiety disorder, unspecified; F17.200 Nicotine dependence, unspecified, uncomplicated; F12.90 Cannabis use, unspecified, uncomplicated; Z79.1 Long term (current) use of non-steroidal anti-inflammatories (NSAID); Z79.899 Other long term (current) drug therapy; Z88.0 Allergy status to penicillin; Z88.2 Allergy status to sulfonamides; Z91.041 Radiographic dye allergy status; Z88.5 Allergy status to narcotic agent
CPT/HCPCS: 36415; 80053; 83605; 83690; 85025; 85610; 85730; 81001; 74176; 99284; 96374; 96375; 96376; 96361 ×2; J2405; J1170

== ENCOUNTER 2023-08-06 15:14 | Emergency (ER) | payer MEDICARE, OTHER ==
[2023-08-06 15:22] VITALS: TEMP 97.4
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
[2023-08-06] MEDS: SODIUM CHLORIDE 0.9% 1,000 ML IV STA (16:39)
[2023-08-06] MEDS: diphenhydrAMINE 50 MG/ML 1 ML VIAL IVP STA (16:40)
[2023-08-06] MEDS: FAMOTIDINE 20 MG/2 ML VIAL IV STA (16:40)
[2023-08-06] MEDS: KETOROLAC 15 MG/ML 1 ML VIAL IVP STA (16:40)
[2023-08-06] MEDS: ONDANSETRON 4 MG/2 ML VIAL IVP STA (16:40)
[2023-08-06] MEDS: methylPREDNISolone SOD SUCCI 125 MG/2 ML VIAL IVP ONE (16:41)
[2023-08-06 16:59] LABS: Basophils # (A) 0.1 k/uL (0-0.2); Basophils % (A) 1 %; Eosinophils # (A) 0.2 k/uL (0-0.7); Eosinophils % (A) 2 %; HCT 39.3 % (34.0-46.0); HGB 13.3 gm/dL (11.4-16.0); Lymphocytes # (A) 3.4 k/uL (1.0-4.8); Lymphocytes % (A) 33 %; MCH 31.8 pg (25.0-35.0); MCHC 33.7 g/dL (31.0-37.0); MCV 94.5 fL (80.0-100.0); Mean Platelet Volume 7.2; Monocytes # (A) 0.8 k/uL (0-1.0); Monocytes % (A) 8 %; Neutrophils # (A) 5.6 k/uL (1.3-7.7); Neutrophils % (A) 53 %; Platelet Count 383 k/uL (150-450); RBC 4.16 m/uL (3.80-5.40); RDW 13.2 % (11.5-15.5); WBC 10.5 k/uL (3.8-10.6)
[2023-08-06 17:01] LABS: Mucus,Urine Rare /hpf; Squamous Epithelial Cell,Urine 7 /hpf (0-4); WBC,Urine 1 /hpf (0-5)
[2023-08-06 17:13] LABS: Appearance,Urine Slightly Cloudy (Clear); Color,Urine Light Yellow; PH, Urine 5.5 (5.0-8.0); Specific Gravity,Urine 1.029 (1.001-1.035)
[2023-08-06 17:14] LABS: Bilirubin,Urine Negative (Negative); Blood,Urine Trace (Negative); Glucose,Urine (UA) Negative (Negative); Ketones,Urine Negative (Negative); Leukocyte Esterase,Urine Negative (Negative); Nitrite,Urine Negative (Negative); Protein,Urine Trace (Negative); Urobilinogen,Urine <2.0 mg/dL (<2.0)
[2023-08-06 17:42] LABS: ALT 31 U/L (4-34); AST 29 U/L (14-36); African American GFR (CKD) 89 (>60 ml/min/1.73 sqM); Albumin 3.7 g/dL (3.5-5.0); Alkaline Phosphatase 102 U/L (38-126); Amylase 63 U/L (30-110); Anion Gap 10 mmol/L; Blood Urea Nitrogen 17 mg/dL (7-17); Carbon Dioxide 19 mmol/L (22-30); Chloride 111 mmol/L (98-107); Glucose 102 mg/dL (74-99); Lipase 68 U/L (23-300); Non-African American GFR(CKD) 77 (>60 ml/min/1.73 sqM); Potassium 3.5 mmol/L (3.5-5.1); Sodium 140 mmol/L (137-145); Total Bilirubin 0.4 mg/dL (0.2-1.3); Total Protein 6.2 g/dL (6.3-8.2)
--- NOTE | 2023-08-06 18:38 | CT ---
EXAMINATION TYPE: CT abdomen pelvis w con DATE OF EXAM: 08/06/2023 COMPARISON: 07/30/2023 HISTORY: 62-year-old female generalized abdominal pain TECHNIQUE: Contiguous axial scanning of the abdomen and pelvis following administration of 100 ml Iso ivone 300 IV contrast. Delayed images through the kidneys and coronal/sagittal reconstructions perform ed. CT DLP: 1352.2 mGycm Automated exposure control for dose reduction was used. FINDINGS: The heart is upper limits of normal in size without pericardial effusion. Prominent patchy dependent atelectasis posterior lung bases. Tiny hiatal hernia. No focal liver lesion or biliary ductal dilatation. Portal venous system is patent. There is a 2.5 cm diverticulum of the second portion of the duodenum projecting into the pancreatic h ead region. Cholecystectomy clips. Adrenal glands, right kidney, spleen, and pancreas within normal limits. A couple benign renal cortical cyst on the left measuring up to 1.3 cm. There is symmetric uptake and excretion of contrast from the kidneys. No dilated small bowel, free fluid, or free air. No mesenteric or retroperitoneal lymphadenopathy. The appendix is visualized. Scattered stool and air within the appendix is slightly patulous. Complex ventral abdominal wall hernias are present. There are multiple supraumbilical hernias measuri ng up to 11.4 cm wide and up to 13.3 cm craniocaudal. A midline supraumbilical hernia contains a shor t segment of nonobstructed transverse colon. There may be some mucosal hyperemia and mild circumferential fold thickening along the proximal third transverse colon, axial image 41. Otherwise, there is moderate stool burden. Staple line at the mid sigmoid from prior resection or anastomosis. Mild sigmoid diverticulosis. No p ericolic inflammatory change. Bladder urine distended. Multiple pelvic phleboliths. Uterus surgically absent. Neither ovary clearly identified. No abnormal fluid collection in the pelvis or pelvic lymphadenopathy. Bones: Degenerative bony ankylosis left SI joint. There is a right L5 hemisacralization noted. Hypert rophic facet arthropathy mid to lower lumbar spine. Dictation the lower thoracic spine. IMPRESSION: 1. COMPLEX SUPRAUMBILICAL VENTRAL ABDOMINAL WALL HERNIAS MOSTLY CONTAINING OMENTAL FAT. THESE MULTIPL E HERNIAS HAVE AN AGGREGATE DIMENSION UP TO 11.4 CM WIDE AND 13.3 CM CRANIOCAUDAL. ONE OF THE HERNIAS CONTINUES TO CONTAIN A NONOBSTRUCTED SEGMENT OF MID TRANSVERSE COLON. 2. THE PROXIMAL THIRD TRANSVERSE COLON MAY HAVE SOME MUCOSAL HYPEREMIA AND CIRCUMFERENTIAL THICKENING . CONSIDER A MILD, NONSPECIFIC INFECTIOUS OR INFLAMMATORY COLITIS. 3. MODERATE STOOL BURDEN. PREVIOUS RESECTION AT THE MID SIGMOID COLON WITH REANASTOMOSIS. MILD DIVERT ICULOSIS WITHOUT ACUTE DIVERTICULITIS.
[2023-08-06] MEDS: HYDROmorphone 0.5 MG/0.5 ML SYRINGE IVP STA (19:28)
[2023-08-06 19:31] VITALS: BP 151/87; PULSE 74; RESP 18
== END 2023-08-06 19:33 | disposition home or self-care (01) ==
LOC: EC 15:14
DX: K52.9 Noninfective gastroenteritis and colitis, unspecified (principal); K43.9 Ventral hernia without obstruction or gangrene; F17.200 Nicotine dependence, unspecified, uncomplicated; Z88.0 Allergy status to penicillin; Z88.2 Allergy status to sulfonamides; Z88.5 Allergy status to narcotic agent
CPT/HCPCS: 99285 ×2; 96374 ×2; 96375 ×7; 96361; 36415; 80053; 82150; 83605; 83690; 85025; 81001; 74177; J1200; J2930; J2405; J3490; J1885; J1170; Q9967

== ENCOUNTER 2023-08-13 17:41 | Inpatient (IN) | payer MEDICARE ==
--- NOTE | 2023-08-13 18:17 | ED ---
Abdominal Pain HPI - General Source: patient, RN notes reviewed Mode of arrival: ambulatory Limitations: no limitations <Vania Albarran - Last Filed: 08/13/23 18:16> - History of Present Illness MD Complaint: abdominal pain -: days(s), month(s) Location: periumbilical, epigastric Radiation: epigastric Severity: severe Severity scale (1-10): 10 Quality: stabbing Consistency: constant Improves With: nothing Worsens With: nothing Associated Symptoms: nausea, vomiting Treatments Prior to Arrival: other (0) <Celestine Dumont - Last Filed: 08/15/23 23:57> - General Chief Complaint: Abdominal Pain Stated Complaint: Abd Hernia Time Seen by Provider: 08/13/23 18:16 - History of Present Illness Initial Comments: Quick note: Patient is a 62-year-old female presented to the ER with chief complaint of abdominal pain. Patient has a history of hernia and states the pain increased yesterday. States she has not had a bowel movement/flatulence in the past 5 days. She also has a history of colitis. Reported nausea denied vomiting. (Vania Albarran) This is a 62-year-old female with known abdominal wall hernia incisional hernia with prior history of bowel resection. Patient had surgery by Dr. Hayes, patient has had prior evaluations of this hernia with no recommended treatment, the pain is out of control she is having persistent nausea with vomiting, very emotional and very tired of having such significant pain (Celestine Dumont) - Related Data Home Medications Medication Instructions Recorded Confirmed Metoprolol Succinate [Toprol XL] 100 mg PO DAILY 05/02/22 08/13/23 Omeprazole 20 mg PO BID 11/27/22 08/13/23 Acetaminophen-Codeine 300-30mg 1 tab PO TID PRN 04/10/23 08/13/23 [Tylenol w/codeine #3] Albuterol Inhaler [Ventolin Hfa 1 - 2 puff INHALATION RT-Q6H PRN 04/10/23 08/13/23 Inhaler] Losartan [Cozaar] 25 mg PO DAILY 04/10/23 08/13/23 Prazosin HCl 2 mg PO HS 04/10/23 08/13/23 lamoTRIgine [LaMICtal] 100 mg PO BID 04/10/23 08/13/23 traZODone HCL [Desyrel] 150 mg PO HS 05/27/23 08/13/23 QUEtiapine FUMARATE [SEROquel] 600 mg PO HS 08/13/23 08/13/23 Previous Rx's Medication Instructions Recorded Ipratropium-Albuterol Nebulize 3 ml INHALATION RT-QID PRN 30 Days 04/15/23 [Duoneb 0.5 mg-3 mg/3 ml Soln] #120 each Ondansetron Odt [Zofran Odt] 4 mg PO Q8HR PRN #16 tab 07/11/23 Ciprofloxacin HCl [Cipro] 500 mg PO BID 7 Days #14 tab 08/06/23 metroNIDAZOLE [Flagyl] 500 mg PO TID 7 Days #21 tab 08/06/23 Allergies Allergy/AdvReac Type Severity Reaction Status Date / Time Penicillins Allergy SWELLING Verified 08/13/23 21:07 OF LEGS Sulfa (Sulfonamide Allergy Rash/Hives Verified 08/13/23 21:07 Antibiotics) iodine AdvReac RAPID Verified 08/13/23 21:07 HEART BEAT morphine AdvReac Vomiting Verified 08/13/23 21:07 Review of Systems ROS Other: All systems not noted in ROS Statement are negative. <Vania Albarran - Last Filed: 08/13/23 18:16> ROS Other: All systems not noted in ROS Statement are negative. <Celestine Dumont - Last Filed: 08/15/23 23:57> ROS Statement: Those systems with pertinent positive or pertinent negative responses have been documented in the HPI. Past Medical History Past Medical History: GI Bleed, Hypertension, Osteoarthritis (OA), Seizure Disor norma Additional Past Medical History / Comment(s): diverticulitis, PSUEDO SIEZURES - LAST AUGUST 2021, RECENT TREATMENT FOR ALCOHOL AND MARIJUANA ABUSE AT [facility]. pancreatitis History of Any Multi-Drug Resistant Organisms: None Reported Past Surgical History: Appendectomy, Bladder Surgery, Bowel Resection, Section, Cholecystectomy, Hysterectomy Additional Past Surgical History / Comment(s): BILATERAL CATARACT SURGERY WITH IMPLANTS , open sigmoid colectomy . Past Anesthesia/Blood Transfusion Reactions: No Reported Reaction, Motion Sickness Past Psychological History: Anxiety, PTSD Smoking Status: Current every day smoker Past Alcohol Use History: None Reported Past Drug Use History: Marijuana - Past Family History Mother Family Medical History: Hypertension <Vania Albarran - Last Filed: 08/13/23 18:16> General Exam Limitations: no limitations <Vania Albarran - Last Filed: 08/13/23 18:16> General appearance: alert, in no apparent distress Head exam: Present: atraumatic, normocephalic, normal inspection Eye exam: Present: normal appearance, PERRL, EOMI. Absent: scleral icterus, conjunctival injection, periorbital swelling ENT exam: Present: normal exam, mucous membranes moist Neck exam: Present: normal inspection. Absent: tenderness, meningismus, lymphadenopathy Respiratory exam: Present: normal lung sounds bilaterally. Absent: respiratory distress, wheezes, rales, rhonchi, stridor Cardiovascular Exam: Present: regular rate, normal rhythm, normal heart sounds. Absent: systolic murmur, diastolic murmur, rubs, gallop, clicks GI/Abdominal exam: Present: soft, normal bowel sounds. Absent: distended, tenderness, guarding, rebound, rigid Extremities exam: Present: normal inspection, full ROM, normal capillary refill. Absent: tenderness, pedal edema, joint swelling, calf tenderness Back exam: Present: normal inspection Neurological exam: Present: alert, oriented X3, CN II-XII intact Psychiatric exam: Present: normal affect, normal mood Skin exam: Present: warm, dry, intact, normal color. Absent: rash <Celestine Dumont - Last Filed: 08/15/23 23:57> - General Exam Comments Initial Comments: Visual Physical Exam Vital signs reviewed General: Well-appearing, nontoxic, no acute distress. Head: Normocephalic, atraumatic Eyes: PERRLA, EOMI ENT: Airway patent Chest: Nonlabored breathing Skin: No visual rash, normal skin tone Neuro: Alert and oriented 3 Musculoskeletal: No gross abnormalities, abdominal hernia present (Vania Albarran) Course <Celestine Dumont - Last Filed: 08/15/23 23:57> Vital Signs 08/13/23 08/13/23 08/13/23 18:01 19:32 22:30 Temperature 97.6 F Pulse Rate 61 68 64 Respiratory 18 18 16 Rate Blood Pressure 134/81 133/104 122/83 O2 Sat by Pulse 97 95 95 Oximetry - Reevaluation(s) Reevaluation #1: 08/13/23 21:38 Medical records reviewed (Celestine Dumont) Reevaluation #2: 08/13/23 21:38 Patient symptoms improved (Celestine Dumont) Reevaluation #3: 08/13/23 21:38 Patient informed of results and questions answered (Celestine Dumont) Reevaluation #4: Was pt. sent in by a medical professional or institution (, [facility], DRY STARCH SUPERVISOR, urgent care, hospital, or residential...) When possible be specific @ -no Did you speak to anyone other than the patient for history (EMS, parent, family, police, friend...)? What history was obtained from this source @ -no Did you review nursing and triage notes (agree or disagree)? Why? @ -agree Are old charts reviewed (outside hosp., previous admission, EMS record, old EKG, old radiological studies, urgent care reports/EKG's, residential records)? Report findings @ -yes Differential Diagnosis (chest pain, altered mental status, abdominal pain women, abdominal pain men, vaginal bleeding, weakness, fever, dyspnea, syncope, headache, dizziness, GI bleed, back pain, seizure, CVA, palpatations, mental health, musculoskeletal)? @ -prior EKG interpreted by me (3pts min.). @ -no X-rays interpreted by me (1pt min.). @ -no CT interpreted by me (1pt min.). @ -Yes positive for significant incisional ventral hernia U/S interpreted by me (1pt. min.). @ -no What testing was considered but not performed or refused? (CT, X-rays, U/S, l abs)? Why? @ -none What meds were considered but not given or refused? Why? @ -none Did you discuss the management of the patient with other professionals (professionals i.e. MARJAN Russell, DRY STARCH SUPERVISOR, lab, RT, psych nurse, sr. social media & mobile manager, fall internship, teacher, resident medical officer, outsole caser)? Give summary @ -no Was smoking cessation discussed for >3mins.? @ -no Was critical care preformed (if so, how long)? @ -no Were there social determinants of health that impacted care today? How? (Homelessness, low income, unemployed, alcoholism, drug addiction, transportation, low edu. Level, literacy, decrease access to med. care, [facility], rehab)? @ -none Was there de-escalation of care discussed even if they declined (Discuss DNR or withdrawal of care, Hospice)? DNR status @ -no What co-morbidities impacted this encounter? (DM, HTN, Smoking, COPD, CAD, Cancer, CVA, ARF, Chemo, Hep., AIDS, mental health diagnosis, sleep apnea, morbid obesity)? @ -none Was patient admitted / discharged? Hospital course, mention meds given and route, prescriptions, significant lab abnormalities, going to OR and other pertinent info. @ - 62 female to the ER for evaluation of significant anterior abdominal pain with known incisional hernia, patient will be admitted for evaluation of hernia with incarceration Admitted Undiagnosed new problem with uncertain prognosis? @ -no Drug Therapy requiring intensive monitoring for toxicity (Heparin, Nitro, Insulin, Cardizem)? @ -no Were any procedures done? @ -no Diagnosis/symptom? @ -Ventral wall hernia with no obstruction, persistent abdominal pain Acute, or Chronic, or Acute on Chronic? @ -Acute Uncomplicated (without systemic symptoms) or Complicated (systemic symptoms)? @ -Complicated Side effects of treatment? @ -no Exacerbation, Progression, or Severe Exacerbation? @ -exacerbation Poses a threat to life or bodily function? How? (Chest pain, [place], [place], pneumonia, PE, COPD, DKA, ARF, appy, cholecystitis, CVA, Diverticulitis, Homicidal, Suicidal, threat to staff... and all critical care pts) @ -yes with significant abdominal hernia (Celestine Dumont) Reevaluation #5: Differential Abdominal Pain Women: Appendicitis, Cholecystitis, diverticulosis, ischemic bowel, pancreatitis, hepatitis, UTI, gastroenteritis, AAA, incarcerated hernia, bowel obstruction, constipation, inflammatory bowel, hepatitis, peptic ulcer disease, splenic infarction, perforated viscus, vulvitis, ovarian torsion, PID, kidney stone, placenta abruption, this is not meant to be an all-inclusive list (Celestine Dumont) - Consultations Consultation #1: Spoke with [facility] who agrees to admit this patient (Celestine Dumont) Medical Decision Making <Vania Albarran - Last Filed: 08/13/23 18:16> - Lab Data Result diagrams: 08/15/23 06:39 08/15/23 06:39 - Radiology Data Radiology results: report reviewed (CT abdomen pelvis is positive for ventral hernia), image reviewed <Celestine Dumont - Last Filed: 08/15/23 23:57> - Medical Decision Making I performed the quick note portion of this chart. Electronically signed by Vania Albarran PA-C (Vania Albarran) 62 female to the ER for evaluation of significant anterior abdominal pain with known incisional hernia, patient will be admitted for evaluation of hernia with incarceration (Celestine Dumont) - Lab Data Lab Results 08/13/23 08/13/23 08/13/23 Range/Units 18:22 18:22 18:22 WBC 9.9 (3.8-10.6) k/uL RBC 4.39 (3.80-5.40) m/uL Hgb 13.5 (11.4-16.0) gm/dL Hct 41.4 (34.0-46.0) % MCV 94.4 (80.0-100.0) fL MCH 30.7 (25.0-35.0) pg MCHC 32.6 (31.0-37.0) g/dL RDW 13.5 (11.5-15.5) % Plt Count 364 (150-450) k/uL MPV 7.3 Neutrophils % 48 % Lymphocytes % 38 % Monocytes % 7 % Eosinophils % 2 % Basophils % 1 % Neutrophils # 4.8 (1.3-7.7) k/uL Lymphocytes # 3.8 (1.0-4.8) k/uL Monocytes # 0.7 (0-1.0) k/uL Eosinophils # 0.2 (0-0.7) k/uL Basophils # 0.1 (0-0.2) k/uL Sodium 143 (137-145) mmol/L Potassium 3.6 (3.5-5.1) mmol/L Chloride 109 H (98-107) mmol/L Carbon Dioxide 24 (22-30) mmol/L Anion Gap 10 mmol/L BUN 11 (7-17) mg/dL Creatinine 0.84 (0.52-1.04) mg/dL Est GFR (CKD-EPI)AfAm 86 (>60 ml/min/1.73 sqM) Est GFR (CKD-EPI)NonAf 75 (>60 ml/min/1.73 sqM) Glucose 137 H (74-99) mg/dL Plasma Lactic Acid Keith 1.5 (0.7-2.0) mmol/L Calcium 9.4 (8.4-10.2) mg/dL Total Bilirubin 0.3 (0.2-1.3) mg/dL AST 46 H (14-36) U/L ALT 57 H (4-34) U/L Alkaline Phosphatase 95 (38-126) U/L Total Protein 6.6 (6.3-8.2) g/dL Albumin 4.0 (3.5-5.0) g/dL Amylase 54 (30-110) U/L Lipase 73 (23-300) U/L Urine Color Urine Appearance (Clear) Urine pH (5.0-8.0) Ur Specific Wilson (1.001-1.035) Urine Protein (Negative) Urine Glucose (UA) (Negative) Urine Ketones (Negative) Urine Blood (Negative) Urine Nitrite (Negative) Urine Bilirubin (Negative) Urine Urobilinogen (<2.0) mg/dL Ur Leukocyte Esterase (Negative) Urine RBC (0-5) /hpf Urine WBC (0-5) /hpf Ur Squamous Epith Cells (0-4) /hpf Urine Mucus (None) /hpf 08/13/23 Range/Units 19:40 WBC (3.8-10.6) k/uL RBC (3.80-5.40) m/uL Hgb (11.4-16.0) gm/dL Hct (34.0-46.0) % MCV (80.0-100.0) fL MCH (25.0-35.0) pg MCHC (31.0-37.0) g/dL RDW (11.5-15.5) % Plt Count (150-450) k/uL MPV Neutrophils % % Lymphocytes % % Monocytes % % Eosinophils % % Basophils % % Neutrophils # (1.3-7.7) k/uL Lymphocytes # (1.0-4.8) k/uL Monocytes # (0-1.0) k/uL Eosinophils # (0-0.7) k/uL Basophils # (0-0.2) k/uL Sodium (137-145) mmol/L Potassium (3.5-5.1) mmol/L Chloride (98-107) mmol/L Carbon Dioxide (22-30) mmol/L Anion Gap mmol/L BUN (7-17) mg/dL Creatinine (0.52-1.04) mg/dL Est GFR (CKD-EPI)AfAm (>60 ml/min/1.73 sqM) Est GFR (CKD-EPI)NonAf (>60 ml/min/1.73 sqM) Glucose (74-99) mg/dL Plasma Lactic Acid Keith (0.7-2.0) mmol/L Calcium (8.4-10.2) mg/dL Total Bilirubin (0.2-1.3) mg/dL AST (14-36) U/L ALT (4-34) U/L Alkaline Phosphatase (38-126) U/L Total Protein (6.3-8.2) g/dL Albumin (3.5-5.0) g/dL Amylase (30-110) U/L Lipase (23-300) U/L Urine Color Yellow Urine Appearance Cloudy H (Clear) Urine pH 6.0 (5.0-8.0) Ur Specific Wilson 1.037 H (1.001-1.035) Urine Protein Trace H (Negative) Urine Glucose (UA) Negative (Negative) Urine Ketones Trace H (Negative) Urine Blood Trace H (Negative) Urine Nitrite Negative (Negative) Urine Bilirubin Negative (Negative) Urine Urobilinogen <2.0 (<2.0) mg/dL Ur Leukocyte Esterase Trace H (Negative) Urine RBC 4 (0-5) /hpf Urine WBC 1 (0-5) /hpf Ur Squamous Epith Cells 6 H (0-4) /hpf Urine Mucus Rare H (None) /hpf Disposition <Vania Albarran - Last Filed: 08/13/23 18:16> Is patient prescribed a controlled substance at d/c from ED?: No Time of Disposition: 21:35 <Celestine Dumont - Last Filed: 08/15/23 23:57> Clinical Impression: Abdominal colic, Abdominal pain, Ventral hernia Disposition: ADMITTED IP TO THIS HOSP Condition: Fair
[2023-08-13 18:37] LABS: Basophils # (A) 0.1 k/uL (0-0.2); Basophils % (A) 1 %; Eosinophils # (A) 0.2 k/uL (0-0.7); Eosinophils % (A) 2 %; HCT 41.4 % (34.0-46.0); HGB 13.5 gm/dL (11.4-16.0); Lymphocytes # (A) 3.8 k/uL (1.0-4.8); Lymphocytes % (A) 38 %; MCH 30.7 pg (25.0-35.0); MCHC 32.6 g/dL (31.0-37.0); MCV 94.4 fL (80.0-100.0); Mean Platelet Volume 7.3; Monocytes # (A) 0.7 k/uL (0-1.0); Monocytes % (A) 7 %; Neutrophils # (A) 4.8 k/uL (1.3-7.7); Neutrophils % (A) 48 %; Platelet Count 364 k/uL (150-450); RBC 4.39 m/uL (3.80-5.40); RDW 13.5 % (11.5-15.5); WBC 9.9 k/uL (3.8-10.6)
[2023-08-13 18:49] LABS: ALT 57 U/L (4-34); AST 46 U/L (14-36); African American GFR (CKD) 86 (>60 ml/min/1.73 sqM); Alkaline Phosphatase 95 U/L (38-126); Amylase 54 U/L (30-110); Anion Gap 10 mmol/L; Blood Urea Nitrogen 11 mg/dL (7-17); Calcium 9.4 mg/dL (8.4-10.2); Carbon Dioxide 24 mmol/L (22-30); Chloride 109 mmol/L (98-107); Glucose 137 mg/dL (74-99); Lipase 73 U/L (23-300); Non-African American GFR(CKD) 75 (>60 ml/min/1.73 sqM); Potassium 3.6 mmol/L (3.5-5.1); Sodium 143 mmol/L (137-145); Total Bilirubin 0.3 mg/dL (0.2-1.3); Total Protein 6.6 g/dL (6.3-8.2)
[2023-08-13] MEDS: ONDANSETRON 4 MG/2 ML VIAL IVP STA (20:04)
[2023-08-13] MEDS: HYDROmorphone 1 MG/ML 1 ML SYRINGE IVP STA ×2 (20:05→22:26)
[2023-08-13 20:08] LABS: Appearance,Urine Cloudy (Clear); Bilirubin,Urine Negative (Negative); Blood,Urine Trace (Negative); Color,Urine Yellow; Glucose,Urine (UA) Negative (Negative); Ketones,Urine Trace (Negative); Leukocyte Esterase,Urine Trace (Negative); Mucus,Urine Rare /hpf; Nitrite,Urine Negative (Negative); Protein,Urine Trace (Negative); RBC,Urine 4 /hpf (0-5); Specific Gravity,Urine 1.037 (1.001-1.035); Squamous Epithelial Cell,Urine 6 /hpf (0-4); Urobilinogen,Urine <2.0 mg/dL (<2.0); WBC,Urine 1 /hpf (0-5)
--- NOTE | 2023-08-13 21:05 | CT ---
EXAMINATION TYPE: CT abdomen pelvis wo con CT DLP: 811.3 mGycm, Automated exposure control for dose reduction was used. DATE OF EXAM: 08/13/2023 7:02 PM COMPARISON: None. CLINICAL INDICATION:Female, 62 years old with history of abd pain hx hernia; abdominal pain from [place] TECHNIQUE: Axial CT of the abdomen and pelvis. Sagittal and coronal reformats were created on a [employer] workstation. Contrast used: mL of , (none if empty) Oral contrast used: without Oral Contrast (none if empty) FINDINGS: Exam is limited without contrast. LOWER CHEST: Heart size upper normal. Prominent pericardial fat. Mild/moderate calcification of the v isualized coronary arteries and aortic valve. Dependent opacities in the lower lobes most suggestive of subsegmental atelectasis. Mildly prominent pleural fat. ABDOMEN LIVER: Unremarkable GALLBLADDER AND BILE DUCTS: The gallbladder is surgically absent. Biliary tree does not appear pathol ogically dilated. PANCREAS: Mildly atrophic without acute finding SPLEEN: Unremarkable. ADRENAL GLANDS: Unremarkable. KIDNEYS AND URETERS: No visualized calculi or hydroureteronephrosis. A handful of small partially exo phytic nodules of the left kidney, of various attenuation, probably combination of simple and protein aceous/hemorrhagic cysts. PELVIS BLADDER: Unremarkable REPRODUCTIVE: The uterus appears absent, correlate for hysterectomy. Ovaries are not seen, and may b e absent. No pelvic mass is suggested. ABDOMEN & PELVIS STOMACH AND BOWEL: Stomach is mildly distended with heterogenous material, likely food stuffs. Duoden um is nondistended. Likely small duodenal diverticulum with heterogeneous contents. Distal small alina l loops show no evidence of obstructive change. Appendix is not identified with certainty, however th ere is no inflammatory process seen in the RLQ. Mild/moderate stool is seen throughout the colon with out focal inflammatory process visualized. Anastomosis noted in the mid sigmoid region. There are a f ew mostly sigmoid diverticula. PERITONEUM/RETROPERITONEUM: No evidence of pneumoperitoneum or free fluid. VASCULATURE: Moderate atherosclerotic calcifications are present throughout the abdominal aorta and i ts branches. No evidence of aortic aneurysm. Numerous pelvic phleboliths. LYMPH NODES: No enlarged lymph nodes by CT criteria. SOFT TISSUE/ABDOMINAL WALL: There is a multilobulated hernia along the ventral abdominal wall close to midline. A more inferior component seen on image 63 has a broad neck about 5.9 cm and protrudes ab out 1.4 cm. Along its anterior aspect there is a thin flat structure which may represent fascia versu s herniorrhaphy mesh. Farther cranially, there is additional multilobulated hernia, containing mostly fat but in its midportion there is a short segment of bowel, apparently transverse colon, which prot rudes into the hernia. The hernia neck is relatively broad, 6.8 cm, and the hernia at this level is a bout 11 x 3.2 cm in size, while the protruding segment of colon is about 5.4 x 3.7 cm in total. There is no evidence of bowel obstruction or significant inflammatory changes within the hernia. MUSCULOSKELETAL: No acute osseous abnormalities. Mild/moderate disc degeneration changes are present throughout the thoracolumbar spine. Small radiodensities along the posterior aspect of the bilateral pubic bones near the symphysis appear to be postoperative. There is postoperative change/scarring along the anterior abdominal wall close to midline overlying t he hernias. No evidence of focal fluid collection. IMPRESSION: 1. Moderately large, lobulated ventral abdominal wall hernia, containing mostly fat but there is als o a protrusion of a short segment of transverse colon. No evidence of obstruction or inflammatory jordan nge. 2. Other chronic and likely incidental findings as above.
[2023-08-13] MEDS ORDERED: ONDANSETRON 4 MG/2 ML VIAL IVP PRN (22:14)
[2023-08-13] MEDS ORDERED: HYDROmorphone 1 MG/ML 1 ML SYRINGE IVP PRN (22:14)
[2023-08-13] MEDS ORDERED: NALOXONE 0.4 MG/ML 1 ML VIAL IV PRN (22:14)
[2023-08-13] MEDS: diphenhydrAMINE 50 MG/ML 1 ML VIAL IVP STA (22:26)
[2023-08-13] MEDS: diphenhydrAMINE 50 MG/ML 1 ML VIAL IVP PRN (22:27)
[2023-08-13] MEDS: SODIUM CHLORIDE 0.9% 1,000 ML IV SCH (23:00)
[2023-08-14] MEDS: HYDROmorphone 1 MG/ML 1 ML SYRINGE IVP PRN (00:54)
[2023-08-14] MEDS: QUEtiapine 200 MG TAB PO SCH (00:54)
[2023-08-14] MEDS: lamoTRIgine 100 MG TAB PO SCH (00:54)
[2023-08-14] MEDS: PRAZOSIN 1 MG CAP PO SCH (00:54)
[2023-08-14] MEDS: traZODone HCL 50 MG TAB PO SCH (00:54)
[2023-08-14 06:16] LABS: Basophils # (A) 0.1 k/uL (0-0.2); Basophils % (A) 1 %; Eosinophils # (A) 0.1 k/uL (0-0.7); Eosinophils % (A) 2 %; HCT 36.4 % (34.0-46.0); HGB 12.1 gm/dL (11.4-16.0); Lymphocytes # (A) 2.7 k/uL (1.0-4.8); Lymphocytes % (A) 28 %; MCH 31.8 pg (25.0-35.0); MCHC 33.2 g/dL (31.0-37.0); MCV 95.7 fL (80.0-100.0); Mean Platelet Volume 7.3; Monocytes # (A) 0.6 k/uL (0-1.0); Monocytes % (A) 7 %; Neutrophils # (A) 5.6 k/uL (1.3-7.7); Neutrophils % (A) 59 %; Platelet Count 307 k/uL (150-450); RBC 3.81 m/uL (3.80-5.40); RDW 13.5 % (11.5-15.5); WBC 9.4 k/uL (3.8-10.6)
[2023-08-14 06:30] LABS: ALT 53 U/L (4-34); AST 44 U/L (14-36); African American GFR (CKD) 80 (>60 ml/min/1.73 sqM); Albumin 3.2 g/dL (3.5-5.0); Alkaline Phosphatase 83 U/L (38-126); Anion Gap 6 mmol/L; Blood Urea Nitrogen 12 mg/dL (7-17); Calcium 8.7 mg/dL (8.4-10.2); Carbon Dioxide 24 mmol/L (22-30); Chloride 110 mmol/L (98-107); Glucose 101 mg/dL (74-99); Magnesium 1.9 mg/dL (1.6-2.3); Non-African American GFR(CKD) 69 (>60 ml/min/1.73 sqM); Phosphorus 3.4 mg/dL (2.5-4.5); Potassium 3.6 mmol/L (3.5-5.1); Sodium 140 mmol/L (137-145); Total Bilirubin 0.5 mg/dL (0.2-1.3); Total Protein 5.5 g/dL (6.3-8.2)
[2023-08-14] MEDS: PANTOPRAZOLE 40 MG/10 ML VIAL IV SCH (07:54)
[2023-08-14] MEDS: METOPROLOL SUCCINATE (ER) 100 MG TAB.ER.24H PO SCH (07:54)
[2023-08-14] MEDS: LOSARTAN 25 MG TAB PO SCH (07:54)
[2023-08-14] MEDS: ONDANSETRON 4 MG/2 ML VIAL IVP PRN (12:18)
--- NOTE | 2023-08-14 12:57 | P.GSCN ---
History of Present Illness Consult date: 08/14/23 History of present illness: CHIEF COMPLAINT: Abdominal pain HISTORY OF PRESENT ILLNESS: This is a 62-year-old female with a known history of ventral hernia x 1 months. Patient reports over the last few days she has had increase in abdominal pain. She reports she has had no bowel movement or flatus for about 3 days. Patient past surgical history does include diverticulitis with a sigmoid colectomy in April 2022, and prior cholecystectomy, C-sections x 2 and an exploratory laparotomy. Patient had a CT scan abdomen pelvis which had reported a moderate to large ventral hernia containing fat and transverse colon. No evidence of bowel obstruction. Patient had prior history of alcohol and marijuana use. She reports the last alcoholic drink and marijuana use was about 2 years ago. PAST MEDICAL HISTORY: See below PAST SURGICAL HISTORY: See below MEDICATIONS: See below ALLERGIES: See below SOCIAL HISTORY: Prior history of alcohol and marijuana use. Nicotine dependence REVIEW OF SYSTEMS: CONSTITUTIONAL: Denies fever or chills. HEENT: Denies blurred vision, vision changes, or eye pain. Denies hemoptysis CARDIOVASCULAR: Denies chest pain or pressure. RESPIRATORY: No shortness of breath. GASTROINTESTINAL: See HPI for pertinent findings HEMATOLOGIC: Denies bleeding disorders. GENITOURINARY: Denies any blood in urine or increased urinary frequency. SKIN: Denies pruitis. Denies rash. PHYSICAL EXAM: VITAL SIGNS: Reviewed GENERAL: Well-developed in no acute distress. ABDOMEN: Distended. Midline abdominal incision noted with ventral hernia more to the right. Tender with palpation. reducible NEUROLOGIC: Alert and oriented. Cranial nerves II through XII grossly intact. LABORATORY DATA: WBC 9.4 Hgb 12.1 platelets 307 Sodium 140 potassium 3.6 creatinine 0.90 Lactic acid 1.5 Magnesium 1.9 AST 44 ALT 53 lipase 73 IMAGING: CT scan abdomen pelvis reports moderately large lobulated ventral abdominal wall hernia containing mostly fat but there is also a protrusion of short segment of transverse colon. No evidence of obstruction or inflammatory change. Other chronic and likely incidental finding as above. ASSESSMENT: 1. Moderate to large ventral hernia containing fat and short segment of transverse colon. No evidence of obstruction noted on CAT scan PLAN: -No surgical intervention planned at this time -Start regular diet -Abdominal binder ordered -Patient could be discharged later today if tolerating diet and having bowel movements -Lactulose added to stimulate bowel movement Physician Goal Umpire note has been reviewed by physician. Signing provider agrees with the documented findings, assessment, and plan of care. Past Medical History Past Medical History: GI Bleed, Hypertension, Osteoarthritis (OA), Seizure Disorder Additional Past Medical History / Comment(s): diverticulitis, PSUEDO SIEZURES - LAST AUGUST 2021, RECENT TREATMENT FOR ALCOHOL AND MARIJUANA ABUSE AT [facility]. pancreatitis History of Any Multi-Drug Resistant Organisms: None Reported Past Surgical History: Appendectomy, Bladder Surgery, Bowel Resection, Section, Cholecystectomy, Hysterectomy Additional Past Surgical History / Comment(s): BILATERAL CATARACT SURGERY WITH IMPLANTS , open sigmoid colectomy . Past Anesthesia/Blood Transfusion Reactions: No Reported Reaction, Motion Sickness Past Psychological History: Anxiety, PTSD Smoking Status: Current every day smoker Past Alcohol Use History: None Reported Additional Past Alcohol Use History / Comment(s): STARTED SMOKING AT AGE 17 SMOKES 4 CIG A DAY. HISTORY OF ALCOHOL ABUSE WAS RECENTLY TREATED AT [facility]- LAST DRINK MAR 19 2022 Past Drug Use History: Marijuana Additional Drug Use History / Comment(s): LAST USED 03/19/22 - Past Family History Mother Family Medical History: Hypertension Medications and Allergies Home Medications Medication Instructions Recorded Confirmed Type Metoprolol Succinate [Toprol XL] 100 mg PO DAILY 05/02/22 08/13/23 History Omeprazole 20 mg PO BID 11/27/22 08/13/23 History Acetaminophen-Codeine 300-30mg 1 tab PO TID PRN 04/10/23 08/13/23 History [Tylenol w/codeine #3] Albuterol Inhaler [Ventolin Hfa 1 - 2 puff INHALATION RT-Q6H PRN 04/10/23 08/13/23 History Inhaler] Losartan [Cozaar] 25 mg PO DAILY 04/10/23 08/13/23 History Prazosin HCl 2 mg PO HS 04/10/23 08/13/23 History lamoTRIgine [LaMICtal] 100 mg PO BID 04/10/23 08/13/23 History Ipratropium-Albuterol Nebulize 3 ml INHALATION RT-QID PRN 30 Days 04/15/23 08/13/23 Rx [Duoneb 0.5 mg-3 mg/3 ml Soln] #120 each traZODone HCL [Desyrel] 150 mg PO HS 05/27/23 08/13/23 History Ondansetron Odt [Zofran Odt] 4 mg PO Q8HR PRN #16 tab 07/11/23 08/13/23 Rx Ciprofloxacin HCl [Cipro] 500 mg PO BID 7 Days #14 tab 08/06/23 08/13/23 Rx metroNIDAZOLE [Flagyl] 500 mg PO TID 7 Days #21 tab 08/06/23 08/13/23 Rx QUEtiapine FUMARATE [SEROquel] 600 mg PO HS 08/13/23 08/13/23 History Allergies Allergy/AdvReac Type Severity Reaction Status Date / Time Penicillins Allergy SWELLING Verified 08/13/23 21:07 OF LEGS Sulfa (Sulfonamide Allergy Rash/Hives Verified 08/13/23 21:07 Antibiotics) iodine AdvReac RAPID Verified 08/13/23 21:07 HEART BEAT morphine AdvReac Vomiting Verified 08/13/23 21:07 Surgical - Exam Vital Signs Temp Pulse Resp BP Pulse Ox 97.6 F 61 18 134/81 97 08/13/23 18:01 08/13/23 18:01 08/13/23 18:01 08/13/23 18:01 08/13/23 18:01 Results - Labs 08/14/23 05:38 08/14/23 05:38 Abnormal Lab Results - Last 24 Hours (Table) 08/13/23 08/13/23 08/14/23 Range/Units 18:22 19:40 05:38 Chloride 109 H 110 H (98-107) mmol/L Glucose 137 H 101 H (74-99) mg/dL AST 46 H 44 H (14-36) U/L ALT 57 H 53 H (4-34) U/L Total Protein 5.5 L (6.3-8.2) g/dL Albumin 3.2 L (3.5-5.0) g/dL Urine Appearance Cloudy H (Clear) Ur Specific [place] 1.037 H (1.001-1.035) Urine Protein Trace H (Negative) Urine Ketones Trace H (Negative) Urine Blood Trace H (Negative) Ur Leukocyte Esterase Trace H (Negative) Ur Squamous Epith Cells 6 H (0-4) /hpf Urine Mucus Rare H (None) /hpf Diabetes panel 08/13/23 08/14/23 Range/Units 18:22 05:38 Sodium 143 140 (137-145) mmol/L Potassium 3.6 3.6 (3.5-5.1) mmol/L Chloride 109 H 110 H (98-107) mmol/L Carbon Dioxide 24 24 (22-30) mmol/L BUN 11 12 (7-17) mg/dL Creatinine 0.84 0.90 (0.52-1.04) mg/dL Glucose 137 H 101 H (74-99) mg/dL Calcium 9.4 8.7 (8.4-10.2) mg/dL AST 46 H 44 H (14-36) U/L ALT 57 H 53 H (4-34) U/L Alkaline Phosphatase 95 83 (38-126) U/L Total Protein 6.6 5.5 L (6.3-8.2) g/dL Albumin 4.0 3.2 L (3.5-5.0) g/dL Calcium panel 08/13/23 08/14/23 Range/Units 18:22 05:38 Calcium 9.4 8.7 (8.4-10.2) mg/dL Phosphorus 3.4 (2.5-4.5) mg/dL Albumin 4.0 3.2 L (3.5-5.0) g/dL Pituitary panel 08/13/23 08/14/23 Range/Units 18:22 05:38 Sodium 143 140 (137-145) mmol/L Potassium 3.6 3.6 (3.5-5.1) mmol/L Chloride 109 H 110 H (98-107) mmol/L Carbon Dioxide 24 24 (22-30) mmol/L BUN 11 12 (7-17) mg/dL Creatinine 0.84 0.90 (0.52-1.04) mg/dL Glucose 137 H 101 H (74-99) mg/dL Calcium 9.4 8.7 (8.4-10.2) mg/dL Adrenal panel 08/13/23 08/14/23 Range/Units 18:22 05:38 Sodium 143 140 (137-145) mmol/L Potassium 3.6 3.6 (3.5-5.1) mmol/L Chloride 109 H 110 H (98-107) mmol/L Carbon Dioxide 24 24 (22-30) mmol/L BUN 11 12 (7-17) mg/dL Creatinine 0.84 0.90 (0.52-1.04) mg/dL Glucose 137 H 101 H (74-99) mg/dL Calcium 9.4 8.7 (8.4-10.2) mg/dL Total Bilirubin 0.3 0.5 (0.2-1.3) mg/dL AST 46 H 44 H (14-36) U/L ALT 57 H 53 H (4-34) U/L Alkaline Phosphatase 95 83 (38-126) U/L Total Protein 6.6 5.5 L (6.3-8.2) g/dL Albumin 4.0 3.2 L (3.5-5.0) g/dL
[2023-08-14] MEDS: LACTULOSE 20 GM/30 ML CUP PO SCH (14:33)
[2023-08-14] MEDS: LACTULOSE 20 GM/30 ML CUP ONE (14:33)
[2023-08-14] MEDS: HEPARIN SODIUM,PORCINE 5,000 UNIT/ML 1 ML VIAL SQ SCH (17:25)
--- NOTE | 2023-08-14 23:35 | P.HPIM ---
History of Present Illness H&P Date: 08/14/23 Chief Complaint: Abdominal pain Patient is a 62-year-old female with a past medical history of diverticulitis status post bowel resection, hypertension, history of GI bleed, seizure disorder, anxiety/PTSD, currently everyday smoker, history of alcohol abuse and marijuana use with recent rehab at [facility] presents to ER with complaints of abdominal pain for the past few days. Patient is also complaining of no bowel movement or flatus for the past 3 days. Denies any fever or chills. No cough or sputum production. Nausea. No signs of vomiting. No headache or dizziness or lightheadedness. Laboratory data showed WBC 9.9 hemoglobin 13.5 and platelets 364 Sodium 143 potassium 3.6 chloride 109 bicarb is 24 BUN 11 creatinine 0.84 and blood sugar 137 and AST 46 ALT 57 alk phos 95 Urinalysis showed cloudy with increased risk of gravity trace protein trace ketones and trace blood leukocyte esterase trace. WBCs 1. CT of the abdomen pelvis showed moderately large, lobulated ventral abdominal wall hernia containing mostly fat but there is also a protrusion of a short segment of the transverse colon. No evidence of obstruction inflammatory changes. Review of Systems Constitutional: Patient denies any fever or chills . No generalized weakness or weight loss. Abdomen: Patient does complain of nausea and abdominal pain. No vomiting no diarrhea. Cardiovascular: Patient denies any chest pain or short of breath no palpi tations. Respiratory: patient denied any cough is from production. No shortness of breath Neurologic: Patient denied any numbness or tingling headache. Musculoskeletal: Patient denies any complaints of joint swelling or deformity. Skin: Negative Psychiatric: Negative Endocrine: No heat or cold intolerance. No recent weight gain. Genitourinary: No dysuria or hematuria. All other 14 point ROS negative except the above Past Medical History Past Medical History: GI Bleed, Hypertension, Osteoarthritis (OA), Seizure Disorder Additional Past Medical History / Comment(s): diverticulitis, PSUEDO SIEZURES - LAST AUGUST 2021, RECENT TREATMENT FOR ALCOHOL AND MARIJUANA ABUSE AT [facility]. pancreatitis History of Any Multi-Drug Resistant Organisms: None Reported Past Surgical History: Appendectomy, Bladder Surgery, Bowel Resection, Section, Cholecystectomy, Hysterectomy Additional Past Surgical History / Comment(s): BILATERAL CATARACT SURGERY WITH IMPLANTS , open sigmoid colectomy . Past Anesthesia/Blood Transfusion Reactions: No Reported Reaction, Motion Sickness Past Psychological History: Anxiety, PTSD Smoking Status: Current every day smoker Past Alcohol Use History: None Reported Additional Past Alcohol Use History / Comment(s): STARTED SMOKING AT AGE 17 SMOKES 4 CIG A DAY. HISTORY OF ALCOHOL ABUSE WAS RECENTLY TREATED AT [facility]- LAST DRINK MAR 19 2022 Past Drug Use History: Marijuana Additional Drug Use History / Comment(s): LAST USED 03/19/22 - Past Family History Mother Family Medical History: Hypertension Medications and Allergies Home Medications Medication Instructions Recorded Confirmed Type Metoprolol Succinate [Toprol XL] 100 mg PO DAILY 05/02/22 08/13/23 History Omeprazole 20 mg PO BID 11/27/22 08/13/23 History Acetaminophen-Codeine 300-30mg 1 tab PO TID PRN 04/10/23 08/13/23 History [Tylenol w/codeine #3] Albuterol Inhaler [Ventolin Hfa 1 - 2 puff INHALATION RT-Q6H PRN 04/10/23 08/13/23 History Inhaler] Losartan [Cozaar] 25 mg PO DAILY 04/10/23 08/13/23 History Prazosin HCl 2 mg PO HS 04/10/23 08/13/23 History lamoTRIgine [LaMICtal] 100 mg PO BID 04/10/23 08/13/23 History Ipratropium-Albuterol Nebulize 3 ml INHALATION RT-QID PRN 30 Days 04/15/23 08/13/23 Rx [Duoneb 0.5 mg-3 mg/3 ml Soln] #120 each traZODone HCL [Desyrel] 150 mg PO HS 05/27/23 08/13/23 History Ondansetron Odt [Zofran Odt] 4 mg PO Q8HR PRN #16 tab 07/11/23 08/13/23 Rx Ciprofloxacin HCl [Cipro] 500 mg PO BID 7 Days #14 tab 08/06/23 08/13/23 Rx metroNIDAZOLE [Flagyl] 500 mg PO TID 7 Days #21 tab 08/06/23 08/13/23 Rx QUEtiapine FUMARATE [SEROquel] 600 mg PO HS 08/13/23 08/13/23 History Allergies Allergy/AdvReac Type Severity Reaction Status Date / Time Penicillins Allergy SWELLING Verified 08/13/23 21:07 OF LEGS Sulfa (Sulfonamide Allergy Rash/Hives Verified 08/13/23 21:07 Antibiotics) iodine AdvReac RAPID Verified 08/13/23 21:07 HEART BEAT morphine AdvReac Vomiting Verified 08/13/23 21:07 Physical Exam Vitals: Vital Signs Temp Pulse Pulse Pulse Resp BP BP 08/14/23 07:47 98.0 F 74 19 124/74 08/14/23 01:12 72 132/80 08/13/23 22:30 64 16 122/83 08/13/23 19:32 68 18 133/104 08/13/23 18:01 97.6 F 61 18 134/81 Pulse Ox 08/14/23 07:47 91 L 08/14/23 01:12 91 L 08/13/23 22:30 95 08/13/23 19:32 95 08/13/23 18:01 97 Intake and Output 08/13/23 08/14/23 08/14/23 22:59 06:59 14:59 Other: # Voids 2 Weight 87.09 kg 87.09 kg PHYSICAL EXAMINATION: Patient is lying in the bed comfortably, no acute distress, awake alert and oriented.. HEENT: Normocephalic. Neck is supple. Pupils reactive. Nostrils clear. Oral cavity is moist. Neck reveals no JVD, carotid bruits, or thyromegaly. CHEST EXAMINATION: Trachea is central. Symmetrical expansion. Lung cota clear to auscultation and percussion. CARDIAC: Normal S1, S2 with no gallops. No murmurs ABDOMEN: Soft. Bowel sounds present. Mild tenderness anterior abdominal wall. No guarding or rigidity. Midline incision with incisional hernia noted.. No organomegaly. No abdominal bruits. Extremities: reveal no edema. No clubbing or cyanosis Neurologically awake, alert, oriented x3 with well-coordinated movements. No focal deficits noted Skin: No rash or skin lesions. Psychiatric: Coperative. Nonsuicidal Musculoskeletal: No joint swelling or deformity. Normal range of motion. Results CBC & Chem 7: 08/14/23 05:38 08/14/23 05:38 Labs: Abnormal Lab Results - Last 24 Hours (Table) 03/19/24 03/19/24 03/20/24 Range/Units 18:22 19:40 05:38 Chloride 109 H 110 H (98-107) mmol/L Glucose 137 H 101 H (74-99) mg/dL AST 46 H 44 H (14-36) U/L ALT 57 H 53 H (4-34) U/L Total Protein 5.5 L (6.3-8.2) g/dL Albumin 3.2 L (3.5-5.0) g/dL Urine Appearance Cloudy H (Clear) Ur Specific [place] 1.037 H (1.001-1.035) Urine Protein Trace H (Negative) Urine Ketones Trace H (Negative) Urine Blood Trace H (Negative) Ur Leukocyte Esterase Trace H (Negative) Ur Squamous Epith Cells 6 H (0-4) /hpf Urine Mucus Rare H (None) /hpf Thrombosis Risk Factor Assmnt - DVT/VTE Prophylaxis DVT/VTE Prophylaxis: Pharmacologic Prophylaxis ordered - Choose All That Apply Any of the Below Risk Factors Present?: Yes Each Factor Represents 1 point: Obesity (BMI >25) Other Risk Factors: Yes Each Risk Factor Represents 2 Points: Age 61-74 years Thrombosis Risk Factor Assessment Total Risk Factor Score: 3 Thrombosis Risk Factor Assessment Level: Moderate Risk Assessment and Plan Assessment: Abdominal pain secondary to lobulated moderately large ventral abdominal wall hernia containing mostly fat and also small protrusion of the short segment of the transverse colon. No evidence of obstruction. Diverticulitis with history of partial colectomy Hypertension Osteoarthritis History of seizure disorder/pseudoseizures Anxiety/PTSD Currently with a smoker Alcohol abuse and marijuana use patient was at [place] [facility] re[facility] recently. Obesity with BMI 35.1 DVT prophylaxis with heparin subcu Plan: Patient will be continued on IV hydration with normal saline. Continue with pain management. No evidence of obstruction noted on this CAT scan. Patient was started on oral diet and continue to monitor. General surgery is on board. No surgical intervention at this time. Continue with home medications and follow-up closely. Time with Patient: Greater than 30
[2023-08-15 11:16] LABS: Basophils # (A) 0.05 X 10*3/uL (0.00-0.10); Basophils % (A) 0.6 %; Eosinophils # (A) 0.13 X 10*3/uL (0.04-0.35); Eosinophils % (A) 1.5 %; HCT 38.3 % (37.2-46.3); HGB 12.5 g/dL (12.0-15.0); Lymphocytes # (A) 3.08 X 10*3/uL (0.90-5.00); Lymphocytes % (A) 36.3 %; MCHC 32.6 g/dL (32.0-37.0); Mean Platelet Volume 9.9 FL (9.5-12.2); Monocytes # (A) 0.51 X 10*3/uL (0.20-1.00); NRBC Per 100 WBC 0 X 10*3/uL (0.00-0.01); Neutrophils # (A) 4.68 X 10*3/uL (1.80-7.70); Neutrophils % (A) 55.2 %; Platelet Count 297 X 10*3/uL (140-440); RBC 4.03 X 10*6/uL (4.10-5.20); RDW 13.2 % (11.5-14.5); WBC 8.48 X 10*3/uL (4.50-10.00)
[2023-08-15 11:43] LABS: ALT 60 U/L (8-44); AST 48 U/L (13-35); Albumin 3.8 g/dL (3.8-4.9); Albumin/Globulin Ratio 1.81 Ratio (1.60-3.17); Alkaline Phosphatase 87 U/L (41-126); BUN/Creat Ratio 11.33 Ratio (12.00-20.00); Blood Urea Nitrogen 10.2 mg/dL (9.0-27.0); Calcium 8.9 mg/dL (8.7-10.3); Carbon Dioxide 22.9 mmol/L (21.6-31.8); Chloride 108 mmol/L (96-109); Globulin 2.1 g/dL (1.6-3.3); Glucose 108 mg/dL (70-110); Potassium 4.4 mmol/L (3.5-5.5); Sodium 142 mmol/L (135-145); Total Bilirubin 0.3 mg/dL (0.3-1.2); Total Protein 5.9 g/dL (6.2-8.2)
--- NOTE | 2023-08-15 11:50 | P.PN ---
Subjective Progress Note Date: 08/15/23 CHIEF COMPLAINT: Ventral hernia HISTORY OF PRESENT ILLNESS: Patient continues to complain of abdominal pain. She is requiring the IV Dilaudid every 3 hours. Patient reports decreased appetite. Patient reports having pain after eating. She reports only eating a small amount. Nurse did report that she was able to eat a sandwich for lunch and that she ate for dinner. Patient did have bowel movement. Afebrile. WBC 8.48 Hgb 12.5 platelets 297 sodium is 142 potassium 4.4 creatinine 0.9 PHYSICAL EXAM: VITAL SIGNS: Reviewed. GENERAL: Well-developed in no acute distress. HEENT: No sclera icterus. Extraocular movements grossly intact. Moist buccal mucosa. Head is atraumatic, normocephalic. ABDOMEN: Distended. Ventral hernia to the right of the midline abdominal incision tender with palpation NEUROLOGIC: Alert and oriented. Cranial nerves II through XII grossly intact. ASSESSMENT: 1. Moderate to large ventral hernia containing fat and short segment of transverse colon. No evidence of obstruction noted on CAT scan PLAN: -Due to patient continuing to have pain and requiring pain medication. Will downgrade diet to n.p.o. -Continue to monitor -Further recommendations forthcoming per surgeon Physician Bilingual Research Interviewer note has been reviewed by physician. Signing provider agrees with the documented findings, assessment, and plan of care. I have personally seen and examined the patient, reviewed the COLORING ROOM WORKER /PAs history, exam and MDM and agree with the assessment and plan as written. Based on total visit time, I have performed more than 50% of the visit. As above: Patient with more abdominal bloating today. She did move her bowels however. Still having some pain. The primary hernia where the transverse colon is present still is reducible on exam. Will check abdominal x-ray. Agree with n.p.o. status. Objective - Vital Signs Vital signs: Vital Signs Temp 98.0 F 08/15/23 07:28 Pulse 77 08/15/23 07:28 Resp 17 08/15/23 07:28 BP 145/76 08/15/23 07:28 Pulse Ox 92 L 08/15/23 07:28 FiO2 Intake & Output 08/14/23 08/15/23 08/15/23 18:59 06:59 18:59 Other: # Voids 4 2 # Bowel Movements 1 - Labs CBC & Chem 7: 08/15/23 06:39 08/15/23 06:39 Labs: Abnormal Lab Results - Last 24 Hours (Table) 08/15/23 08/15/23 Range/Units 06:39 06:39 RBC 4.03 L (4.10-5.20) X 10*6/uL BUN/Creatinine Ratio 11.33 L (12.00-20.00) Ratio AST 48 H (13-35) U/L ALT 60 H (8-44) U/L Total Protein 5.9 L (6.2-8.2) g/dL
--- NOTE | 2023-08-15 17:54 | XR ---
EXAMINATION TYPE: XR abdomen 2V DATE OF EXAM: 08/15/2023 4:39 PM CLINICAL INDICATION:Female, 62 years old with history of bloating; [facility] COMPARISON: None. TECHNIQUE: Two views of the abdomen were obtained. FINDINGS: The bowel gas pattern is nonspecific without dilated loops of small or large bowel. There i s no evidence for organomegaly or pneumoperitoneum. The osseous structures are intact. No abnormal calcifications are present. Fecal material and gas are demonstrated throughout the colon and rectum. Right upper quadrant cholecystectomy clips. IMPRESSION: Nonspecific bowel gas pattern without radiographic evidence for acute process.
[2023-08-16] MEDS: IPRATROPIUM-ALBUTEROL 3 ML NEB INHALATION PRN (07:59)
[2023-08-16 08:16] LABS: Basophils % (A) 1 %; Eosinophils # (A) 0.1 k/uL (0-0.7); Eosinophils % (A) 2 %; HCT 37.3 % (34.0-46.0); HGB 11.9 gm/dL (11.4-16.0); Lymphocytes # (A) 2.3 k/uL (1.0-4.8); Lymphocytes % (A) 32 %; MCH 30.6 pg (25.0-35.0); MCHC 31.9 g/dL (31.0-37.0); MCV 95.9 fL (80.0-100.0); Mean Platelet Volume 8.6; Monocytes # (A) 0.5 k/uL (0-1.0); Monocytes % (A) 7 %; Neutrophils # (A) 3.9 k/uL (1.3-7.7); Neutrophils % (A) 54 %; Platelet Count 278 k/uL (150-450); RBC 3.89 m/uL (3.80-5.40); RDW 13.7 % (11.5-15.5); WBC 7.3 k/uL (3.8-10.6)
[2023-08-16 08:28] LABS: African American GFR (CKD) >90 (>60 ml/min/1.73 sqM); Anion Gap 5 mmol/L; Blood Urea Nitrogen 5 mg/dL (7-17); Calcium 8.7 mg/dL (8.4-10.2); Carbon Dioxide 25 mmol/L (22-30); Chloride 111 mmol/L (98-107); Glucose 91 mg/dL (74-99); Non-African American GFR(CKD) 83 (>60 ml/min/1.73 sqM); Potassium 4.1 mmol/L (3.5-5.1); Sodium 141 mmol/L (137-145)
--- NOTE | 2023-08-16 11:05 | P.PN ---
Subjective Progress Note Date: 08/16/23 Principal diagnosis: Abdominal pain Patient did well overnight. Still experiencing some abdominal pain and bloating. She says she had loose stools. Apparently she has refused the last 3 doses of lactulose because of a loose stool that she had and concern regarding possible incontinence. Her x-ray however yesterday afternoon still shows some proximal colonic constipation. No significant bowel distention on X-rays yesterday. She is hungry. Still asking for Dilaudid however. White blood cell count is normal. Objective - Vital Signs Vital signs: Vital Signs Temp 97.5 F L 08/16/23 08:00 Pulse 72 08/16/23 08:09 Resp 18 08/16/23 08:00 BP 148/79 08/16/23 08:00 Pulse Ox 94 L 08/16/23 02:05 FiO2 Intake & Output 08/15/23 08/16/23 08/16/23 18:59 06:59 18:59 Intake Total 900 Balance 900 Intake: Intake, IV Titration 900 Amount Sodium Chloride 0.9% 1, 900 000 ml @ 75 mls/hr IV . [id number] [facility] Rx#:[id number] Oral 0 Other: Voiding Method Toilet # Voids 3 1 - Exam Abdomen: Soft, mild distention, mild tenderness at hernia sites, largest hernia where transverse colon seen on CAT scan reducible by palpation - Labs CBC & Chem 7: 08/16/23 06:49 08/16/23 06:49 Labs: Abnormal Lab Results - Last 24 Hours (Table) 08/15/23 08/15/23 08/16/23 Range/Units 06:39 06:39 06:49 RBC 4.03 L (4.10-5.20) X 10*6/uL Chloride 111 H (98-107) mmol/L BUN 5 L (7-17) mg/dL BUN/Creatinine Ratio 11.33 L (12.00-20.00) Ratio AST 48 H (13-35) U/L ALT 60 H (8-44) U/L Total Protein 5.9 L (6.2-8.2) g/dL Assessment and Plan (1) Abdominal pain Narrative/Plan: 62-year-old female with abdominal pain and known large abdominal wall hernias. Suspect some of the patient's pain is still coming from her constipation. The incisional hernia containing transverse colon remains reducible. Favor outpatient elective tertiary care repair of this large abdominal wall hernia. Will resume liquid diet at this time. If patient's pain improves and having good bowel function with no significant bloating symptoms may discharge over the weekend. Our office is making arrangements for patient to be seen at [facility] by a hernia specialist there. Discussed with patient that further weight loss and smoking cessation required prior to surgery for optimal outcome. Patient is still agreeable with that plan. Increase activity today. Patient will resume taking lactulose. I have ordered repeat abdominal x-rays in the event that the patient's symptoms have not improved to be performed on Saturday. Current Visit: Yes Status: Acute Code(s): R10.9 - UNSPECIFIED ABDOMINAL PAIN SNOMED Code(s): 90020616
--- NOTE | 2023-08-17 | P.PN ---
Subjective Progress Note Date: 08/15/23 Patient is a 62-year-old female with a past medical history of diverticulitis status post bowel resection, hypertension, history of GI bleed, seizure disorder, anxiety/PTSD, currently everyday smoker, history of alcohol abuse and marijuana use with recent rehab at [facility] presents to ER with complaints of abdominal pain for the past few days. Patient is also complaining of no bowel movement or flatus for the past 3 days. Denies any fever or chills. No cough or sputum production. Nausea. No signs of vomiting. No headache or dizziness or lightheadedness. Laboratory data showed WBC 9.9 hemoglobin 13.5 and platelets 364 Sodium 143 potassium 3.6 chloride 109 bicarb is 24 BUN 11 creatinine 0.84 and blood sugar 137 and AST 46 ALT 57 alk phos 95 Urinalysis showed cloudy with increased risk of gravity trace protein trace ketones and trace blood leukocyte esterase trace. WBCs 1. CT of the abdomen pelvis showed moderately large, lobulated ventral abdominal wall hernia containing mostly fat but there is also a protrusion of a short segment of the transverse colon. No evidence of obstruction inflammatory changes. 08/15/2023 Patient is lying in the bed. Awake alert and oriented. Still had complaints of abdominal pain. Requiring IV Dilaudid every 3 hours. Not eating well. However patient did have a bowel movement today. No complaints of fever or chills. Laboratory data showed WBC 8.4 hemoglobin 12.5 and platelets 297 Sodium 142 potassium 4.4 chloride 108 bicarb is 22.9 BUN 10.2 and creatinine 0.9 and blood sugar 108 11 yesterday AST 48 ALT 16 alk phos 87 and albumin 3.8. General surgery is on board. Objective - Vital Signs Vital signs: Vital Signs Temp 98.0 F 08/15/23 07:28 Pulse 77 08/15/23 07:28 Resp 17 08/15/23 07:28 BP 145/76 08/15/23 07:28 Pulse Ox 92 L 08/15/23 07:28 FiO2 Intake & Output 08/14/23 08/15/23 08/15/23 18:59 06:59 18:59 Other: # Voids 4 2 # Bowel Movements 1 - Exam PHYSICAL EXAMINATION: Patient is lying in the bed comfortably, no acute distress, awake alert and oriented.. HEENT: Normocephalic. Neck is supple. Pupils reactive. Nostrils clear. Oral cavity is moist. Neck reveals no JVD, carotid bruits, or thyromegaly. CHEST EXAMINATION: Trachea is central. Symmetrical expansion. Lung cota clear to auscultation and percussion. CARDIAC: Normal S1, S2 with no gallops. No murmurs ABDOMEN: Soft. Bowel sounds present. Mild tenderness anterior abdominal wall. No guarding or rigidity. Midline incision with incisional hernia noted.. No organomegaly. No abdominal bruits. Extremities: reveal no edema. No clubbing or cyanosis Neurologically awake, alert, oriented x3 with well-coordinated movements. No focal deficits noted Skin: No rash or skin lesions. Psychiatric: Coperative. Nonsuicidal Musculoskeletal: No joint swelling or deformity. Normal range of motion. - Labs CBC & Chem 7: 08/16/23 06:49 08/16/23 06:49 Labs: Abnormal Lab Results - Last 24 Hours (Table) 08/15/23 08/15/23 Range/Units 06:39 06:39 RBC 4.03 L (4.10-5.20) X 10*6/uL BUN/Creatinine Ratio 11.33 L (12.00-20.00) Ratio AST 48 H (13-35) U/L ALT 60 H (8-44) U/L Total Protein 5.9 L (6.2-8.2) g/dL Assessment and Plan Assessment: Abdominal pain secondary to lobulated moderately large ventral abdominal wall hernia containing mostly fat and also small protrusion of the short segment of the transverse colon. No evidence of obstruction. Diverticulitis with history of partial colectomy Hypertension Osteoarthritis History of seizure disorder/pseudoseizures Anxiety/PTSD Currently with a smoker Alcohol abuse and marijuana use patient was at [place] [facility] recently. Obesity with BMI 35.1 DVT prophylaxis with heparin subcu Plan: Patient will be continued on IV hydration with normal saline. Patient continues to have pain. Currently made NPO. Continue with pain management. No evidence of obstruction noted on this CAT scan. General surgery is on board. No surgical intervention at this time. Continue with home medications and follow-up closely.
--- NOTE | 2023-08-17 00:03 | P.PN ---
Subjective Progress Note Date: 08/16/23 Patient is a 62-year-old female with a past medical history of diverticulitis status post bowel resection, hypertension, history of GI bleed, seizure disorder, anxiety/PTSD, currently everyday smoker, history of alcohol abuse and marijuana use with recent rehab at [facility] presents to ER with complaints of abdominal pain for the past few days. Patient is also complaining of no bowel movement or flatus for the past 3 days. Denies any fever or chills. No cough or sputum production. Nausea. No signs of vomiting. No headache or dizziness or lightheadedness. Laboratory data showed WBC 9.9 hemoglobin 13.5 and platelets 364 Sodium 143 potassium 3.6 chloride 109 bicarb is 24 BUN 11 creatinine 0.84 and blood sugar 137 and AST 46 ALT 57 alk phos 95 Urinalysis showed cloudy with increased risk of gravity trace protein trace ketones and trace blood leukocyte esterase trace. WBCs 1. CT of the abdomen pelvis showed moderately large, lobulated ventral abdominal wall hernia containing mostly fat but there is also a protrusion of a short segment of the transverse colon. No evidence of obstruction inflammatory changes. 08/15/2023 Patient is lying in the bed. Awake alert and oriented. Still had complaints of abdominal pain. Requiring IV Dilaudid every 3 hours. Not eating well. However patient did have a bowel movement today. No complaints of fever or chills. Laboratory data showed WBC 8.4 hemoglobin 12.5 and platelets 297 Sodium 142 potassium 4.4 chloride 108 bicarb is 22.9 BUN 10.2 and creatinine 0.9 and blood sugar 108 11 yesterday AST 48 ALT 16 alk phos 87 and albumin 3.8. General surgery is on board. 08/16/2023 Patient is resting in the bed. Did have loose stools. Also complains of abdominal pain and bloating sensation. Patient refused to take last 3 doses of lactulose due to concern for incontinence. Abdominal x-ray yesterday evening showed nonspecific bowel gas pattern without radiographic evidence for acute process. Patient was started back on clear liquid diet today. Laboratory data showed sodium 141 potassium 4.1 chloride 111 bicarb is 25 BUN 5 and creatinine 0.77 and blood sugar 83. Calcium 8.7. General surgery is on board. Current medications reviewed. Objective - Vital Signs Vital signs: Vital Signs Temp 97.8 F 08/16/23 19:27 Pulse 72 08/16/23 19:27 Resp 18 08/16/23 19:27 BP 167/82 08/16/23 19:27 Pulse Ox 95 08/16/23 19:27 FiO2 Intake & Output 08/16/23 08/16/23 08/17/23 06:59 18:59 06:59 Intake Total 900 Balance 900 Intake: Intake, IV Titration 900 Amount Sodium Chloride 0.9% 1, 900 000 ml @ 75 mls/hr IV . [id number] [facility] Rx#:[id number] Oral 0 Other: Voiding Method Toilet Toilet # Voids 1 6 - Exam PHYSICAL EXAMINATION: Patient is lying in the bed comfortably, no acute distress, awake alert and oriented.. HEENT: Normocephalic. Neck is supple. Pupils reactive. Nostrils clear. Oral cavity is moist. Neck reveals no JVD, carotid bruits, or thyromegaly. CHEST EXAMINATION: Trachea is central. Symmetrical expansion. Lung cota clear to auscultation and percussion. CARDIAC: Normal S1, S2 with no gallops. No murmurs ABDOMEN: Soft. Bowel sounds present. Mild tenderness anterior abdominal wall. No guarding or rigidity. Midline incision with incisional hernia noted.. No organomegaly. No abdominal bruits. Extremities: reveal no edema. No clubbing or cyanosis Neurologically awake, alert, oriented x3 with well-coordinated movements. No focal deficits noted Skin: No rash or skin lesions. Psychiatric: Coperative. Nonsuicidal Musculoskeletal: No joint swelling or deformity. Normal range of motion. - Labs CBC & Chem 7: 08/16/23 06:49 08/16/23 06:49 Labs: Abnormal Lab Results - Last 24 Hours (Table) 08/16/23 Range/Units 06:49 Chloride 111 H (98-107) mmol/L BUN 5 L (7-17) mg/dL Assessment and Plan Assessment: Abdominal pain secondary to lobulated moderately large ventral abdominal wall hernia containing mostly fat and also small protrusion of the short segment of the transverse colon. No evidence of obstruction. Diverticulitis with history of partial colectomy Hypertension Osteoarthritis History of seizure disorder/pseudoseizures Anxiety/PTSD Currently with a smoker Alcohol abuse and marijuana use patient was at [place] [facility] recently. Obesity with BMI 35.1 DVT prophylaxis with heparin subcu Plan: Patient will be continued on IV hydration with normal saline. Patient continues to have pain but improving. Patient was started back on clear liquid diet. Abdominal x-ray yesterday showed nonobstructive bowel gas pattern. Continue with pain management. No evidence of obstruction noted on this CAT scan. General surgery is on board. No surgical intervention at this time. Continue with home medications and follow-up closely. Time with Patient: Greater than 30
[2023-08-17 10:01] LABS: BUN/Creat Ratio 4.56 Ratio (12.00-20.00); Blood Urea Nitrogen 4.1 mg/dL (9.0-27.0); Calcium 8.9 mg/dL (8.7-10.3); Chloride 107 mmol/L (96-109); Glucose 96 mg/dL (70-110); Sodium 142 mmol/L (135-145)
--- NOTE | 2023-08-17 12:41 | P.PN ---
Subjective Progress Note Date: 08/17/23 No acute events overnight. Complains of mild abdominal pain overall improved compared to prior. No nausea or vomiting. Endorses flatus. Tolerating liquid diet without issue. Ambulatory to the bathroom and voiding spontaneously. Objective - Vital Signs Vital signs: Vital Signs Temp 98.6 F 08/17/23 07:28 Pulse 84 08/17/23 07:28 Resp 17 08/17/23 07:28 BP 150/83 08/17/23 07:28 Pulse Ox 91 L 08/17/23 07:28 FiO2 Intake & Output 08/16/23 08/17/23 08/17/23 18:59 06:59 18:59 Other: Voiding Method Toilet Toilet Toilet # Voids 6 4 - Exam Gen: AxO, NAD Pulm: non-labored respirations Abd: soft, mildy-tender diffusely, mildly-distended. Reducible ventral hernia appreciated. No guarding/rebound/rigidity Extrem: no edema seen - Labs CBC & Chem 7: 08/16/23 06:49 08/17/23 05:59 Labs: Abnormal Lab Results - Last 24 Hours (Table) 08/17/23 Range/Units 05:59 BUN 4.1 L (9.0-27.0) mg/dL BUN/Creatinine Ratio 4.56 L (12.00-20.00) Ratio Assessment and Plan Assessment: Patient is a 62-year-old female with diastasis recti as well as large reducible ventral hernia. Plan: -CLD advance as tolerated -PRN nausea and pain control -Encourage ambulation -Care per primary -DVT/GI PPx -No acute surgical intervention David Alonzo MD General Surgery
[2023-08-17] MEDS: ALBUTEROL NEBULIZED 2.5 MG/3 ML INHALATION PRN (15:34)
--- NOTE | 2023-08-17 15:50 | CT ---
EXAMINATION TYPE: CT brain wo con CT DLP: 1115 mGycm, Automated exposure control for dose reduction was used. DATE OF EXAM: 08/17/2023 3:13 PM COMPARISON: None. CLINICAL INDICATION:Female, 62 years old with history of confusion that is not pt's baseline, Abnorma l confusion. TECHNIQUE: Brain: Axial CT images of the brain were obtained with coronal and sagittal reformats created and rev iewed. Contrast used: None. Oral contrast used: None. FINDINGS: Extra-axial spaces: No abnormal extra-axial fluid collections. Ventricular system: Within normal limits. Cerebral parenchyma: No increased attenuation to suggest acute intraparenchymal hemorrhage. The gra y-white matter interface appears maintained. Mild generalized brain atrophy. Scattered hypoattenuat ing areas are seen within the cerebral white matter, nonspecific but most often seen with chronic garrick rovascular ischemic changes; mild in degree. Cerebellum: No acute abnormality. Mass effect: No evidence of mass effect or midline shift. Intracranial vasculature: Atherosclerotic calcifications of the larger arteries near the skull base. Soft tissues: No acute or concerning abnormality. Visualized orbits: Orbital contents appear grossly intact. There has likely been previous lens surg ángel. Calvarium/osseous structures: No evidence of calvarial fracture. Incomplete fusion of C1 along the po sterior arch close to midline, developmental variant. Paranasal sinuses and mastoid air cells: Mild frothy secretions left sphenoid sinus. Otherwise clear. MRI is more sensitive for detecting acute processes such as infarct, and may be considered if clinica lly warranted. IMPRESSION: 1. No CT evidence of an acute intracranial abnormality. 2. Mild atrophy and chronic microvascular ischemic white matter changes. 3. Frothy secretions left sphenoid sinus, correlate for acute sinus disease.
[2023-08-17] MEDS: HYDROcodone/APAP 5-325MG 1 EACH TAB PO PRN (17:02)
--- NOTE | 2023-08-17 19:25 | PN ---
PROGRESS NOTE DATE OF SERVICE: 08/17/2023 SUBJECTIVE: This is a 62-year-old woman, who was admitted with severe abdominal pain, secondary to lobulated moderately large ventral hernia, containing mostly fat and some protrusions transverse colon with no evidence of obstruction, is being closely monitored. No chest pain. No palpitation. The patient was seen by Surgery. Recommend a downgrade diet, n.p.o. Labs are normal. PHYSICAL EXAMINATION: VITAL SIGNS: Pulse is 69, blood pressuren, respirations 17. CHEST: Clear to auscultation. CARDIOVASCULAR: S1, S1. ABDOMEN: Soft. Distended. Mild diffuse tenderness. No guarding. No rigidity. LEGS: No edema_ LABORATORY DATA: Reviewed. IMAGING DATA: The CAT scan of the abdomen and pelvis also reviewed. ASSESSMENT: 1. Severe abdominal pain with moderately large lobulated ventral hernia, containing mostly fat with some protrusions transverse colon. No evidence of obstruction. 2. History of gastrointestinal bleed. 3. Hypertension. 4. History of degenerative joint disease. 5. Seizure disorder and pseudoseizures. 6. Multiple complex medical issues. RECOMMENDATIONS AND DISCUSSION: This 62-year-old woman presented with multiple complex medical issues. We will monitor the patient closely. Continue the pain management. Closely follow with Surgery. Diet per surgery. Resume the rest of medications. DVT prophylaxis. Guarded prognosis. Further recommendations to follow. MMODL / IJN: [id number] / MTDD
--- NOTE | 2023-08-18 07:23 | XR ---
Abdomen. HISTORY: Follow-up bloating. COMPARISON: 08/15/2023. TECHNIQUE: 4 views of the abdomen were obtained including upright and supine views. FINDINGS: The lung bases are clear. Is no free air beneath the diaphragm. There are surgical changes right upper quadrant consistent with cholecystectomy. Bowel gas pattern is nonspecific and there is no evidence of obstruction. No suspicious abdominal calcifications are seen. Osseous structures are grossly intact. IMPRESSION: Nonspecific abdomen. No free air or obstruction. No interval change.
[2023-08-18 10:03] LABS: Basophils # (A) 0.03 X 10*3/uL (0.00-0.10); Basophils % (A) 0.5 %; Eosinophils # (A) 0.16 X 10*3/uL (0.04-0.35); Eosinophils % (A) 2.5 %; HCT 32.3 % (37.2-46.3); HGB 10.5 g/dL (12.0-15.0); Lymphocytes # (A) 2.17 X 10*3/uL (0.90-5.00); Lymphocytes % (A) 34.4 %; MCH 30.8 pg (27.0-32.0); MCHC 32.5 g/dL (32.0-37.0); MCV 94.7 FL (80.0-97.0); Mean Platelet Volume 9.8 FL (9.5-12.2); Monocytes # (A) 0.47 X 10*3/uL (0.20-1.00); Monocytes % (A) 7.5 %; NRBC Per 100 WBC 0 X 10*3/uL (0.00-0.01); Neutrophils # (A) 3.45 X 10*3/uL (1.80-7.70); Neutrophils % (A) 54.8 %; Platelet Count 278 X 10*3/uL (140-440); RBC 3.41 X 10*6/uL (4.10-5.20); RDW 13.5 % (11.5-14.5)
[2023-08-18 10:18] LABS: ALT 36 U/L (8-44); AST 24 U/L (13-35); Albumin 3.5 g/dL (3.8-4.9); Albumin/Globulin Ratio 1.84 Ratio (1.60-3.17); Alkaline Phosphatase 85 U/L (41-126); BUN/Creat Ratio 4.44 Ratio (12.00-20.00); Calcium 9.1 mg/dL (8.7-10.3); Chloride 110 mmol/L (96-109); Globulin 1.9 g/dL (1.6-3.3); Glucose 94 mg/dL (70-110); Potassium 3.6 mmol/L (3.5-5.5); Sodium 144 mmol/L (135-145); Total Bilirubin 0.6 mg/dL (0.3-1.2); Total Protein 5.4 g/dL (6.2-8.2)
--- NOTE | 2023-08-18 15:55 | P.PN ---
Subjective Progress Note Date: 08/18/23 Patient reports epigastric pain however she wants to go home. She is aware for outpatient management for her symptomatic incisional hernia. No acute surgical invention at this time. Abdominal binder in place. Hernia is reducible. No skin changes or strangulation noted. Possible repeat CT scan was discussed. Objective - Vital Signs Vital signs: Vital Signs Temp 98.6 F 08/18/23 13:47 Pulse 64 08/18/23 13:47 Resp 17 08/18/23 13:47 BP 118/74 08/18/23 13:47 Pulse Ox 93 L 08/18/23 13:47 FiO2 Intake & Output 08/17/23 08/18/23 08/18/23 18:59 06:59 18:59 Other: Voiding Method Toilet Toilet # Voids 4 3 # Bowel Movements 1 1 - Labs CBC & Chem 7: 08/18/23 05:24 08/18/23 05:24 Labs: Abnormal Lab Results - Last 24 Hours (Table) 08/17/23 08/18/23 08/18/23 Range/Units 05:59 05:24 05:24 RBC 3.41 L (4.10-5.20) X 10*6/uL Hgb 10.5 L (12.0-15.0) g/dL Hct 32.3 L (37.2-46.3) % Chloride 110 H (96-109) mmol/L BUN 4.0 L (9.0-27.0) mg/dL BUN/Creatinine Ratio 4.44 L (12.00-20.00) Ratio C-Reactive Protein 4.40 H (0.00-0.80) mg/dL Total Protein 5.4 L (6.2-8.2) g/dL Albumin 3.5 L (3.8-4.9) g/dL
--- NOTE | 2023-08-18 20:44 | P.CONS ---
History of Present Illness - Reason for Consult Consult date: 08/18/23 High CRP Requesting physician: Nagi Fierro - Chief Complaint Abdominal pain and swelling x few days - History of Present Illness Patient is a 62-year-old female with a past medical history significant for hypertension osteoarthritis seizure disorder GI bleed, patient presented to the hospital 5 days ago for evaluation of abdominal pain and swelling, patient did have a history of ventral hernia that has been going on for about a month before presentation to the hospital and the patient was complaining of increasing swelling discomfort and no bowel movement for about 3 days before the patient presented to the hospital patient on presentation to the hospital was afebrile and no fever have been recorded during this hospital stay patient has not been tachycardic hypotensive or hypoxic patient did have a normal white count during this hospital stay creatinine has been normal she did have a CRP of 4.40 that was obtained yesterday prompting this consultation patient did have a abdominal pelvis CT on admission moderate to large loculated ventral abdominal wall hernia containing mostly fat also protrusion of the short segment of transverse colon no evidence of obstruction or inflammatory changes patient did have a abdominal x-ray nonspecific abdominal no free air or obstruction no interval change patient denies having any fever or any chills she is not complaining of abdominal pain mostly dull aching moderate intensity without radiation patient denies any worsening of her abdominal swelling or pain since admission to the hospital and denies having any nausea no vomiting Review of Systems Positive point and negatives has been mentioned in the HPI, complete review of systems was performed and all other systems are negative Past Medical History Past Medical History: GI Bleed, Hypertension, Osteoarthritis (OA), Seizure Disorder Additional Past Medical History / Comment(s): diverticulitis, PSUEDO SIEZURES - LAST AUGUST 2021, RECENT TREATMENT FOR ALCOHOL AND MARIJUANA ABUSE AT [facility]. pancreatitis History of Any Multi-Drug Resistant Organisms: None Reported Past Surgical History: Appendectomy, Bladder Surgery, Bowel Resection, Section, Cholecystectomy, Hysterectomy Additional Past Surgical History / Comment(s): BILATERAL CATARACT SURGERY WITH IMPLANTS , open sigmoid colectomy . Past Anesthesia/Blood Transfusion Reactions: No Reported Reaction, Motion Sickness Past Psychological History: Anxiety, PTSD Smoking Status: Current every day smoker Past Alcohol Use History: None Reported Additional Past Alcohol Use History / Comment(s): STARTED SMOKING AT AGE 17 SMOKES 4 CIG A DAY. HISTORY OF ALCOHOL ABUSE WAS RECENTLY TREATED AT [facility]- LAST DRINK MAR 19 2022 Past Drug Use History: Marijuana Additional Drug Use History / Comment(s): LAST USED 03/19/22 - Past Family History Mother Family Medical History: Hypertension Medications and Allergies Home Medications Medication Instructions Recorded Confirmed Type Metoprolol Succinate [Toprol XL] 100 mg PO DAILY 05/02/22 08/13/23 History Omeprazole 20 mg PO BID 11/27/22 08/13/23 History Acetaminophen-Codeine 300-30mg 1 tab PO TID PRN 04/10/23 08/13/23 History [Tylenol w/codeine #3] Albuterol Inhaler [Ventolin Hfa 1 - 2 puff INHALATION RT-Q6H PRN 04/10/23 08/13/23 History Inhaler] Losartan [Cozaar] 25 mg PO DAILY 04/10/23 08/13/23 History Prazosin HCl 2 mg PO HS 04/10/23 08/13/23 History lamoTRIgine [LaMICtal] 100 mg PO BID 04/10/23 08/13/23 History Ipratropium-Albuterol Nebulize 3 ml INHALATION RT-QID PRN 30 Days 04/15/23 08/13/23 Rx [Duoneb 0.5 mg-3 mg/3 ml Soln] #120 each traZODone HCL [Desyrel] 150 mg PO HS 05/27/23 08/13/23 History Ondansetron Odt [Zofran ODT] 4 mg PO Q8HR PRN #16 tab 07/11/23 08/13/23 Rx QUEtiapine FUMARATE [SEROquel] 600 mg PO HS 08/13/23 08/13/23 History Lactulose [Cephulac] 20 gm PO BID #360 ml 08/20/23 Rx Pantoprazole [Protonix] 40 mg PO DAILY #30 tab 08/20/23 Rx Allergies Allergy/AdvReac Type Severity Reaction Status Date / Time Penicillins Allergy SWELLING Verified 08/13/23 21:07 OF LEGS Sulfa (Sulfonamide Allergy Rash/Hives Verified 08/13/23 21:07 Antibiotics) iodine AdvReac RAPID Verified 08/13/23 21:07 HEART BEAT morphine AdvReac Vomiting Verified 08/13/23 21:07 Physical Exam Vitals: Vital Signs Temp Pulse Resp BP Pulse Ox 08/18/23 13:47 98.6 F 64 17 118/74 93 L 08/18/23 07:44 97.9 F 77 18 153/78 93 L 08/18/23 02:00 97.4 F L 65 20 114/66 91 L 08/17/23 20:00 97.3 F L 70 18 152/77 92 L Intake and Output 08/18/23 08/18/23 08/18/23 06:59 14:59 22:59 Other: # Voids 3 # Bowel Movements 1 GENERAL DESCRIPTION: Middle-aged female lying in bed, no distress. No tachypnea or accessory muscle of respiration use. HEENT: Shows Pallor , no scleral icterus. Oral mucous membrane is dry. No pharyngeal erythema or thrush NECK: Trachea central, no thyromegaly. LUNGS: Unlabored breathing. Clear to auscultation anteriorly. No wheeze or crackle. HEART: S1, S2, regular rate and rhythm. No loud murmur ABDOMEN: Soft, did have a abdominal wall swelling but no redness or tenderness EXTREMITIES: No edema of feet. SKIN: No rash, no masses palpable. NEUROLOGICAL: The patient is awake, alert, oriented x3, mood and affect normal. Results CBC & Chem 7: 08/20/23 06:32 08/20/23 06:32 Labs: Abnormal Lab Results - Last 24 Hours (Table) 08/17/23 08/18/23 08/18/23 Range/Units 05:59 05:24 05:24 RBC 3.41 L (4.10-5.20) X 10*6/uL Hgb 10.5 L (12.0-15.0) g/dL Hct 32.3 L (37.2-46.3) % Chloride 110 H (96-109) mmol/L BUN 4.0 L (9.0-27.0) mg/dL BUN/Creatinine Ratio 4.44 L (12.00-20.00) Ratio C-Reactive Protein 4.40 H (0.00-0.80) mg/dL Total Protein 5.4 L (6.2-8.2) g/dL Albumin 3.5 L (3.8-4.9) g/dL Assessment and Plan (1) Allergy to multiple antibiotics Status: Acute Code(s): Z88.1 - ALLERGY STATUS TO OTHER ANTIBIOTIC AGENTS SNOMED Code(s): 599330027 (2) Elevated C-reactive protein (CRP) Status: Acute Code(s): R79.82 - ELEVATED C-REACTIVE PROTEIN (CRP) SNOMED Code(s): 820997955146006 Plan: 1patient with a mildly elevated CRP in this patient with a large ventral hernia but no evidence of any obstruction on the CT patient is not running any fever did have normal white count and no significant tenderness was noticed on clear examination more likely etiology for elevated CRP is some inflammation associated with her large ventral hernia currently with no evidence of any obstruction or infection 2-continue management of her ventral hernia per her surgery at this point with no fever or elevated white count would not recommend any systemic antibiotic therapy if the patient starts having any worsening abdominal symptoms or fever or white count would benefit from repeat CAT scan We will follow on clinical condition and cultures to further adjust medication if needed Thank you for this consultation we will follow the patient along with you Dictation was produced using [employer] dictation software. please excuse any grammatical, word or spelling errors. Time with Patient: Greater than 30
--- NOTE | 2023-08-19 00:52 | PN ---
PROGRESS NOTE SUBJECTIVE: This is a 62-year-old woman, who was admitted with severe abdominal pain secondary to large hernia, is being closely monitored at this time. The patient also had a CAT scan of the brain, which showed mild atrophy. Abdominal x-ray done today was nonspecific. PHYSICAL EXAMINATION: VITAL SIGNS: Pulse is 64, blood pressure n , and respirations 17. CHEST: Clear to auscultation. CARDIOVASCULAR: S1, S2. ABDOMEN: Soft, minimal diffuse discomfort. EXTREMITIES: No guarding. No rigidity. LABORATORY DATA: Reviewed. C-reactive protein is 4.40. ASSESSMENT: 1. Severe abdominal pain with a moderately large lobulated ventral hernia containing mostly fat with some protrusion in the transverse colon. No evidence of obstruction. 2. Elevated CRP. 3. History of gastrointestinal bleed. 4. Hypertension. 5. History of degenerative joint disease. 6. Seizure disorder and pseudoseizures. 7. Multiple complex medical issues. RECOMMENDATIONS: Recommend to continue current medications. Continue symptomatic treatment. I would recommend infectious disease evaluation, also evaluate the high CRP, otherwise Neurology and Surgery are following the patient. Prognosis is guarded. The patient has some short-term memory loss. MMODL / IJN: [id number] / SELVIN
--- NOTE | 2023-08-19 01:51 | P.CNNES ---
History of Present Illness Consult date: 08/18/23 Requesting physician: Nagi Fierro Reason for Consult: new onset confusion, short term memory deficits. History of Present Illness: Patient is a 63-year-old female with history of pseudoseizure came to the hospital on 08/13/2023 at 5:41 PM for abdominal pain related to abdominal hernia. Patient was seen by surgery team. Patient was given opiates including [place], and Dilaudid for pain relief. She was receiving it around the clock. Patient developed mental status change, for which neurology was consulted. As per nurse report, she spoke to patient's daughter, who felt patient forgets doctors appointment. At present patient is fully oriented as per examination below. Patient has history of seizure disorder since 2005. Patient states that she has been diagnosed with pseudoseizures when she was living in [place]. She is on Lamictal but is for seizure disorder and also for mood control. She gets her se izures "once in a while". Patient's most recent vital signs with normal temperature, blood pressure 118/74, pulse rate 64. Blood test shows normal WBC, hemoglobin 10.5, normal platelets, normal CMP. Patient's lipid panel from 06/25/2022 with cholesterol 167, LDL 104, HDL 31, triglycerides 154. Patient had a CT head performed yesterday, which revealed no evidence of acute intracranial abnormality. Mild atrophy and chronic microvascular ischemic white matter changes. From the secretions left sphenoid sinus, correlate for acute sinus disease. Patient has history of light smoking of about 3-5 cigarettes per day but since age 16, still smokes. Patient used to be a heavy alcohol drinker, would drink about one bottle of vodka per day, almost daily for long time, quit 03/20/2023. Review of Systems All negative except as per HPI. Patient does have some abdominal pain, abdomen is distended. Past Medical History Past Medical History: GI Bleed, Hypertension, Osteoarthritis (OA), Seizure Disorder Additional Past Medical History / Comment(s): diverticulitis, PSUEDO SIEZURES - LAST AUGUST 2021, RECENT TREATMENT FOR ALCOHOL AND MARIJUANA ABUSE AT [facility]. pancreatitis History of Any Multi-Drug Resistant Organisms: None Reported Past Surgical History: Appendectomy, Bladder Surgery, Bowel Resection, Section, Cholecystectomy, Hysterectomy Additional Past Surgical History / Comment(s): BILATERAL CATARACT SURGERY WITH IMPLANTS , open sigmoid colectomy . Past Anesthesia/Blood Transfusion Reactions: No Reported Reaction, Motion Sickness Past Psychological History: Anxiety, PTSD Smoking Status: Current every day smoker Past Alcohol Use History: None Reported Additional Past Alcohol Use History / Comment(s): STARTED SMOKING AT AGE 17 SMOKES 4 CIG A DAY. HISTORY OF ALCOHOL ABUSE WAS RECENTLY TREATED AT [facility]- LAST DRINK MAR 19 2022 Past Drug Use History: Marijuana Additional Drug Use History / Comment(s): LAST USED 03/19/22 - Past Family History Mother Family Medical History: Hypertension Medications and Allergies Home Medications Medication Instructions Recorded Confirmed Type Metoprolol Succinate [Toprol XL] 100 mg PO DAILY 05/02/22 08/13/23 History Omeprazole 20 mg PO BID 11/27/22 08/13/23 History Acetaminophen-Codeine 300-30mg 1 tab PO TID PRN 04/10/23 08/13/23 History [Tylenol w/codeine #3] Albuterol Inhaler [Ventolin Hfa 1 - 2 puff INHALATION RT-Q6H PRN 04/10/23 History Inhaler] Losartan [Cozaar] 25 mg PO DAILY 04/10/23 08/13/23 History Prazosin HCl 2 mg PO HS 04/10/23 08/13/23 History lamoTRIgine [LaMICtal] 100 mg PO BID 04/10/23 08/13/23 History Ipratropium-Albuterol Nebulize 3 ml INHALATION RT-QID PRN 30 Days 04/15/23 08/13/23 Rx [Duoneb 0.5 mg-3 mg/3 ml Soln] #120 each traZODone HCL [Desyrel] 150 mg PO HS 05/27/23 08/13/23 History Ondansetron Odt [Zofran Odt] 4 mg PO Q8HR PRN #16 tab 07/11/23 08/13/23 Rx Ciprofloxacin HCl [Cipro] 500 mg PO BID 7 Days #14 tab 08/06/23 08/13/23 Rx metroNIDAZOLE [Flagyl] 500 mg PO TID 7 Days #21 tab 08/06/23 08/13/23 Rx QUEtiapine FUMARATE [SEROquel] 600 mg PO HS 08/13/23 08/13/23 History Allergies Allergy/AdvReac Type Severity Reaction Status Date / Time Penicillins Allergy SWELLING Verified 08/13/23 21:07 OF LEGS Sulfa (Sulfonamide Allergy Rash/Hives Verified 08/13/23 21:07 Antibiotics) iodine AdvReac RAPID Verified 08/13/23 21:07 HEART BEAT morphine AdvReac Vomiting Verified 08/13/23 21:07 Physical Examination - Vital Signs Vital Signs: Vital Signs Temp Pulse Resp BP Pulse Ox 08/18/23 13:47 98.6 F 64 17 118/74 93 L 08/18/23 07:44 97.9 F 77 18 153/78 93 L 08/18/23 02:00 97.4 F L 65 20 114/66 91 L Intake and Output 08/18/23 08/18/23 08/18/23 06:59 14:59 22:59 Other: # Voids 3 5 # Bowel Movements 1 1 Patient is a late middle aged female, in no acute distress. Patient is alert awake oriented to time place and person. Patient knows it is 08/18/2023 and that she is in [facility] in [facility]. She knows name of the current president Mr. Wilkins. Speech and language functions are normal. Patient can name and repeat very well. No aphasia or dysarthria. Attention, concentration and fund of knowledge is adequate. On cranial nerve examination, pupils are equal, round and reacting to light, visual cota are full on confrontation, with no neglect on double simultaneous stimulation. Extraocular muscles are intact with no nystagmus. Face is symmetric, tongue protrudes to the midline. Palatal elevation and sensation no rmal, hearing and shoulder shrug normal, facial sensation normal. On muscle strength testing, there is no pronator drift and the strength is normal in arms and legs distally and proximally. Deep tendon reflexes are symmetric 1 all over and plantars downgoing. Sensory to touch is equal with no neglect on double simultaneous stimulation. Cerebellar function showed no ataxia for [id number] testing. No dysdiadochokinesia. No ataxia for [id number] testing on either side. Tone and bulk of muscles normal. Gait deferred.. On general examination, there is no carotid bruit or murmur, S1-S2 audible. Chest is clear on consultation. Abdomen is soft nontender. No organomegaly, bowel sounds present. Peripheral pulses are present. No peripheral edema. Results - Laboratory Findings CBC and BMP: 08/18/23 05:24 08/18/23 05:24 Abnormal Lab Findings: Abnormal Labs 08/13/23 08/13/23 08/14/23 18:22 19:40 05:38 RBC Hgb Hct Chloride 109 H 110 H BUN BUN/Creatinine Ratio Glucose 137 H 101 H AST 46 H 44 H ALT 57 H 53 H C-Reactive Protein Total Protein 5.5 L Albumin 3.2 L Urine Appearance Cloudy H Ur Specific [place] 1.037 H Urine Protein Trace H Urine Ketones Trace H Urine Blood Trace H Ur Leukocyte Esterase Trace H Ur Squamous Epith Cells 6 H Urine Mucus Rare H 08/15/23 08/15/23 08/16/23 06:39 06:39 06:49 RBC 4.03 L Hgb Hct Chloride 111 H BUN 5 L BUN/Creatinine Ratio 11.33 L Glucose AST 48 H ALT 60 H C-Reactive Protein Total Protein 5.9 L Albumin Urine Appearance Ur Specific [place] Urine Protein Urine Ketones Urine Blood Ur Leukocyte Esterase Ur Squamous Epith Cells Urine Mucus 08/17/23 08/17/23 08/18/23 05:59 05:59 05:24 RBC 3.41 L Hgb 10.5 L Hct 32.3 L Chloride BUN 4.1 L BUN/Creatinine Ratio 4.56 L Glucose AST ALT C-Reactive Protein 4.40 H Total Protein Albumin Urine Appearance Ur Specific [place] Urine Protein Urine Ketones Urine Blood Ur Leukocyte Esterase Ur Squamous Epith Cells Urine Mucus 08/18/23 05:24 RBC Hgb Hct Chloride 110 H BUN 4.0 L BUN/Creatinine Ratio 4.44 L Glucose AST ALT C-Reactive Protein Total Protein 5.4 L Albumin 3.5 L Urine Appearance Ur Specific [place] Urine Protein Urine Ketones Urine Blood Ur Leukocyte Esterase Ur Squamous Epith Cells Urine Mucus Assessment and Plan Assessment: * Altered mental status, likely due to metabolic encephalopathy. This is likely from receiving pain medication. * Abdominal pain, hernia. * Pseudoseizures * Hypertension * Marijuana use * Tobacco use * History of alcohol use, in remission since 03/23/2023. Plan: * Patient's neurological examination is nonfocal. Her mentation is back to normal. * Limit amount of opiates, sedatives, hypnotics and anticholinergics. * No other neurological workup indicated. * Patient is currently on Lamictal 100 mg twice a day for mood disorder and pseudoseizure. Lamictal will be continued. * Neurologically clear. Dr. Tao Wilson starting neurology service in the morning if any concerns. * Thank you for the consult.
[2023-08-19 08:40] LABS: BUN/Creat Ratio <3.50 Ratio (12.00-20.00); Blood Urea Nitrogen <3.5 mg/dL (9.0-27.0); Chloride 108 mmol/L (96-109); Glucose 101 mg/dL (70-110); Potassium 4.1 mmol/L (3.5-5.5); Sodium 142 mmol/L (135-145)
[2023-08-19 08:41] LABS: ALT 45 U/L (8-44); AST 36 U/L (13-35); Albumin 3.7 g/dL (3.8-4.9); Albumin/Globulin Ratio 1.85 Ratio (1.60-3.17); Alkaline Phosphatase 89 U/L (41-126); Carbon Dioxide 23.7 mmol/L (21.6-31.8); HCT 35.5 % (37.2-46.3); HGB 11.7 g/dL (12.0-15.0); MCH 31.7 pg (27.0-32.0); MCV 96.2 FL (80.0-97.0); Mean Platelet Volume 10.1 FL (9.5-12.2); NRBC Per 100 WBC 0 X 10*3/uL (0.00-0.01); Platelet Count 306 X 10*3/uL (140-440); RBC 3.69 X 10*6/uL (4.10-5.20); RDW 13.6 % (11.5-14.5); Total Bilirubin 0.5 mg/dL (0.3-1.2); Total Protein 5.7 g/dL (6.2-8.2); WBC 6.34 X 10*3/uL (4.50-10.00)
[2023-08-19 08:42] LABS: Basophils # (A) 0.03 X 10*3/uL (0.00-0.10); Basophils % (A) 0.5 %; Eosinophils # (A) 0.22 X 10*3/uL (0.04-0.35); Eosinophils % (A) 3.5 %; Lymphocytes # (A) 2.46 X 10*3/uL (0.90-5.00); Lymphocytes % (A) 38.8 %; Monocytes # (A) 0.46 X 10*3/uL (0.20-1.00); Monocytes % (A) 7.3 %; Neutrophils # (A) 3.15 X 10*3/uL (1.80-7.70); Neutrophils % (A) 49.6 %
[2023-08-19] MEDS ORDERED: IOPAMIDOL CONTRAST (ORAL USE) VIAL PO PRN (12:34)
--- NOTE | 2023-08-19 13:36 | PN ---
PROGRESS NOTE DATE OF SERVICE: 08/19/2023 SUBJECTIVE: This is a 63-year-old woman, admitted with abdominal pain, also had ventral hernia. The patient had persistent abdominal pain. No chest pain. No palpitation. Multiple consultants are following the patient closely. OBJECTIVE: VITAL SIGNS: Pulse is 65, blood pressure 100/60, respirations 18. CHEST: Clear to auscultation. CARDIOVASCULAR: S1, S2 muffled. ABDOMEN: Soft, distended. Mild diffuse discomfort. No guarding or rigidity. LABORATORY DATA: Reviewed. ASSESSMENT: 1. Severe abdominal pain with moderately large lobulated ventral hernia containing mostly fat with some protrusion over the transverse colon. No evidence of obstruction in the CAT scan. 2. History of gastrointestinal bleed. 3. Hypertension. 4. History of degenerative joint disease. 5. Seizure disorder and pseudoseizures. 6. Multiple complex medical issues. 7. Elevated CRP. RECOMMENDATIONS AND DISCUSSION: Recommend to continue current management. Continue symptomatic treatment. Repeat labs. Otherwise, at this time, I would follow closely with Surgery and multiple consultants. The patient has elevated CRP. Infectious Disease is following the patient closely. We will repeat a CT scan of the abdomen. MMODL / IJN: [id number] /
--- NOTE | 2023-08-19 15:03 | P.PN ---
Subjective Progress Note Date: 08/19/23 CHIEF COMPLAINT: Ventral hernia HISTORY OF PRESENT ILLNESS: Patient continues to complain of abdominal pain. She still requires the IV Dilaudid. She had nausea earlier. She does report having bowel movements and flatus. Patient does want to be discharged home. afebrile. PHYSICAL EXAM: VITAL SIGNS: Reviewed. GENERAL: Well-developed in no acute distress. ABDOMEN: Ventral hernia. Reducible NEUROLOGIC: Alert and oriented. Cranial nerves II through XII grossly intact. ASSESSMENT: 1. Moderate to large ventral hernia containing fat and short segment of transverse colon. No evidence of obstruction noted on CAT scan. Hernia reducible PLAN: -Advance diet to regular -Patient can be discharged if tolerating regular diet -Patient to follow-up with Dr. Mott in office Physician Director Surface [employer] note has been reviewed by physician. Signing provider agrees with the documented findings, assessment, and plan of care. I have personally seen and examined the patient, reviewed the REMOTE BROADCAST TECHNICIAN /PAs history, exam and MDM and agree with the assessment and plan as written. Based on total visit time, I have performed more than 50% of the visit. As above: Patient still having pain although says its improved. Patient says the pain is the same as it has been at home for the last 3 to 4 weeks. Spoke with the patient's daughter by phone. Spoke with the patient at length as well. She is moving her bowels. Hernia remains reducible on exam. Plan at this time is discharge if tolerates regular diet. Plan outpatient follow-up at hernia clinic at [facility]. Patient in the meanwhile we will initiate smoking cessation. She will contact me if symptoms worsen postdischarge. Encouraged to return to the ER in that event as well. Patient is agreeable. Objective - Vital Signs Vital signs: Vital Signs Temp 97.6 F 08/19/23 07:38 Pulse 67 08/19/23 07:38 Resp 18 08/19/23 07:38 BP 129/76 08/19/23 07:38 Pulse Ox 91 L 08/19/23 07:38 FiO2 Intake & Output 08/18/23 08/19/23 08/19/23 18:59 06:59 18:59 Intake Total 180 Balance 180 Intake: Oral 180 Other: Voiding Method Toilet Toilet # Voids 5 4 # Bowel Movements 1 - Labs CBC & Chem 7: 08/19/23 06:19 08/19/23 06:19 Labs: Abnormal Lab Results - Last 24 Hours (Table) 08/19/23 08/19/23 Range/Units 06:19 06:19 RBC 3.69 L (4.10-5.20) X 10*6/uL Hgb 11.7 L (12.0-15.0) g/dL Hct 35.5 L (37.2-46.3) % BUN <3.5 L (9.0-27.0) mg/dL BUN/Creatinine Ratio <3.50 L (12.00-20.00) Ratio AST 36 H (13-35) U/L ALT 45 H (8-44) U/L Total Protein 5.7 L (6.2-8.2) g/dL Albumin 3.7 L (3.8-4.9) g/dL
[2023-08-19] MEDS: BARIUM SULFATE 2% - 450 ML ORAL.SUSP BOTTLE PO ONE ×2 (16:22→21:16)
[2023-08-19] MEDS: HYDROmorphone 0.5 MG/0.5 ML SYRINGE IVP PRN (16:36)
--- NOTE | 2023-08-19 17:44 | P.PN ---
Subjective Progress Note Date: 08/19/23 Principal diagnosis: Reason for follow-up is ventral hernia elevated CRP Patient is a 62-year-old female with a past medical history significant for hypertension osteoarthritis seizure disorder GI bleed, in addition to history of ventral hernia present to the hospital for abdominal swelling discomfort and no bowel movement CT abdominal pelvis did shows large loculated ventral hernia but did not mention any obstruction patient has been afebrile white count normal did have elevated CRP prompting this consultation. On today's visit that is 08/19/2023,the patient denies any fever or any chills, patient is breathing comfortably on room air, the patient denies chest pain shortness of breath and no significant cough, patient abdominal pain has decreased in intensity no nausea no vomiting and having bowel movement diet has been advanced. Patient had a white count of 6.34, creatinine is 1.0 Objective - Vital Signs Vital signs: Vital Signs Temp 97.6 F 08/19/23 07:38 Pulse 67 08/19/23 07:38 Resp 18 08/19/23 07:38 BP 129/76 08/19/23 07:38 Pulse Ox 91 L 08/19/23 07:38 FiO2 Intake & Output 08/18/23 08/19/23 08/19/23 18:59 06:59 18:59 Intake Total 180 Balance 180 Intake: Oral 180 Other: Voiding Method Toilet Toilet # Voids 5 4 # Bowel Movements 1 - Exam GENERAL DESCRIPTION: Middle-aged female up in bed in no distress RESPIRATORY SYSTEM: Unlabored breathing , decreased breath sounds at bases HEART: S1 S2 regular rate and rhythm , ABDOMEN: Soft , no tenderness EXTREMITIES: No edema feet - Labs CBC & Chem 7: 08/19/23 06:19 08/19/23 06:19 Labs: Abnormal Lab Results - Last 24 Hours (Table) 08/19/23 08/19/23 Range/Units 06:19 06:19 RBC 3.69 L (4.10-5.20) X 10*6/uL Hgb 11.7 L (12.0-15.0) g/dL Hct 35.5 L (37.2-46.3) % BUN <3.5 L (9.0-27.0) mg/dL BUN/Creatinine Ratio <3.50 L (12.00-20.00) Ratio AST 36 H (13-35) U/L ALT 45 H (8-44) U/L Total Protein 5.7 L (6.2-8.2) g/dL Albumin 3.7 L (3.8-4.9) g/dL Assessment and Plan (1) Elevated C-reactive protein (CRP) Current Visit: Yes Status: Acute Code(s): R79.82 - ELEVATED C-REACTIVE PRO TEIN (CRP) SNOMED Code(s): 821763223791231 Plan: 1patient with a mildly elevated CRP in this patient with a large ventral hernia but no evidence of any obstruction on the CT patient is not running any fever did have normal white count and no significant tenderness was noticed on clear examination more likely etiology for elevated CRP is some inflammation associated with her large ventral hernia currently with no evidence of any obstruction or infection 2-patient remains to be afebrile white count is normal no need for any antibiotic therapy at this point Dictation was produced using [employer] dictation software. please excuse any grammatical, word or spelling errors. Time with Patient: Less than 30
--- NOTE | 2023-08-19 21:20 | CT ---
EXAMINATION TYPE: CT abdomen pelvis wo con DATE OF EXAM: 08/19/2023 COMPARISON: 08/06/2023 HISTORY: abd pain CT DLP: 904.4 mGycm Automated exposure control for dose reduction was used. TECHNIQUE: Helical acquisition of images was performed from the lung bases through the pelvis. FINDINGS: There is mild atelectasis in the lung bases posteriorly. There is surgical absence of the gallbladder. There is no biliary ductal dilatation. There is no organomegaly of the liver, pancreas, spleen or adrenal glands. There are no renal calcifications or hydronephrosis. The caliber of the abdominal aorta is normal and there is no retroperitoneal adenopathy or hemorrhage . The bowel loops are normal in caliber is no evidence of obstruction. No inflammatory changes are iden tified in the mesentery and there is no free intraperitoneal air or fluid. There are anastomotic sutu res in the mid sigmoid colon. There has been no interval change change in the large ventral hernia containing fat and portion of th e transverse colon. There is no evidence of bowel ischemia or strangulation. There is mild diverticulosis of the colon without CT evidence of diverticulitis There is surgical absence of the uterus. There is no pelvic adenopathy, abscess or free fluid. No focal osseous lesions are seen. Impression: 1. No acute changes within the abdomen or pelvis. 2. Stable ventral hernia containing fat and colon with no evidence of bowel inflammation or strangula tion or obstruction. 3. Mild bibasilar atelectasis. 4. Surgical absence of the gallbladder and uterus.
[2023-08-20 08:45] VITALS: RESP 18
[2023-08-20] MEDS: HYDROcodone/APAP 5-325MG 1 EACH TAB PO PRN (09:13)
[2023-08-20 11:40] LABS: Blood Urea Nitrogen 3.5 mg/dL (9.0-27.0); Calcium 9.2 mg/dL (8.7-10.3); Carbon Dioxide 24.5 mmol/L (21.6-31.8); Chloride 112 mmol/L (96-109); Glucose 106 mg/dL (70-110); Sodium 147 mmol/L (135-145)
[2023-08-20 12:16] LABS: Basophils # (A) 0.05 X 10*3/uL (0.00-0.10); Basophils % (A) 0.8 %; Eosinophils # (A) 0.15 X 10*3/uL (0.04-0.35); Eosinophils % (A) 2.5 %; HCT 37.5 % (37.2-46.3); HGB 12.1 g/dL (12.0-15.0); Lymphocytes # (A) 2.26 X 10*3/uL (0.90-5.00); Lymphocytes % (A) 37.5 %; MCH 31.6 pg (27.0-32.0); MCHC 32.3 g/dL (32.0-37.0); MCV 97.9 FL (80.0-97.0); Monocytes # (A) 0.41 X 10*3/uL (0.20-1.00); Monocytes % (A) 6.8 %; NRBC Per 100 WBC 0 X 10*3/uL (0.00-0.01); Neutrophils # (A) 3.14 X 10*3/uL (1.80-7.70); Neutrophils % (A) 52.1 %; Platelet Count 327 X 10*3/uL (140-440); RBC 3.83 X 10*6/uL (4.10-5.20); RDW 13.3 % (11.5-14.5); WBC 6.03 X 10*3/uL (4.50-10.00)
[2023-08-20 14:18] VITALS: BP 136/77; PULSE 72; TEMP 98.2
[2023-08-20 14:53] VITALS: BMI 35.1
--- NOTE | 2023-08-20 15:15 | P.PN ---
Subjective Progress Note Date: 08/20/23 Principal diagnosis: Reason for follow-up is ventral hernia elevated CRP Patient is a 62-year-old female with a past medical history significant for hypertension osteoarthritis seizure disorder GI bleed, in addition to history of ventral hernia present to the hospital for abdominal swelling discomfort and no bowel movement CT abdominal pelvis did shows large loculated ventral hernia but did not mention any obstruction patient has been afebrile white count normal did have elevated CRP prompting this consultation. On today's visit that is 08/20/2023,the patient remains to be afebrile, patient is on room air not requiring supplemental oxygen and denies any shortness of breath no chest pain or cough.Patient denies having any nausea or vomiting, patient been tolerating a regular diet abdominal pain has decreased in intensity and did have a bowel movement. Patient white count is 6.03, creatinine is 1.0 blood culture negative Objective - Vital Signs Vital signs: Vital Signs Temp 98.2 F 08/20/23 13:12 Pulse 72 08/20/23 13:12 Resp 18 08/20/23 13:12 BP 136/77 08/20/23 13:12 Pulse Ox 91 L 08/20/23 13:12 FiO2 Intake & Output 08/19/23 08/20/23 08/20/23 18:59 06:59 18:59 Output Total 4 Balance -4 Weight 87.09 kg Output: Urine/Stool Mix 4 Other: Voiding Method Toilet # Voids 6 3 # Bowel Movements 2 - Exam GENERAL DESCRIPTION: Middle-aged female up in bed in no distress RESPIRATORY SYSTEM: Unlabored breathing , decreased breath sounds at bases HEART: S1 S2 regular rate and rhythm , ABDOMEN: Soft , no tenderness EXTREMITIES: No edema feet - Labs CBC & Chem 7: 08/20/23 06:32 08/20/23 06:32 Labs: Abnormal Lab Results - Last 24 Hours (Table) 08/20/23 08/20/23 Range/Units 06:32 06:32 RBC 3.83 L (4.10-5.20) X 10*6/uL MCV 97.9 H (80.0-97.0) FL Sodium 147 H (135-145) mmol/L Chloride 112 H (96-109) mmol/L BUN 3.5 L (9.0-27.0) mg/dL BUN/Creatinine Ratio 3.50 L (12.00-20.00) Ratio Microbiology - Last 24 Hours (Table) 08/18/23 15:26 Blood Culture - Preliminary Blood Assessment and Plan (1) Elevated C-reactive protein (CRP) Status: Acute Code(s): R79.82 - ELEVATED C-REACTIVE PROTEIN (CRP) SNOMED Code(s): 314450730279248 Plan: 1patient with a mildly elevated CRP in this patient with a large ventral hernia but no evidence of any obstruction on the CT patient is not running any fever did have normal white count and no significant tenderness was noticed on clear examination more likely etiology for elevated CRP is some inflammation associated with her large ventral hernia currently with no evidence of any obstruction or infection 2-patient remains to be afebrile white count is normal, blood culture has been negative so far seem to be doing well off antibiotic therapy hence recommending no antibiotic on discharge Dictation was produced using [employer] dictation software. please excuse any grammatical, word or spelling errors. Time with Patient: Less than 30
--- NOTE | 2023-08-20 15:45 | P.PN ---
Subjective Progress Note Date: 08/20/23 CHIEF COMPLAINT: Ventral hernia HISTORY OF PRESENT ILLNESS: Patient continues to complain of abdominal pain. But pain has been chronic for her. She does denies any increase in pain. She is tolerating diet. She is having bowel movements. She is having flatus. She has been up and ambulating. CT scan abdomen pelvis reports no acute changes. Stable ventral hernia containing fat and colon with no evidence of bowel inflammation or strangulation or obstruction PHYSICAL EXAM: VITAL SIGNS: Reviewed. GENERAL: Well-developed in no acute distress. ABDOMEN: Ventral hernia. Reducible NEUROLOGIC: Alert and oriented. Cranial nerves II through XII grossly intact. ASSESSMENT: 1. Moderate to large ventral hernia containing fat and short segment of transverse colon. No evidence of obstruction noted on CAT scan. Hernia reducible PLAN: -Patient tolerating regular diet. Patient can be discharged with outpatient follow-up Physician Mold Sander note has been reviewed by physician. Signing provider agrees with the documented findings, assessment, and plan of care. I have personally seen and examined the patient, reviewed the CARPET OR RUG LAYER HELPER /PAs history, exam and MDM and agree with the assessment and plan as written. Based on total visit time, I have performed more than 50% of the visit. As above: Patient ended up having repeat CAT scan yesterday because of pain and elevated C-reactive protein. CAT scan reviewed. Hernias appear stable. No signs of obstruction or inflammatory changes. Patient was discharged prior to my exam today. Follow-up as outpatient. Objective - Vital Signs Vital signs: Vital Signs Temp 98.2 F 08/20/23 13:12 Pulse 72 08/20/23 13:12 Resp 18 08/20/23 13:12 BP 136/77 08/20/23 13:12 Pulse Ox 91 L 08/20/23 13:12 FiO2 Intake & Output 08/19/23 08/20/23 08/20/23 18:59 06:59 18:59 Output Total 4 Balance -4 Weight 87.09 kg Output: Urine/Stool Mix 4 Other: Voiding Method Toilet # Voids 6 3 # Bowel Movements 2 - Labs CBC & Chem 7: 08/20/23 06:32 08/20/23 06:32 Labs: Abnormal Lab Results - Last 24 Hours (Table) 08/20/23 08/20/23 Range/Units 06:32 06:32 RBC 3.83 L (4.10-5.20) X 10*6/uL MCV 97.9 H (80.0-97.0) FL Sodium 147 H (135-145) mmol/L Chloride 112 H (96-109) mmol/L BUN 3.5 L (9.0-27.0) mg/dL BUN/Creatinine Ratio 3.50 L (12.00-20.00) Ratio Microbiology - Last 24 Hours (Table) 08/18/23 15:26 Blood Culture - Preliminary Blood
--- NOTE | 2023-08-21 14:49 | P.DS ---
Providers Date of admission: 08/13/23 22:15 Expected date of discharge: 08/20/23 Attending physician: Nagi Fierro Consults: 08/13/23 22:14 Consult Physician Routine Consulting Provider: Prince Mott Consult Reason/Comments: known,pain Do you want consulting provider notified?: Yes 08/17/23 15:08 Consult Physician Routine Consulting Provider: Robert Schwartz Consult Reason/Comments: new onset confusion, short term memory deficits. Do you want consulting provider notified?: Yes 08/18/23 13:53 Consult Physician Routine Consulting Provider: Demetrio Montes De Oca Consult Reason/Comments: high crp Do you want consulting provider notified?: Yes [facility] care physician[facility] Course: Final diagnosis Abdominal pain secondary to lobulated moderately large ventral abdominal wall hernia containing mostly fat and also small protrusion of the short segment of the transverse colon. No evidence of obstruction. History of diverticulitis with history of partial colectomy Hypertension Osteoarthritis History of seizure disorder/pseudoseizures Anxiety/PTSD Currently with a smoker Alcohol abuse and marijuana use patient was at [facility] recently. Obesity with BMI 35.1 DVT prophylaxis GI prophylaxis Full code Discharge disposition Patient is being discharged in a stable condition with guarded prognosis to home. Patient will follow-up with Dr. Eyad Fierro in the outpatient setting upon discharge. Patient is to continue with current medications as prescribed below and close outpatient follow-up with general surgery Dr. Mott as scheduled. Patient also being referred to [facility] in the outpatient setting. Total time taken is greater than 35 minutes. Hospital course This is a 63-year-old female who was recently admitted with abdominal pain and also no bowel movement or passing gas over the last few days. Patient with significant history of diverticulitis status post bowel resection and histories of GI bleeds with chronic alcohol abuse and marijuana use was recently at [facility]. Patient did undergo CT of the abdomen showing a moderately large lobulated ventral abdominal wall hernia containing mostly fat but also a protr usion of short segment of the transverse colon with no evidence of obstruction. Patient evaluated by general surgery continuing with conservative management and bowel rest. Patient was slowly started back on clear liquids and tolerated being advanced and patient had been instructed to continue to slowly advance diet per surgery and if tolerating could go home with outpatient follow-up. Given her extent of abdominal issues general surgery recommending possibly [facility] and this was discussed in detail with the patient along with family at the bedside. Patient showing improvement and is having bowel movements and tolerating diet. Patient has been cleared by consultations for discharge. Patient will be closely monitored off antibiotics and not require antibiotics on discharge. Patient was also instructed to go to the closest ER if having worsening symptoms that persist. Please refer to other consultation notes for further HPI. Currently no reports of chest pain, shortness of breath, or palpitations. Patient is afebrile. No reports of nausea or vomiting and patient is tolerating diet. Patient will be discharged home today. Guarded prognosis and high risk for readmissions Physical exam: Gen: This is a 63-year-old female who is awake, alert and oriented x 3, well- developed, well-nourished, obese HEENT: Head is atraumatic, normocephalic. Pupils equal, round. Sclerae is anicteric. NECK: Supple. No JVD. No lymphadenopathy. No thyromegaly. LUNGS: Diminished breath sounds bilaterally otherwise clear to auscultation. No wheezes or rhonchi. No intercostal retractions. HEART: S1, S2 are muffled ABDOMEN: Soft. Mildly tender although improving, obese, bowel sounds are present. No masses. EXTREMITIES: No pedal edema. No calf tenderness. NEUROLOGICAL: Patient is awake, alert and oriented x3. Cranial nerves 2 through 12 are grossly intact. Please refer to medication reconciliation sheet for a list of medications. The impression and plan of care has been dictated by Yolanda Smart, Nurse Practitioner as directed. Dr. Vadim MD I have performed a history and examination and MDM of this patient, discussed the same with the dictator, and agree with the dictator's assessment and plan as written ,documented as a scribe. Based on total visit time, I have performed more than 50% of the visit. Patient Condition at Discharge: Fair Plan - Discharge Summary Discharge Rx Participant: Yes New Discharge Prescriptions: New Pantoprazole [Protonix] 40 mg PO DAILY #30 tab Lactulose [Cephulac] 20 gm PO BID #360 ml Continue Omeprazole 20 mg PO BID Acetaminophen-Codeine 300-30mg [Tylenol w/codeine #3] 1 tab PO TID PRN PRN Reason: Pain lamoTRIgine [LaMICtal] 100 mg PO BID Prazosin HCl 2 mg PO HS Ipratropium-Albuterol Nebulize [Duoneb 0.5 mg-3 mg/3 ml Soln] 3 ml INHALATION RT-QID PRN 30 Days #120 each PRN Reason: Shortness Of Breath Or Wheezing traZODone HCL [Desyrel] 150 mg PO HS Ondansetron Odt [Zofran ODT] 4 mg PO Q8HR PRN #16 tab PRN Reason: Nausea Metoprolol Succinate [Toprol XL] 100 mg PO DAILY Losartan [Cozaar] 25 mg PO DAILY Albuterol Inhaler [Ventolin Hfa Inhaler] 1 - 2 puff INHALATION RT-Q6H PRN PRN Reason: Shortness Of Breath QUEtiapine FUMARATE [SEROquel] 600 mg PO HS Discontinued Ciprofloxacin HCl [Cipro] 500 mg PO BID 7 Days #14 tab metroNIDAZOLE [Flagyl] 500 mg PO TID 7 Days #21 tab Discharge Medication List Metoprolol Succinate [Toprol XL] 100 mg PO DAILY 05/02/22 [History] Omeprazole 20 mg PO BID 11/27/22 [History] Acetaminophen-Codeine 300-30mg [Tylenol w/codeine #3] 1 tab PO TID PRN 04/10/23 [History] Albuterol Inhaler [Ventolin Hfa Inhaler] 1 - 2 puff INHALATION RT-Q6H PRN 04/10/23 [History] Losartan [Cozaar] 25 mg PO DAILY 04/10/23 [History] Prazosin HCl 2 mg PO HS 04/10/23 [History] lamoTRIgine [LaMICtal] 100 mg PO BID 04/10/23 [History] Ipratropium-Albuterol Nebulize [Duoneb 0.5 mg-3 mg/3 ml Soln] 3 ml INHALATION RT-QID PRN 30 Days #120 each 04/15/23 [Rx] traZODone HCL [Desyrel] 150 mg PO HS 05/27/23 [History] Ondansetron Odt [Zofran ODT] 4 mg PO Q8HR PRN #16 tab 07/11/23 [Rx] QUEtiapine FUMARATE [SEROquel] 600 mg PO HS 08/13/23 [History] Lactulose [Cephulac] 20 gm PO BID #360 ml 08/20/23 [Rx] Pantoprazole [Protonix] 40 mg PO DAILY #30 tab 08/20/23 [Rx] Follow up Appointment(s)/Referral(s): Prince Mott MD [Medical Doctor] - 08/28/23 2:15 pm Elina Garcia MD [Primary Care Provider] - 1-2 days (Office is not answering at time of discharge. Please call for follow-up appointment.) Activity/Diet/Wound Care/Special Instructions: Activity limited until follow-up Follow-up with primary care provider on discharge Follow-up with Dr. Mott outpatient and discuss referral for surgical intervention outpatient Continue taking medications as prescribed If having any increasing symptoms or abdominal pain contact surgery and/or closest ER. Follow instructions per Dr. Mott regarding outpatient follow-up Discharge Disposition: HOME SELF-CARE
--- NOTE | 2023-08-30 15:18 | CDI ---
Documentation Clarification Form Date: 08/30/2023 02:51:28 PM From: Kimberley Das Admit Date: 08/13/2023 10:15:00 PM Patient Name: Nunu Woods Visit Number: [id number] Discharge Date: 08/20/2023 03:11:00 PM ATTENTION: The Clinical Documentation Specialists (CDI) and [facility] Coding Staff appreciate your assistance in clarifying documentation. Please respond to the clarification below the line at the bottom and electronically sign. The CDI & [facility] Coding staff will review the response and follow-up if needed. Please note: Queries are made part of the Legal Health Record. If you have any questions, please contact the author of this message via ITS. Dr. Robert Schwartz Altered mental status likely due to Metabolic Encephalopathy- likely from receiving pain medications is documented in your Neurology Consult Note 08/18/23, but is not noted in subsequent documentation. Additional clarification is requested. Patient history/risk factors: patient is a 63 year old female with a history of seizures disorder, GI bleed, HTN, Osteoarthritis, anxiety, PTSD, and current every day smoker. Clinical Indicators: patient presented for abdominal pain, was found to have an incisional hernia. Per the consult note patient began experiencing confusion around 08/17/23. Therefore, neurology was consulted for new onset of confusion/short term memory deficits. Brain CT did not show any intracranial abnormalities. Mild atrophy and chronic microvascular ischemic white matter changes, and frothy secretions left sphenoid sinus, correlate for acute sinus disease. Patients mentation was back to normal on exam. Suggested to limit the amount of opiates, sedatives, hypnotics, and anticholinergics After work up and study, please clarify which diagnosis is most appropriate? [ x ] Metabolic Encephalopathy likely due to pain medication is a valid diagnosis [ ] Metabolic Encephalopathy likely due to pain medications has been ruled out [ ] Delirium [ ] Unable to determine [ ] Other, please specify MTDD
== END 2023-08-20 15:11 | disposition home or self-care (01) | DRG 393 ==
LOC: EC 17:41 → INTOOBSV 22:14 → 4SSUR 22:14 → OBSVTOIN 22:15 → 4SSUR 22:44
PROVIDERS: ADMIT Hospitalist; ATTEND Hospitalist
DX: K43.2 Incisional hernia without obstruction or gangrene (principal); G92.8 Other toxic encephalopathy; F41.9 Anxiety disorder, unspecified; F43.10 Post-traumatic stress disorder, unspecified; F10.11 Alcohol abuse, in remission; I10 Essential (primary) hypertension; M19.90 Unspecified osteoarthritis, unspecified site; T40.2X5A Adverse effect of other opioids, initial encounter; G40.909 Epilepsy, unspecified, not intractable, without status epilepticus; Z90.49 Acquired absence of other specified parts of digestive tract; F17.210 Nicotine dependence, cigarettes, uncomplicated; E66.9 Obesity, unspecified; R79.82 Elevated C-reactive protein (CRP); Z68.35 Body mass index [BMI] 35.0-35.9, adult; T47.3X6A Underdosing of saline and osmotic laxatives, initial encounter; Z91.128 Patient's intentional underdosing of medication regimen for other reason; K57.90 Diverticulosis of intestine, part unspecified, without perforation or abscess without bleeding; K59.00 Constipation, unspecified; M62.08 Separation of muscle (nontraumatic), other site; Z88.0 Allergy status to penicillin; Z88.2 Allergy status to sulfonamides; Z88.5 Allergy status to narcotic agent; Z91.041 Radiographic dye allergy status; Z79.899 Other long term (current) drug therapy; Z71.6 Tobacco abuse counseling
CPT/HCPCS: 36415; 70450; 74019; 74176; 80048; 80053; 81001; 82150; 83605; 83690; 83735; 84100; 85025; 85652; 86140; 87040; 94640; 96374; 96375; 99285

== ENCOUNTER 2023-09-13 20:25 | Emergency (ER) | payer MEDICARE, OTHER ==
--- NOTE | 2023-09-13 21:13 | ED ---
General Adult HPI - General Chief complaint: Recheck/Abnormal Lab/Rx Stated complaint: Abd Swollen-Post Surgery Time Seen by Provider: 09/13/23 20:40 Source: patient, family, RN notes reviewed Mode of arrival: wheelchair Limitations: no limitations - History of Present Illness Initial comments: This is a 63-year-old female with a history of of ventral hernia repair who presents the emergency department with complaint of abdominal pain. States that she underwent open ventral hernia repair with mesh earlier in the week. She is concerned that her abdominal incision is not healing well with reports of there being "bumps "on her stomach. She endorses chills, but is on no aware of fevers at home. She denies nausea, vomiting, diarrhea. Patient states that she had an episode of hematuria yesterday, denies dysuria, frequency, urgency. Patient's daughter is in the room states that she feels like the patient's baseline mentation has changed and she has been acting more confused since she has been home from the hospital. Patient was not discharged on antibiotics and given short course of pain medication to take as needed. Follow-up appointment with surgeon is in 3 weeks. - Related Data Home Medications Medication Instructions Recorded Confirmed Metoprolol Succinate [Toprol XL] 100 mg PO DAILY 05/02/22 08/13/23 Omeprazole 20 mg PO BID 11/27/22 08/13/23 Acetaminophen-Codeine 300-30mg 1 tab PO TID PRN 04/10/23 08/13/23 [Tylenol w/codeine #3] Albuterol Inhaler [Ventolin Hfa 1 - 2 puff INHALATION RT-Q6H PRN 04/10/23 08/13/23 Inhaler] Losartan [Cozaar] 25 mg PO DAILY 04/10/23 08/13/23 Prazosin HCl 2 mg PO HS 04/10/23 08/13/23 lamoTRIgine [LaMICtal] 100 mg PO BID 04/10/23 08/13/23 traZODone HCL [Desyrel] 150 mg PO HS 05/27/23 08/13/23 QUEtiapine FUMARATE [SEROquel] 600 mg PO HS 08/13/23 08/13/23 Previous Rx's Medication Instructions Recorded Ipratropium-Albuterol Nebulize 3 ml INHALATION RT-QID PRN 30 Days 04/15/23 [Duoneb 0.5 mg-3 mg/3 ml Soln] #120 each Ondansetron Odt [Zofran ODT] 4 mg PO Q8HR PRN #16 tab 07/11/23 Lactulose [Cephulac] 20 gm PO BID #360 ml 08/20/23 Pantoprazole [Protonix] 40 mg PO DAILY #30 tab 08/20/23 Nitrofurantoin Monohyd/M-Cryst 100 mg PO Q12HR #14 cap 09/13/23 [Macrobid] Allergies Allergy/AdvReac Type Severity Reaction Status Date / Time Penicillins Allergy SWELLING Verified 09/13/23 20:30 OF LEGS Sulfa (Sulfonamide Allergy Rash/Hives Verified 09/13/23 20:30 Antibiotics) iodine AdvReac RAPID Verified 09/13/23 20:30 HEART BEAT morphine AdvReac Vomiting Verified 09/13/23 20:30 Review of Systems ROS Statement: Those systems with pertinent positive or pertinent negative responses have been documented in the HPI. ROS Other: All systems not noted in ROS Statement are negative. Past Medical History Past Medical History: GI Bleed, Hypertension, Osteoarthritis (OA), Seizure Disorder Additional Past Medical History / Comment(s): diverticulitis, PSUEDO SIEZURES - LAST AUGUST 2021, RECENT TREATMENT FOR ALCOH[facility]UANA [facility]. pancreatitis History of Any Multi-Drug Resistant Organisms: None Reported Past Surgical History: Appendectomy, Bladder Surgery, Bowel Resection, Section, Cholecystectomy, Hernia Repair, Hysterectomy Additional Past Surgical History / Comment(s): BILATERAL CATARACT SURGERY WITH IMPLANTS , open sigmoid colectomy . Past Anesthesia/Blood Transfusion Reactions: No Reported Reaction, Motion Sickness Past Psychological History: Anxiety, PTSD Smoking Status: Current every day smoker Past Alcohol Use History: None Reported Past Drug Use History: Marijuana - Past Family History Mother Family Medical History: Hypertension General Exam Limitations: no limitations General appearance: alert, in no apparent distress Head exam: Present: atraumatic, normocephalic, normal inspection Eye exam: Present: normal appearance, PERRL, EOMI. Absent: scleral icterus, conjunctival injection, periorbital swelling ENT exam: Present: normal exam, mucous membranes moist Neck exam: Present: normal inspection. Absent: tenderness, meningismus, lymphadenopathy Respiratory exam: Present: normal lung sounds bilaterally. Absent: respiratory distress, wheezes, rales, rhonchi, stridor Cardiovascular Exam: Present: regular rate, normal rhythm, normal heart sounds. Absent: systolic murmur, diastolic murmur, rubs, gallop, clicks GI/Abdominal exam: Present: soft, distended, tenderness, guarding, normal bowel sounds, other (vertical incisional wound over the anterior abdomen measuring roughly 8-10 cm, incision clean, dry, intact, no surruonding erythema or purulence). Absent: rigid Extremities exam: Present: normal inspection, full ROM, normal capillary refill. Absent: tenderness, pedal edema, joint swelling, calf tenderness Back exam: Present: normal inspection Neurological exam: Present: alert, oriented X3, CN II-XII intact Psychiatric exam: Present: normal affect, normal mood Skin exam: Present: warm, dry, intact, normal color, other (see above). Absent: rash Course Vital Signs 09/13/23 09/13/23 09/13/23 20:28 21:50 22:07 Temperature 98.6 F Pulse Rate 84 80 Respiratory 18 16 Rate Blood Pressure 138/81 126/79 O2 Sat by Pulse 92 L 93 L 95 Oximetry 09/13/23 23:19 Temperature Pulse Rate 79 Respiratory 16 Rate Blood Pressure 116/81 O2 Sat by Pulse 95 Oximetry Medical Decision Making - Medical Decision Making Was pt. sent in by a medical professional or institution (, PA, CAN LABELER, urgent care, hospital, or alf...) When possible be specific @ -No Did you speak to anyone other than the patient for history (EMS, parent, family, police, friend...)? What history was obtained from this source @ -No Did you review nursing and triage notes (agree or disagree)? Why? @ -I reviewed and agree with nursing and triage notes Were old charts reviewed (outside hosp., previous admission, EMS record, old EKG, old radiological studies, urgent care reports/EKG's, alf records)? Report findings @ -Previous emergency department visit notes reviewed from July 2023 patient presented for abdominal pain due to known ventral hernia. Differential Diagnosis (chest pain, altered mental status, abdominal pain women, abdominal pain men, vaginal bleeding, weakness, fever, dyspnea, syncope, headache, dizziness, GI bleed, back pain, seizure, CVA, palpatations, mental health, musculoskeletal)? @ -Differential Abdominal Pain Women: Appendicitis, Cholecystitis, diverticulosis, ischemic bowel, pancreatitis, hepatitis, UTI, gastroenteritis, AAA, incarcerated hernia, bowel obstruction, constipation, inflammatory bowel, hepatitis, peptic ulcer disease, splenic infarction, perforated viscus, vulvitis, ovarian torsion, PID, kidney stone, placenta abruption, this is not meant to be an all-inclusive list EKG interpreted by me (3pts min.). @ -None X-rays interpreted by me (1pt min.). @ -None done CT interpreted by me (1pt min.). @ -CT abdomen pelvis without contrast reveals no residual or recurrent hernia, postoperative changes including pneumoperitoneum and soft tissue gas within the abdominal wall, 2.4 cm fluid and gas containing collection within the anterior abdominal wall and 1.1 cm gas collection of postoperative changes U/S interpreted by me (1pt. min.). @ -None done What testing was considered but not performed or refused? (CT, X-rays, U/S, labs)? Why? @ -None What meds were considered but not given or refused? Why? @ -None Did you discuss the management of the patient with other professionals (professionals i.e. , PA, CAN LABELER, lab, RT, psych nurse, social sciences professor, dental scheduler, teacher, community liaison officer, casework manager)? Give summary @ -No Was smoking cessation discussed for >3mins.? @ -No Was critical care preformed (if so, how long)? @ -No Were there social determinants of health that impacted care today? How? (Homelessness, low income, unemployed, alcoholism, drug addiction, transportation, low edu. Level, literacy, decrease access to med. care, half-way, rehab)? @ -No Was there de-escalation of care discussed even if they declined (Discuss DNR or withdrawal of care, Hospice)? DNR status @ -No What co-morbidities impacted this encounter? (DM, HTN, Smoking, COPD, CAD, Cancer, CVA, ARF, Chemo, Hep., AIDS, mental health diagnosis, sleep apnea, morbid obesity)? @ -None Was patient admitted / discharged? Hospital course, mention meds given and route, prescriptions, significant lab abnormalities, going to OR and other pertinent info. @ -63-year-old female with abdominal pain. On examination patient noted to have large vertical incisional wound on the anterior abdomen that is well- approximated with no signs of erythema, dehiscence, purulence. Patient is tender over all quadrants of the abdomen with light palpation, abdomen is soft and nonrigid. Patient given IV pain medication. Laboratory results reveal a leukocytosis of 13.7. Urinalysis remarkable for signs of infection including po sitive nitrates, large leukocyte esterase and red blood cells, white blood cells. CMP unremarkable for electrolyte abnormalities, kidney liver function within normal limits. Patient CT no acute process noted at this time, there are postsurgical changes noted. Will be given shot of Rocephin for urinary tract infection in addition to outpatient prescription of Macrobid. Discussed with patient strict return parameters. Recommend follow-up with primary care provider next week for resolution of urinary tract infection in addition to postsurgical follow-up. Patient is in agreement with this. Discussed with Dr. Dumont Undiagnosed new problem with uncertain prognosis? @ -No Drug Therapy requiring intensive monitoring for toxicity (Heparin, Nitro, Insulin, Cardizem)? @ -No Were any procedures done? @ -No Diagnosis/symptom? @ -abdominal pain, UTI, s/p ventral hernia repair Acute, or Chronic, or Acute on Chronic? @ -acute Uncomplicated (without systemic symptoms) or Complicated (systemic symptoms)? @ -uncomplicated Side effects of treatment? @ -No Exacerbation, Progression, or Severe Exacerbation? @ -No Poses a threat to life or bodily function? How? (Chest pain, [place], [place], pneumonia, PE, COPD, DKA, ARF, appy, cholecystitis, CVA, Diverticulitis, Homicidal, Suicidal, threat to staff... and all critical care pts) @ -No - Lab Data Result diagrams: 09/13/23 21:45 09/13/23 21:45 Lab Results 09/13/23 09/13/23 09/13/23 Range/Units 21:22 21:45 21:45 WBC 13.7 H (3.8-10.6) k/uL RBC 4.26 (3.80-5.40) m/uL Hgb 13.6 (11.4-16.0) gm/dL Hct 39.4 (34.0-46.0) % MCV 92.5 (80.0-100.0) fL MCH 32.0 (25.0-35.0) pg MCHC 34.6 (31.0-37.0) g/dL RDW 13.2 (11.5-15.5) % Plt Count 338 (150-450) k/uL MPV 8.1 Neutrophils % (Manual) 80 % Lymphocytes % (Manual) 13 % Monocytes % (Manual) 2 % Eosinophils % (Manual) 5 % Neutrophils # (Manual) 10.96 H (1.3-7.7) k/uL Lymphocytes # (Manual) 1.78 (1.0-4.8) k/uL Monocytes # (Manual) 0.27 (0-1.0) k/uL Eosinophils # (Manual) 0.69 (0-0.7) k/uL Nucleated RBCs 0 (0-0) /100 WBC Manual Slide Review Performed RBC Morphology Normal Sodium 138 (137-145) mmol/L Potassium 3.7 (3.5-5.1) mmol/L Chloride 109 H (98-107) mmol/L Carbon Dioxide 20 L (22-30) mmol/L Anion Gap 9 mmol/L BUN 10 (7-17) mg/dL Creatinine 0.70 (0.52-1.04) mg/dL Est GFR (CKD-EPI)AfAm >90 (>60 ml/min/1.73 sqM) Est GFR (CKD-EPI)NonAf >90 (>60 ml/min/1.73 sqM) Glucose 113 H (74-99) mg/dL Plasma Lactic Acid Keith (0.7-2.0) mmol/L Calcium 9.0 (8.4-10.2) mg/dL Total Bilirubin 1.6 H (0.2-1.3) mg/dL AST 39 H (14-36) U/L ALT 48 H (4-34) U/L Alkaline Phosphatase 94 (38-126) U/L Total Protein 6.4 (6.3-8.2) g/dL Albumin 3.6 (3.5-5.0) g/dL Amylase 37 (30-110) U/L Lipase 25 (23-300) U/L Urine Color Yellow Urine Appearance Cloudy H (Clear) Urine pH 6.0 (5.0-8.0) Ur Specific [place] 1.022 (1.001-1.035) Urine Protein 1+ H (Negative) Urine Glucose (UA) Negative (Negative) Urine Ketones Negative (Negative) Urine Blood Moderate H (Negative) Urine Nitrite Positive H (Negative) Urine Bilirubin Negative (Negative) Urine Urobilinogen <2.0 (<2.0) mg/dL Ur Leukocyte Esterase Large H (Negative) Urine RBC >182 H (0-5) /hpf Urine WBC 165 H (0-5) /hpf Urine WBC Clumps Rare H (None) /hpf Ur Squamous Epith Cells 8 H (0-4) /hpf Ur Transition Epith Cell <1 (0-1) /hpf Amorphous Sediment Rare H (None) /hpf Urine Bacteria Occasional H (None) /hpf Urine Mucus Rare H (None) /hpf Urine Yeast (Budding) Rare H (None) /hpf 09/13/23 Range/Units 21:45 WBC (3.8-10.6) k/uL RBC (3.80-5.40) m/uL Hgb (11.4-16.0) gm/dL Hct (34.0-46.0) % MCV (80.0-100.0) fL MCH (25.0-35.0) pg MCHC (31.0-37.0) g/dL RDW (11.5-15.5) % Plt Count (150-450) k/uL MPV Neutrophils % (Manual) % Lymphocytes % (Manual) % Monocytes % (Manual) % Eosinophils % (Manual) % Neutrophils # (Manual) (1.3-7.7) k/uL Lymphocytes # (Manual) (1.0-4.8) k/uL Monocytes # (Manual) (0-1.0) k/uL Eosinophils # (Manual) (0-0.7) k/uL Nucleated RBCs (0-0) /100 WBC Manual Slide Review RBC Morphology Sodium (137-145) mmol/L Potassium (3.5-5.1) mmol/L Chloride (98-107) mmol/L Carbon Dioxide (22-30) mmol/L Anion Gap mmol/L BUN (7-17) mg/dL Creatinine (0.52-1.04) mg/dL Est GFR (CKD-EPI)AfAm (>60 ml/min/1.73 sqM) Est GFR (CKD-EPI)NonAf (>60 ml/min/1.73 sqM) Glucose (74-99) mg/dL Plasma Lactic Acid Keith 1.1 (0.7-2.0) mmol/L Calcium (8.4-10.2) mg/dL Total Bilirubin (0.2-1.3) mg/dL AST (14-36) U/L ALT (4-34) U/L Alkaline Phosphatase (38-126) U/L Total Protein (6.3-8.2) g/dL Albumin (3.5-5.0) g/dL Amylase (30-110) U/L Lipase (23-300) U/L Urine Color Urine Appearance (Clear) Urine pH (5.0-8.0) Ur Specific [place] (1.001-1.035) Urine Protein (Negative) Urine Glucose (UA) (Negative) Urine Ketones (Negative) Urine Blood (Negative) Urine Nitrite (Negative) Urine Bilirubin (Negative) Urine Urobilinogen (<2.0) mg/dL Ur Leukocyte Esterase (Negative) Urine RBC (0-5) /hpf Urine WBC (0-5) /hpf Urine WBC Clumps (None) /hpf Ur Squamous Epith Cells (0-4) /hpf Ur Transition Epith Cell (0-1) /hpf Amorphous Sediment (None) /hpf Urine Bacteria (None) /hpf Urine Mucus (None) /hpf Urine Yeast (Budding) (None) /hpf Disposition Clinical Impression: Urinary tract infection, S/P repair of ventral hernia, Abdominal pain Narrative: Please return to the Emergency Department if symptoms worsen or any other concerns. Complete full course of antibiotics as prescribed. Follow-up with your primary care provider next week for further evaluation and resolution of urinary tract infection. Disposition: HOME SELF-CARE Condition: Good Prescriptions: Nitrofurantoin Monohyd/M-Cryst [Macrobid] 100 mg PO Q12HR #14 cap Is patient prescribed a controlled substance at d/c from ED?: No Referrals: Elina Garcia MD [Primary Care Provider] - 1-2 days Time of Disposition: 23:58
[2023-09-13] MEDS: ONDANSETRON 4 MG/2 ML VIAL IVP STA (21:45)
[2023-09-13] MEDS: HYDROmorphone 1 MG/ML 1 ML SYRINGE IVP STA ×2 (21:47→22:53)
[2023-09-13 22:15] LABS: Amorphous Sediment,Urine Rare /hpf; Appearance,Urine Cloudy (Clear); Bacteria,Urine Occasional /hpf; Bilirubin,Urine Negative (Negative); Blood,Urine Moderate (Negative); Budding Yeast,Urine Rare /hpf; Color,Urine Yellow; Glucose,Urine (UA) Negative (Negative); Ketones,Urine Negative (Negative); Leukocyte Esterase,Urine Large (Negative); Mucus,Urine Rare /hpf; Nitrite,Urine Positive (Negative); Protein,Urine 1+ (Negative); RBC,Urine >182 /hpf (0-5); Specific Gravity,Urine 1.022 (1.001-1.035); Squamous Epithelial Cell,Urine 8 /hpf (0-4); Transitional Epi Cells,Urine <1 /hpf (0-1); Urobilinogen,Urine <2.0 mg/dL (<2.0); WBC,Urine 165 /hpf (0-5)
[2023-09-13 22:19] LABS: HCT 39.4 % (34.0-46.0); HGB 13.6 gm/dL (11.4-16.0); MCHC 34.6 g/dL (31.0-37.0); MCV 92.5 fL (80.0-100.0); Mean Platelet Volume 8.1; Platelet Count 338 k/uL (150-450); RBC 4.26 m/uL (3.80-5.40); RDW 13.2 % (11.5-15.5); WBC 13.7 k/uL (3.8-10.6)
[2023-09-13 23:03] LABS: Eosinophils # (M) 0.69 k/uL (0-0.7); Lymphocytes # (M) 1.78 k/uL (1.0-4.8); Monocytes # (M) 0.27 k/uL (0-1.0); Neutrophils # (M) 10.96 k/uL (1.3-7.7); Neutrophils % (M) 80 %; Nucleated Red Blood Cells 0 /100 WBC (0-0); Total Cells Counted 100
[2023-09-13 23:04] LABS: RBC Morphology Normal
[2023-09-13 23:16] LABS: ALT 48 U/L (4-34); AST 39 U/L (14-36); African American GFR (CKD) >90 (>60 ml/min/1.73 sqM); Albumin 3.6 g/dL (3.5-5.0); Alkaline Phosphatase 94 U/L (38-126); Amylase 37 U/L (30-110); Anion Gap 9 mmol/L; Blood Urea Nitrogen 10 mg/dL (7-17); Carbon Dioxide 20 mmol/L (22-30); Chloride 109 mmol/L (98-107); Glucose 113 mg/dL (74-99); Lipase 25 U/L (23-300); Non-African American GFR(CKD) >90 (>60 ml/min/1.73 sqM); Potassium 3.7 mmol/L (3.5-5.1); Sodium 138 mmol/L (137-145); Total Bilirubin 1.6 mg/dL (0.2-1.3); Total Protein 6.4 g/dL (6.3-8.2)
--- NOTE | 2023-09-13 23:47 | CT ---
EXAMINATION TYPE: CT abdomen pelvis wo con CT DLP: 841.9 mGycm, Automated exposure control for dose reduction was used. DATE OF EXAM: 09/13/2023 9:48 PM COMPARISON: CT 08/19/2023 CLINICAL INDICATION:Female, 63 years old with history of abdominal pain, hernia repair 09/09; Hernia r epair 09/09. Increased abdominal pain since surgery TECHNIQUE: Axial CT of the abdomen and pelvis. Sagittal and coronal reformats were created on a [employer] workstation. Contrast used: mL of , (none if empty) Oral contrast used: without Oral Contrast (none if empty) FINDINGS: Exam is limited without contrast. LOWER CHEST: Similar to slightly greater dependent opacities in the lung bases, likely atelectasis. H eart size upper normal. Mild/moderate coronary arterial and mild mitral calcifications. No pericardia l effusion. Prominent pericardial fat. ABDOMEN LIVER: Stable GALLBLADDER AND BILE DUCTS: The gallbladder is surgically absent. Biliary tree does not appear pathol ogically dilated. PANCREAS: Unremarkable. SPLEEN: Unremarkable. ADRENAL GLANDS: Unremarkable. KIDNEYS AND URETERS: No evidence of renal calculus or hydronephrosis. Stable small exophytic nodules from the posterior left kidney, and superomedial left kidney, likely cysts. PELVIS BLADDER: Incompletely distended, grossly unremarkable. REPRODUCTIVE: Reproductive organs again appear absent, correlate with surgical history. ABDOMEN & PELVIS STOMACH AND BOWEL: Stomach and small bowel are nondistended, no evidence of obstruction. The append ix is not seen with certainty but there is no inflammatory process seen in the pericecal region. Mode rate amount of stool and gas in the proximal aspects of the colon. Colon appears tortuous and redunda nt. There is anastomosis seen in the region of the mid sigmoid. There are a few colonic diverticula w ithout signs of diverticulitis. PERITONEUM/RETROPERITONEUM: Multiple small foci of pneumoperitoneum in the abdomen, and a couple of small foci within the anterior inferior pericardial fat. No free fluid. VASCULATURE: Mild to moderate atherosclerotic calcifications are present throughout the abdominal aor ta and its branches. No evidence of aortic aneurysm. LYMPH NODES: No enlarged nodes by CT size criteria. SOFT TISSUE/ABDOMINAL WALL: Interval herniorrhaphy has been performed for the repair of multiple prev iously seen ventral abdominal wall hernias. There may be herniorrhaphy mesh present. No residual or r ecurrent hernia of any significant size. There is a fluid and gas containing collection with an air-f luid level in the anterior abdominal wall just right of midline measuring 2.4 x 1.7 cm. There is also a nearby rounded gas containing collection measuring 1.1 x 1.1 cm. Soft tissue stranding in the anterior abdominal wall with multiple areas of abdominal wall soft tissu e gas, mostly on the left, seems likely normal given recent surgery. Scattered soft tissue gas extend s on the left inferiorly as far as the upper thigh. There are couple small foci on the right as well. MUSCULOSKELETAL: No acute osseous abnormalities. Mild degenerative changes of the spine. IMPRESSION: 1. Status post herniorrhaphy for the multiple ventral abdominal wall hernias previously seen. No res idual/recurrent hernia is identified. 2. Likely normal postoperative changes related to #1, including pneumoperitoneum, soft tissue gas wi thin the abdominal wall extending to the left upper thigh, and predominantly midline soft tissue stra nding in the anterior abdominal wall. 3. A 2.4 cm fluid and gas containing collection within the anterior abdominal wall just right of mid line, and nearby 1.1 cm gas-containing collection, may be sequela of resolving postoperative changes/ seroma or hematoma. Sterility however cannot be guaranteed. Recommend clinical correlation and follow -up. 4. Otherwise, no clearly acute abnormality demonstrated.
[2023-09-14] MEDS: cefTRIAXone IN SWFI 1,000 MG/10 ML SYRINGE IVP STA (00:05)
[2023-09-14] MEDS: ACET/COD 300 MG/30 MG STARTER PACK 6 TAB BTL PO STA (00:05)
[2023-09-14 00:29] VITALS: BP 124/89; PULSE 88; RESP 18; TEMP 98.7
== END 2023-09-14 00:13 | disposition home or self-care (01) ==
LOC: EC 20:25
DX: N39.0 Urinary tract infection, site not specified (principal); F17.200 Nicotine dependence, unspecified, uncomplicated; Z88.0 Allergy status to penicillin; Z88.2 Allergy status to sulfonamides; Z88.5 Allergy status to narcotic agent; Z88.8 Allergy status to other drugs, medicaments and biological substances
CPT/HCPCS: 36415; 80053; 82150; 83605; 83690; 85025; 81001; 74176; 99284; 96374; 96375 ×2; 96376; J2405; J1170

== ENCOUNTER 2023-10-26 17:48 | Emergency (ER) | payer MEDICARE ==
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
[2023-10-26 18:12] VITALS: TEMP 98.1
--- NOTE | 2023-10-26 18:39 | XR ---
EXAMINATION TYPE: XR chest 2V DATE OF EXAM: 10/26/2023 COMPARISON: 05/27/2023 INDICATION: Seizure altered mental status TECHNIQUE: Frontal and lateral views of the chest are obtained. FINDINGS: The heart size is normal. The pulmonary vasculature is normal. Minimal infiltrate may be at the left base. Correlate for atelectasis. Small right pleural effusion i s not excluded. IMPRESSION: 1. Clinical consideration for mild lingular atelectasis. 2. Small right costophrenic angle pleural fluid may be present.
--- NOTE | 2023-10-26 18:44 | CT ---
EXAMINATION TYPE: CT brain brittany wo con DATE OF EXAM: 10/26/2023 COMPARISON: 08/17/2023 HISTORY: Seizure x today, fell x 1 week ago with head injury CT DLP: 1374.9 mGycm, Automated exposure control for dose reduction was used. CONTRAST: Patient injected with 0 mL of Isovue 300. CT of the brain is performed utilizing 3 mm thick sections through the posterior fossa and 3 mm thick sections through the remaining calvarium. Study is performed within 24 hours of arrival to the hospital. No abnormal hyperdensity is present to suggest an acute intracranial hemorrhage. No mass lesion is evident. No acute infarcts are evident. Ventricles and sulci are appropriate for the patient age. Paranasal sinuses and mastoid air cells within the [id number] are clear. IMPRESSIONS: 1. No acute intracranial process. Follow-up MRI can be performed as clinically indicated. CT cervical spine. COMPARISON: None CT of the cervical spine is performed in the axial plane at 2 mm thick sections. Reconstructed image s in the coronal, and sagittal plane are reviewed on the computer. No acute fractures are evident. Vertebral body alignment is normal. Disc space narrowing is present at C5-6. Some posterior endplate spurring is present inferior endplat e of C5. Vertebral body heights are preserved. No spinal canal stenosis is evident. Uncovertebral joint hypertrophy is present C4-5 with mild right foraminal stenosis. Moderate bilatera l foraminal narrowing greater on the right is present C5-6. Some mild foraminal narrowing is present at C6-7. Spina bifida occulta of C1 is evident. IMPRESSION: 1. No acute osseous abnormality cervical spine. 2. Mild degenerative disc changes. 3. Uncovertebral joint hypertrophy with some foraminal narrowing, greater on the right, discussed abo ve.
[2023-10-26 21:01] LABS: Basophils # (A) 0.1 k/uL (0-0.2); Basophils % (A) 1 %; Eosinophils # (A) 0.2 k/uL (0-0.7); Eosinophils % (A) 2 %; HCT 41.4 % (34.0-46.0); HGB 13.6 gm/dL (11.4-16.0); Lymphocytes # (A) 3.3 k/uL (1.0-4.8); Lymphocytes % (A) 26 %; MCHC 32.8 g/dL (31.0-37.0); MCV 94.6 fL (80.0-100.0); Mean Platelet Volume 7.3; Monocytes # (A) 0.8 k/uL (0-1.0); Monocytes % (A) 7 %; Neutrophils # (A) 7.6 k/uL (1.3-7.7); Neutrophils % (A) 61 %; Platelet Count 423 k/uL (150-450); RBC 4.38 m/uL (3.80-5.40); RDW 12.7 % (11.5-15.5); WBC 12.5 k/uL (3.8-10.6)
[2023-10-26 21:12] LABS: ALT 22 U/L (4-34); AST 26 U/L (14-36); African American GFR (CKD) 52 (>60 ml/min/1.73 sqM); Albumin 4.3 g/dL (3.5-5.0); Alkaline Phosphatase 103 U/L (38-126); Anion Gap 8 mmol/L; Blood Urea Nitrogen 18 mg/dL (7-17); Calcium 9.4 mg/dL (8.4-10.2); Carbon Dioxide 25 mmol/L (22-30); Chloride 106 mmol/L (98-107); Glucose 95 mg/dL (74-99); Magnesium 1.8 mg/dL (1.6-2.3); Non-African American GFR(CKD) 45 (>60 ml/min/1.73 sqM); Potassium 3.7 mmol/L (3.5-5.1); Sodium 139 mmol/L (137-145); Total Bilirubin 0.9 mg/dL (0.2-1.3); Total Protein 6.9 g/dL (6.3-8.2)
[2023-10-26 21:19] LABS: INR 0.9 (<1.2); Prothrombin Time 10.1 sec (10.0-12.5)
[2023-10-26 21:31] LABS: Alcohol <10 mg/dL
[2023-10-26] MEDS: ACETAMINOPHEN TAB 500 MG TAB PO STA (21:36)
[2023-10-26 22:15] LABS: Amorphous Sediment,Urine Rare /hpf; Appearance,Urine Cloudy (Clear); Bacteria,Urine Moderate /hpf; Bilirubin,Urine Negative (Negative); Blood,Urine Negative (Negative); Color,Urine Yellow; Glucose,Urine (UA) Negative (Negative); Hyaline Casts,Urine 202 /lpf (0-2); Ketones,Urine Negative (Negative); Leukocyte Esterase,Urine Small (Negative); Mucus,Urine Few /hpf; Nitrite,Urine Negative (Negative); PH, Urine 5.5 (5.0-8.0); Protein,Urine Trace (Negative); RBC,Urine 3 /hpf (0-5); Renal Epithelial Cells,Urine <1 /hpf (0); Specific Gravity,Urine 1.022 (1.001-1.035); Squamous Epithelial Cell,Urine 25 /hpf (0-4); Urobilinogen,Urine <2.0 mg/dL (<2.0); WBC,Urine 15 /hpf (0-5)
[2023-10-26 22:19] VITALS: RESP 17
[2023-10-26 22:20] LABS: Amphetamine Screen,Urine Not Detected (NotDetected); Barbiturate Screen,Urine Not Detected (NotDetected); Benzodiazepines Screen,Urine Detected (NotDetected); Cocaine Screen,Urine Not Detected (NotDetected); Methadone Screen, Urine Not Detected (NotDetected); Opiate Screen,Urine Detected (NotDetected); Oxycodone Screen, Urine Not Detected (NotDetected); Phencyclidine Screen,Urine Not Detected (NotDetected); Tricyclic Antidepressant,Urine Detected (NotDetected); Urn Cannabinoid Scrn Detected (NotDetected)
[2023-10-26] MEDS: CIPROFLOXACIN HCL 250 MG TAB PO STA (22:34)
[2023-10-26 23:10] VITALS: BP 126/78; PULSE 80
== END 2023-10-26 22:36 | disposition home or self-care (01) ==
LOC: EC 17:48
DX: S09.90XA Unspecified injury of head, initial encounter (principal); N39.0 Urinary tract infection, site not specified; J44.9 Chronic obstructive pulmonary disease, unspecified; F12.10 Cannabis abuse, uncomplicated; F17.200 Nicotine dependence, unspecified, uncomplicated; Z16.35 Resistance to multiple antimicrobial drugs; Z88.0 Allergy status to penicillin; Z88.2 Allergy status to sulfonamides; Z88.5 Allergy status to narcotic agent; Z88.8 Allergy status to other drugs, medicaments and biological substances; Z90.49 Acquired absence of other specified parts of digestive tract; Z91.041 Radiographic dye allergy status; W01.198A Fall on same level from slipping, tripping and stumbling with subsequent striking against other object, initial encounter
CPT/HCPCS: 36415; 93005; 80053; 82140; 83735; 84443; 84484; 85025; 85610; 85730; 81001; 80306; 71046; 72125; 70450; 99285; G0480; 80320

== ENCOUNTER 2023-12-20 10:03 | Emergency (ER) | payer MEDICARE ==
[2023-12-20 10:14] VITALS: RESP 18; TEMP 97.5
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
[2023-12-20] MEDS: SODIUM CHLORIDE 0.9% 1,000 ML IV STA (11:28)
[2023-12-20] MEDS: ONDANSETRON 4 MG/2 ML VIAL IVP STA (11:29)
[2023-12-20] MEDS: HYDROmorphone 1 MG/ML 1 ML SYRINGE IVP STA ×2 (11:32→13:59)
[2023-12-20 11:38] LABS: Basophils % (A) 0 %; Eosinophils # (A) 0.2 k/uL (0-0.7); Eosinophils % (A) 1 %; HCT 42.3 % (34.0-46.0); HGB 14.8 gm/dL (11.4-16.0); Lymphocytes # (A) 2.6 k/uL (1.0-4.8); Lymphocytes % (A) 21 %; MCH 31.9 pg (25.0-35.0); MCHC 34.9 g/dL (31.0-37.0); MCV 91.3 fL (80.0-100.0); Mean Platelet Volume 7.4; Monocytes # (A) 1.3 k/uL (0-1.0); Monocytes % (A) 10 %; Neutrophils % (A) 64 %; Platelet Count 422 k/uL (150-450); RBC 4.63 m/uL (3.80-5.40); RDW 13.5 % (11.5-15.5); WBC 12.5 k/uL (3.8-10.6)
[2023-12-20 11:48] LABS: Partial Thromboplastin Time 24.4 sec (22.0-30.0); Prothrombin Time 10.6 sec (10.0-12.5)
[2023-12-20 11:55] LABS: ALT 23 U/L (4-34); AST 29 U/L (14-36); African American GFR (CKD) >90 (>60 ml/min/1.73 sqM); Alkaline Phosphatase 102 U/L (38-126); Amylase 52 U/L (30-110); Anion Gap 8 mmol/L; Blood Urea Nitrogen 12 mg/dL (7-17); Calcium 9.6 mg/dL (8.4-10.2); Carbon Dioxide 22 mmol/L (22-30); Chloride 110 mmol/L (98-107); Glucose 101 mg/dL (74-99); Lipase 104 U/L (23-300); Non-African American GFR(CKD) 79 (>60 ml/min/1.73 sqM); Sodium 140 mmol/L (137-145); Total Bilirubin 1.3 mg/dL (0.2-1.3); Total Protein 6.4 g/dL (6.3-8.2)
[2023-12-20] MEDS: methylPREDNISolone SOD SUCCI 125 MG/2 ML VIAL IV STA (11:58)
[2023-12-20] MEDS: FAMOTIDINE 20 MG/2 ML VIAL IV STA (12:01)
[2023-12-20] MEDS: diphenhydrAMINE 50 MG/ML 1 ML VIAL IVP STA (12:03)
--- NOTE | 2023-12-20 13:26 | CT ---
EXAMINATION TYPE: CT angio chest CT DLP: 329.1 mGycm, Automated exposure control for dose reduction was used. DATE OF EXAM: 12/20/2023 1:03 PM COMPARISON: Chest radiograph from same day. Multiple CTs of the chest with most recent on . CLINICAL INDICATION:Female, 63 years old with history of abdominal pain; TECHNIQUE/CONTRAST: CTA scan of the thorax is performed with IV Contrast, patient injected with 50 cc mL of Isovue 300, M IP images are created and reviewed these are created on a separate workstation.. FINDINGS: Pulmonary Artery: There is no evidence for a filling defect within the pulmonary vasculature to sugge st acute pulmonary embolism. The pulmonary artery is of normal size. Lungs/Pleura: Extensive dependent groundglass airspace disease bilaterally suggesting pneumonia. Airway: Large airways are patent. Heart: Heart is within normal limits for size. Vasculature: No evidence of aortic aneurysm. Mediastinum: Numerous shotty sized lymph nodes. Musculoskeletal: No acute osseous abnormalities Soft Tissues: Unremarkable. Lower neck: No significant findings. Upper Abdomen: Hiatal hernia.. Gallbladder is not identified. Correlate with surgical history of cho lecystectomy. IMPRESSION: 1. No evidence of pulmonary embolism. 2. Extensive dependent groundglass airspace disease bilaterally suggesting pneumonia 2. Peripheral groundglass pulmonary opacities consistent with atypical pulmonary infection such as CO VID-19. 3. Reactive mediastinal lymphadenopathy likely secondary to #2. Follow up recommendations for incidental pulmonary nodules, if there are any, are per [employer] or [employer]. [email or web address]
--- NOTE | 2023-12-20 13:51 | CT ---
EXAMINATION TYPE: CT abdomen pelvis w con CT DLP: 1184.2 mGycm, Automated exposure control for dose reduction was used. DATE OF EXAM: 12/20/2023 1:03 PM COMPARISON: CT abdomen pelvis most recent from CLINICAL INDICATION:Female, 63 years old with history of abdominal pain; N/V/D history of hernias. TECHNIQUE: Axial CT abdomen pelvis w con;Sagittal and coronal reformats were created on a separate w orkstation. Contrast used:80 cc mL of Isovue 300 with IV Contrast, (none if empty) Oral contrast used: without Oral Contrast (none if empty) FINDINGS: LOWER CHEST: Minimal dependent atelectasis in the bases. No pleural effusion. ABDOMEN LIVER: Unremarkable GALLBLADDER AND BILE DUCTS: Cholecystectomy clips in the gallbladder fossa. PANCREAS: Unremarkable. SPLEEN: Unremarkable. ADRENAL GLANDS: Unremarkable. KIDNEYS AND URETERS: No evidence of hydronephrosis or renal calculus. The ureters are unremarkable. PELVIS BLADDER: Unremarkable REPRODUCTIVE: Unremarkable. ABDOMEN & PELVIS STOMACH AND BOWEL: No evidence of bowel obstruction. PERITONEUM/RETROPERITONEUM: Small volume of free fluid in the pelvis. Unknown etiology. VASCULATURE: No evidence of aortic aneurysm. MUSCULOSKELETAL: No acute osseous abnormalities LYMPH NODES: No gross evidence for lymphadenopathy. SOFT TISSUE/ABDOMINAL WALL: Hernia repairs are intact.. Linear scarring, edema or fluid around the ventral repairs. Possible fistula. Correlate clinically with physical exam. IMPRESSION: 1. Small volume of free fluid in the pelvis of unknown etiology. 2. Linear scarring, edema versus fluid around the ventral hernia repair. Correlate clinically with ph ysical exam.
[2023-12-20 15:38] VITALS: BP 144/80; PULSE 84
== END 2023-12-20 15:38 | disposition home or self-care (01) ==
LOC: EC 10:03
DX: R10.13 Epigastric pain (principal); R91.8 Other nonspecific abnormal finding of lung field; F17.200 Nicotine dependence, unspecified, uncomplicated; Z88.0 Allergy status to penicillin; Z88.2 Allergy status to sulfonamides; Z88.5 Allergy status to narcotic agent; Z91.041 Radiographic dye allergy status
CPT/HCPCS: 36415; 80053; 80175; 82150; 83690; 85025; 85610; 85730; 71275; 74177; 99284; 96374; 96375 ×4; 96376; 96361 ×4; J1200; J2405; J3490; J1170; Q9967; J2919

== ENCOUNTER → 2024-12-15 | Outpatient (CLI) | payer MEDICARE | LOC: CPPFTMAIN 09:13 | PROVIDERS: ATTEND Family Medicine | DX: J44.9 Chronic obstructive pulmonary disease, unspecified (principal); Z88.0 Allergy status to penicillin; Z88.2 Allergy status to sulfonamides; Z88.5 Allergy status to narcotic agent; Z91.041 Radiographic dye allergy status | CPT/HCPCS: 94060; 94726; 94729 ==